=== PATIENT | female | born 1950 | race African-American/Black ===

== ENCOUNTER → 2021-05-02 12:40 | Outpatient (CLI) | payer MEDICARE, SELFPAY ==
--- NOTE | 2021-05-02 12:52 | US_ITS ---
STUDY: ULTRASOUND OF THE FEMALE PELVIS - COMPLETE REASON FOR EXAM: Female, 71 years old. Vaginal bleeding LMP: Patient is postmenopausal. TECHNIQUE: Transvaginal TECHNICAL QUALITY: Adequate. COMPARISON: None. FINDINGS: The patient is status post hysterectomy. The right ovary is non-visualized. The left ovary is non-visualized. There is no fluid in the cul-de-sac. US/Transvaginal Non- IMPRESSION: The ovaries were not visualized. Electronically Signed: Richard Barbosa MD at 15:48 EST , Service support ,
== END ==
LOC: OPUS 12:42 → US 12:48
PROVIDERS: PCP Internal Medicine; Visit Provider Urology
DX: N93.9 Abnormal uterine and vaginal bleeding, unspecified (principal)
CPT/HCPCS: 76830

== ENCOUNTER 2021-05-03 10:21 | Observation (INO) | payer MEDICARE, MEDICAID, SELFPAY ==
[2021-05-03] VITALS (9 sets, daily range): BP systolic 123–145; BP diastolic 75–90; PULSE 89–111; RESP 18–22; TEMP 36.7–37.2; O2SAT 93–94; BMI 33.8; BMI 32.0
--- NOTE | 2021-05-03 10:40 | EKG12_ITS ---
Test Reason : GEN ILLNESS Blood Pressure : / mmHG Vent. Rate : 107 BPM Atrial Rate : 107 BPM P-R Int : 134 ms QRS Dur : 076 ms QT Int : 338 ms P-R-T Axes : 029 -50 062 degrees QTc Int : 451 ms Sinus tachycardia Left axis deviation Low voltage QRS Inferior infarct , age undetermined Anterolateral infarct , age undetermined Abnormal ECG Confirmed by CHANDAN MCCORD, QUENTIN ([id number]), business editor NAVARRO PANIAGUA ([id number]) on 05/05/2021 11:39:23 AM Referred By: RICH Confirmed By:QUENTIN HAWLEY MD
--- NOTE | 2021-05-03 10:47 | EDS_ITS ---
HPI History of Present Illness Chief Complaint: General Illness Narrative Narrative: Patient presenting secondary to generalized illness. History was obtained via EMS as the patient has dementia, no family members are currently present. Patient apparently has not been acting well over the course of the last 3 days since she got her coronavirus booster. Patient has had fevers as high as 101. She has been having decreased p.o. intake and is generally weak. Patient has an old history of hypertension, CHF, heart disease, diabetes, hypothyroidism, and chronic kidney disease. Additional history was unable to be obtained from patient. [facility] Medical History (Updated 05/03/21 @ 11:[address] Saleem Gonzalez MD) Arthritis Atherosclerotic heart disease of [place] coronary artery without angina pectoris Back problem Bladder infection Cataracts, bilateral Cerebrovascular disease Chronic systolic (congestive) heart failure CKD (chronic kidney disease) stage 3, GFR 30-59 ml/min CVA (cerebral vascular accident) Dementia Depression Diabetes type 2, controlled Diabetic peripheral neuropathy Essential hypertension Gastroesophageal reflux disease GI problem Hearing problem History of gastrointestinal hemorrhage History of left heart catheterization (LHC) (~12/21/10) History of non-ST elevation myocardial infarction (NSTEMI) Hypothyroidism IBS (irritable bowel syndrome) Ischemic cardiomyopathy Mixed hyperlipidemia Old myocardial infarction Type 2 diabetes mellitus Home Medications aspirin 81 mg PO DAILY@0800 05/27/13 [History Last Taken Unknown] atorvastatin 40 mg PO QHS 05/27/13 [History Last Taken Unknown] clopidogrel 75 mg PO DAILY 05/27/13 [History Last Taken Unknown] docusate sodium 100 mg PO BID 05/27/13 [History Last Taken Unknown] levothyroxine 75 mcg PO DAILY 05/27/13 [History Last Taken Unknown] metoprolol tartrate 50 mg PO BID 05/27/13 [History Last Taken Unknown] pantoprazole 40 mg PO DAILY 05/27/13 [History Last Taken Unknown] spironolactone 25 mg PO BID 08/30/13 [History Last Taken Unknown] furosemide 40 mg tablet 40 mg PO BID tab 06/05/17 [History Last Taken Unknown] memantine 28 mg capsule sprinkle,extended release 24hr 28 mg PO Q24H 06/05/17 [History Last Taken Unknown] pen needle, diabetic 31 gauge x 5/16 #30 ea 06/05/17 [History Last Taken Unknown] calcium carb-vit D3-minerals 600 mg calcium-200 unit tablet 1 tab PO BID #60 ea 03/23/18 [Rx Last Taken Unknown] insulin lispro 100 unit/mL subcutaneous pen 20 unit SC QACLUNCH 03/19/19 [History Last Taken Unknown] insulin lispro 100 unit/mL subcutaneous pen 25 unit SC QACDINNER ml 03/19/19 [History Last Taken Unknown] insulin lispro 100 unit/mL subcutaneous pen 30 unit SC QACBREAK 03/19/19 [History Last Taken Unknown] potassium chloride 10 mEq tablet,extended release(part/cryst) 10 meq PO BID tab 03/19/19 [History Last Taken Unknown] insulin detemir U-100 100 unit/mL (3 mL) subcutaneous pen 31 unit SC BID ml 03/25/21 [History Last Taken Unknown] Allergy/AdvReac Type Severity Reaction Status Date / Time ibuprofen Allergy Other Verified 03/25/21 13:09 lisinopril Allergy Other Verified 05/03/21 10:23 Penicillins Allergy Itching Verified 03/25/21 13:09 tramadol HCl [From Ultram] Allergy Other Verified 03/25/21 13:09 Family History Mother Cancer Diabetes Father Cancer Surgical History frozen shoulder surgery H/O thyroidectomy Hx of cataract surgery Social History Smoking Status: Former smoker second hand exposure: No alcohol intake: never substance use type: does not use caffeine: Yes Type: carbonated beverages Number of servings: 1 ROS ROS ED Review of Systems ROS Unobtainable: due to mental status EXAM Physical Exam Const Vital Signs: 05/03/21 10:23 05/03/21 10:40 05/03/21 11:24 Temperature 98.1 F Temperature Source Oral Pulse Rate 111 H 103 H Respiratory Rate 20 H 18 Respiratory Effort Short of Breath Respiratory Pattern Normal Blood Pressure 145/80 H 132/88 H Blood Pressure Mean 101 102 Pulse Ox 93 93 Oxygen Delivery Method Room Air Room Air 05/03/21 11:38 05/03/21 11:40 Temperature 98.9 F Temperature Source Oral Pulse Rate 107 H Respiratory Rate 22 H Respiratory Effort Respiratory Pattern Blood Pressure 134/90 H Blood Pressure Mean 104 Pulse Ox 93 Oxygen Delivery Method Room Air Positive well nourished and well developed General Appearance ED: well developed and NAD HEENT Reports moist mucous membranes HEENT Narrative: Patient does potentially have some mild left-sided facial droop of unknown chronicity Eyes PERRL and EOMs intact bilaterally Neck supple Resp normal respiratory effort and clear to auscultation bilaterally Cardio Rate: other Other Details: 2+ radial pulses bilaterally symmetric, heart is tachycardic minimally and regular no murmurs. GI normal to inspection, nondistended, normoactive bowel sounds Extremity normal to inspection General Extremety ED: Negative for tenderness Neuro Neuro Narrative: Patient is awake and alert's, she will respond to commands and will answer yes/no questions but otherwise does not phonate. This is of unknown chronicity. She does not appear to have lateralizing motor or sensory deficits. Sensorium / Orientation: alert Skin no rashes or lesions noted MDM MDM MDM Narrative Medical decision making narrative: Patient presenting for evaluation secondary to generalized illness. Patient's did become available and was informed me that the patient has basically had decreased p.o. intake since Sunday, 6 days ago of last week. Patient did have her coronavirus booster towards the end of the week but has had continuously worsening function with decreased p.o. intake generalized fatigue and today she was actually unable to even get up. Patient's evaluation shows infiltrates on her chest x-ray, modest pulse ox at about 93% with dry mucous membranes. Patient CBC was grossly unremarkable, chemistry shows acute renal failure with BUN and creatinine at 41 and 3.6 significantly elevated from the patient's baseline. Patient also has a modestly elevated alkaline phosphatase at 120. Patient's coronavirus test was noted to be positive. Patient has multiple risk factors for worsening from her coronavirus and also has some evidence of endorgan damage with renal insufficiency. She was started on gentle hydration as she does have a history of heart disease with congestive heart failure. Patient was given a dose of Decadron. Patient be discussed with hospitalist. Lab Data Labs: Laboratory Results - last 24 hr 05/03/21 05/03/21 05/03/21 11:05 11:05 11:05 WBC 10.5 RBC 5.03 Hgb 14.0 Hct 43.1 MCV 85.7 MCH 27.8 MCHC 32.5 RDW Std Deviation 46.5 H RDW Coeff of Don 15.0 H Plt Count 203 MPV 11.9 Immature Gran % (Auto) 0.700 Neut % (Auto) 81.0 H Lymph % (Auto) 12.0 L [place] % (Auto) 6.2 Eos % (Auto) 0.0 Baso % (Auto) 0.1 Absolute Neuts (auto) 8.5 H Absolute Lymphs (auto) 1.25 Nucleated RBC % 0 PT 13.5 INR 1.1 APTT 26.3 Sodium 145 Potassium 4.2 Chloride 116 H Carbon Dioxide 19.0 L Anion Gap 10 BUN 41 H Creatinine 3.61 H Estim Creat Clear Calc 14.21 Est GFR (MDRD) Af Amer 16 L Est GFR (MDRD) Non-Af 13 L BUN/Creatinine Ratio 11.4 Glucose 216 H Lactic Acid Calcium 8.9 Total Bilirubin 0.50 AST 52 H ALT 36 Alkaline Phosphatase 120 H Total Protein 7.8 Albumin 2.3 L Globulin 5.5 H Albumin/Globulin Ratio 0.4 L 05/03/21 11:05 WBC RBC Hgb Hct MCV MCH MCHC RDW Std Deviation RDW Coeff of Don Plt Count MPV Immature Gran % (Auto) Neut % (Auto) Lymph % (Auto) [place] % (Auto) Eos % (Auto) Baso % (Auto) Absolute Neuts (auto) Absolute Lymphs (auto) Nucleated RBC % PT INR APTT Sodium Potassium Chloride Carbon Dioxide Anion Gap BUN Creatinine Estim Creat Clear Calc Est GFR (MDRD) Af Amer Est GFR (MDRD) Non-Af BUN/Creatinine Ratio Glucose Lactic Acid 2.0 Calcium Total Bilirubin AST ALT Alkaline Phosphatase Total Protein Albumin Globulin Albumin/Globulin Ratio Radiography Chest X-Ray - ED: 1 View, Read by ED Physician, Right Infiltrate and Left Infiltrate EKG Initial EKG: Attestation: I personally reviewed and interpreted this EKG as follows: (Sinus tachycardia with a rate of 107, inferolateral Q waves of unknown chronicity are noted, no evidence of pathologic ST segment deviation or T wave inversion normal intervals, no evidence of acute ischemia.) Discharge Plan Triage Chief Complaint: General Illness ED Provider: Saleem Gonzalez Dx/Rx/DC Orders Clinical Impression: COVID-19, Acute kidney injury Prescriptions: No Action furosemide 40 MG tablet 40 mg PO BID RF: 0 (DME) pen needle, diabetic [Comfort EZ Pen [place]] 31 gauge x 5/16 needle See Dose Instructions .ROUTE .MEDSUPPLY Qty: 30 RF: 0 memantine [Namenda XR] 28 mg cap,sprinkle,ER 24hr dose pack 28 mg PO Q24H RF: 0 insulin lispro [Humalog KwikPen Insulin] 100 unit/mL insulin pen 30 unit SC QACBREAK RF: 0 insulin lispro [Humalog KwikPen Insulin] 100 unit/mL insulin pen 20 unit SC QACLUNCH RF: 0 insulin lispro [Humalog KwikPen Insulin] 100 unit/mL insulin pen 25 unit SC QACDINNER RF: 0 potassium chloride 10 mEq tablet,ER particles/crystals 10 meq PO BID RF: 0 Levemir FlexTouch U-100 Insuln 100 unit/mL (3 mL) insulin pen 31 unit SC BID RF: 0 atorvastatin 40 MG tablet 40 mg PO QHS RF: 0 clopidogrel 75 MG tablet 75 mg PO DAILY RF: 0 aspirin 81 MG tablet 81 mg PO DAILY@0800 RF: 0 levothyroxine 75 MCG tablet 75 mcg PO DAILY RF: 0 pantoprazole 40 MG tablet 40 mg PO DAILY RF: 0 metoprolol tartrate 50 MG tablet 50 mg PO BID RF: 0 docusate sodium 100 MG capsule 100 mg PO BID RF: 0 spironolactone 25 MG tablet 25 mg PO BID RF: 0 calcium carb-vit D3-minerals 600 mg calcium-200 unit tablet 600 mg calcium- 200 unit tablet 1 tab PO BID Qty: 60 RF: 11 Primary Care Provider: Claude Lee Referrals: Claude Lee MD [Primary Care Provider] - Disposition Disposition: Acute Care Hospital [facility]
--- NOTE | 2021-05-03 11:25 | RAD_ITS ---
STUDY: X-RAY CHEST REASON FOR EXAM: Female, 71 years old. Cough TECHNIQUE: Single AP portable view of the chest. COMPARISON: Comparison is made with prior study dated 10/07/2011. FINDINGS: EKG electrodes are seen. Focal infiltrate in the left midlung and left lower lobe as well as at the right lung base. There is no demonstrated pleural abnormality. Normal size heart. Normal mediastinum and [place]. Normal visualized pulmonary arteries. There is atherosclerotic tortuosity of the aortic arch and descending thoracic aorta. There are diffuse degenerative changes of the visualized thoracic spine. Normal visualized ribs, clavicles, and shoulders. There is no demonstrated abnormality of the visualized soft tissue structures of the upper abdomen. RAD/Chest 1 View (Portable) IMPRESSION: Bilateral pulmonary infiltrates worse in the left hemithorax. Electronically Signed: Richard Barbosa MD at 11:56 EST , Service support ,
[2021-05-03 11:33] LABS: Absolute Lymphocyte Count 1.25 X10^3/uL (0.83-4.51); Absolute Neutrophil Count 8.5 X10^3/uL (2.0-7.7); Basophil# 0.01 X10^3/uL; Basophil% 0.1 % (0-1); Hematocrit 43.1 % (37-47); Lymphocyte # 1.25 X10^3/ul (0.83-4.51); Mean Corp Hgb Conc 32.5 g/dL (32-36); Mean Corpuscular Hgb 27.8 pg (27.0-32.0); Mean Corpuscular Volume 85.7 fL (81-99); Mean Platelet Vol. 11.9 fl (6.2-12.0); Monocyte# 0.65 X10^3/uL; Monocyte% 6.2 % (0-10); NRBC Flagged by Analyzer 0 % (0-5); Neutrophil # 8.48 X10^3/uL (2.7-7.7); Platelet Count 203 K/mm3 (150-450); RBC Distribution Width SD 46.5 fl (35.1-43.9); Red Blood Count 5.03 M/mm3 (4.2-5.4); White Blood Count 10.5 K/mm3 (4.4-11.0)
[2021-05-03] MEDS: Acetaminophen 500 MG Tablet 1000 MG PO (11:38)
[2021-05-03 11:41] LABS: International Normalized Ratio 1.1; Prothrombin Time (Protime)PT. 13.5 SECONDS (11.7-14.9)
[2021-05-03 11:42] LABS: Partial Thromboplast Time 26.3 Seconds (24.1-36.2)
[2021-05-03 11:47] LABS: ALB/GLOB Ratio 0.4 RATIO (0.9-2.4); AST(SGOT) 52 U/L (15-37); Alanine Aminotransfer ALT/SGPT 36 U/L (13-56); Albumin, Serum 2.3 g/dL (3.2-5.0); Alkaline Phosphatase 120 U/L (45-117); Anion Gap 10 (5-15); BUN 41 mg/dL (7-18); BUN/Creat Ratio 11.4 RATIO (10-20); Calcium,Total 8.9 mg/dL (8.5-10.1); Chloride 116 mmol/L (98-107); Creatinine, Serum 3.61 mg/dL (0.55-1.02); EST Glomerular Filtration Rate 13 mL/min (>60); Est Glom Filt Rate - Afr Amer 16 mL/min (>60); Estimated Creatinine Clearance 14.21 ml/min; Globulin 5.5 g/dL (2.2-4.2); Glucose 216 mg/dL (74-106); Potassium 4.2 mmol/L (3.5-5.1); Protein, Total 7.8 g/dL (6.4-8.2); Sodium Level 145 mmol/L (136-145)
--- NOTE | 2021-05-03 12:01 | NURSING ---
DR JOCELYNE VILLANUEVA
--- NOTE | 2021-05-03 12:28 | HP.PCM.HOS_ITS ---
HPI - General General Date of Admission: 05/03/21 Date of Service: 05/03/21 Chief Complaint: debility HPI Narrative FATIMAH DUNCAN, is a 71 F who presents with weakness. She was ill w cough 2 weeks ago, never tested for COVID 19. [place] better, then started feeling ill over this weekend with decreased appetite and being more withdrawn. She has been vaccinated for COVID 19 and received a booster over this past weekend. She presented to ED where her creatinine was 3.6. Last Cr was 1.8 in 2013. She was not hypoxic in ED, but received dexamethasone and 1 liter of IVF. [facility] Medical History (Updated 05/03/21 @ 12:[address] Prem Hull, DO) Arthritis Atherosclerotic heart disease of [place] coronary artery without angina pectoris Back problem Bladder infection Cataracts, bilateral Cerebrovascular disease Chronic systolic (congestive) heart failure CKD (chronic kidney disease) stage 3, GFR 30-59 ml/min CVA (cerebral vascular accident) Dementia Depression Diabetes type 2, controlled Diabetic peripheral neuropathy Essential hypertension Gastroesophageal reflux disease GI problem Hearing problem History of gastrointestinal hemorrhage History of left heart catheterization (LHC) (~12/21/10) History of non-ST elevation myocardial infarction (NSTEMI) Hypothyroidism IBS (irritable bowel syndrome) Ischemic cardiomyopathy Mixed hyperlipidemia Old myocardial infarction Type 2 diabetes mellitus Home Medications aspirin 81 mg PO DAILY@0800 05/27/13 [History Last Taken Unknown] atorvastatin 40 mg PO QHS 05/27/13 [History Last Taken Unknown] clopidogrel 75 mg PO DAILY 05/27/13 [History Last Taken Unknown] docusate sodium 100 mg PO BID 05/27/13 [History Last Taken Unknown] levothyroxine 75 mcg PO DAILY 05/27/13 [History Last Taken Unknown] metoprolol tartrate 50 mg PO BID 05/27/13 [History Last Taken Unknown] pantoprazole 40 mg PO DAILY 05/27/13 [History Last Taken Unknown] spironolactone 25 mg PO BID 08/30/13 [History Last Taken Unknown] furosemide 40 mg tablet 40 mg PO BID tab 06/05/17 [History Last Taken Unknown] memantine 28 mg capsule sprinkle,extended release 24hr 28 mg PO Q24H 06/05/17 [History Last Taken Unknown] pen needle, diabetic 31 gauge x 5/16 #30 ea 06/05/17 [History Last Taken Unknown] calcium carb-vit D3-minerals 600 mg calcium-200 unit tablet 1 tab PO BID #60 ea 03/23/18 [Rx Last Taken Unknown] insulin lispro 100 unit/mL subcutaneous pen 20 unit SC QACLUNCH 03/19/19 [History Last Taken Unknown] insulin lispro 100 unit/mL subcutaneous pen 25 unit SC QACDINNER ml 03/19/19 [History Last Taken Unknown] insulin lispro 100 unit/mL subcutaneous pen 30 unit SC QACBREAK 03/19/19 [History Last Taken Unknown] potassium chloride 10 mEq tablet,extended release(part/cryst) 10 meq PO BID tab 03/19/19 [History Last Taken Unknown] insulin detemir U-100 100 unit/mL (3 mL) subcutaneous pen 31 unit SC BID ml 03/25/21 [History Last Taken Unknown] Allergy/AdvReac Type Severity Reaction Status Date / Time ibuprofen Allergy Other Verified 03/25/21 13:09 lisinopril Allergy Other Verified 05/03/21 10:23 Penicillins Allergy Itching Verified 03/25/21 13:09 tramadol HCl [From Ultram] Allergy Other Verified 03/25/21 13:09 Family History Mother Cancer Diabetes Father Cancer Surgical History frozen shoulder surgery H/O thyroidectomy Hx of cataract surgery Social History Smoking Status: Former smoker second hand exposure: No alcohol intake: never substance use type: does not use caffeine: Yes Type: carbonated beverages Number of servings: 1 ROS Review of Systems ROS Unobtainable: due to encephalopathy Vital Signs Vital Signs Vital Signs: 05/03/21 10:23 05/03/21 10:40 05/03/21 11:24 Temperature 36.7 C Temperature Source Oral Pulse Rate 111 H 103 H Respiratory Rate 20 H 18 Respiratory Effort Short of Breath Respiratory Pattern Normal Blood Pressure 145/80 H 132/88 H Blood Pressure Mean 101 102 Pulse Ox 93 93 Oxygen Delivery Method Room Air Room Air 05/03/21 11:38 05/03/21 11:40 Temperature 37.2 C Temperature Source Oral Pulse Rate 107 H Respiratory Rate 22 H Respiratory Effort Respiratory Pattern Blood Pressure 134/90 H Blood Pressure Mean 104 Pulse Ox 93 Oxygen Delivery Method Room Air Weight Weight: 101 kg Body Mass Index (BMI) 33.8 Physical Exam Const Constitutional Narrative: listless. afebrile. HEENT normocephalic, head/scalp atraumatic, hearing grossly normal bilaterally and moist oral mucous membranes Eyes PERRL Resp normal respiratory effort, no retractions, no use of accessory muscles and clear to auscultation bilaterally Cardio regular rate, regular rhythm, S1 normal heart sound and S2 normal heart sound GI normal to inspection, nondistended, normoactive bowel sounds, soft to palpation, non-tender, non-distended and hepatosplenomegaly Extremity normal to inspection Skin no rashes or lesions noted and no wounds Neuro no focal motor deficits Neuro Narrative: no clonus. Results Lab / Micro Data Attestation: I reviewed the patient's lab results. Result Diagrams: 05/03/21 11:05 05/03/21 11:05 Labs: Laboratory Results - last 24 hr 05/03/21 11:05: WBC 10.5, RBC 5.03, Hgb 14.0, Hct 43.1, MCV 85.7, MCH 27.8, MCHC 32.5, RDW Std Deviation 46.5 H, RDW Coeff of Don 15.0 H, Plt Count 203, MPV 11.9, Immature Gran % (Auto) 0.700, Neut % (Auto) 81.0 H, Lymph % (Auto) 12.0 L, [place] % (Auto) 6.2, Eos % (Auto) 0.0, Baso % (Auto) 0.1, Absolute Neuts (auto) 8.5 H, Absolute Lymphs (auto) 1.25, Nucleated RBC % 0 05/03/21 11:05: PT 13.5, INR 1.1, APTT 26.3 05/03/21 11:05: Sodium 145, Potassium 4.2, Chloride 116 H, Carbon Dioxide 19.0 L , Anion Gap 10, BUN 41 H, Creatinine 3.61 H, Estim Creat Clear Calc 14.21, Est GFR (MDRD) Af Amer 16 L, Est GFR (MDRD) Non-Af 13 L, BUN/Creatinine Ratio 11.4, Glucose 216 H, Calcium 8.9, Total Bilirubin 0.50, AST 52 H, ALT 36, Alkaline Phosphatase 120 H, Total Protein 7.8, Albumin 2.3 L, Globulin 5.5 H, Albumin/Globulin Ratio 0.4 L 05/03/21 11:05: Lactic Acid 2.0 Micro: Microbiology 05/03/21 10:55 Mucosa - Nose Influenza Types A,B Direct FA (TOVA) - Final 05/03/21 10:55 Nasal Secretion SARS-CoV-2 Antigen (Rapid) - Final SARS-CoV-2 (COVID 19) Radiology Impression Chest X-Ray 05/03/21 11:25 IMPRESSION: Bilateral pulmonary infiltrates worse in the left hemithorax. Electronically Signed: Richard Barbosa MD at 11:56 EST , Service support , Assessment & Plan Assessment/Plan (1) COVID-19: (2) Debility: (3) Metabolic encephalopathy: PLAN: 1. COVID 19 vaccinated and boosted onset unclear, may have been 2 weeks ago, or this past weekend not hypoxic no treatment indicated at this time she received dexamethasone in ED, this will not be continued does not need remdesivir given lack of hypoxia 2. Debility poor baseline performance status may be due to COVID PT OT 3. Metabolic encephalopathy monitor avoid potentiating medications multifactorial: dementia, COVID, HELENA, etc. 4. Elevated creatinine cannot determine if HELENA since no recent Cr readily available receiving IVF in ED monitor 5. VTE prophylaxis: not indicated given observation status. DW with pt's significant other/direct care counselor. Charges/Coding Visit Charges OBSV E&M: 21335 Initial observation care L3
[2021-05-03] MEDS: 0.9% Normal Saline 1,000 ML 150 ML IV (12:57)
[2021-05-03] MEDS: dexAMETHasone 4 MG/ML Vial 6 MG IV (12:57)
--- NOTE | 2021-05-03 13:04 | NURSING ---
318 JOCELYNE VÁSQUEZ, HELENA, DECLINING FUNCTIONAL STATUS
--- NOTE | 2021-05-03 15:07 | PCS.PANDOC ---
PANDEMIC DOCUMENTATION INITIATED: Date: 05/03/2021 Time [id number]
[2021-05-03 15:25] LABS: Reflex Lactate? Y
[2021-05-03 17:01] LABS: Lactic Acid 2.6 mmol/L (0.4-1.9)
[2021-05-03] MEDS: Insulin Lispro 100 UNIT/ML INSULN.PEN 25 UNIT SC (17:34)
[2021-05-03] MEDS: Calcium Carb/Vitamin D 1 TABLET Tablet PO (17:35)
[2021-05-03 21:00] LABS: Bedside Glucose 226 mg/dL (70-110)
[2021-05-03] MEDS: Docusate Sodium 100 MG Capsule PO (21:42)
[2021-05-03] MEDS: Atorvastatin Calcium 40 MG Tablet PO (21:43)
[2021-05-03] MEDS: Metoprolol Tartrate 50 MG Tablet PO (21:43)
[2021-05-03] MEDS: Memantine Hydrochloride 10 MG Tablet PO (21:43)
[2021-05-03 21:55] LABS: Bedside Glucose 187 mg/dL (70-110)
[2021-05-04] VITALS (18 sets, daily range): BP systolic 121–143; BP diastolic 49–104; PULSE 64–73; RESP 16–20; TEMP 36.4–36.9; O2SAT 2–96
[2021-05-04 07:12] LABS: Anion Gap 10 (5-15); BUN 48 mg/dL (7-18); BUN/Creat Ratio 16.1 RATIO (10-20); Calcium,Total 8.4 mg/dL (8.5-10.1); Chloride 111 mmol/L (98-107); Creatinine, Serum 2.99 mg/dL (0.55-1.02); EST Glomerular Filtration Rate 16 mL/min (>60); Est Glom Filt Rate - Afr Amer 20 mL/min (>60); Estimated Creatinine Clearance 17.77 ml/min; Glucose 161 mg/dL (74-106); Potassium 4.7 mmol/L (3.5-5.1); Sodium Level 141 mmol/L (136-145)
[2021-05-04] MEDS: Calcium Carb/Vitamin D 1 TABLET Tablet PO (09:49)
[2021-05-04] MEDS: Clopidogrel Bisulfate 75 MG Tablet PO (09:49)
[2021-05-04] MEDS: Aspirin E.C. 81 MG Tablet PO (09:49)
[2021-05-04] MEDS: Memantine Hydrochloride 10 MG Tablet PO ×2 (09:49→21:38)
[2021-05-04] MEDS: Levothyroxine 75 MCG Tablet PO (09:50)
[2021-05-04] MEDS: Pantoprazole Sodium 40 MG Tablet PO (09:50)
[2021-05-04] MEDS: Docusate Sodium 100 MG Capsule PO (09:50)
[2021-05-04] MEDS: Metoprolol Tartrate 50 MG Tablet PO ×2 (09:50→21:38)
--- NOTE | 2021-05-04 10:30 | CASEMGMT ---
Addendum entered by Leila Jose 05/04/21 16:10: Jeff states he is looking for the DPOA papers and he will bring in as soon as he finds them. Spoke to Chante Murphy TRACK REPAIR WORKER regarding pt. Addendum entered by Leila Jose 05/04/21 15:52: Raquel Bill, son [phone]. Addendum entered by Leila Jose 05/04/21 15:50: Spoke with hospitalist, pt needs 2 assist and will need SNF. TC to pt sig other. He states pt son Raquel Bill is DPOA. He lives out of state and is a preacher at a radio station so will need to leave message. TC to him for MEEHAN form and regarding SNF. Left message and made aware that CM will follow up tomorrow. No DPOA papers on file at [facility]. Addendum entered by Leila Jose 05/04/21 11:11: TC back from Jeff, he states pt is active with [facility] and her name is Valerie. Notified Juventino Vázquez MSW. Original Note: CARLOS EDUARDO RITTER Assessment: Face to Face with pt for initial transition planning/care coordination assessment. CARLOS EDUARDO RITTER introduced self and role at [facility], pt voices understanding and consents to assessment. Pt is A/O x2. Pt oriented to place and self only. Pt agreeable to this CARLOS EDUARDO RITTER calling her earrings fabricator, sig other Jeff for assessment questions. Pt states she does not know all of the answers. Pt did state she wanted to return home. TC to Jeff for initial transition planning/care coordination assessment. CARLOS EDUARDO RITTER introduced self and role at [facility], pt voices understanding and consents to assessment. Care providers, pharmacy, and demographics verified/updated. Admitting Dx: COVID, HELENA, declining functional status PCP:Jesus Specialists:Claire, cardio; Testrake, pod Preferred Pharmacy: [facility] Prescription Benefit: yes LW/HPOA: Jeff denies pt having a LW/DPOA and denies need for info regarding AD. LNOK: Jeff Oswald, care transitions nurse, sig other; Sheri Jaymie, sister Living Arrangements: Pt lives with Jeff at [facility] in the independent living. Pt uses elevator to get to her apt. Jeff states he assists pt in all ADL/IADL's. Transportation: Jeff provides transportation to patient. DME/HHC/SNF: Pt has a straight cane, quad cane, rollator, FWW, shower chair and grab bars in the tub. He states there is a lady that comes and asks questions, she does not provide any care. He is uncertain where she comes from but once he is home, he will call this RN CM back. He states pt has had HHC in the past but is unsure of the name of the agency. Call back info given. He denies pt having a hx of SNF. Pt was first tested for COVID at [facility]. Jeff is going to go get tested but denies having symptoms. He states they are able to quarantine from each other by being in different rooms. He states he can wear masks when he needs to care for her. He is able to provide groceries and supplies. Discussed if pt needs home O2, local in network DME companies, he chooses [employer]. Jeff states no concerns with going home at time of dc. He would like pt to come home and not go to a SNF. Pt has not yet worked with therapy. CM to follow. Advised pt to ask CM if any further question/concerns/needs arise, voices understanding. Pt Goal: Home, pending therapy eval Plan: Home, pending therapy eval
[2021-05-04] MEDS: dexAMETHasone 4 MG Tablet 6 MG PO (10:43)
[2021-05-04 11:41] LABS: Bedside Glucose 155 mg/dL (70-110)
--- NOTE | 2021-05-04 11:45 | CASEMGMT ---
Social Work Note ADAM updated that pt has CM through [facility] named Valerie. ADAM placed a call to [facility] and was transferred to [place]. ADAM updated Valerie on pt's admission to [facility] and discharge plan of home at this time. Valerie states understanding. Kyra Vázquez STERILIZATION TECH, OUTBOUND TELEMARKETING REPRESENTATIVE
--- NOTE | 2021-05-04 13:16 | PCM.PN.HOSP ---
Subjective Subjective Noted when she goes to sleep, her oxygen drops. When wakes up, oxygen improved. Placed on oxygen. Overall, feeling better. Objective Data Objective Data Vital Signs: Vital Signs Temp Pulse Resp BP Pulse Ox 36.6 C 64 18 121/49 H 94 05/04/21 12:22 05/04/21 12:22 05/04/21 12:22 05/04/21 12:22 05/04/21 12:22 Oxygen Flow Rate (L/min) 2 Oxygen Delivery Method Nasal Cannula Weight: 98.3 kg Body Mass Index (BMI) 32.0 Intake & Output: Intake and Output for Last 24 Hours 05/02/21 05/03/21 05/04/21 23:59 23:59 23:59 Intake Total 1900 / 1900 100 / 100 Output Total 100 / 100 900 / 900 Balance 1800 / 1800 -800 / -800 Lab / Micro Data Result Diagrams: 05/03/21 11:05 05/04/21 06:15 Labs: Laboratory Results - last 24 hr 05/03/21 16:11: Lactic Acid 2.6 H* 05/03/21 17:32: POC Glucose 226 H 05/03/21 21:36: POC Glucose 187 H 05/04/21 06:15: Sodium 141, Potassium 4.7, Chloride 111 H, Carbon Dioxide 20.0 L, Anion Gap 10, BUN 48 H, Creatinine 2.99 H, Estim Creat Clear Calc 17.77, Est GFR (MDRD) Af Amer 20 L, Est GFR (MDRD) Non-Af 16 L, BUN/Creatinine Ratio 16.1, Glucose 161 H, Calcium 8.4 L 05/04/21 11:33: POC Glucose 155 H Micro: Microbiology 05/03/21 23:25 Urine Catheter - Catheter Urine Culture - Preliminary GNR lactose electrical tech 05/03/21 10:55 Mucosa - Nose Influenza Types A,B Direct FA (TOVA) - Final 05/03/21 10:55 Nasal Secretion SARS-CoV-2 Antigen (Rapid) - Final SARS-CoV-2 (COVID 19) Physical Exam Const alert Resp normal respiratory effort, no retractions, no use of accessory muscles and clear to auscultation bilaterally Cardio regular rate, regular rhythm, S1 normal heart sound and S2 normal heart sound Assessment & Plan Assessment/Plan (1) COVID-19: (2) Debility: (3) Metabolic encephalopathy: PLAN: 1. COVID 19 vaccinated and boosted onset unclear, may have been 2 weeks ago, or this past weekend hypoxic, but may be due to VIANCA resume dexamethasone does not need remdesivir given lack of hypoxia 2. Debility poor baseline performance status may be due to COVID PT OT 3. Metabolic encephalopathy monitor avoid potentiating medications multifactorial: dementia, COVID, HELENA, etc. 4. Elevated creatinine cannot determine if HELENA since no recent Cr readily available receiving IVF in ED monitor 5. VTE prophylaxis: not indicated given observation status. Charges/Coding Visit Charges Inpatient E&M: 86250 Subs Hosp L2
--- NOTE | 2021-05-04 13:19 | US_ITS ---
STUDY: RENAL ULTRASOUND - COMPLETE REASON FOR EXAM: Female, 71 years old. HELENA TECHNIQUE: Ultrasound evaluation of the kidneys was performed with real-time and static vu-scale imaging. COMPARISON: None. FINDINGS: RIGHT KIDNEY: Normal location of the right kidney, which is normal in size. The right kidney measures 13.6 x 5.6 x 6.5 cm. There is a normal cortex of the right kidney. The renal cortex measures 1.3 cm. There are multiple cysts the largest measuring 4.6 x 4.1 x 4.4 cm. There are no right renal calculi. There is no right hydronephrosis. DISTAL RIGHT URETER: There is non-visualization of the distal right ureter. There is no demonstrated right ureterovesical junction calculus. There is a visualized right ureteral jet. LEFT KIDNEY: Normal location of the left kidney, which is normal in size. The left kidney measures 12.3 x 6.2 x 6.2 cm. There is a normal cortex of the left kidney. The renal cortex measures 1.1 cm. There are multiple cysts the largest measuring 2.6 x 2.7 x 2.5 cm. There are no left renal calculi. There is no left hydronephrosis. DISTAL LEFT URETER: There is non-visualization of the distal left ureter. There is no demonstrated left ureterovesical junction calculus. There is a visualized left ureteral jet. Diffusely increased cortical echoes within the kidneys which may be consistent with nonspecific renal parenchymal disease BLADDER: Bladder not visualized due to indwelling THOMPSON catheter. 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 . No evidence for renal obstruction Multiple bilateral cysts Electronically Signed: Akil Narayanan MD at 17:15 EST , Service support ,
[2021-05-04] MEDS: Insulin Lispro 100 UNIT/ML INSULN.PEN 25 UNIT SC (16:16)
--- NOTE | 2021-05-04 16:30 | NURSING ---
kidney ultrasound completed in room
[2021-05-04 17:20] LABS: Bedside Glucose 268 mg/dL (70-110)
[2021-05-04] MEDS: Atorvastatin Calcium 40 MG Tablet PO (21:38)
[2021-05-04 22:05] LABS: Bedside Glucose 263 mg/dL (70-110)
[2021-05-05] VITALS (9 sets, daily range): BP systolic 135–142; BP diastolic 57–78; PULSE 63–72; RESP 18–20; TEMP 36.5–36.6; O2SAT 91–95
[2021-05-05 08:11] LABS: ALB/GLOB Ratio 0.3 RATIO (0.9-2.4); AST(SGOT) 36 U/L (15-37); Alanine Aminotransfer ALT/SGPT 39 U/L (13-56); Albumin, Serum 1.8 g/dL (3.2-5.0); Alkaline Phosphatase 97 U/L (45-117); Anion Gap 9 (5-15); BUN 57 mg/dL (7-18); BUN/Creat Ratio 21.2 RATIO (10-20); Calcium,Total 8.1 mg/dL (8.5-10.1); Chloride 108 mmol/L (98-107); Creatinine, Serum 2.69 mg/dL (0.55-1.02); EST Glomerular Filtration Rate 19 mL/min (>60); Est Glom Filt Rate - Afr Amer 22 mL/min (>60); Estimated Creatinine Clearance 19.76 ml/min; Globulin 5.2 g/dL (2.2-4.2); Glucose 248 mg/dL (74-106); Potassium 4.5 mmol/L (3.5-5.1); Sodium Level 137 mmol/L (136-145)
[2021-05-05] MEDS: Clopidogrel Bisulfate 75 MG Tablet PO (09:13)
[2021-05-05] MEDS: dexAMETHasone 4 MG Tablet 6 MG PO (09:13)
[2021-05-05] MEDS: Metoprolol Tartrate 50 MG Tablet PO (09:13)
[2021-05-05] MEDS: Memantine Hydrochloride 10 MG Tablet PO (09:13)
[2021-05-05] MEDS: Pantoprazole Sodium 40 MG Tablet PO (09:13)
[2021-05-05] MEDS: Calcium Carb/Vitamin D 1 TABLET Tablet PO (09:13)
[2021-05-05] MEDS: Levothyroxine 75 MCG Tablet PO (09:13)
[2021-05-05] MEDS: Aspirin E.C. 81 MG Tablet PO (09:13)
--- NOTE | 2021-05-05 11:27 | CASEMGMT ---
CARLOS EDUARDO RITTER NOTE: Intro role of CM to pt's son, Rowena García form explained re: Observation status for treatment of COVID, acute kidney injury, declining functional status . Explained hospitalization will be paid per her insurance policy for Outpatient billing and condition will continue to be evaluated for Inpt necessity. Also let pt know that [facility] sends paper in the billing packet with their phone number if questions arise. Son verbalizes understanding and does not have any questions. Form signed via telephone signature by this CARLOS EDUARDO RITTER and CARLOS EDUARDO Mora, copy made and placed in chart, and original placed in pt's room w/her belongings. Bennett GERONIMON CARLOS EDUARDO RITTER
[2021-05-05] MEDS: Insulin Lispro 100 UNIT/ML INSULN.PEN 20 UNIT SC (11:54)
--- NOTE | 2021-05-05 12:33 | CASEMGMT ---
Social Work Note ADAM updated that recommendation is now SNF as pt was assist of two for PT/OT. SW in to speak with pt. ADAM introduced self and role at [facility]. Pt is alert and orientated x2. Pt knew person and place, but not time. SW spoke with pt about recommendation. Patient was provided a list of SNF providers including quality and resource use data and consistent with the patient?s preferred geographic region, medical needs, and insurance network. SW informed pt that the only SNF in [facility] that is accepting COVID+ pt's is [facility]. SW asked pt if she was agreeable to referral being sent to [facility] and pt states yes. SW informed pt that this worker will also call her son Raquel, who is HCPOA, to update. Pt states understanding. ADAM placed a call to Marivel at [facility] regarding referral. SW faxed referral to [facility]. SW receive email from Marivel at [facility] stating they can accept pt today, prefers transportation to be arranged before 3:00pm. ADAM placed a call to pt's son Raquel Bill. (HCPOA is on file at [facility]). ADAM introduced self and role at [facility]. ADAM informed Raquel that recommendation is SNF at discharge as pt was assist of two and [facility] cannot provide two person assist. Raquel states he spoke with [facility] who wanted pt to return home until after the holidays and then pt can go to rehab. ADAM spoke with Raquel about how the recommendation is SNF and pt still has 15 days before the Holiday so pt could be back at home before then. Raquel states he wants whatever is best for pt. ADAM explained Medicare Coverage at SNF to Raquel. ADAM informed Raquel that the only SNF in [facility] accepting COVID+ pt is [facility]. Raquel agreeable to [facility]. ADAM informed Raquel that [facility] has accepted pt and pt will be discharged there today. Raquel asked that this worker also call [facility] to speak to him about SNF. ADAM updated physician. ADAM placed a call to pt's significant other Jeff. ADAM introduced self and role at [facility]. ADAM spoke with Jeff about recommendation of SNF. Jeff states he wants pt home for the Holidays. ADAM informed Jeff that pt has 15 days before the Holidays, pt could go to SNF for 15 days and then be back home for the Holidays. Jeff states he plans on taking pt home on May 13. ADAM informed Jeff that it just depends on how pt does with PT/OT when she is at SNF to when pt can safely leave the SNF. ADAM informed Jeff that the only SNF in [facility] that accepts COVID+ pt is [facility]. Jeff states he is familiar with [facility] and knows where it is located at. ADAM informed Jeff that [facility] has accepted pt and pt will be discharged there today. ADAM asked Jeff about any Mental Health Treatment for pt and Jeff states pt has had no Mental Health Treatment. ADAM completed PAS/RR. Plan: [facility] skilled under PAS/RR stay Kyra Vázquez PEDIATRIC CLINICAL NURSE SPECIALIST, TNT LINE SUPERVISOR
[2021-05-05 12:45] LABS: Bedside Glucose 288 mg/dL (70-110)
--- NOTE | 2021-05-05 13:53 | PCM.TXEXTCAR ---
Diet 05/03/21 13:46 Diet: Consistent Carb - Calorie Controlled Food consistency:: Easy to Chew Liquid Consistency:: Regular/Thin Dietary Modifications:: No Added Salt Type of Dietary Supplement:: Glucerna Shake Is pt able to select menu?: No Diet Comments: Pt has no teeth-soft foods please; 120ml glucerna shake TID w/ meals How many daily calories?: 2000 calorie Routine Orders/Code Status Routine Lab Work: CBC and BMP Code Status: Full Code Therapies Weight Bearing: Full weight bearing Extremity Affected:: Bilateral Lower Physical Therapy: Eval and Treat Occupational Therapy: Eval and Treat Problem/Diagnosis (1) COVID-19: Status: Acute (2) Debility: Status: Acute (3) Metabolic encephalopathy: Status: Acute Allergies/Procedures Done in Hospital Allergies ibuprofen Allergy (Verified 05/03/21 14:11) Itching lisinopril Allergy (Verified 05/03/21 10:23) Other Penicillins Allergy (Verified 03/25/21 13:09) Itching tramadol HCl [From Ultram] Allergy (Verified 03/25/21 13:09) Other Procedures: None Type of Care/Length of Stay Estimated LOS: Convalescent Care Less Than 30 days Type of Care Needed: Skilled Rehab Potential: Fair Prognosis: Good Additional Orders/Day of Discharge Day of Discharge: 05/05/21 Dietary and Speech Recommendations Dietitian Recommendations/Changes: Will adjust diet to 2000 calorie; carbohydrate-controlled/no added salt.; soft foods due to no teeth. Will add 120ml glucerna shake TID w/ meals. Liberalize diet and adjust ONS as needed once intake established with meals. Discharge Plan Admission Admit Date/Time: 05/03/21 12:24 Primary Reason for Your Visit: COVID 19 Attending Provider: Prem Hull Primary Care Provider: Claude Lee Discharge Orders/Prescriptions Prescriptions: New dexamethasone 4 mg Tablet 6 mg PO DAILY Qty: 0 RF: 0 Continued (DME) pen needle, diabetic [Comfort EZ Pen [place]] 31 gauge x 5/16 needle See Dose Instructions .ROUTE .MEDSUPPLY Qty: 30 RF: 0 memantine [Namenda XR] 28 mg cap,sprinkle,ER 24hr dose pack 28 mg PO Q24H RF: 0 insulin lispro [Humalog KwikPen Insulin] 100 unit/mL insulin pen 30 unit SC QACBREAK RF: 0 insulin lispro [Humalog KwikPen Insulin] 100 unit/mL insulin pen 20 unit SC QACLUNCH RF: 0 insulin lispro [Humalog KwikPen Insulin] 100 unit/mL insulin pen 25 unit SC QACDINNER RF: 0 atorvastatin 40 MG tablet 40 mg PO QHS RF: 0 clopidogrel 75 MG tablet 75 mg PO DAILY RF: 0 aspirin 81 MG tablet 81 mg PO DAILY@0800 RF: 0 levothyroxine 75 MCG tablet 75 mcg PO DAILY RF: 0 pantoprazole 40 MG tablet 40 mg PO DAILY RF: 0 metoprolol tartrate 50 MG tablet 50 mg PO BID RF: 0 docusate sodium 100 MG capsule 100 mg PO BID RF: 0 calcium carb-vit D3-minerals 600 mg calcium-200 unit tablet 600 mg calcium- 200 unit tablet 1 tab PO BID Qty: 60 RF: 11 Changed Levemir FlexTouch U-100 Insuln 100 unit/mL (3 mL) insulin pen 40 unit SC BID Qty: 0 RF: 0 Discontinued furosemide 40 MG tablet 40 mg PO DAILY RF: 0 potassium chloride 10 mEq tablet,ER particles/crystals 10 meq PO BID RF: 0 spironolactone 25 MG tablet 25 mg PO BID RF: 0 Januvia 25 mg Tablet 25 mg PO DAILY RF: 0 Jardiance 10 mg Tablet 10 mg PO DAILY RF: 0 nitrofurantoin 100 mg Capsule 100 mg PO BID RF: 0 Referrals / Follow Up: Claude Lee MD [Primary Care Provider] - Within 2 Weeks Disposition Disposition (needs filled in before D/C Order can be placed): Shelter Facility
--- NOTE | 2021-05-05 14:00 | DS.PCM_ITS ---
Providers Date of Admission: 05/03/21 Primary Care Physician: Dr. Claude Lee MD Reason For Visit: COVID, HELENA, DECLINING FUNCTIONAL STATUS Diagnosis Discharge Diagnosis (1) COVID-19: Status: Acute Code(s): U07.1 - COVID-19 (2) Debility: Status: Acute Code(s): R53.81 - Other malaise (3) Metabolic encephalopathy: Status: Acute Code(s): G93.41 - Metabolic encephalopathy (4) HELENA (acute kidney injury): Status: Acute Code(s): N17.9 - Acute kidney failure, unspecified Medications at Discharge Home Medications aspirin 81 mg PO DAILY@0800 05/27/13 atorvastatin 40 mg PO QHS 05/27/13 clopidogrel 75 mg PO DAILY 05/27/13 docusate sodium 100 mg PO BID 05/27/13 levothyroxine 75 mcg PO DAILY 05/27/13 metoprolol tartrate 50 mg PO BID 05/27/13 pantoprazole 40 mg PO DAILY 05/27/13 memantine 28 mg capsule sprinkle,extended release 24hr 28 mg PO Q24H 06/05/17 pen needle, diabetic 31 gauge x 5/16 #30 ea 06/05/17 calcium carb-vit D3-minerals 600 mg calcium-200 unit tablet 1 tab PO BID #60 ea 03/23/18 insulin lispro 100 unit/mL subcutaneous pen 20 unit SC QACLUNCH 03/19/19 insulin lispro 100 unit/mL subcutaneous pen 25 unit SC QACDINNER ml 03/19/19 insulin lispro 100 unit/mL subcutaneous pen 30 unit SC QACBREAK 03/19/19 Levemir FlexTouch U-100 Insuln 40 unit SC BID #0 ml 05/05/21 dexamethasone 6 mg PO DAILY #0 tab 05/05/21 Hospital Course Operations None Procedures None Summary of Care Provided Minutes Spent on Discharge: 32 Hospital Course: 71-year-old female presents with weakness and confusion. 1. COVID 19 vaccinated and boosted onset unclear, may have been 2 weeks ago, or this past weekend hypoxic, but may be due to VIANCA resume dexamethasone does not need remdesivir given lack of hypoxia 2. Debility poor baseline performance status may be due to COVID PT OT [facility] upon discharge 3. Metabolic encephalopathy monitor avoid potentiating medications multifactorial: dementia, COVID, HELENA, etc. 4. HELENA follow up nephrology as outpt. improving continue to hold diuretics. Physical Exam Const Constitutional Narrative: up in chair. afebrile. Resp normal respiratory effort, no retractions, no use of accessory muscles and clear to auscultation bilaterally Cardio regular rate, regular rhythm, S1 normal heart sound and S2 normal heart sound GI normal to inspection, nondistended, normoactive bowel sounds and soft to palpation Weight / BMI Weight Weight: 98.3 kg Body Mass Index (BMI) 32.0 ABG / Lab / Microbiology Data Result Diagrams: 05/03/21 11:05 05/05/21 07:24 Laboratory: Laboratory Results - last 24 hr 05/04/21 16:14: POC Glucose 268 H 05/04/21 21:36: POC Glucose 263 H 05/05/21 07:24: Sodium 137, Potassium 4.5, Chloride 108 H, Carbon Dioxide 20.0 L , Anion Gap 9, BUN 57 H, Creatinine 2.69 H, Estim Creat Clear Calc 19.76, Est GFR (MDRD) Af Amer 22 L, Est GFR (MDRD) Non-Af 19 L, BUN/Creatinine Ratio 21.2 H , Glucose 248 H, Calcium 8.1 L, Total Bilirubin 0.50, AST 36, ALT 39, Alkaline Phosphatase 97, Total Protein 7.0, Albumin 1.8 L, Globulin 5.2 H, Albumin/Globulin Ratio 0.3 L 05/05/21 11:53: POC Glucose 288 H Microbiology: Microbiology 05/03/21 11:50 Blood Culture (Wb) - Anticubital Left Blood Culture - Preliminary No growth in 48 hours. 05/03/21 11:05 Blood Culture (Wb) - Right Forearm Blood Culture - Preliminary No growth in 48 hours. 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 . No evidence for renal obstruction Multiple bilateral cysts Electronically Signed: Akil Narayanan MD at 17:15 EST , Service support , Meaningful Use Info Meaningful Use Diagnoses (Choose all that apply): None applicable Discharge Plan Admission Admit Date/Time: 05/03/21 12:24 Primary Reason for Your Visit: COVID 19 Attending Provider: Prem Hull Primary Care Provider: Claude Lee Discharge Orders/Prescriptions Prescriptions: New dexamethasone 4 mg Tablet 6 mg PO DAILY Qty: 0 RF: 0 Continued (DME) pen needle, diabetic [Comfort EZ Pen [place]] 31 gauge x 5/16 needle See Dose Instructions .ROUTE .MEDSUPPLY Qty: 30 RF: 0 memantine [Namenda XR] 28 mg cap,sprinkle,ER 24hr dose pack 28 mg PO Q24H RF: 0 insulin lispro [Humalog KwikPen Insulin] 100 unit/mL insulin pen 30 unit SC QACBREAK RF: 0 insulin lispro [Humalog KwikPen Insulin] 100 unit/mL insulin pen 20 unit SC QACLUNCH RF: 0 insulin lispro [Humalog KwikPen Insulin] 100 unit/mL insulin pen 25 unit SC QACDINNER RF: 0 atorvastatin 40 MG tablet 40 mg PO QHS RF: 0 clopidogrel 75 MG tablet 75 mg PO DAILY RF: 0 aspirin 81 MG tablet 81 mg PO DAILY@0800 RF: 0 levothyroxine 75 MCG tablet 75 mcg PO DAILY RF: 0 pantoprazole 40 MG tablet 40 mg PO DAILY RF: 0 metoprolol tartrate 50 MG tablet 50 mg PO BID RF: 0 docusate sodium 100 MG capsule 100 mg PO BID RF: 0 calcium carb-vit D3-minerals 600 mg calcium-200 unit tablet 600 mg calcium- 200 unit tablet 1 tab PO BID Qty: 60 RF: 11 Changed Levemir FlexTouch U-100 Insuln 100 unit/mL (3 mL) insulin pen 40 unit SC BID Qty: 0 RF: 0 Discontinued furosemide 40 MG tablet 40 mg PO DAILY RF: 0 potassium chloride 10 mEq tablet,ER particles/crystals 10 meq PO BID RF: 0 spironolactone 25 MG tablet 25 mg PO BID RF: 0 Januvia 25 mg Tablet 25 mg PO DAILY RF: 0 Jardiance 10 mg Tablet 10 mg PO DAILY RF: 0 nitrofurantoin 100 mg Capsule 100 mg PO BID RF: 0 Referrals / Follow Up: Claude Lee MD [Primary Care Provider] - Within 2 Weeks Disposition Disposition (needs filled in before D/C Order can be placed): Group Home Facility Charges/Coding Visit Charges OBSV E&M: 78686 Observation care discharge
--- NOTE | 2021-05-05 14:02 | CHAPLAIN ---
Type of Pastoral Visit ___ Initial Visit ___ Follow-up Visit ___ On-call Visit ___ General Patient Visit ___ Spiritual Assessment ___ Family Conference ___ Bereavement ___ Rapid Response ___ Code Blue _x__ Other (describe below) Pastoral Care Referral From ___ Patient ___ Family ___ Nurse ___ Physician ___ Valet Attendant ___ Freight Booker _x__ Other (describe below) Sacrament/Intervention ___ Active listening ___ Anointing ___ Adventist ___ Bereavement ___ Communion ___ Graciela exploration ___ ___ Life review ___ Prayer ___ Reconciliation ___ Sacrament of Sick ___ Supportive presence ___ Wedding _x__ Other (describe below) Pastoral Comments phone call made into this isolation room was not answered or the phone was disconnected
--- NOTE | 2021-05-05 14:21 | CASEMGMT ---
Social Work Note ADAM faxed completed discharge paperwork to [facility] including transfer to extended care facility, signed medication list, any scripts, COVID test/tool, PAS/RR. Original in SNF folder and copy on pt's chart. ADAM completed PAS/RR in HENS. Original in SNF folder and copy on pt's chart. ADAM spoke with RN, pt to transport via cot. SW accessed trip assist and transportation arranged for 2:45pm via cot. SW completed transportation form and placed on SNF folder and copy on pt's chart. ADAM updated RN on transportation time. ADAM placed a call and emailed Marivel in admissions at [facility] and left message updating her on transportation time. ADAM placed a call to both pt's significant other Jeff and pt's son Raquel and updated them both on discharge and transportation time. Both state understanding. Plan: [facility] skilled under PAS/RR stay with Physician's transporting pt via cot at 2:45pm Kyra Vázquez MSW, BOILER TENDERS SUPERVISOR
--- NOTE | 2021-05-05 15:47 | CASEMGMT ---
Social Work Note SW placed a call to [facility] and spoke with covering CM Jacinda. SW updated Jacinda that pt was discharged to [facility] SNF today. Jacinda states understanding, states will let pt's CM know. Kyra Vázquez WORKERS COMPENSATION CLAIMS ANALYST, BOILERS INSPECTOR
[2021-05-05 16:30] LABS: Bedside Glucose 340 mg/dL (70-110)
== END 2021-05-05 15:25 | disposition skilled nursing facility (03) ==
LOC: ED 11:59 → MS3 12:28
PROVIDERS: Emergency Provider Emergency Medicine; PCP Internal Medicine
DX: U07.1 COVID-19 (principal); G93.41 Metabolic encephalopathy; F03.90 Unspecified dementia, unspecified severity, without behavioral disturbance, psychotic disturbance, mood disturbance, and anxiety; E11.22 Type 2 diabetes mellitus with diabetic chronic kidney disease; I13.0 Hypertensive heart and chronic kidney disease with heart failure and stage 1 through stage 4 chronic kidney disease, or unspecified chronic kidney disease; E03.9 Hypothyroidism, unspecified; M19.90 Unspecified osteoarthritis, unspecified site; I25.10 Atherosclerotic heart disease of native coronary artery without angina pectoris; I50.22 Chronic systolic (congestive) heart failure; E11.42 Type 2 diabetes mellitus with diabetic polyneuropathy; K21.9 Gastro-esophageal reflux disease without esophagitis; I25.2 Old myocardial infarction; N18.4 Chronic kidney disease, stage 4 (severe); E78.2 Mixed hyperlipidemia; R79.89 Other specified abnormal findings of blood chemistry; I25.5 Ischemic cardiomyopathy; K58.9 Irritable bowel syndrome, unspecified; R29.810 Facial weakness; Z79.899 Other long term (current) drug therapy; Z79.02 Long term (current) use of antithrombotics/antiplatelets; Z79.82 Long term (current) use of aspirin; Z79.4 Long term (current) use of insulin; Z87.891 Personal history of nicotine dependence
CPT/HCPCS: 36415; 71045; 76770; 80048; 80053; 82962; 83605; 85025; 85610; 85730; 87040; 87077; 87086; 87088; 87186; 87426; 87804; 93005; 96361; 96374; 97163; 97166; 97530; 97535; 97802; 99218; 99285; J7030; J7040; A4216; G0378

== ENCOUNTER 2023-10-07 12:26 | Emergency (ER) | payer MEDICARE, MEDICAID, SELFPAY ==
[2023-10-07 12:27] VITALS: BMI 24.8
[2023-10-07 12:32] VITALS: BP 128/72; PULSE 105; RESP 18; TEMP 36.6; O2SAT 98
--- NOTE | 2023-10-07 12:59 | EDS_ITS ---
HPI History of Present Illness Chief Complaint: General Illness [facility] Medical History Arthritis Atherosclerotic heart disease of [place] coronary artery without angina pectoris Back problem Bladder infection Cataracts, bilateral Cerebrovascular disease Chronic systolic (congestive) heart failure CKD (chronic kidney disease) stage 3, GFR 30-59 ml/min CVA (cerebral vascular accident) Dementia Diabetes type 2, controlled Diabetic peripheral neuropathy Essential hypertension Gastroesophageal reflux disease GI problem Hearing problem History of gastrointestinal hemorrhage History of left heart catheterization (LHC) (~12/21/10) History of non-ST elevation myocardial infarction (NSTEMI) Hypothyroidism IBS (irritable bowel syndrome) Ischemic cardiomyopathy Mixed hyperlipidemia Old myocardial infarction Type 2 diabetes mellitus Home Medications aspirin 81 mg tablet,delayed release 81 mg PO DAILY@0800 heart health 05/27/13 [History Last Taken 05/02/21] atorvastatin 40 mg tablet 40 mg PO QHS cholesterol 05/27/13 [History Last Taken 05/01/21] clopidogrel 75 mg tablet 75 mg PO DAILY blood clotting 05/27/13 [History Last Taken 05/02/21] docusate sodium 100 mg capsule 100 mg PO BID stool 05/27/13 [History Last Taken 05/02/21] levothyroxine 75 mcg tablet 75 mcg PO DAILY thyroid 05/27/13 [History Last Taken 05/03/21] metoprolol tartrate 50 mg tablet 50 mg PO BID heart 05/27/13 [History Last Taken 05/02/21] pantoprazole 40 mg tablet,delayed release 40 mg PO DAILY stomach 05/27/13 [History Last Taken 05/02/21] memantine 28 mg capsule sprinkle,extended release 24hr (Namenda XR) 28 mg PO Q24H 06/05/17 [History Last Taken 05/02/21 22:00] pen needle, diabetic 31 gauge x 5/16 (Comfort EZ Pen [place]) #30 ea 06/05/17 [History Last Taken Unknown] calcium carb-vit D3-minerals 600 mg calcium-200 unit tablet 1 tab PO BID #60 ea 03/23/18 [Rx Last Taken 05/02/21] insulin lispro 100 unit/mL subcutaneous pen (Humalog KwikPen (U-100) Insulin) 20 unit subcut QACLUNCH diabetes 03/19/19 [History Last Taken 05/02/21] insulin lispro 100 unit/mL subcutaneous pen (Humalog KwikPen (U-100) Insulin) 25 unit subcut QACDINNER diabetes 03/19/19 [History Last Taken 05/02/21] insulin lispro 100 unit/mL subcutaneous pen (Humalog KwikPen (U-100) Insulin) 30 unit subcut QACBREAK diabetes 03/19/19 [History Last Taken 05/02/21] empagliflozin 25 mg tablet (Jardiance) 25 mg PO DAILY 03/29/22 [History Last Taken Unknown] furosemide 40 mg tablet (Lasix) 40 mg PO DAILY 06/06/23 [History Last Taken Unknown] insulin detemir U-100 100 unit/mL (3 mL) subcutaneous pen (Levemir FlexTouch U-1 00 Insulin) 31 unit subcut BID diabetes 06/06/23 [History Last Taken Unknown] sitagliptin phosphate 25 mg tablet (Januvia) 25 mg PO DAILY 06/06/23 [History Last Taken Unknown] spironolactone 25 mg tablet 25 mg PO DAILY 06/06/23 [History Last Taken Unknown] Allergy/AdvReac Type Severity Reaction Status Date / Time ibuprofen Allergy Itching Verified 06/06/23 14:23 lisinopril Allergy Other Verified 06/06/23 14:23 Penicillins Allergy Itching Verified 06/06/23 14:23 tramadol HCl [From Ultram] Allergy Other Verified 06/06/23 14:23 Family History Mother Cancer Diabetes Father Cancer Surgical History frozen shoulder surgery H/O thyroidectomy Hx of cataract surgery Social History Smoking Status: Former smoker second hand exposure: No alcohol intake: never substance use type: does not use caffeine: Yes Type: carbonated beverages Number of servings: 1 EXAM Physical Exam Const Vital Signs: 10/07/23 12:32 Temperature 98 F Temperature Source Oral Pulse Rate 105 H Respiratory Rate 18 Blood Pressure 128/72 H Blood Pressure Mean 90 Pulse Ox 98 Oxygen Delivery Method Room Air Discharge Plan Triage Chief Complaint: General Illness Other Complaint: Wound ED Midlevel Provider: Julia Quintero ED Provider: Sony Lou Dx/Rx/DC Orders Prescriptions: No Action (DME) pen needle, diabetic [Comfort EZ Pen [place]] 31 gauge x 5/16 needle See Dose Instructions .ROUTE .MEDSUPPLY Qty: 30 Rx Instructions: As directed memantine [Namenda XR] 28 mg cap,sprinkle,ER 24hr dose pack 28 mg PO Q24H insulin lispro [Humalog KwikPen Insulin] 100 unit/mL insulin pen 30 unit SC QACBREAK insulin lispro [Humalog KwikPen Insulin] 100 unit/mL insulin pen 20 unit SC QACLUNCH insulin lispro [Humalog KwikPen Insulin] 100 unit/mL insulin pen 25 unit SC QACDINNER Jardiance 25 mg tablet 25 mg PO DAILY furosemide [Lasix] 40 mg tablet 40 mg PO DAILY spironolactone 25 mg tablet 25 mg PO DAILY Januvia 25 mg tablet 25 mg PO DAILY Levemir FlexTouch U100 Insulin 100 unit/mL (3 mL) insulin pen 31 unit SC BID Rx Instructions: while on dexamethasone, when dexamethasone completed, lower to 31 units. atorvastatin 40 MG tablet 40 mg PO QHS Patient Comments: cholesterol clopidogrel 75 MG tablet 75 mg PO DAILY Patient Comments: blood thinner aspirin 81 MG tablet 81 mg PO DAILY@0800 Patient Comments: heart health levothyroxine 75 MCG tablet 75 mcg PO DAILY Patient Comments: thyroid pantoprazole 40 MG tablet 40 mg PO DAILY Patient Comments: acid reflux metoprolol tartrate 50 MG tablet 50 mg PO BID Patient Comments: blood pressure/heart docusate sodium 100 MG capsule 100 mg PO BID Patient Comments: constipation calcium carb-vit D3-minerals 600 mg calcium-200 unit tablet 600 mg calcium- 200 unit tablet 1 tab PO BID Qty: 60 11RF Primary Care Provider: Claude Lee Referrals: Claude Lee MD [Primary Care Provider] -
[2023-10-07] MEDS: HYDROcodone Bitartrate/Apap 5/325 Tablet PO (14:16)
[2023-10-07 14:27] VITALS: BP 131/98; PULSE 99; RESP 18; O2SAT 98
[2023-10-07] MEDS: Doxycycline 100 MG CAPSULE PO (15:57)
[2023-10-07] MEDS: Ondansetron 4 MG/2 ML Vial IV (15:58)
[2023-10-07] MEDS: Morphine 4 MG/ML Syringe IV (15:58)
[2023-10-07 16:00] VITALS: BP 161/81; PULSE 92; PULSE 95; RESP 18; TEMP 36.6; O2SAT 96; O2SAT 99
--- NOTE | 2023-10-07 21:36 | EX.ED.DYSGE1 ---
HPI <MANISH Herr - Last Filed: 10/07/23 21:43> History of Present Illness Chief Complaint: General Illness Narrative Narrative: Patient presenting today with her fianc? due to concerns for an abscess to her right buttocks that was first noticed today. Patient's fianc? provides most of the history, he reports that patient does have a history of dementia and previous strokes. He helps take care of her, he was helping her get into the shower today and noticed that she was walking bent over and was not sitting on her shower chair fully. When he asked what was wrong she pointed to her right buttocks and he noticed what looked like an abscess. Reports that otherwise she has been feeling fine and has been at her baseline. No recent fevers, chills, nausea, or vomiting. [facility] <MANISH Herr - Last Filed: 10/07/23 21:43> [facility] Medical History Arthritis Atherosclerotic heart disease of [place] coronary artery without angina pectoris Back problem Bladder infection Cataracts, bilateral Cerebrovascular disease Chronic systolic (congestive) heart failure CKD (chronic kidney disease) stage 3, GFR 30-59 ml/min CVA (cerebral vascular accident) Dementia Diabetes type 2, controlled Diabetic peripheral neuropathy Essential hypertension Gastroesophageal reflux disease GI problem Hearing problem History of gastrointestinal hemorrhage History of left heart catheterization (LHC) (~12/21/10) History of non-ST elevation myocardial infarction (NSTEMI) Hypothyroidism IBS (irritable bowel syndrome) Ischemic cardiomyopathy Mixed hyperlipidemia Old myocardial infarction Type 2 diabetes mellitus Home Medications aspirin 81 mg tablet,delayed release 81 mg PO DAILY@0800 heart health 05/27/13 [History Last Taken 05/02/21] atorvastatin 40 mg tablet 40 mg PO QHS cholesterol 05/27/13 [History Last Taken 05/01/21] clopidogrel 75 mg tablet 75 mg PO DAILY blood clotting 05/27/13 [History Last Taken 05/02/21] docusate sodium 100 mg capsule 100 mg PO BID stool 05/27/13 [History Last Taken 05/02/21] levothyroxine 75 mcg tablet 75 mcg PO DAILY thyroid 05/27/13 [History Last Taken 05/03/21] metoprolol tartrate 50 mg tablet 50 mg PO BID heart 05/27/13 [History Last Taken 05/02/21] pantoprazole 40 mg tablet,delayed release 40 mg PO DAILY stomach 05/27/13 [History Last Taken 05/02/21] memantine 28 mg capsule sprinkle,extended release 24hr (Namenda XR) 28 mg PO Q24H 06/05/17 [History Last Taken 05/02/21 22:00] pen needle, diabetic 31 gauge x 5/16 (Comfort EZ Pen [place]) #30 ea 06/05/17 [History Last Taken Unknown] calcium carb-vit D3-minerals 600 mg calcium-200 unit tablet 1 tab PO BID #60 ea 03/23/18 [Rx Last Taken 05/02/21] insulin lispro 100 unit/mL subcutaneous pen (Humalog KwikPen (U-100) Insulin) 20 unit subcut QACLUNCH diabetes 03/19/19 [History Last Taken 05/02/21] insulin lispro 100 unit/mL subcutaneous pen (Humalog KwikPen (U-100) Insulin) 25 unit subcut QACDINNER diabetes 03/19/19 [History Last Taken 05/02/21] insulin lispro 100 unit/mL subcutaneous pen (Humalog KwikPen (U-100) Insulin) 30 unit subcut QACBREAK diabetes 03/19/19 [History Last Taken 05/02/21] empagliflozin 25 mg tablet (Jardiance) 25 mg PO DAILY 03/29/22 [History Last Taken Unknown] furosemide 40 mg tablet (Lasix) 40 mg PO DAILY 06/06/23 [History Last Taken Unknown] insulin detemir U-100 100 unit/mL (3 mL) subcutaneous pen (Levemir FlexTouch U-100 Insulin) 31 unit subcut BID diabetes 06/06/23 [History Last Taken Unknown] sitagliptin phosphate 25 mg tablet (Januvia) 25 mg PO DAILY 06/06/23 [History Last Taken Unknown] spironolactone 25 mg tablet 25 mg PO DAILY 06/06/23 [History Last Taken Unknown] doxycycline hyclate 100 mg capsule 100 mg PO BID 7 days #13 caps 10/07/23 [Rx Last Taken Unknown] hydrocodone-acetaminophen 5-325mg 5mg-325mg 1 tab PO Q4H PRN PRN Pain 2 days #7 TABLETS 10/07/23 [Rx Last Taken Unknown] Allergy/AdvReac Type Severity Reaction Status Date / Time ibuprofen Allergy Itching Verified 10/07/23 13:37 lisinopril Allergy Other Verified 10/07/23 13:37 Penicillins Allergy Itching Verified 10/07/23 13:37 tramadol HCl [From Ultram] Allergy Other Verified 10/07/23 13:37 Family History Mother Cancer Diabetes Father Cancer Surgical History frozen shoulder surgery H/O thyroidectomy Hx of cataract surgery Social History Smoking Status: Former smoker second hand exposure: No alcohol intake: never substance use type: does not use caffeine: Yes Type: carbonated beverages Number of servings: 1 ROS <MANISH Herr - Last Filed: 10/07/23 21:43> ROS ED Constitutional Constitutional ED: Denies chills or fever(s) Cardiovascular Cardiovascular: Denies chest pain Respiratory/Chest Respiratory/Chest: Denies dyspnea Gastrointestinal Gastrointestinal: Denies abdominal pain, nausea or vomiting Musculoskeletal Musculoskeletal: Denies arthralgias or myalgias Integumentary Reports abscess Neurologic Neurologic: Denies weakness EXAM <MANISH Herr - Last Filed: 10/07/23 21:43> Physical Exam Const Vital Signs: 10/07/23 12:32 10/07/23 14:27 10/07/23 16:00 Temperature 98 F Temperature Source Oral Pulse Rate 105 H 99 95 Respiratory Rate 18 18 18 Blood Pressure 128/72 H 131/98 H 161/81 H Blood Pressure Mean 90 109 107 Pulse Ox 98 98 96 Oxygen Delivery Method Room Air Room Air Room Air 10/07/23 16:00 Temperature 98 F Temperature Source Pulse Rate 92 Respiratory Rate 18 Blood Pressure 161/81 H Blood Pressure Mean 107 Pulse Ox 99 Oxygen Delivery Method Positive well nourished, well developed and no apparent distress General Appearance ED: well developed HEENT Reports normocephalic and head/scalp atraumatic Mouth ED: Yes moist mucous membranes normal Eyes PERRL and EOMs intact bilaterally Neck full ROM and supple Chest Wall inspection of chest normal Resp normal respiratory effort and clear to auscultation bilaterally Cardio regular rate and regular rhythm GI soft to palpation, non-tender, non-distended and no masses Back/Spine normal ROM and normal to inspection Extremity normal to inspection and full ROM Neuro oriented x3, CN's II-XII intact bilaterally, moves all extremities, no focal motor deficits and no sensory deficits noted Sensorium / Orientation: awake and alert Psych mental status grossly normal and thought process normal Skin no rashes or lesions noted and no wounds Skin Narrative: Firm area of swelling and fluctuance to the right buttocks. <Dr. Sony Lou DO - Last Filed: 10/07/23 22:17> Physical Exam Const Vital Signs: 10/07/23 12:32 10/07/23 14:27 10/07/23 16:00 Temperature 98 F Temperature Source Oral Pulse Rate 105 H 99 95 Respiratory Rate 18 18 18 Blood Pressure 128/72 H 131/98 H 161/81 H Blood Pressure Mean 90 109 107 Pulse Ox 98 98 96 Oxygen Delivery Method Room Air Room Air Room Air 10/07/23 16:00 Temperature 98 F Temperature Source Pulse Rate 92 Respiratory Rate 18 Blood Pressure 161/81 H Blood Pressure Mean 107 Pulse Ox 99 Oxygen Delivery Method MDM <MANISH Herr - Last Filed: 10/07/23 21:43> [facility] Narrative Medical decision making narrative: Patient presenting today due to concerns for abscess to her right buttocks. She is well-appearing and in no acute distress. She has no acute complaints aside from the abscess. She is at her baseline according to fianc?. There is an area of induration, this appears to be consistent with an abscess. Patient was given [place] for pain. The area was cleaned with ChloraPrep, it was anesthetized with 1% lidocaine, a small incision was made with a #11 blade, blood was expelled but no purulent discharge. I then got the ultrasound probe and evaluated the area, no abscess seen, the attending physician then came in and evaluated with the ultrasound probe, he also agrees that no abscess is identified. I then placed 3 5-0 Vicryl absorbable sutures to the incision to prevent it from bleeding. She will be placed on doxycycline and will be given a short course of [place] to help with pain. Prior to discharge she did ask if she could have additional pain medication, she was given a dose of morphine and Zofran. Patient discharged home in stable condition. <Dr. Sony Lou DO - Last Filed: 10/07/23 22:17> [facility] MDM Narrative Medical decision making narrative: Patient presenting today due to concerns for abscess to her right buttocks. She is well-appearing and in no acute distress. She has no acute complaints aside from the abscess. She is at her baseline according to fianc?. There is an area of induration, this appears to be consistent with an abscess. Patient was given [place] for pain. The area was cleaned with ChloraPrep, it was anesthetized with 1% lidocaine, a small incision was made with a #11 blade, blood was expelled but no purulent discharge. I then got the ultrasound probe and evaluated the area, no abscess seen, the attending physician then came in and evaluated with the ultrasound probe, he also agrees that no abscess is identified. I then placed 3 5-0 Vicryl absorbable sutures to the incision to prevent it from bleeding. She will be placed on doxycycline and will be given a short course of [place] to help with pain. Prior to discharge she did ask if she could have additional pain medication, she was given a dose of morphine and Zofran. Patient discharged home in stable condition. ED attending note: I evaluated the patient in conjunction with the VICTOR MANUEL. I agree with his/her statements and above findings. I have personally performed a face to face assessment of the patient and have reviewed the [facility]UEL Note. I performed a substantive portion of the visit including all aspects of the following. I personally saw the patient performed chart review, physical exam, reviewed labs, imaging (if obtained), and formulated a treatment and management plan. This note was generated with [employer] natural dictation software. It may contain incorrect words, spelling, and punctuation that were not noted in review of the chart prior to signing. Discharge Plan Triage Chief Complaint: General Illness Other Complaint: Wound ED Midlevel Provider: Julia Quintero ED Provider: Sony Lou Dx/Rx/DC Orders Clinical Impression: Cellulitis Instructions: ED Cellulitis Prescriptions: New doxycycline hyclate 100 mg capsule 100 mg PO BID 7 Days Qty: 13 0RF hydrocodone-acetaminophen 5-325 mg tablet 1 tab PO Q4H PRN PRN (Reason: Pain) 2 Days Qty: 7 0RF No Action (DME) pen needle, diabetic [Comfort EZ Pen [place]] 31 gauge x 5/16 needle See Dose Instructions .ROUTE .MEDSUPPLY Qty: 30 Rx Instructions: As directed memantine [Namenda XR] 28 mg cap,sprinkle,ER 24hr dose pack 28 mg PO Q24H insulin lispro [Humalog KwikPen Insulin] 100 unit/mL insulin pen 30 unit SC QACBREAK insulin lispro [Humalog KwikPen Insulin] 100 unit/mL insulin pen 20 unit SC QACLUNCH insulin lispro [Humalog KwikPen Insulin] 100 unit/mL insulin pen 25 unit SC QACDINNER Jardiance 25 mg tablet 25 mg PO DAILY furosemide [Lasix] 40 mg tablet 40 mg PO DAILY spironolactone 25 mg tablet 25 mg PO DAILY Januvia 25 mg tablet 25 mg PO DAILY Levemir FlexTouch U100 Insulin 100 unit/mL (3 mL) insulin pen 31 unit SC BID Rx Instructions: while on dexamethasone, when dexamethasone completed, lower to 31 units. atorvastatin 40 MG tablet 40 mg PO QHS Patient Comments: cholesterol clopidogrel 75 MG tablet 75 mg PO DAILY Patient Comments: blood thinner aspirin 81 MG tablet 81 mg PO DAILY@0800 Patient Comments: heart health levothyroxine 75 MCG tablet 75 mcg PO DAILY Patient Comments: thyroid pantoprazole 40 MG tablet 40 mg PO DAILY Patient Comments: acid reflux metoprolol tartrate 50 MG tablet 50 mg PO BID Patient Comments: blood pressure/heart docusate sodium 100 MG capsule 100 mg PO BID Patient Comments: constipation calcium carb-vit D3-minerals 600 mg calcium-200 unit tablet 600 mg calcium- 200 unit tablet 1 tab PO BID Qty: 60 11RF Primary Care Provider: Claude Lee Referrals: Claude Lee MD [Primary Care Provider] - 3-5 Days if not improving Activity Restrictions/Additional Instructions: Follow-up with your PCP and return for any worsening of your symptoms. Disposition Disposition: Home, Self Care Discharge Date/Time: 10/07/23 16:44
== END 2023-10-07 16:44 | disposition home or self-care (01) ==
PROVIDERS: Emergency Provider Emergency Medicine; PCP Internal Medicine; Visit Provider Emergency Medicine
DX: L03.317 Cellulitis of buttock (principal); I13.0 Hypertensive heart and chronic kidney disease with heart failure and stage 1 through stage 4 chronic kidney disease, or unspecified chronic kidney disease; I50.22 Chronic systolic (congestive) heart failure; F03.90 Unspecified dementia, unspecified severity, without behavioral disturbance, psychotic disturbance, mood disturbance, and anxiety; E11.40 Type 2 diabetes mellitus with diabetic neuropathy, unspecified; E11.22 Type 2 diabetes mellitus with diabetic chronic kidney disease; N18.30 Chronic kidney disease, stage 3 unspecified; Z87.891 Personal history of nicotine dependence; Z86.73 Personal history of transient ischemic attack (TIA), and cerebral infarction without residual deficits; I25.10 Atherosclerotic heart disease of native coronary artery without angina pectoris; E78.2 Mixed hyperlipidemia
CPT/HCPCS: 10060; 99284; A4216; J2405

== ENCOUNTER 2023-10-08 10:03 | Inpatient (IN) | payer MEDICARE, MEDICAID, SELFPAY ==
[2023-10-08] VITALS (11 sets, daily range): BP systolic 92–161; BP diastolic 63–92; PULSE 80–109; RESP 11–18; TEMP 35.9–36.7; O2SAT 98–100; BMI 32.1
--- NOTE | 2023-10-08 10:22 | EDS_ITS ---
HPI History of Present Illness Chief Complaint: Weakness Detail of Chief Complaint: Generalized weakness. Informant: patient Onset/Context/Timing Onset: Days Context: Gradual Onset Timing: Continuous Current Severity: Moderate Maximum Severity: Moderate Narrative Narrative: 73-year-old female reportedly history of prior stroke with right-sided weakness, diabetes, CAD, chronic kidney disease and cardiomyopathy. Patient is a very limited informant may have underlying dementia. Reported lives at home with her boyfriend. She was brought in by the squad. They are currently have already left and there is no family presently available for further history. Prior similar symptoms: Yes Recent Illness/Hospitalization: No [facility] Medical History Arthritis Atherosclerotic heart disease of [place] coronary artery without angina pectoris Back problem Bladder infection Cataracts, bilateral Cerebrovascular disease Chronic systolic (congestive) heart failure CKD (chronic kidney disease) stage 3, GFR 30-59 ml/min CVA (cerebral vascular accident) Dementia Diabetes type 2, controlled Diabetic peripheral neuropathy Essential hypertension Gastroesophageal reflux disease GI problem Hearing problem History of gastrointestinal hemorrhage History of left heart catheterization (LHC) (~12/21/10) History of non-ST elevation myocardial infarction (NSTEMI) Hypothyroidism IBS (irritable bowel syndrome) Ischemic cardiomyopathy Mixed hyperlipidemia Old myocardial infarction Type 2 diabetes mellitus Home Medications aspirin 81 mg tablet,delayed release 81 mg PO DAILY@0800 heart health 05/27/13 [History Last Taken 05/02/21] atorvastatin 40 mg tablet 40 mg PO QHS cholesterol 05/27/13 [History Last Taken 05/01/21] clopidogrel 75 mg tablet 75 mg PO DAILY blood clotting 05/27/13 [History Last Taken 05/02/21] docusate sodium 100 mg capsule 100 mg PO BID stool 05/27/13 [History Last Taken 05/02/21] levothyroxine 75 mcg tablet 75 mcg PO DAILY thyroid 05/27/13 [History Last Taken 05/03/21] metoprolol tartrate 50 mg tablet 50 mg PO BID heart 05/27/13 [History Last Taken 05/02/21] pantoprazole 40 mg tablet,delayed release 40 mg PO DAILY stomach 05/27/13 [History Last Taken 05/02/21] pen needle, diabetic 31 gauge x /16 (Comfort EZ Pen [place]) #30 ea 06/05/17 [History Last Taken Unknown] empagliflozin 25 mg tablet (Jardiance) 25 mg PO DAILY 03/29/22 [History Last Taken Unknown] furosemide 40 mg tablet (Lasix) 40 mg PO DAILY 06/06/23 [History Last Taken Unknown] sitagliptin phosphate 25 mg tablet (Januvia) 25 mg PO DAILY 06/06/23 [History Last Taken Unknown] spironolactone 25 mg tablet 25 mg PO DAILY 06/06/23 [History Last Taken Unknown] doxycycline hyclate 100 mg capsule 100 mg PO BID 7 days #13 caps 10/07/23 [Rx Last Taken Unknown] hydrocodone-acetaminophen 5-325mg 5mg-325mg 1 tab PO Q4H PRN PRN Pain 2 days #7 TABLETS 10/07/23 [Rx Last Taken Unknown] calcium carbonate 600 mg-vitamin D3 5 mcg (200 unit) capsule (Calcium 600 + D(3)) 1 cap PO DAILY 10/08/23 [History Last Taken Unknown] insulin aspart (niacinamide)(U-100) 100 unit/mL(3 mL) subcutaneous pen (Fiasp FlexTouch U-100 Insulin) 1 sliding scale dose subcut TID 10/08/23 [History Last Taken Unknown] insulin glargine 100 unit/mL (3 mL) subcutaneous pen (Basaglar KwikPen U-100 Insulin) 40 unit subcut BID 10/08/23 [History Last Taken Unknown] memantine 10 mg tablet 10 mg PO DAILY 10/08/23 [History Last Taken Unknown] polyethylene glycol 3350 17 gram/dose oral powder (ClearLax) 17 g PO DAILY PRN constipation 10/08/23 [History Last Taken Unknown] Allergy/AdvReac Type Severity Reaction Status Date / Time ibuprofen Allergy Itching Verified 10/08/23 10:05 lisinopril Allergy Other Verified 10/08/23 10:05 Penicillins Allergy Itching Verified 10/08/23 10:05 tramadol HCl [From Ultram] Allergy Other Verified 10/08/23 10:05 Family History Mother Cancer Diabetes Father Cancer Surgical History frozen shoulder surgery H/O thyroidectomy Hx of cataract surgery Social History Smoking Status: Former smoker second hand exposure: No alcohol intake: never substance use type: does not use caffeine: Yes Type: carbonated beverages Number of servings: 1 ROS ROS ED ROS Narrative Patient very limited informant. Difficult to obtain much history from her. Review of Systems ROS Unobtainable: due to mental condition EXAM Physical Exam Narrative Exam Narrative: 74-year-old female vital signs stable other than her blood pressure is 92/74 heart rate 109. Pulse ox 90% on room air. She is afebrile. She is sitting upright in bed. No other family is present in room. H EENT exam pupils round reactive light. Dry mucous membranes. No facial trauma or droop. Scalp nontender. Neck nontender. No lymphadenopathy. Lungs clear to auscultation bilaterally. Heart tachycardic rate of 105 no murmur. Chest wall and ribs nontender. Abdomen soft nontender. No peritoneal signs. She weakly moves her extremities. 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 Limited dorsi and plantarflexion. No deformity or bruising to the extremities. No cellulitis. Back nontender. Neurologically her eyes are open. She tries answer questions. The accuracy of her answers is limited. She follows limited commands. Const Vital Signs: 10/08/23 10:05 10/08/23 10:08 10/08/23 12:43 Temperature 96.6 F L Temperature Source Temporal Pulse Rate 109 H 89 Respiratory Rate 17 15 Respiratory Effort Normal Respiratory Pattern Normal Blood Pressure 92/74 141/80 H Blood Pressure Mean 80 100 Pulse Ox 98 100 Oxygen Delivery Method Room Air Room Air 10/08/23 13:00 Temperature Temperature Source Pulse Rate 87 Respiratory Rate 11 L Respiratory Effort Respiratory Pattern Blood Pressure 155/87 H Blood Pressure Mean 109 Pulse Ox 100 Oxygen Delivery Method Room Air Positive well nourished and well developed; Negative for cachectic, contractures or unkempt General Appearance ED: well developed; Negative for unkempt, cachectic, contractures, cyanotic, diaphoretic, NAD or pallor Nutritional Appearance: Negative for cachectic HEENT Reports dry mucous membranes; Denies moist mucous membranes Negative for trauma or tenderness Mouth ED: Yes dry mucous membranes Mouth: dry mucous membranes Eyes PERRL and EOMs intact bilaterally General Eye ED: Negative for pale conjunctiva or scleral icterus Neck no lymphadenopathy, supple and no JVD Chest Wall inspection of chest normal and palpation of chest normal Chest: Negative for other Resp normal respiratory effort and clear to auscultation bilaterally Effort and Inspection: Negative for retractions Auscultation: Negative for rales, rhonchi, wheezes or diminished lung sounds Cardio regular rhythm, S1 normal heart sound, S2 normal heart sound and no murmurs; Negative for regular rate Rate: tachycardic GI normal to inspection, nondistended, normoactive bowel sounds, non-tender, non- distended and no masses Inspection: Negative for abdominal distention Auscultation: normoactive bowel sounds Palpation: soft; Negative for tender, guarding or rebound tenderness present Back/Spine no CVA tenderness General Back: Negative for CVA tenderness Cervical Spine: Negative for cervical spine tenderness Thoracic Spine / Upper Back: Negative for thoracic spinal tenderness or paraspinal muscle tenderness Lumbar Spine / Lower Back: Negative for lumbar spinal tenderness Extremity normal to inspection Extremity Narrative: Generalized weakness. General Extremety ED: Negative for edema or tenderness General Extremity: Negative for edema Neuro No oriented x3 Neuro Narrative: Patient is awake. Her eyes are open. She did say she was in the hospital. She answers limited questions and follows limited commands. She is generally weak. Sensorium / Orientation: alert, orientation impaired and lethargic Motor Exam: general weakness Psych mental status grossly normal Appearance: Negative for unkempt Attitude: No agitated Mood & Affect: Negative for depressed or anxious Skin no rashes or lesions noted and no wounds General Skin Exam: Negative for jaundice or pallor Lesions: No lesion noted Rashes: No rashes noted MDM MDM MDM Narrative Medical decision making narrative: 73-year-old female presents by squad for reported generalized weakness. She is hypotensive. She will be given IV fluids. Infectious workup will be performed. Most likely will need to be admitted. Repeat exam at 12:55 PM unchanged. Her animal control supervisor did come in I was speaking with him. He understands she will be admitted. She will be started on IV Rocephin for UTI. I have the hospitalist on page. Exam currently is unchanged. She is stable. History & Record Review Discussion w/independent historian: Patient Additional record(s) reviewed:: Prior inpatient record, Prior outpatient record, Prior ED visit and Prior labs Lab Data Attestation: I reviewed the patient's lab results. Lab results narrative: CBC shows an elevated white count of 17.2. H&H of 15 and 46. Platelets 250. PT INR of 15 and 1. Lactic acid is elevated 2.5. Electrolytes show an anion gap of 16. BUN and creatinine of 50 and 3.47. Liver enzymes are unremarkable. Urinalysis shows 10-25 white cells. 2+ bacteria. No red cells. No nitrites. Urine culture be sent. She will be started on IV Rocephin for suspected UTI. Labs: Laboratory Results - last 24 hr 10/08/23 10/08/23 10/08/23 10:05 10:30 11:08 WBC 17.2 H RBC 5.51 H Hgb 15.1 H Hct 46.8 MCV 84.9 MCH 27.4 MCHC 32.3 RDW Std Deviation 44.6 H RDW Coeff of Don 14.5 Plt Count 250 MPV 12.9 H Immature Gran % (Auto) 1.000 H Neut % (Auto) 79.3 H Lymph % (Auto) 11.6 L [place] % (Auto) 7.7 Eos % (Auto) 0.1 Baso % (Auto) 0.3 Absolute Neuts (auto) 13.7 H Absolute Lymphs (auto) 2.00 Nucleated RBC % 0 PT 15.2 H INR 1.2 Sodium Cancelled Cancelled Potassium Cancelled Cancelled Chloride Cancelled Cancelled Carbon Dioxide Cancelled Cancelled Anion Gap Cancelled Cancelled BUN Cancelled Cancelled Creatinine Cancelled Cancelled Estim Creat Clear Calc Cancelled Cancelled Est GFR (MDRD) Af Amer Cancelled Cancelled Est GFR (MDRD) Non-Af Cancelled Cancelled BUN/Creatinine Ratio Cancelled Cancelled Glucose Cancelled Cancelled Lactic Acid 2.5 H* Calcium Cancelled Cancelled Total Bilirubin Cancelled Cancelled AST Cancelled Cancelled ALT Cancelled Cancelled Alkaline Phosphatase Cancelled Cancelled Troponin I High Sens Cancelled Cancelled Total Protein Cancelled Cancelled Albumin Cancelled Cancelled Globulin Cancelled Cancelled Albumin/Globulin Ratio Cancelled Cancelled Urine Color Urine Clarity Urine pH Ur Specific [place] Urine Protein Urine Glucose (UA) Urine Ketones Urine Occult Blood Urine Nitrite Urine Bilirubin Urine Urobilinogen Ur Leukocyte Esterase Urine RBC Urine WBC Ur Squamous Epith Cells Urine Bacteria Urine Mucus 10/08/23 10/08/23 11:26 11:40 WBC RBC Hgb Hct MCV MCH MCHC RDW Std Deviation RDW Coeff of Don Plt Count MPV Immature Gran % (Auto) Neut % (Auto) Lymph % (Auto) [place] % (Auto) Eos % (Auto) Baso % (Auto) Absolute Neuts (auto) Absolute Lymphs (auto) Nucleated RBC % PT INR Sodium 137 Potassium 4.3 Chloride 103 Carbon Dioxide 18.0 L Anion Gap 16 H BUN 50 H Creatinine 3.47 H Estim Creat Clear Calc Est GFR (MDRD) Af Amer 17 L Est GFR (MDRD) Non-Af 14 L BUN/Creatinine Ratio 14.4 Glucose 425 H Lactic Acid Calcium 10.2 H Total Bilirubin 0.90 AST 18 ALT 26 Alkaline Phosphatase 144 H Troponin I High Sens 108 H Total Protein 8.2 Albumin 2.5 L Globulin 5.7 H Albumin/Globulin Ratio 0.4 L Urine Color Yellow Urine Clarity Sl. Cloudy Urine pH 5.0 Ur Specific [place] 1.015 Urine Protein 100 H Urine Glucose (UA) 1000 H Urine Ketones 50 H Urine Occult Blood 50 H Urine Nitrite Negative Urine Bilirubin Negative Urine Urobilinogen Normal Ur Leukocyte Esterase 25 H Urine RBC 0 SEEN Urine WBC 10-25 SEEN Ur Squamous Epith Cells 0 SEEN Urine Bacteria 2+ Urine Mucus 0 SEEN Radiography Chest X-Ray - ED: 1 View and Read by ED Physician Diagnostic Testing: Clinical Impression(s) from Imaging Studies Chest X-Ray 10/08/23 10:44 IMPRESSION: Cardiomegaly. Electronically Signed: Usha Welch MD at 11:22 EDT Reading Location ID and State: [facility] / [place] Tel , Service support , Rhythm Strip Rhythm Strip: Sinus Tach Rate: 106 Ectopy: None EKG Initial EKG: Attestation: I personally reviewed and interpreted this EKG as follows: Interpretation: No Acute Injury Pattern and Sinus Tachycardia Comments: Sinus tachycardia rate of 106 no acute signs of [place] or ischemia. Old inferior [place]. Old anterior [place]. Critical Care Time Critical Care Time: Yes Critical care time (excluding procedures): 30-74 minutes, Including time spent:, Discussing w/Patient &/or Family/Office Support Assistant, Discussing w/Consultants, Arranging Admission or Transfer, Performing Direct Patient Care at Bedside and - (35 min) Discharge Plan Dx/Rx/DC Orders Clinical Impression: Transient hypotension, History of borderline diabetes mellitus, Generalized weakness, Leukocytosis, Chronic kidney disease, Acute UTI Disposition Disposition: Acute Care Hospital [facility]
[2023-10-08 10:35] LABS: Absolute Neutrophil Count 13.7 X10^3/uL (2.0-7.7); Basophil# 0.05 X10^3/uL; Basophil% 0.3 % (0-1); Eosinophil# 0.02 X10^3/uL; Eosinophils% 0.1 % (0-5); Hematocrit 46.8 % (37-47); Hemoglobin 15.1 g/dL (12.0-15.0); Lymphocyte % 11.6 % (19-41); Mean Corp Hgb Conc 32.3 g/dL (32-36); Mean Corpuscular Hgb 27.4 pg (27.0-32.0); Mean Corpuscular Volume 84.9 fL (81-99); Mean Platelet Vol. 12.9 fl (6.2-12.0); Monocyte# 1.33 X10^3/uL; Monocyte% 7.7 % (0-10); NRBC Flagged by Analyzer 0 % (0-5); Neutrophil # 13.65 X10^3/uL (2.7-7.7); Neutrophil % 79.3 % (47-70); Platelet Count 250 K/mm3 (150-450); RBC Distribution Width CV 14.5 % (11.6-14.6); RBC Distribution Width SD 44.6 fl (35.1-43.9); Red Blood Count 5.51 M/mm3 (4.2-5.4); White Blood Count 17.2 K/mm3 (4.4-11.0)
--- NOTE | 2023-10-08 10:44 | RAD_ITS ---
INDICATION: weakness EXAMINATION/TECHNIQUE: X-RAY - XR Chest 1 View COMPARISON: Number seventh 2020 FINDINGS: LINES/DEVICES: None. LUNGS: No new consolidation, edema or effusion. No pneumothorax. MEDIASTINUM AND CARDIOVASCULAR STRUCTURES: There is cardiomegaly. Central airways and mediastinal contour are unremarkable. BONES AND SOFT TISSUES: Unremarkable. RAD/Chest 1 View (Portable) IMPRESSION: Cardiomegaly. Electronically Signed: Usha Welch MD at 11:22 EDT ,
[2023-10-08 10:53] LABS: International Normalized Ratio 1.2; Prothrombin Time (Protime)PT. 15.2 SECONDS (11.7-14.9)
[2023-10-08 11:07] LABS: Lactic Acid 2.5 mmol/L (0.4-1.9)
[2023-10-08 11:46] LABS: Mucous, Urine 0 SEEN /hpf (<or=2+); Red Blood Cells-Urine 0 SEEN /hpf (0-5); Squamous Epithelial Cells - UA 0 SEEN /hpf (5-10)
[2023-10-08 11:47] LABS: Color, Urine Yellow (Yellow); Glucose, Dipstick 1000 mg/dl (Normal); Ketone-Dipstick 50 mg/dl (Negative); Leukocyte Esterase-Dipstick 25 /ul (Negative); Nitrite-Dipstick Negative (Negative); Occult Blood-Urine 50 /ul (Negative); Protein-Dipstick 100 mg/dl (Negative); Specific Gravity, Urine 1.015 (1.002-1.030); Urine Bilirubin Dipstick Negative (Negative); Urine Clarity Sl. Cloudy (Clear); Urine Urobilinogen Normal (Normal)
[2023-10-08 12:00] LABS: Bacteria 2+ /hpf (None Seen); White Blood Cells 10-25 SEEN /hpf (0-5)
[2023-10-08 12:02] LABS: ALB/GLOB Ratio 0.4 RATIO (0.9-2.4); AST(SGOT) 18 U/L (15-37); Alanine Aminotransfer ALT/SGPT 26 U/L (13-56); Albumin, Serum 2.5 g/dL (3.2-5.0); Alkaline Phosphatase 144 U/L (45-117); Anion Gap 16 (5-15); BUN 50 mg/dL (7-18); BUN/Creat Ratio 14.4 RATIO (10-20); Calcium,Total 10.2 mg/dL (8.5-10.1); Chloride 103 mmol/L (98-107); Creatinine, Serum 3.47 mg/dL (0.55-1.02); EST Glomerular Filtration Rate 14 mL/min (>60); Est Glom Filt Rate - Afr Amer 17 mL/min (>60); Globulin 5.7 g/dL (2.2-4.2); Glucose 425 mg/dL (74-106); Potassium 4.3 mmol/L (3.5-5.1); Protein, Total 8.2 g/dL (6.4-8.2); Sodium Level 137 mmol/L (136-145); Troponin-I HS 108 pg/mL (3.0-54.0)
[2023-10-08] MEDS: Ceftriaxone 1 GM/50 ML BAG IV (13:07)
[2023-10-08] MEDS: 0.9% Normal Saline (1000mL) 1,000 ML 1000 ML IV (13:08)
--- NOTE | 2023-10-08 13:09 | PCM.HP.STD ---
HPI - General General Date of Admission: 10/08/23 Date of Service: 10/08/23 Chief Complaint: Generalized weakness, could not take care herself. HPI Narrative FATIMAH DUNCAN, is a 73 F who was seen in ED for right buttock abscess yesterday that was noticed 2 days before yesterday on 10/05. The patient's boyfriend provided most of the history as patient has dementia and previous stroke affecting the right side of the body. Today patient was brought because he was feeling too weak. On further history, patient has pain over right buttock area and could not lay on it. Her boyfriend was helping to greater shower and noticed that she was not able to sit on the shower chair was walking with bent over. No recent fever chills nausea or vomiting. Today patient was brought by EMS as she was not able to stand up, was found sitting on the couch. Patient awake but lethargic. Blood sugar was found hide 369. As per EMS her blood pressure was 150/90 respiratory rate 18, tachycardic 116/min. In ED [place] blood pressure was low at 92/74 heart rate 190 but improved to 141/51 and heart rate 80 1:09 liter of bolus. Yesterday patient was seen by Dr. Lou and he put the stitch after opening the abscess. CT pelvis without contrast is obtained. Patient has abnormal labs and lactic acidosis discussed in the assessment and plan. [facility] Medical History Arthritis Atherosclerotic heart disease of [place] coronary artery without angina pectoris Back problem Bladder infection Cataracts, bilateral Cerebrovascular disease Chronic systolic (congestive) heart failure CKD (chronic kidney disease) stage 3, GFR 30-59 ml/min CVA (cerebral vascular accident) Dementia Diabetes type 2, controlled Diabetic peripheral neuropathy Essential hypertension Gastroesophageal reflux disease GI problem Hearing problem History of gastrointestinal hemorrhage History of left heart catheterization (LHC) (~12/21/10) History of non-ST elevation myocardial infarction (NSTEMI) Hypothyroidism IBS (irritable bowel syndrome) Ischemic cardiomyopathy Mixed hyperlipidemia Old myocardial infarction Type 2 diabetes mellitus Home Medications aspirin 81 mg tablet,delayed release 81 mg PO DAILY@0800 [facility] 05/27/13 [History Last Taken 05/02/21] atorvastatin 40 mg tablet 40 mg PO QHS cholesterol 05/27/13 [History Last Taken 05/01/21] clopidogrel 75 mg tablet 75 mg PO DAILY blood clotting 05/27/13 [History Last Taken 05/02/21] docusate sodium 100 mg capsule 100 mg PO BID stool 05/27/13 [History Last Taken 05/02/21] levothyroxine 75 mcg tablet 75 mcg PO DAILY thyroid 05/27/13 [History Last Taken 05/03/21] metoprolol tartrate 50 mg tablet 50 mg PO BID heart 05/27/13 [History Last Taken 05/02/21] pantoprazole 40 mg tablet,delayed release 40 mg PO DAILY stomach 05/27/13 [History Last Taken 05/02/21] pen needle, diabetic 31 gauge x 5/16 (Comfort EZ Pen [place]) #30 ea 06/05/17 [History Last Taken Unknown] empagliflozin 25 mg tablet (Jardiance) 25 mg PO DAILY 03/29/22 [History Last Taken Unknown] furosemide 40 mg tablet (Lasix) 40 mg PO DAILY 06/06/23 [History Last Taken Unknown] sitagliptin phosphate 25 mg tablet (Januvia) 25 mg PO DAILY 06/06/23 [History Last Taken Unknown] spironolactone 25 mg tablet 25 mg PO DAILY 06/06/23 [History Last Taken Unknown] doxycycline hyclate 100 mg capsule 100 mg PO BID 7 days #13 caps 10/07/23 [Rx Last Taken Unknown] hydrocodone-acetaminophen 5-325mg 5mg-325mg 1 tab PO Q4H PRN PRN Pain 2 days #7 TABLETS 10/07/23 [Rx Last Taken Unknown] calcium carbonate 600 mg-vitamin D3 5 mcg (200 unit) capsule (Calcium 600 + D(3)) 1 cap PO DAILY 10/08/23 [History Last Taken Unknown] insulin aspart (niacinamide)(U-100) 100 unit/mL(3 mL) subcutaneous pen (Fiasp FlexTouch U-100 Insulin) 1 sliding scale dose subcut TID 10/08/23 [History Last Taken Unknown] insulin glargine 100 unit/mL (3 mL) subcutaneous pen (Basaglar KwikPen U-100 Insulin) 40 unit subcut BID 10/08/23 [History Last Taken Unknown] memantine 10 mg tablet 10 mg PO DAILY 10/08/23 [History Last Taken Unknown] polyethylene glycol 3350 17 gram/dose oral powder (ClearLax) 17 g PO DAILY PRN constipation 10/08/23 [History Last Taken Unknown] Allergy/AdvReac Type Severity Reaction Status Date / Time ibuprofen Allergy Itching Verified 10/08/23 10:05 lisinopril Allergy Other Verified 10/08/23 10:05 Penicillins Allergy Itching Verified 10/08/23 10:05 tramadol HCl [From Ultram] Allergy Other Verified 10/08/23 10:05 Family History Mother Cancer Diabetes Father Cancer Surgical History frozen shoulder surgery H/O thyroidectomy Hx of cataract surgery Social History Smoking Status: Former smoker second hand exposure: No alcohol intake: never substance use type: does not use caffeine: Yes Type: carbonated beverages Number of servings: 1 ROS ROS Narrative 14 system also notable patient has dementia. She also had previous stroke with right-sided weakness. At most patient has pain over the right buttock area. Patient denies any burning micturition but again her understanding is limited. Review of Systems ROS Unobtainable: due to mental condition Vital Signs Vital Signs Vital Signs: 10/08/23 10:05 10/08/23 10:08 10/08/23 12:43 Temperature 96.6 F L Temperature Source Temporal Pulse Rate 109 H 89 Respiratory Rate 17 15 Respiratory Effort Normal Respiratory Pattern Normal Blood Pressure 92/74 141/80 H Blood Pressure Mean 80 100 Pulse Ox 98 100 Oxygen Delivery Method Room Air Room Air Physical Exam Narrative General: Awake, cooperative. Orientation cannot be ascertained. Cooperative HEENT: Atraumatic, PERRLA, EOMI, Normocephalic Oral: Oral mucosa dry. No Gingival or Mucosal Lesions/ Ulcerations Neck: Supple, No JVD, Negative Carotid Bruits Chest wall/Lungs: Air entry diminished in bilateral lung bases. No crepitation/rhonchi Cardiovascular: Sinus tachycardia, Normal S1, Normal S2, No M/G/R Abdomen: Bowel Sounds Present, Soft, Non Tender, Non-Distended : About 5 to 6 cm oval shaped red induration over right buttock, perirectal region palpated with tenderness and erythema. Small stitched wound. Stitches were open. No renal angle tenderness. No suprapubic tenderness. Extremities: No edema, Capillary Refill Less than 3 Seconds Skin: No rashes, No breakdown Musculoskeletal: Weakness on the right lower extremity, power 4/5. No Tenderness to Palpation of Joints or Extremities Neurological: Cranial nerves II-XII grossly intact, DTR 2+/4. No acute focal neurological deficit. Psych/Mental Status: flat affect dementia. Results Lab / Micro Data 10/08/23 10:05 10/08/23 11:26 Labs: Laboratory Results - last 24 hr 10/08/23 10:05: WBC 17.2 H, RBC 5.51 H, Hgb 15.1 H, Hct 46.8, MCV 84.9, MCH 27.4, MCHC 32.3, RDW Std Deviation 44.6 H, RDW Coeff of Don 14.5, Plt Count 250, MPV 12.9 H, Immature Gran % (Auto) 1.000 H, Neut % (Auto) 79.3 H, Lymph % (Auto) 11.6 L, Sunflower % (Auto) 7.7, Eos % (Auto) 0.1, Baso % (Auto) 0.3, Absolute Neuts (auto) 13.7 H, Absolute Lymphs (auto) 2.00, Nucleated RBC % 0, Sodium Cancelled, Potassium Cancelled, Chloride Cancelled, Carbon Dioxide Cancelled, Anion Gap Cancelled, BUN Cancelled, Creatinine Cancelled, Estim Creat Clear Calc Cancelled, Est GFR (MDRD) Af Amer Cancelled, Est GFR (MDRD) Non-Af Cancelled, BUN/Creatinine Ratio Cancelled, Glucose Cancelled, Calcium Cancelled, Total Bilirubin Cancelled, AST Cancelled, ALT Cancelled, Alkaline Phosphatase Cancelled, Troponin I High Sens Cancelled, Total Protein Cancelled, Albumin Cancelled, Globulin Cancelled, Albumin/Globulin Ratio Cancelled 10/08/23 10:30: PT 15.2 H, INR 1.2, Lactic Acid 2.5 H* 10/08/23 11:08: Sodium Cancelled, Potassium Cancelled, Chloride Cancelled, Carbon Dioxide Cancelled, Anion Gap Cancelled, BUN Cancelled, Creatinine Cancelled, Estim Creat Clear Calc Cancelled, Est GFR (MDRD) Af Amer Cancelled, Est GFR (MDRD) Non-Af Cancelled, BUN/Creatinine Ratio Cancelled, Glucose Cancelled, Calcium Cancelled, Total Bilirubin Cancelled, AST Cancelled, ALT Cancelled, Alkaline Phosphatase Cancelled, Troponin I High Sens Cancelled, Total Protein Cancelled, Albumin Cancelled, Globulin Cancelled, Albumin/Globulin Ratio Cancelled 10/08/23 11:26: Sodium 137, Potassium 4.3, Chloride 103, Carbon Dioxide 18.0 L, Anion Gap 16 H, BUN 50 H, Creatinine 3.47 H, Est GFR (MDRD) Af Amer 17 L, Est GFR (MDRD) Non-Af 14 L, BUN/Creatinine Ratio 14.4, Glucose 425 H, Calcium 10.2 H, Total Bilirubin 0.90, AST 18, ALT 26, Alkaline Phosphatase 144 H, Troponin I High Sens 108 H, Total Protein 8.2, Albumin 2.5 L, Globulin 5.7 H, Albumin/Globulin Ratio 0.4 L 10/08/23 11:40: Urine Color Yellow, Urine Clarity Sl. Cloudy, Urine pH 5.0, Ur Specific [place] 1.015, Urine Protein 100 H, Urine Glucose (UA) 1000 H, Urine Ketones 50 H, Urine Occult Blood 50 H, Urine Nitrite Negative, Urine Bilirubin Negative, Urine Urobilinogen Normal, Ur Leukocyte Esterase 25 H, Urine RBC 0 SEEN, Urine WBC 10-25 SEEN, Ur Squamous Epith Cells 0 SEEN, Urine Bacteria 2+, Urine Mucus 0 SEEN Micro: Microbiology 10/08/23 10:40 Mucosa - Nose SARS-CoV-2, Influenza & RSV (PCR) - Final Rhythm Strip Rhythm Strip: Sinus Tach Rate: 106 Ectopy: None Imaging Radiology Impression Chest X-Ray 10/08/23 10:44 IMPRESSION: Cardiomegaly. Electronically Signed: Usha Welch MD at 11:22 EDT , Assessment & Plan Assessment/Plan (1) Generalized weakness: (2) Perineal abscess: PLAN: Plan This is 73-year-old female brought to ED for generalized weakness, unable to walk a straight, sit on the right buttock because of pain and swelling, most likely abscess 1. SIRS with possible sepsis due to right-sided buttock abscess: Patient is being admitted to PCU. She has tachycardia, leukocytosis and lactic acidosis meeting criteria of SIRS, with focus of infection. She also had transient low blood pressure 92/49 does not meet criteria for hypotension. The patient presented with sepsis with clinical indicators of due to leukocytosis, tachycardia with acute sepsis-related organ dysfunction as evidenced by lactic acidosis, HELENA on CKD and low BP improved with IV fluid bolus. CT pelvis ordered as there is no imaging done in ED. Patient is started on IV ceftriaxone, Flagyl and Doxy for helio coverage including MRSA. 2. Acute debility with generalized weakness, failure to thrive, unable to ambulate or sit up: PT and OT ordered. 3. Previous history affecting the right side of the body and dementia: 4. Chronic systolic heart failure, atherosclerotic heart disease: Patient currently does not have chest pain or features of acute heart failure. Continue home medication. Patient used to follow Dr. Rangel last seen in March 2022. Last echo in December 2017 moderately to severe LV systolic dysfunction with normal LV size.EF 30%. It was suboptimal technically difficult study. 5. HELENA on CKD stage IV: Previous creatinine 2.69 in April 2021. Creatinine high 3.47 BUN 50, BUNs/creatinine ratio 14. Anion gap 16, bicarb 18 suggestive of increased anion gap metabolic acidosis although ABG not done and I think is not needed. Continue IV fluid normal saline. Monitor kidney function. 6. Diabetes mellitus type 2 uncontrolled: As per patient's boyfriend her blood sugar is in 300s to 350s and is not controlled. In BMP glucose is 425. Accu-Chek before meals and at bedtime with Humalog sliding scale coverage. scheduled Lantus insulin ordered. DVT prophylaxis: Heparin 5000 units subcutaneous twice daily. Adjusted to creatinine clearance Living will/advanced directive/end of life care: Patient does not have living will or advanced directive. Her boyfriend is a caregiver but he cannot make decision on the CODE STATUS and he states her sons will make decision. Boyfriend is not to the patient. Patient cannot medicine herself given dementia. After discussion of benefits/risks procedures involved with full code, DNR CC arrest and DNR CC, will keep full code unverified until further decision made. Total time spent in [id number] encounter in discussion of advanced directive 17 minutes. Microbiology Past 72 Hours 10/08/23 10:40 Mucosa - Nose SARS-CoV-2, Influenza & RSV (PCR) - Final Laboratory Results 10/08/23 10:05: WBC 17.2 H, RBC 5.51 H, Hgb 15.1 H, Hct 46.8, MCV 84.9, MCH 27.4, MCHC 32.3, RDW Std Deviation 44.6 H, RDW Coeff of Don 14.5, Plt Count 250, MPV 12.9 H, Immature Gran % (Auto) 1.000 H, Neut % (Auto) 79.3 H, Lymph % (Auto) 11.6 L, Sunflower % (Auto) 7.7, Eos % (Auto) 0.1, Baso % (Auto) 0.3, Absolute Neuts (auto) 13.7 H, Absolute Lymphs (auto) 2.00, Nucleated RBC % 0 10/08/23 10:30: PT 15.2 H, INR 1.2, Lactic Acid 2.5 H* 10/08/23 11:26: Sodium 137, Potassium 4.3, Chloride 103, Carbon Dioxide 18.0 L, Anion Gap 16 H, BUN 50 H, Creatinine 3.47 H, Est GFR (MDRD) Af Amer 17 L, Est GFR (MDRD) Non-Af 14 L, BUN/Creatinine Ratio 14.4, Glucose 425 H, Calcium 10.2 H, Total Bilirubin 0.90, AST 18, ALT 26, Alkaline Phosphatase 144 H, Troponin I High Sens 108 H, Total Protein 8.2, Albumin 2.5 L, Globulin 5.7 H, Albumin/Globulin Ratio 0.4 L 10/08/23 11:40: Urine Color Yellow, Urine Clarity Sl. Cloudy, Urine pH 5.0, Ur Specific [place] 1.015, Urine Protein 100 H, Urine Glucose (UA) 1000 H, Urine Ketones 50 H, Urine Occult Blood 50 H, Urine Nitrite Negative, Urine Bilirubin Negative, Urine Urobilinogen Normal, Ur Leukocyte Esterase 25 H, Urine RBC 0 SEEN, Urine WBC 10-25 SEEN, Ur Squamous Epith Cells 0 SEEN, Urine Bacteria 2+, Urine Mucus 0 SEEN Charges/Coding Visit Charges Inpatient E&M: 62711 Init Hosp L3 Procedures Hospitalists Procedures: 42879 Advncd Care Plan 30 Min
--- NOTE | 2023-10-08 13:36 | CT_ITS ---
INDICATION: RIGHT Buttock perirectal swelling/abscess EXAMINATION: CT PELVIS BONE - CT Pelvis W/O Contrast Injection TECHNIQUE: Routine noncontrast bone CT protocol was performed of the pelvis. 2-D reformats were performed by the technologist. A radiation dose optimization technique was used for this scan. IV Contrast dosage and agent: None. RADIATION DOSAGE (If Supplied By Facility): CTDIvol = ( 21.66 ) mGy, DLP = ( 915.81 ) mGycm COMPARISON: No relevant prior comparison study available FINDINGS: The lack of intravenous contrast limits evaluation of solid visceral organs. SOFT TISSUES: There is a 3.0 x 6.7 x 3.3 cm subcutaneous right perianal fluid collection that extends into the medial right buttock with an appearance suggestive of an abscess. There is an umbilical hernia containing segments of bowel with no associated obstruction. There are vascular calcifications. BONES/JOINTS: No acute fracture or subluxation. There are degenerative changes of the visualized lumbar spine. No sclerotic or destructive changes. CT/Pelvis without IV Contrast IMPRESSION: 3.0 x 6.7 x 3.3 cm right perianal abscess. Atherosclerosis. Degenerative changes of the visualized lumbar spine. Electronically Signed: Usha Welch MD at 14:29 EDT ,
[2023-10-08 14:34] LABS: Magnesium 2.8 mg/dL (1.6-2.6)
[2023-10-08 14:35] LABS: Reflex Lactate? Y
--- NOTE | 2023-10-08 16:40 | SEPSISATNOTE ---
Sepsis Attestation Sepsis Alert: Yes Sepsis Attestation: Agree w/Sepsis Possible Source of Sepsis: Skin/soft tissue Sepsis Organ Dysfunction Criteria Present: SBP decrease of more than 40 mmHg, Creatinine > 2.0 mg/dL and Lactic Acid > 2 mmol/L Fluid Resuscitation Fluid resuscitation indicated?: Yes Fluid Resuscitation ordered: Lesser volume fluid bolus ordered Amount of fluid ordered: 1,000 Reason for lesser fluid bolus:: BP Responded to a lesser volume Sepsis Note Date exam was performed: 10/08/23 Time exam was performed: 16:43 Sepsis Attestation: Sepsis re-evaluation was performed Response to fluids: Fluid responsive hypotension
[2023-10-08 16:49] LABS: Bedside Glucose 346 mg/dL (74-106)
--- NOTE | 2023-10-08 17:06 | NURSING ---
home med list reviewed w/ linwood iniguez over phone-he says she has a living will made and he will try and find it and bring it
[2023-10-08 17:37] LABS: Lactic Acid 2.7 mmol/L (0.4-1.9)
[2023-10-08] MEDS: 0.9% Normal Saline (1000mL) 1,000 ML 150 ML IV (18:34)
[2023-10-08] MEDS: metroNIDAZOLE 500 MG/100 ML BAG 100 MG IV (18:35)
[2023-10-08] MEDS: Insulin Lispro 100 UNIT/ML INSULN.PEN SC (18:40)
[2023-10-08] MEDS: Insulin Lispro 100 UNIT/ML INSULN.PEN 10 UNIT SC (18:41)
--- NOTE | 2023-10-08 20:13 | EX.PCM.CON.S ---
Assessment & Plan Assessment/Plan (1) Perineal abscess: PLAN: The patient had a large abscess on the right buttock. I obtained consent from the patient's sister due to her dementia for incision and drainage. She was agreeable. Buttock abscess was drained successfully and the patient should continue antibiotics and have twice daily packing changes. Indio De Los Santos MD Pager: [facility] [address] [place] [address], [address] [place] [address] Office: HPI Consult Data Date of Consult: 10/08/23 HPI Narrative HPI Narrative: FATIMAH DUNCAN, is a 73 F who presents with UTI and perirectal abscess. She was in the emergency room yesterday had a perianal abscess drained. She was then admitted the next day and found to have UTI and started to get treated for this. They ordered a CT scan which showed a 3 x 6 cm abscess in the right perianal area. [facility] Medical History Arthritis Atherosclerotic heart disease of [place] coronary artery without angina pectoris Back problem Bladder infection Cataracts, bilateral Cerebrovascular disease Chronic systolic (congestive) heart failure CKD (chronic kidney disease) stage 3, GFR 30-59 ml/min CVA (cerebral vascular accident) Dementia Diabetes type 2, controlled Diabetic peripheral neuropathy Essential hypertension Gastroesophageal reflux disease GI problem Hearing problem History of gastrointestinal hemorrhage History of left heart catheterization (LHC) (~12/21/10) History of non-ST elevation myocardial infarction (NSTEMI) Hypothyroidism IBS (irritable bowel syndrome) Ischemic cardiomyopathy Mixed hyperlipidemia Old myocardial infarction Type 2 diabetes mellitus Home Medications aspirin 81 mg tablet,delayed release 81 mg PO DAILY@0800 [facility] 05/27/13 [History Last Taken 10/08/23] atorvastatin 40 mg tablet 40 mg PO QHS cholesterol 05/27/13 [History Last Taken 10/07/23] clopidogrel 75 mg tablet 75 mg PO DAILY blood clotting 05/27/13 [History Last Taken 10/08/23] docusate sodium 100 mg capsule 100 mg PO BID stool 05/27/13 [History Last Taken 05/02/21] levothyroxine 75 mcg tablet 75 mcg PO DAILY thyroid 05/27/13 [History Last Taken 10/08/23] metoprolol tartrate 50 mg tablet 50 mg PO BID heart 05/27/13 [History Last Taken 10/08/23] pantoprazole 40 mg tablet,delayed release 40 mg PO DAILY stomach 05/27/13 [History Last Taken 10/08/23] pen needle, diabetic 31 gauge x 5/16 (Comfort EZ Pen [place]) #30 ea 06/05/17 [History Last Taken Unknown] empagliflozin 25 mg tablet (Jardiance) 25 mg PO DAILY dmII 03/29/22 [History Last Taken 10/08/23] furosemide 40 mg tablet (Lasix) 40 mg PO DAILY diuretic 06/06/23 [History Last Taken 10/08/23] sitagliptin phosphate 25 mg tablet (Januvia) 25 mg PO DAILY DMII 06/06/23 [History Last Taken 10/08/23] spironolactone 25 mg tablet 25 mg PO DAILY waterpill 06/06/23 [History Last Taken 10/08/23] doxycycline hyclate 100 mg capsule 100 mg PO BID unsure 7 days #13 caps 10/07/23 [Rx Last Taken Unknown] hydrocodone-acetaminophen 5-325mg 5mg-325mg 1 tab PO Q4H PRN PRN Pain 2 days #7 TABLETS 10/07/23 [Rx Last Taken Unknown] calcium carbonate 600 mg-vitamin D3 5 mcg (200 unit) capsule (Calcium 600 + D(3)) 1 cap PO DAILY calcium 10/08/23 [History Last Taken 10/08/23] insulin aspart (niacinamide)(U-100) 100 unit/mL(3 mL) subcutaneous pen (Fiasp FlexTouch U-100 Insulin) 1 sliding scale dose subcut TID dmII 10/08/23 [History Last Taken Unknown] insulin glargine 100 unit/mL (3 mL) subcutaneous pen (Basaglar KwikPen U-100 Insulin) 40 unit subcut BID dmII 10/08/23 [History Last Taken 10/07/23] memantine 10 mg tablet 10 mg PO DAILY dementia 10/08/23 [History Last Taken 10/07/23] polyethylene glycol 3350 17 gram/dose oral powder (ClearLax) 17 g PO DAILY PRN constipation 10/08/23 [History Last Taken Unknown] Allergy/AdvReac Type Severity Reaction Status Date / Time ibuprofen Allergy Itching Verified 10/08/23 10:05 lisinopril Allergy Other Verified 10/08/23 10:05 Penicillins Allergy Itching Verified 10/08/23 10:05 tramadol HCl [From Ultram] Allergy Other Verified 10/08/23 10:05 Family History Mother Cancer Diabetes Father Cancer Surgical History frozen shoulder surgery H/O thyroidectomy Hx of cataract surgery Social History Smoking Status: Former smoker second hand exposure: No alcohol intake: never substance use type: does not use caffeine: Yes Type: carbonated beverages Number of servings: 1 ROS Review of Systems ROS Unobtainable: due to mental status Physical Exam Const no apparent distress and healthy appearing General Appearance: cooperative HEENT normocephalic Eyes PERRL Resp normal respiratory effort Cardio Rate: regular rate Rhythm: regular rhythm GI soft to palpation and non-tender GI Narrative: Perianal area with large abscess on the right buttock Lab / Micro Data 10/08/23 10:05 10/08/23 11:26 Labs: Laboratory Results - last 24 hr 10/08/23 10:05: WBC 17.2 H, RBC 5.51 H, Hgb 15.1 H, Hct 46.8, MCV 84.9, MCH 27.4, MCHC 32.3, RDW Std Deviation 44.6 H, RDW Coeff of Don 14.5, Plt Count 250, MPV 12.9 H, Immature Gran % (Auto) 1.000 H, Neut % (Auto) 79.3 H, Lymph % (Auto) 11.6 L, [place] % (Auto) 7.7, Eos % (Auto) 0.1, Baso % (Auto) 0.3, Absolute Neuts (auto) 13.7 H, Absolute Lymphs (auto) 2.00, Nucleated RBC % 0, Sodium Cancelled, Potassium Cancelled, Chloride Cancelled, Carbon Dioxide Cancelled, Anion Gap Cancelled, BUN Cancelled, Creatinine Cancelled, Estim Creat Clear Calc Cancelled, Est GFR (MDRD) Af Amer Cancelled, Est GFR (MDRD) Non-Af Cancelled, BUN/Creatinine Ratio Cancelled, Glucose Cancelled, Calcium Cancelled, Total Bilirubin Cancelled, AST Cancelled, ALT Cancelled, Alkaline Phosphatase Cancelled, Troponin I High Sens Cancelled, Total Protein Cancelled, Albumin Cancelled, Globulin Cancelled, Albumin/Globulin Ratio Cancelled 10/08/23 10:30: PT 15.2 H, INR 1.2, Lactic Acid 2.5 H* 10/08/23 11:08: Sodium Cancelled, Potassium Cancelled, Chloride Cancelled, Carbon Dioxide Cancelled, Anion Gap Cancelled, BUN Cancelled, Creatinine Cancelled, Estim Creat Clear Calc Cancelled, Est GFR (MDRD) Af Amer Cancelled, Est GFR (MDRD) Non-Af Cancelled, BUN/Creatinine Ratio Cancelled, Glucose Cancelled, Calcium Cancelled, Total Bilirubin Cancelled, AST Cancelled, ALT Cancelled, Alkaline Phosphatase Cancelled, Troponin I High Sens Cancelled, Total Protein Cancelled, Albumin Cancelled, Globulin Cancelled, Albumin/Globulin Ratio Cancelled 10/08/23 11:26: Sodium 137, Potassium 4.3, Chloride 103, Carbon Dioxide 18.0 L, Anion Gap 16 H, BUN 50 H, Creatinine 3.47 H, Est GFR (MDRD) Af Amer 17 L, Est GFR (MDRD) Non-Af 14 L, BUN/Creatinine Ratio 14.4, Glucose 425 H, Calcium 10.2 H, Magnesium 2.8 H, Total Bilirubin 0.90, AST 18, ALT 26, Alkaline Phosphatase 144 H, Troponin I High Sens 108 H, Total Protein 8.2, Albumin 2.5 L, Globulin 5.7 H, Albumin/Globulin Ratio 0.4 L 10/08/23 11:40: Urine Color Yellow, Urine Clarity Sl. Cloudy, Urine pH 5.0, Ur Specific [place] 1.015, Urine Protein 100 H, Urine Glucose (UA) 1000 H, Urine Ketones 50 H, Urine Occult Blood 50 H, Urine Nitrite Negative, Urine Bilirubin Negative, Urine Urobilinogen Normal, Ur Leukocyte Esterase 25 H, Urine RBC 0 SEEN, Urine WBC 10-25 SEEN, Ur Squamous Epith Cells 0 SEEN, Urine Bacteria 2+, Urine Mucus 0 SEEN 10/08/23 14:47: Lactic Acid Cancelled 10/08/23 16:29: POC Glucose 346 H 10/08/23 16:42: Lactic Acid 2.7 H* Micro: Microbiology 10/08/23 10:40 Mucosa - Nose SARS-CoV-2, Influenza & RSV (PCR) - Final Rhythm Strip Rhythm Strip: Sinus Tach Rate: 106 Ectopy: None Imaging Radiology Impression Chest X-Ray 10/08/23 10:44 IMPRESSION: Cardiomegaly. Electronically Signed: Usha Welch MD at 11:22 EDT , Pelvis CT 10/08/23 13:36 IMPRESSION: 3.0 x 6.7 x 3.3 cm right perianal abscess. Atherosclerosis. Degenerative changes of the visualized lumbar spine. Electronically Signed: Usha Welch MD at 14:29 EDT ,
--- NOTE | 2023-10-08 20:16 | PCM.OPRPT ---
Report of Operation Date of Procedure: 10/08/23 Pre-Operative Diagnosis: Right buttock perineal abscess Post-Operative Diagnosis: Same Surgery/Procedure Performed:: Incision and drainage of perineal abscess with packing Type of Anesthesia: Local Specimen's removed: Culture FLUID Estimated Blood Loss (mL): 5 Description of Procedure: After obtaining informed consent from the patient's sister to her dementia the patient was rolled onto her right lateral decubitus side. After spreading the buttocks and area of the right buttock near the anus was prepped and draped and then injected with local anesthetic. A small incision was made with a scalpel and deepened to the abscess cavity. Purulent material was expressed immediately and cultured. The cavity was irrigated and then dried and then packed with quarter inch gauze. Dressing was applied. Patient tolerated the procedure well.
[2023-10-09] VITALS (7 sets, daily range): BP systolic 131–142; BP diastolic 66–79; PULSE 70–86; RESP 14–18; TEMP 36.1–36.7; O2SAT 95–100; BMI 32.2; BMI 31.7
[2023-10-09] MEDS: Insulin Glargine-YFGN 100 UNIT/ML Pen 15 UNIT SC ×3 (00:04→23:20)
[2023-10-09] MEDS: Heparin Injection (Vial) 5,000 UNIT/ML VIAL 5000 UNIT SC ×3 (00:04→20:40)
[2023-10-09] MEDS: Metoprolol Tartrate 50 MG Tablet PO ×3 (00:04→20:41)
[2023-10-09] MEDS: Senna/Docusate Sodium 1 Tablet 2 TABLET PO ×2 (00:04→09:28)
[2023-10-09] MEDS: Atorvastatin Calcium 40 MG Tablet PO ×2 (00:04→20:41)
[2023-10-09] MEDS: Insulin Lispro 100 UNIT/ML INSULN.PEN SC ×3 (00:05→23:20)
[2023-10-09] MEDS: metroNIDAZOLE 500 MG/100 ML BAG 100 MG IV ×4 (00:19→20:43)
[2023-10-09 00:42] LABS: Bedside Glucose 257 mg/dL (74-106)
[2023-10-09] MEDS: 0.9% Normal Saline (1000mL) 1,000 ML 150 ML IV (05:59)
[2023-10-09] MEDS: Levothyroxine 75 MCG Tablet PO (06:03)
--- NOTE | 2023-10-09 07:05 | PCM.PN.SRG ---
Subjective Subjective Patient seems comfortable this morning Objective Data Objective Data Vital Signs: Vital Signs Temp Pulse Resp BP Pulse Ox O2 Del Method 97.1 F L 72 16 135/73 H 99 Room Air 10/09/23 04:11 10/09/23 04:11 10/09/23 04:11 10/09/23 04:11 10/09/23 04:11 10/09/23 04:11 Oxygen Delivery Method Room Air Weight: 204 lb 12.951 oz Body Mass Index (BMI) 32.1 Intake & Output: Intake and Output for Last 24 Hours 10/07/23 10/08/23 10/09/23 23:59 23:59 23:59 Intake Total 1949 1115 / 1115 Balance 1949 1115 / 1115 Lab / Micro Data 10/08/23 10:05 10/08/23 11:26 Labs: Laboratory Results - last 24 hr 10/08/23 10:05: WBC 17.2 H, RBC 5.51 H, Hgb 15.1 H, Hct 46.8, MCV 84.9, MCH 27.4, MCHC 32.3, RDW Std Deviation 44.6 H, RDW Coeff of Don 14.5, Plt Count 250, MPV 12.9 H, Immature Gran % (Auto) 1.000 H, Neut % (Auto) 79.3 H, Lymph % (Auto) 11.6 L, [place] % (Auto) 7.7, Eos % (Auto) 0.1, Baso % (Auto) 0.3, Absolute Neuts (auto) 13.7 H, Absolute Lymphs (auto) 2.00, Nucleated RBC % 0, Sodium Cancelled, Potassium Cancelled, Chloride Cancelled, Carbon Dioxide Cancelled, Anion Gap Cancelled, BUN Cancelled, Creatinine Cancelled, Estim Creat Clear Calc Cancelled, Est GFR (MDRD) Af Amer Cancelled, Est GFR (MDRD) Non-Af Cancelled, BUN/Creatinine Ratio Cancelled, Glucose Cancelled, Calcium Cancelled, Total Bilirubin Cancelled, AST Cancelled, ALT Cancelled, Alkaline Phosphatase Cancelled, Troponin I High Sens Cancelled, Total Protein Cancelled, Albumin Cancelled, Globulin Cancelled, Albumin/Globulin Ratio Cancelled 10/08/23 10:30: PT 15.2 H, INR 1.2, Lactic Acid 2.5 H* 10/08/23 11:08: Sodium Cancelled, Potassium Cancelled, Chloride Cancelled, Carbon Dioxide Cancelled, Anion Gap Cancelled, BUN Cancelled, Creatinine Cancelled, Estim Creat Clear Calc Cancelled, Est GFR (MDRD) Af Amer Cancelled, Est GFR (MDRD) Non-Af Cancelled, BUN/Creatinine Ratio Cancelled, Glucose Cancelled, Calcium Cancelled, Total Bilirubin Cancelled, AST Cancelled, ALT Cancelled, Alkaline Phosphatase Cancelled, Troponin I High Sens Cancelled, Total Protein Cancelled, Albumin Cancelled, Globulin Cancelled, Albumin/Globulin Ratio Cancelled 10/08/23 11:26: Sodium 137, Potassium 4.3, Chloride 103, Carbon Dioxide 18.0 L, Anion Gap 16 H, BUN 50 H, Creatinine 3.47 H, Est GFR (MDRD) Af Amer 17 L, Est GFR (MDRD) Non-Af 14 L, BUN/Creatinine Ratio 14.4, Glucose 425 H, Calcium 10.2 H, Magnesium 2.8 H, Total Bilirubin 0.90, AST 18, ALT 26, Alkaline Phosphatase 144 H, Troponin I High Sens 108 H, Total Protein 8.2, Albumin 2.5 L, Globulin 5.7 H, Albumin/Globulin Ratio 0.4 L 10/08/23 11:40: Urine Color Yellow, Urine Clarity Sl. Cloudy, Urine pH 5.0, Ur Specific [place] 1.015, Urine Protein 100 H, Urine Glucose (UA) 1000 H, Urine Ketones 50 H, Urine Occult Blood 50 H, Urine Nitrite Negative, Urine Bilirubin Negative, Urine Urobilinogen Normal, Ur Leukocyte Esterase 25 H, Urine RBC 0 SEEN, Urine WBC 10-25 SEEN, Ur Squamous Epith Cells 0 SEEN, Urine Bacteria 2+, Urine Mucus 0 SEEN 10/08/23 14:47: Lactic Acid Cancelled 10/08/23 16:29: POC Glucose 346 H 10/08/23 16:42: Lactic Acid 2.7 H* 10/08/23 23:59: POC Glucose 257 H Micro: Microbiology 10/08/23 10:40 Mucosa - Nose SARS-CoV-2, Influenza & RSV (PCR) - Final Radiography Diagnostic Testing: Radiology Impression Chest X-Ray 10/08/23 10:44 IMPRESSION: Cardiomegaly. Electronically Signed: Usha Welch MD at 11:22 EDT , Pelvis CT 10/08/23 13:36 IMPRESSION: 3.0 x 6.7 x 3.3 cm right perianal abscess. Atherosclerosis. Degenerative changes of the visualized lumbar spine. Electronically Signed: Usha Welch MD at 14:29 EDT , Rhythm Strip Rhythm Strip: Sinus Tach Rate: 106 Ectopy: None Physical Exam Const no apparent distress Resp clear to auscultation bilaterally GI soft to palpation and non-tender Assessment & Plan Assessment/Plan (1) Perineal abscess: PLAN: I performed an incision and drainage of the patient's perianal abscess yesterday on the floor. Patient tolerated procedure well and the area was packed. Change packing twice daily and continue antibiotics. Indio De Los Santos MD Pager: [facility] [address] [place] [address], [address] [place] [address] Office:
[2023-10-09 08:25] LABS: Absolute Neutrophil Count 11.9 X10^3/uL (2.0-7.7); Basophil# 0.03 X10^3/uL; Basophil% 0.2 % (0-1); Eosinophil# 0.21 X10^3/uL; Eosinophils% 1.4 % (0-5); Hematocrit 40.7 % (37-47); Hemoglobin 13.3 g/dL (12.0-15.0); Lymphocyte % 11.2 % (19-41); Mean Corp Hgb Conc 32.7 g/dL (32-36); Mean Corpuscular Hgb 27.9 pg (27.0-32.0); Mean Corpuscular Volume 85.5 fL (81-99); Mean Platelet Vol. 12.7 fl (6.2-12.0); Monocyte# 1.24 X10^3/uL; Monocyte% 8.2 % (0-10); NRBC Flagged by Analyzer 0 % (0-5); Neutrophil # 11.87 X10^3/uL (2.7-7.7); Neutrophil % 78.1 % (47-70); Platelet Count 244 K/mm3 (150-450); RBC Distribution Width CV 14.4 % (11.6-14.6); RBC Distribution Width SD 45.1 fl (35.1-43.9); Red Blood Count 4.76 M/mm3 (4.2-5.4); White Blood Count 15.2 K/mm3 (4.4-11.0)
[2023-10-09 08:27] LABS: Bedside Glucose 138 mg/dL (74-106)
[2023-10-09 09:10] LABS: Anion Gap 9 (5-15); BUN 45 mg/dL (7-18); BUN/Creat Ratio 17.9 RATIO (10-20); Chloride 107 mmol/L (98-107); Creatinine, Serum 2.51 mg/dL (0.55-1.02); EST Glomerular Filtration Rate 20 mL/min (>60); Est Glom Filt Rate - Afr Amer 24 mL/min (>60); Estimated Creatinine Clearance 22.44 ml/min; Glucose 158 mg/dL (74-106); Potassium 3.3 mmol/L (3.5-5.1); Sodium Level 137 mmol/L (136-145); Thyroid Stim Hormone (TSH) 0.58 uIU/mL (0.358-3.74)
[2023-10-09] MEDS: Aspirin E.C. 81 MG Tablet PO (09:28)
[2023-10-09] MEDS: Polyethylene Glycol 3350 17 GM PACKET PO (09:28)
[2023-10-09] MEDS: Insulin Lispro 100 UNIT/ML INSULN.PEN 10 UNIT SC ×2 (09:28→17:49)
[2023-10-09] MEDS: Memantine Hydrochloride 10 MG Tablet PO (09:28)
[2023-10-09] MEDS: Clopidogrel Bisulfate 75 MG Tablet PO (09:28)
[2023-10-09] MEDS: Doxycycline 100 MG CAPSULE PO ×2 (09:28→20:41)
[2023-10-09] MEDS: Ceftriaxone 1 GM/50 ML BAG IV (09:55)
--- NOTE | 2023-10-09 10:00 | CASEMGMT ---
RN CM Face to Face with patient for initial transition planning/care coordination assessment. RN CM introduced self and role at [facility]. Patient lying in bed, alert and confused, significant other/ocular care technician at bedside. Caregiver willing to participate in assessment and is able to answer all questions appropriately. Care providers, pharmacy, and demographics verified. PCP: Jesus Specialists: Santa, cell technician; Zane, risk specialist Preferred Pharmacy: [facility] Benefit: yes Living Will/HPOA: yes, son Raquel Bill LNOK: son, katarzynaugther, significant other Living Arrangements: Patient lives with significant other in a apartment on 6th floor with elevator. Patient is lives in independent living at [facility]. Per significant other, patient is able to amubulate and he helps with ADLs Transportation: Significant other DME/HHC: Patient has shower chair, raised toilet, cane, walker, grab bars, medical alert, and glucometer at home. Patient has been to [facility] previously. Patient had CM through [facility]. Caregiver wishes for patient to discharge home, will monitor for therapy and needs at discharge. Signficant other states he has no further needs or concerns at this time. CM to follow for discharge planning needs that may arise. Disposition Plan: TBD, anticipate HHC vs SNF pending progress with therapy. Kyra VILLAVICENCIO, RN, CM
--- NOTE | 2023-10-09 10:53 | WOUNDNOTE ---
wound photo: right inner buttock
[2023-10-09 12:48] LABS: Bedside Glucose 130 mg/dL (74-106)
[2023-10-09 13:08] LABS: Hemoglobin A1c 11.4 % (3.8-5.6)
--- NOTE | 2023-10-09 15:40 | PCM.PN.HOSP ---
Reason for Visit Reason for Visit: Diagnoses Cutaneous abscess of perineum (10/08/23) Weakness (10/08/23) Objective Data Objective Data Vital Signs: Vital Signs Temp Pulse Resp BP Pulse Ox O2 Del Method 97 F L 72 18 142/79 H 100 Room Air 10/09/23 09:25 10/09/23 09:28 10/09/23 09:25 10/09/23 09:25 10/09/23 09:25 10/09/23 09:25 Oxygen Delivery Method Room Air Weight: 202 lb 6.15 oz Body Mass Index (BMI) 31.7 Intake & Output: Intake and Output for Last 24 Hours 10/07/23 10/08/23 10/09/23 23:59 23:59 23:59 Intake Total 1949 2590 / 2590 Output Total 650 / 650 Balance 1949 1940 / 1940 Lab / Micro Data 10/09/23 07:00 10/09/23 07:00 Labs: Laboratory Results - last 24 hr 10/08/23 16:29: POC Glucose 346 H 10/08/23 16:42: Lactic Acid 2.7 H* 10/08/23 23:59: POC Glucose 257 H 10/09/23 07:00: WBC 15.2 H, RBC 4.76, Hgb 13.3, Hct 40.7, MCV 85.5, MCH 27.9, MCHC 32.7, RDW Std Deviation 45.1 H, RDW Coeff of Don 14.4, Plt Count 244, MPV 12.7 H, Immature Gran % (Auto) 0.900, Neut % (Auto) 78.1 H, Lymph % (Auto) 11.2 L, [place] % (Auto) 8.2, Eos % (Auto) 1.4, Baso % (Auto) 0.2, Absolute Neuts (auto) 11.9 H, Absolute Lymphs (auto) 1.70, Nucleated RBC % 0, Sodium 137, Potassium 3.3 L, Chloride 107, Carbon Dioxide 21.0, Anion Gap 9, BUN 45 H, Creatinine 2.51 H, Estim Creat Clear Calc 22.44, Est GFR (MDRD) Af Amer 24 L, Est GFR (MDRD) Non-Af 20 L, BUN/Creatinine Ratio 17.9, Glucose 158 H, Hemoglobin A1c 11.4 H, Calcium 9.0, TSH 0.58 10/09/23 08:04: POC Glucose 138 H 10/09/23 12:25: POC Glucose 130 H Micro: Microbiology 10/08/23 20:40 Wound Abcess - Buttock Gram Stain - Final 10/08/23 11:40 Urine Catheter - Catheter Urine Culture - Preliminary Presumptive E. coli 10/08/23 10:40 Mucosa - Nose SARS-CoV-2, Influenza & RSV (PCR) - Final Rhythm Strip Rhythm Strip: Sinus Tach Rate: 106 Ectopy: None Physical Exam Narrative No fever. Had I&D. Seen and examined General: Awake, cooperative. Dementia, orientation cannot be ascertained. Cooperative HEENT: Atraumatic, PERRLA, EOMI, Normocephalic Oral: Oral mucosa dry. No Gingival or Mucosal Lesions/ Ulcerations Neck: Supple, No JVD, Negative Carotid Bruits Chest wall/Lungs: Air entry diminished in bilateral lung bases. No crepitation/rhonchi Cardiovascular: Sinus tachycardia, Normal S1, Normal S2, No M/G/R Abdomen: Bowel Sounds Present, Soft, Non Tender, Non-Distended : Abscess 5 to 6 cm oval shaped red induration over right buttock, perineal region palpated with tenderness and erythema. Incision and drainage was done. Packing was done. Dressing changed.No renal angle tenderness. No suprapubic tenderness. Extremities: No edema, Capillary Refill Less than 3 Seconds Skin: No rashes, No breakdown Musculoskeletal: Weakness on the right lower extremity, power 4/5. No Tenderness to Palpation of Joints or Extremities Neurological: Cranial nerves II-XII grossly intact, DTR 2+/4. No acute focal neurological deficit. Psych/Mental Status: flat affect dementia. Assessment & Plan Assessment/Plan (1) Generalized weakness: (2) Perineal abscess: PLAN: Plan This is 73-year-old female brought to ED for generalized weakness, unable to walk a straight, sit on the right buttock because of pain and swelling, most likely abscess 1. SIRS with sepsis due to right-sided buttock abscess: Patient is being admitted to PCU. She has tachycardia, leukocytosis and lactic acidosis meeting criteria of SIRS, with focus of infection. She also had transient low blood pressure 92/49 does not meet criteria for hypotension. The patient presented with sepsis with clinical indicators of due to leukocytosis, tachycardia with acute sepsis-related organ dysfunction as evidenced by lactic acidosis, HELENA on CKD and low BP improved with IV fluid bolus. CT pelvis ordered as there is no imaging done in ED. Patient is started on IV ceftriaxone, Flagyl and Doxy for helio coverage including MRSA. 10/08: Patient had incision and drainage of perineal abscess with packing right side perineal/buttock area. 2. Acute debility with generalized weakness, failure to thrive, unable to ambulate or sit up: PT and OT ordered. 3. Previous history affecting the right side of the body and dementia: 4. Chronic systolic heart failure, atherosclerotic heart disease: Patient currently does not have chest pain or features of acute heart failure. Continue home medication. Patient used to follow Dr. Rangel last seen in March 2022. Last echo in December 2017 moderately to severe LV systolic dysfunction with normal LV size.EF 30%. It was suboptimal technically difficult study. 5. HELENA on CKD stage IV: Previous creatinine 2.69 in April 2021. Creatinine high 3.47 BUN 50, BUNs/creatinine ratio 14. Anion gap 16, bicarb 18 suggestive of increased anion gap metabolic acidosis although ABG not done and I think is not needed. Continue IV fluid normal saline. Monitor kidney function. 10/08: BUNs/creatinine 45/2.51. HELENA improving. 6. Diabetes mellitus type 2 uncontrolled: As per patient's boyfriend her blood sugar is in 300s to 350s and is not controlled. In BMP glucose is 425. Accu-Chek before meals and at bedtime with Humalog sliding scale coverage. scheduled Lantus insulin ordered. DVT prophylaxis: Heparin 5000 units subcutaneous twice daily. Adjusted to creatinine clearance Living will/advanced directive/end of life care: Patient does not have living will or advanced directive. Her boyfriend is a caregiver but he cannot make decision on the CODE STATUS and he states her sons will make decision. Boyfriend is not to the patient. Patient cannot medicine herself given dementia. After discussion of benefits/risks procedures involved with full code, DNR CC arrest and DNR CC, will keep full code unverified until further decision made. Microbiology Past 72 Hours 10/08/23 20:40 Wound Abcess - Buttock Gram Stain - Final 10/08/23 11:40 Urine Catheter - Catheter Urine Culture - Preliminary Presumptive E. coli 10/08/23 10:40 Mucosa - Nose SARS-CoV-2, Influenza & RSV (PCR) - Final Laboratory Results 10/08/23 16:29: POC Glucose 346 H 10/08/23 16:42: Lactic Acid 2.7 H* 10/08/23 23:59: POC Glucose 257 H 10/09/23 07:00: WBC 15.2 H, RBC 4.76, Hgb 13.3, Hct 40.7, MCV 85.5, MCH 27.9, MCHC 32.7, RDW Std Deviation 45.1 H, RDW Coeff of Don 14.4, Plt Count 244, MPV 12.7 H, Immature Gran % (Auto) 0.900, Neut % (Auto) 78.1 H, Lymph % (Auto) 11.2 L, [place] % (Auto) 8.2, Eos % (Auto) 1.4, Baso % (Auto) 0.2, Absolute Neuts (auto) 11.9 H, Absolute Lymphs (auto) 1.70, Nucleated RBC % 0, Sodium 137, Potassium 3.3 L, Chloride 107, Carbon Dioxide 21.0, Anion Gap 9, BUN 45 H, Creatinine 2.51 H, Estim Creat Clear Calc 22.44, Est GFR (MDRD) Af Amer 24 L, Est GFR (MDRD) Non-Af 20 L, BUN/Creatinine Ratio 17.9, Glucose 158 H, Hemoglobin A1c 11.4 H, Calcium 9.0, TSH 0.58 10/09/23 08:04: POC Glucose 138 H 10/09/23 12:25: POC Glucose 130 H Charges/Coding Visit Charges Inpatient E&M: 77020 Subs Hosp L2
[2023-10-09 18:21] LABS: Bedside Glucose 281 mg/dL (74-106)
[2023-10-09 22:49] LABS: Bedside Glucose 182 mg/dL (74-106)
[2023-10-10 02:24] VITALS: BP 147/70; PULSE 65; RESP 16; TEMP 36.7; O2SAT 98
[2023-10-10] MEDS: Levothyroxine 75 MCG Tablet PO (05:09)
[2023-10-10] MEDS: metroNIDAZOLE 500 MG/100 ML BAG 100 MG IV ×3 (05:12→21:13)
[2023-10-10 06:00] VITALS: BMI 33.7
[2023-10-10 06:48] LABS: Absolute Lymphocyte Count 1.87 X10^3/uL (0.83-4.51); Absolute Neutrophil Count 8.2 X10^3/uL (2.0-7.7); Basophil# 0.06 X10^3/uL; Basophil% 0.5 % (0-1); Eosinophil# 0.31 X10^3/uL; Eosinophils% 2.7 % (0-5); Hematocrit 38.9 % (37-47); Hemoglobin 12.7 g/dL (12.0-15.0); Lymphocyte # 1.87 X10^3/ul (0.83-4.51); Lymphocyte % 16.2 % (19-41); Mean Corp Hgb Conc 32.6 g/dL (32-36); Mean Corpuscular Hgb 27.7 pg (27.0-32.0); Mean Corpuscular Volume 84.7 fL (81-99); Mean Platelet Vol. 12.4 fl (6.2-12.0); Monocyte# 0.95 X10^3/uL; Monocyte% 8.2 % (0-10); NRBC Flagged by Analyzer 0 % (0-5); Neutrophil # 8.21 X10^3/uL (2.7-7.7); Neutrophil % 71.4 % (47-70); Platelet Count 254 K/mm3 (150-450); RBC Distribution Width CV 14.4 % (11.6-14.6); Red Blood Count 4.59 M/mm3 (4.2-5.4); White Blood Count 11.5 K/mm3 (4.4-11.0)
[2023-10-10 08:00] LABS: Anion Gap 7 (5-15); BUN 43 mg/dL (7-18); BUN/Creat Ratio 20.4 RATIO (10-20); Chloride 106 mmol/L (98-107); Creatinine, Serum 2.11 mg/dL (0.55-1.02); EST Glomerular Filtration Rate 24 mL/min (>60); Est Glom Filt Rate - Afr Amer 29 mL/min (>60); Estimated Creatinine Clearance 27.53 ml/min; Glucose 192 mg/dL (74-106); Potassium 3.1 mmol/L (3.5-5.1); Sodium Level 133 mmol/L (136-145)
[2023-10-10] MEDS: Insulin Lispro 100 UNIT/ML INSULN.PEN SC ×4 (08:06→21:13)
[2023-10-10] MEDS: Aspirin E.C. 81 MG Tablet PO (08:06)
[2023-10-10] MEDS: Insulin Lispro 100 UNIT/ML INSULN.PEN 10 UNIT SC ×3 (08:07→17:12)
[2023-10-10 08:25] VITALS: BP 142/77; PULSE 84; RESP 18; TEMP 36.6; O2SAT 99
[2023-10-10 08:27] LABS: Bedside Glucose 173 mg/dL (74-106)
[2023-10-10] MEDS: Clopidogrel Bisulfate 75 MG Tablet PO (09:54)
[2023-10-10] MEDS: Senna/Docusate Sodium 1 Tablet 2 TABLET PO ×2 (09:54→21:12)
[2023-10-10] MEDS: Heparin Injection (Vial) 5,000 UNIT/ML VIAL 5000 UNIT SC ×2 (09:54→21:12)
[2023-10-10] MEDS: Doxycycline 100 MG CAPSULE PO ×2 (09:54→21:12)
[2023-10-10 09:55] VITALS: BP 145/79; PULSE 87
[2023-10-10] MEDS: Polyethylene Glycol 3350 17 GM PACKET PO (09:55)
[2023-10-10] MEDS: Metoprolol Tartrate 50 MG Tablet PO ×2 (09:55→21:12)
[2023-10-10] MEDS: Memantine Hydrochloride 10 MG Tablet PO (09:55)
[2023-10-10] MEDS: 0.9% Saline Lock 10 ML Syringe IV (09:56)
[2023-10-10] MEDS: Ceftriaxone 1 GM/50 ML BAG IV (10:03)
[2023-10-10] MEDS: Insulin Glargine-YFGN 100 UNIT/ML Pen 15 UNIT SC ×2 (10:10→21:14)
[2023-10-10 11:04] LABS: Bedside Glucose 194 mg/dL (74-106)
[2023-10-10 12:06] LABS: M R Staph aureus DNA By PCR Negative (Negative); Probe Check PASS; Specimen Processing Control PASS; Staph aureus DNA By PCR NEGATIVE (Negative)
[2023-10-10 14:25] VITALS: BP 135/72; PULSE 78; RESP 16; TEMP 36.4; O2SAT 98
--- NOTE | 2023-10-10 15:05 | CON.PCM.ID_ITS ---
Assessment & Plan Assessment/Plan (1) Perineal abscess: PLAN: s/p I&D. Wound cx pending. Bcx ngtd. Ucx with ecoli. Cont doxy/ceftriaxone/flagyl, plan on short course po abx at discharge. Has PCN allergy. Will follow, thank you (2) Acute UTI: (3) Chronic kidney disease: HPI Consult Data Date of Consult: 10/10/23 HPI Narrative Reason for Consultation: abscess HPI Narrative: FATIMAH DUNCAN, is a 73 F with dementia, presented with several days buttock abscess. Noted to have pain, swelling, redness. Taken to ED, admitted, I&D done. On vanc/ceftriaxone/flagyl. Pt unable to provide history or ROS due to mental status. Denies fever. Some pain. [facility] Medical History CKD (chronic kidney disease) stage 3, GFR 30-59 ml/min History of left heart catheterization (LHC) (~12/21/10) CVA (cerebral vascular accident) Ischemic cardiomyopathy Old myocardial infarction History of non-ST elevation myocardial infarction (NSTEMI) Atherosclerotic heart disease of [place] coronary artery without angina pectoris Mixed hyperlipidemia Essential hypertension Chronic systolic (congestive) heart failure Hearing problem IBS (irritable bowel syndrome) GI problem Diabetes type 2, controlled Cataracts, bilateral Bladder infection Back problem Arthritis Dementia History of gastrointestinal hemorrhage Diabetic peripheral neuropathy Hypothyroidism Gastroesophageal reflux disease Type 2 diabetes mellitus Cerebrovascular disease Home Medications ?Medication ?Instructions ?Recorded ?Last Taken ?Type aspirin 81 mg tablet,delayed 81 mg PO DAILY@0800 heart health 05/27/13 10/08/23 History release atorvastatin 40 mg tablet 40 mg PO QHS cholesterol 05/27/13 10/07/23 History clopidogrel 75 mg tablet 75 mg PO DAILY blood clotting 05/27/13 10/08/23 History docusate sodium 100 mg capsule 100 mg PO BID stool 05/27/13 05/02/21 History levothyroxine 75 mcg tablet 75 mcg PO DAILY thyroid 05/27/13 10/08/23 History metoprolol tartrate 50 mg tablet 50 mg PO BID heart 05/27/13 10/08/23 History pantoprazole 40 mg tablet,delayed 40 mg PO DAILY stomach 05/27/13 10/08/23 History release pen needle, diabetic 31 gauge x #30 ea 06/05/17 Unknown History 10/10 (Comfort EZ Pen [place]) empagliflozin 25 mg tablet 25 mg PO DAILY dmII 03/29/22 10/08/23 History (Jardiance) furosemide 40 mg tablet (Lasix) 40 mg PO DAILY diuretic 06/06/23 10/08/23 History sitagliptin phosphate 25 mg tablet 25 mg PO DAILY DMII 06/06/23 10/08/23 History (Januvia) spironolactone 25 mg tablet 25 mg PO DAILY waterpill 06/06/23 10/08/23 History doxycycline hyclate 100 mg capsule 100 mg PO BID unsure 7 days #13 10/07/23 Unknown Rx caps hydrocodone-acetaminophen 5-325mg 1 tab PO Q4H PRN PRN Pain 2 days 10/07/23 Unknown Rx 5mg-325mg #7 TABLETS calcium carbonate 600 mg-vitamin 1 cap PO DAILY calcium 10/08/23 10/08/23 History D3 5 mcg (200 unit) capsule (Calcium 600 + D(3)) insulin aspart 1 sliding scale dose subcut TID 10/08/23 Unknown History (niacinamide)(U-100) 100 unit/mL(3 dmII mL) subcutaneous pen (Fiasp FlexTouch U-100 Insulin) insulin glargine 100 unit/mL (3 40 unit subcut BID dmII 10/08/23 10/07/23 History mL) subcutaneous pen (Basaglar KwikPen U-100 Insulin) memantine 10 mg tablet 10 mg PO DAILY dementia 10/08/23 10/07/23 History polyethylene glycol 3350 17 17 g PO DAILY PRN constipation 10/08/23 Unknown History gram/dose oral powder (ClearLax) Allergy/AdvReac Type Severity Reaction Status Date / Time ibuprofen Allergy Itching Verified 10/08/23 10:05 lisinopril Allergy Other Verified 10/08/23 10:05 Penicillins Allergy Itching Verified 10/08/23 10:05 tramadol HCl (From Ultram) Allergy Other Verified 10/08/23 10:05 Family History Mother Cancer Diabetes Father Cancer Surgical History frozen shoulder surgery H/O thyroidectomy Hx of cataract surgery Social History Smoking Status: Former smoker second hand exposure: No alcohol intake: never substance use type: does not use caffeine: Yes Type: carbonated beverages Number of servings: 1 Physical Exam Const no apparent distress General Appearance: cooperative and lethargic HEENT normocephalic and head/scalp atraumatic Eyes PERRL and EOMs intact bilaterally Neck supple and No nodes Resp normal air movement and clear to auscultation bilaterally Cardio regular rate and regular rhythm GI soft to palpation, non-tender and non-distended Extremity General Extremity: Negative for edema Skin Skin Narrative: reviewed wound photo Neuro CN's II-XII intact bilaterally Lab / Micro Data Attestation: I reviewed the patient's lab results. 10/10/23 06:10 10/10/23 06:10 Labs: Laboratory Results - last 24 hr 10/09/23 17:47: POC Glucose 281 H 10/09/23 22:30: POC Glucose 182 H 10/10/23 06:10: WBC 11.5 H, RBC 4.59, Hgb 12.7, Hct 38.9, MCV 84.7, MCH 27.7, MCHC 32.6, RDW Std Deviation 44.0 H, RDW Coeff of Don 14.4, Plt Count 254, MPV 12.4 H, Immature Gran % (Auto) 1.000 H, Neut % (Auto) 71.4 H, Lymph % (Auto) 16.2 L, [place] % (Auto) 8.2, Eos % (Auto) 2.7, Baso % (Auto) 0.5, Absolute Neuts (auto) 8.2 H, Absolute Lymphs (auto) 1.87, Nucleated RBC % 0, Sodium 133 L, P otassium 3.1 L, Chloride 106, Carbon Dioxide 20.0 L, Anion Gap 7, BUN 43 H, C reatinine 2.11 H, Estim Creat Clear Calc 27.53, Est GFR (MDRD) Af Amer 29 L, Est GFR (MDRD) Non-Af 24 L, BUN/Creatinine Ratio 20.4 H, Glucose 192 H, Calcium 9.0 10/10/23 08:04: POC Glucose 173 H 10/10/23 10:09: POC Glucose 194 H 10/10/23 10:45: S.aureus Protein A PCR NEGATIVE, MRSA (PCR) Negative Micro: Microbiology 10/08/23 14:47 Blood Culture (Wb) - Arm Right Blood Culture - Preliminary No growth in 48 hours. 10/08/23 14:00 Blood Culture (Wb) - Arm Right Blood Culture - Preliminary No growth in 48 hours. 10/08/23 11:40 Urine Catheter - Catheter Urine Culture - Final Presumptive E. coli Rhythm Strip Rhythm Strip: Sinus Tach Rate: 106 Ectopy: None
--- NOTE | 2023-10-10 15:35 | PN.HOSP_ITS ---
Reason for Visit Reason for Visit: Diagnoses Cutaneous abscess of perineum (10/08/23) Chronic kidney disease, unspecified (10/08/23) Urinary tract infection, site not specified (10/08/23) Weakness (10/08/23) Objective Data Objective Data Vital Signs: Vital Signs Temp Pulse Resp BP Pulse Ox O2 Del Method 97.8 F 87 18 145/79 H 99 Room Air 10/10/23 08:25 10/10/23 09:55 10/10/23 08:25 10/10/23 09:55 10/10/23 08:25 10/10/23 08:25 Oxygen Delivery Method Room Air Weight: 214 lb 11.684 oz Body Mass Index (BMI) 33.7 Intake & Output: Intake and Output for Last 24 Hours 10/08/23 10/09/23 10/10/23 23:59 23:59 23:59 Intake Total 1949 2850 / 2850 150 / 150 Output Total 950 / 950 200 / 200 Balance 1949 1900 / 1900 -50 / -50 Lab / Micro Data 10/10/23 06:10 10/10/23 06:10 Labs: Laboratory Results - last 24 hr 10/09/23 17:47: POC Glucose 281 H 10/09/23 22:30: POC Glucose 182 H 10/10/23 06:10: WBC 11.5 H, RBC 4.59, Hgb 12.7, Hct 38.9, MCV 84.7, MCH 27.7, MCHC 32.6, RDW Std Deviation 44.0 H, RDW Coeff of Don 14.4, Plt Count 254, MPV 12.4 H, Immature Gran % (Auto) 1.000 H, Neut % (Auto) 71.4 H, Lymph % (Auto) 16.2 L, [place] % (Auto) 8.2, Eos % (Auto) 2.7, Baso % (Auto) 0.5, Absolute Neuts (auto) 8.2 H, Absolute Lymphs (auto) 1.87, Nucleated RBC % 0, Sodium 133 L, P otassium 3.1 L, Chloride 106, Carbon Dioxide 20.0 L, Anion Gap 7, BUN 43 H, C reatinine 2.11 H, Estim Creat Clear Calc 27.53, Est GFR (MDRD) Af Amer 29 L, Est GFR (MDRD) Non-Af 24 L, BUN/Creatinine Ratio 20.4 H, Glucose 192 H, Calcium 9.0 10/10/23 08:04: POC Glucose 173 H 10/10/23 10:09: POC Glucose 194 H 10/10/23 10:45: S.aureus Protein A PCR NEGATIVE, MRSA (PCR) Negative Micro: Microbiology 10/08/23 14:47 Blood Culture (Wb) - Arm Right Blood Culture - Preliminary No growth in 48 hours. 10/08/23 14:00 Blood Culture (Wb) - Arm Right Blood Culture - Preliminary No growth in 48 hours. 10/08/23 11:40 Urine Catheter - Catheter Urine Culture - Final Presumptive E. coli 10/08/23 20:40 Wound Abcess - Buttock Gram Stain - Final 10/08/23 10:40 Mucosa - Nose SARS-CoV-2, Influenza & RSV (PCR) - Final Rhythm Strip Rhythm Strip: Sinus Tach Rate: 106 Ectopy: None Physical Exam Narrative No fever. Had I&D. Patient abscess region was painful while dressing was changed. Talked with the patient and significant other Bedside Seen and examined General: Awake, cooperative. Dementia, orientation cannot be ascertained. Cooperative HEENT: Atraumatic, PERRLA, EOMI, Normocephalic Oral: Oral mucosa dry. No Gingival or Mucosal Lesions/ Ulcerations Neck: Supple, No JVD, Negative Carotid Bruits Chest wall/Lungs: Air entry diminished in bilateral lung bases. No crepitation/rhonchi Cardiovascular: Sinus tachycardia, Normal S1, Normal S2, No M/G/R Abdomen: Bowel Sounds Present, Soft, Non Tender, Non-Distended : Abscess 5 to 6 cm oval shaped red induration over right buttock, perineal region status post I&D. Induration improving. Dressing changed.No renal angle tenderness. No suprapubic tenderness. Extremities: No edema, Capillary Refill Less than 3 Seconds Skin: No rashes, No breakdown Musculoskeletal: Weakness on the right lower extremity, power 4/5. No Tenderness to Palpation of Joints or Extremities Neurological: Cranial nerves II-XII grossly intact, DTR 2+/4. No acute focal neurological deficit. Psych/Mental Status: flat affect dementia. Assessment & Plan Assessment/Plan (1) Generalized weakness: (2) Perineal abscess: PLAN: Plan This is 73-year-old female brought to ED for generalized weakness, unable to walk a straight, sit on the right buttock because of pain and swelling, most likely abscess 1. SIRS with sepsis due to right-sided buttock abscess: Patient is being admitted to PCU. She has tachycardia, leukocytosis and lactic acidosis meeting criteria of SIRS, with focus of infection. She also had transient low blood pressure 92/49 does not meet criteria for hypotension. The patient presented with sepsis with clinical indicators of due to leukocytosis, tachycardia with acute sepsis-related organ dysfunction as evidenced by lactic acidosis, HELENA on CKD and low BP improved with IV fluid bolus. CT pelvis ordered as there is no imaging done in ED. Patient is started on IV ceftriaxone, Flagyl and Doxy for helio coverage including MRSA. 10/08: Patient had incision and drainage of perineal abscess with packing right side perineal/buttock area. 10/09: Patient was evaluated by ID. Continue same antibiotics ceftriaxone, doxycycline and Flagyl. Discussed with the patient's significant other and wound RN Genet. 2. Acute debility with generalized weakness, failure to thrive, unable to ambulate or sit up: PT and OT ordered. 3. Previous history affecting the right side of the body and dementia: 4. Chronic systolic heart failure, atherosclerotic heart disease: Patient currently does not have chest pain or features of acute heart failure. Continue home medication. Patient used to follow Dr. Rangel last seen in March 2022. Last echo in December 2017 moderately to severe LV systolic dysfunction with normal LV size.EF 30%. It was suboptimal technically difficult study. 5. HELENA on CKD stage IV: Previous creatinine 2.69 in April 2021. Creatinine high 3.47 BUN 50, BUNs/creatinine ratio 14. Anion gap 16, bicarb 18 suggestive of increased anion gap metabolic acidosis although ABG not done and I think is not needed. Continue IV fluid normal saline. Monitor kidney function. 10/08: BUNs/creatinine 45/2.51. HELENA improving. 6. Diabetes mellitus type 2 uncontrolled: As per patient's boyfriend her blood sugar is in 300s to 350s and is not controlled. In BMP glucose is 425. Accu- Chek before meals and at bedtime with Humalog sliding scale coverage. scheduled Lantus insulin ordered. DVT prophylaxis: Heparin 5000 units subcutaneous twice daily. Adjusted to creatinine clearance Living will/advanced directive/end of life care: Patient does not have living will or advanced directive. Her boyfriend is a caregiver but he cannot make decision on the CODE STATUS and he states her sons will make decision. Boyfriend is not to the patient. Patient cannot medicine herself given dementia. After discussion of benefits/risks procedures involved with full code, DNR CC arrest and DNR CC, will keep full code unverified until further decision made. Microbiology Past 72 Hours 10/08/23 14:47 Blood Culture (Wb) - Arm Right Blood Culture - Preliminary No growth in 48 hours. 10/08/23 14:00 Blood Culture (Wb) - Arm Right Blood Culture - Preliminary No growth in 48 hours. 10/08/23 11:40 Urine Catheter - Catheter Urine Culture - Final Presumptive E. coli 10/08/23 20:40 Wound Abcess - Buttock Gram Stain - Final 10/08/23 10:40 Mucosa - Nose SARS-CoV-2, Influenza & RSV (PCR) - Final Laboratory Results 10/09/23 17:47: POC Glucose 281 H 10/09/23 22:30: POC Glucose 182 H 10/10/23 06:10: WBC 11.5 H, RBC 4.59, Hgb 12.7, Hct 38.9, MCV 84.7, MCH 27.7, MCHC 32.6, RDW Std Deviation 44.0 H, RDW Coeff of Don 14.4, Plt Count 254, MPV 12.4 H, Immature Gran % (Auto) 1.000 H, Neut % (Auto) 71.4 H, Lymph % (Auto) 16.2 L, [place] % (Auto) 8.2, Eos % (Auto) 2.7, Baso % (Auto) 0.5, Absolute Neuts (auto) 8.2 H, Absolute Lymphs (auto) 1.87, Nucleated RBC % 0, Sodium 133 L, P otassium 3.1 L, Chloride 106, Carbon Dioxide 20.0 L, Anion Gap 7, BUN 43 H, C reatinine 2.11 H, Estim Creat Clear Calc 27.53, Est GFR (MDRD) Af Amer 29 L, Est GFR (MDRD) Non-Af 24 L, BUN/Creatinine Ratio 20.4 H, Glucose 192 H, Calcium 9.0 10/10/23 08:04: POC Glucose 173 H 10/10/23 10:09: POC Glucose 194 H 10/10/23 10:45: S.aureus Protein A PCR NEGATIVE, MRSA (PCR) Negative Charges/Coding Visit Charges Inpatient E&M: 95094 Subs Hosp L2
--- NOTE | 2023-10-10 16:03 | CHAPLAIN ---
Type of Pastoral Visit _x__ Initial Visit ___ Follow-up Visit ___ On-call Visit ___ General Patient Visit ___ Spiritual Assessment ___ Family Conference ___ Bereavement ___ Rapid Response ___ Code Blue ___ Other (describe below) Pastoral Care Referral From _x__ Patient ___ Family ___ Nurse ___ Physician ___ Ferryboat Operator Helper ___ Blower Insulator ___ Other (describe below) Sacrament/Intervention _x__ Active listening ___ Anointing ___ Episcopalian ___ Bereavement ___ Communion ___ Graciela exploration ___ ___ Life review _x__ Prayer ___ Reconciliation ___ Sacrament of Sick _x__ Supportive presence ___ Wedding ___ Other (describe below) Pastoral Comments patient and her SO is in the room; pt is limited in communication but does nod head and answer in one word answers when addressed; pt is slow to respond; SO says that he has been caring for pt for many years; SO is very talkative about them and their life review of family and buddhism; both welcome presence and prayer
[2023-10-10 17:33] LABS: Bedside Glucose 215 mg/dL (74-106)
[2023-10-10 20:28] VITALS: BP 138/73; PULSE 78; RESP 16; TEMP 36.3; O2SAT 97
[2023-10-10 21:12] VITALS: BP 138/73; PULSE 78
[2023-10-10] MEDS: Atorvastatin Calcium 40 MG Tablet PO (21:12)
[2023-10-10 22:35] LABS: Bedside Glucose 310 mg/dL (74-106)
[2023-10-11 02:34] VITALS: BP 140/78; PULSE 69; RESP 12; TEMP 36.4; O2SAT 100
[2023-10-11] MEDS: metroNIDAZOLE 500 MG/100 ML BAG 100 MG IV ×3 (05:16→21:59)
[2023-10-11 05:17] VITALS: BMI 33.2
[2023-10-11] MEDS: Levothyroxine 75 MCG Tablet PO (05:18)
[2023-10-11 08:04] VITALS: BP 174/92; PULSE 82; RESP 18; TEMP 36.5; O2SAT 98
[2023-10-11 08:27] VITALS: PULSE 82
[2023-10-11] MEDS: Memantine Hydrochloride 10 MG Tablet PO (08:27)
[2023-10-11] MEDS: Aspirin E.C. 81 MG Tablet PO (08:27)
[2023-10-11] MEDS: Doxycycline 100 MG CAPSULE PO ×2 (08:27→21:59)
[2023-10-11] MEDS: Clopidogrel Bisulfate 75 MG Tablet PO (08:27)
[2023-10-11] MEDS: Metoprolol Tartrate 50 MG Tablet PO ×2 (08:27→21:59)
[2023-10-11 08:52] LABS: Bedside Glucose 237 mg/dL (74-106)
[2023-10-11] MEDS: Ceftriaxone 1 GM/50 ML BAG IV (09:17)
[2023-10-11] MEDS: Insulin Glargine-YFGN 100 UNIT/ML Pen 15 UNIT SC (09:19)
[2023-10-11] MEDS: Insulin Lispro 100 UNIT/ML INSULN.PEN 10 UNIT SC ×2 (09:20→11:57)
[2023-10-11] MEDS: Insulin Lispro 100 UNIT/ML INSULN.PEN SC ×4 (09:20→22:00)
[2023-10-11] MEDS: Heparin Injection (Vial) 5,000 UNIT/ML VIAL 5000 UNIT SC ×2 (09:23→21:59)
--- NOTE | 2023-10-11 10:16 | PCM.PN.ID ---
Physical Exam Narrative Feeling better, pain improved, no fever Const alert and no apparent distress General Appearance: cooperative Resp normal air movement and clear to auscultation bilaterally Cardio regular rate and regular rhythm GI soft to palpation, non-tender and non-distended Skin Skin Narrative: no new rash ID ID: Route of nutrition/ use of supplements: [] Nutritional Intake: [] IV Site: [] Wayne Catheter: [] Assessment & Plan Assessment/Plan (1) Perineal abscess: PLAN: s/p I&D. Wound cx ngtd. Bcx ngtd. Ucx with ecoli. On doxy/ceftriaxone/flagyl, plan on discharge on 7 days po doxy 100mg bid, cefdinir 300mg bid, and flagyl 500mg bid. Has PCN allergy. Will follow as needed (2) Acute UTI: (3) Chronic kidney disease:
--- NOTE | 2023-10-11 10:57 | CASEMGMT ---
CARLOS EDUARDO RITTER called son Raquel to discuss needs at discharge. RN RIYA reviewed progress with therapy with recommendations of SNF at discharge. Son, Raquel PALACIO, would like patient to go to SNF and states he prefers [facility] as patient has sister currently at facility. CARLOS EDUARDO RITTER informed Rauqel that referral will be made and will be updated regarding acceptance. Raquel provided email [email or web address] if more preference need to be obtained. Son states that he was asked by hospitalist regarding code status and son informed this RN CM that they would like patient to be full code until him and his sister could arrive from out of state. CARLOS EDUARDO RITTER updated hospitalist. Son had no further questions or concerns. CARLOS EDUARDO RITTER updated SW and discharge retail planning manager with preferences.
--- NOTE | 2023-10-11 12:05 | CASEMGMT ---
Addendum entered by Isaura Beckford 10/11/23 12:59: Patient has been accepted by [facility]. SW updated. Isaura Beckford DC Planning Asst. Original Note: Discharge Planning Referral sent to [facility] at [facility] via [facility]. Isaura Beckford DC Planning Asst.
--- NOTE | 2023-10-11 12:06 | WOUNDNOTE ---
Pest Control Service Technician/boyfriend observed dressing change and packing again today. states he thinks he will be able to pack the area at home with the assistance of another pigment weigher. states plan is for discharge home possibly tomorrow.
[2023-10-11 12:20] LABS: Bedside Glucose 325 mg/dL (74-106)
--- NOTE | 2023-10-11 13:05 | PN.HOSP_ITS ---
Reason for Visit Reason for Visit: Diagnoses Cutaneous abscess of perineum (10/08/23) Chronic kidney disease, unspecified (10/08/23) Urinary tract infection, site not specified (10/08/23) Weakness (10/08/23) Objective Data Objective Data Vital Signs: Vital Signs Temp Pulse Resp BP Pulse Ox O2 Del Method 97.7 F L 82 18 174/92 H 98 Room Air 10/11/23 08:04 10/11/23 08:27 10/11/23 08:04 10/11/23 08:04 10/11/23 08:04 10/11/23 08:04 Oxygen Delivery Method Room Air Weight: 211 lb 10.3 oz Body Mass Index (BMI) 33.2 Intake & Output: Intake and Output for Last 24 Hours 10/09/23 10/10/23 10/11/23 23:59 23:59 23:59 Intake Total 2850 / 2850 2090 / 2090 350 / 350 Output Total 950 / 950 1300 / 1300 600 / 600 Balance 1900 / 1900 790 / 790 -250 / -250 Lab / Micro Data 10/10/23 06:10 10/10/23 06:10 Labs: Laboratory Results - last 24 hr 10/10/23 17:10: POC Glucose 215 H 10/10/23 21:10: POC Glucose 310 H 10/11/23 08:19: POC Glucose 237 H 10/11/23 11:48: POC Glucose 325 H Micro: Microbiology 10/08/23 20:40 Wound Abcess - Buttock Gram Stain - Final 10/08/23 20:40 Wound Abcess - Buttock Wound Culture - Preliminary Alpha Hemolytic Streptococcus Presumptive C albicans 10/08/23 14:47 Blood Culture (Wb) - Arm Right Blood Culture - Preliminary No growth in 48 hours. 10/08/23 14:00 Blood Culture (Wb) - Arm Right Blood Culture - Preliminary No growth in 48 hours. 10/08/23 11:40 Urine Catheter - Catheter Urine Culture - Final Presumptive E. coli 10/08/23 10:40 Mucosa - Nose SARS-CoV-2, Influenza & RSV (PCR) - Final Rhythm Strip Rhythm Strip: Sinus Tach Rate: 106 Ectopy: None Physical Exam Narrative No fever. Had I&D. Patient abscess region was painful Bortz overall changing position. Talked with the patient and significant other Bedside. Seen and examined General: Awake, cooperative. Dementia, orientation cannot be ascertained. Cooperative HEENT: Atraumatic, PERRLA, EOMI, Normocephalic Oral: Oral mucosa dry. No Gingival or Mucosal Lesions/ Ulcerations Neck: Supple, No JVD, Negative Carotid Bruits Chest wall/Lungs: Air entry diminished in bilateral lung bases. No crepitation/rhonchi Cardiovascular: Sinus tachycardia, Normal S1, Normal S2, No M/G/R Abdomen: Bowel Sounds Present, Soft, Non Tender, Non-Distended : Abscess 5 to 6 cm oval shaped red induration over right buttock, perineal region status post I&D. Induration improving. Dressing changed.No renal angle tenderness. No suprapubic tenderness. Extremities: No edema, Capillary Refill Less than 3 Seconds Skin: No rashes, No breakdown Musculoskeletal: Weakness on the right lower extremity, power 4/5. No Tenderness to Palpation of Joints or Extremities Neurological: Cranial nerves II-XII grossly intact, DTR 2+/4. No acute focal neurological deficit. Psych/Mental Status: flat affect dementia. Assessment & Plan Assessment/Plan (1) Generalized weakness: (2) Perineal abscess: PLAN: Plan This is 73-year-old female brought to ED for generalized weakness, unable to walk a straight, sit on the right buttock because of pain and swelling, most likely abscess 1. SIRS with sepsis due to right-sided buttock abscess: Patient is being admitted to PCU. She has tachycardia, leukocytosis and lactic acidosis meeting criteria of SIRS, with focus of infection. She also had transient low blood pressure 92/49 does not meet criteria for hypotension. The patient presented with sepsis with clinical indicators of due to leukocytosis, tachycardia with acute sepsis-related organ dysfunction as evidenced by lactic acidosis, HELENA on CKD and low BP improved with IV fluid bolus. CT pelvis ordered as there is no imaging done in ED. Patient is started on IV ceftriaxone, Flagyl and Doxy for helio coverage including MRSA. 10/08: Patient had incision and drainage of perineal abscess with packing right side perineal/buttock area. 10/09: Patient was evaluated by ID. Continue same antibiotics ceftriaxone, doxycycline and Flagyl. Discussed with the patient's significant other and wound RN Genet. 10/10 patient was evaluated by ID. Continue dressing change. Patient significant other wants to take her home tomorrow after running dressing change. Wound culture final Gram stain shows fibrotic Streptococcus, preempting Asha albicans. Urine culture presumptive E. coli more than 100,000 colonies. Blood culture negative for 48 hours plan for discharge on 7 days of Doxy 100 mg twice daily, cefdinir 300 mg twice daily and Flagyl 500 mg twice daily. 2. Acute debility with generalized weakness, failure to thrive, unable to ambulate or sit up: PT and OT ordered. 3. Previous history affecting the right side of the body and dementia: 4. Chronic systolic heart failure, atherosclerotic heart disease: Patient currently does not have chest pain or features of acute heart failure. Continue home medication. Patient used to follow Dr. Rangel last seen in March 2022. Last echo in December 2017 moderately to severe LV systolic dysfunction with normal LV size.EF 30%. It was suboptimal technically difficult study. 5. HELENA on CKD stage IV: Previous creatinine 2.69 in April 2021. Creatinine high 3.47 BUN 50, BUNs/creatinine ratio 14. Anion gap 16, bicarb 18 suggestive of increased anion gap metabolic acidosis although ABG not done and I think is not needed. Continue IV fluid normal saline. Monitor kidney function. 10/08: BUNs/creatinine 45/2.51. HELENA improving. 6. Diabetes mellitus type 2 uncontrolled: As per patient's boyfriend her blood sugar is in 300s to 350s and is not controlled. In BMP glucose is 425. Accu- Chek before meals and at bedtime with Humalog sliding scale coverage. scheduled Lantus insulin ordered. 10/10 glucose elevated 237-325. Insulin dose increased DVT prophylaxis: Heparin 5000 units subcutaneous twice daily. Adjusted to creatinine clearance Living will/advanced directive/end of life care: Patient does not have living will or advanced directive. Her boyfriend is a caregiver but he cannot make decision on the CODE STATUS and he states her sons will make decision. Boyfriend is not to the patient. Patient cannot medicine herself given dementia. After discussion of benefits/risks procedures involved with full code, DNR CC arrest and DNR CC, will keep full code unverified until further decision made. Charges/Coding Visit Charges Inpatient E&M: 70532 Subs Hosp L2
[2023-10-11 14:40] VITALS: BP 132/79; PULSE 78; RESP 16; TEMP 36.4; O2SAT 99
[2023-10-11 16:48] LABS: Bedside Glucose 202 mg/dL (74-106)
[2023-10-11] MEDS: Insulin Lispro 100 UNIT/ML INSULN.PEN 15 UNIT SC (18:09)
[2023-10-11 20:36] LABS: Bedside Glucose 186 mg/dL (74-106)
[2023-10-11 20:40] VITALS: BP 142/78; PULSE 78; RESP 16; TEMP 36.6; O2SAT 98
[2023-10-11 21:59] VITALS: BP 136/72; PULSE 74
[2023-10-11] MEDS: Atorvastatin Calcium 40 MG Tablet PO (21:59)
[2023-10-11] MEDS: Insulin Glargine-YFGN 100 UNIT/ML Pen 20 UNIT SC (22:00)
[2023-10-12 00:16] LABS: Bedside Glucose 184 mg/dL (74-106)
[2023-10-12 02:51] VITALS: BP 147/69; PULSE 64; RESP 16; TEMP 36.8; O2SAT 97
[2023-10-12 02:54] VITALS: BMI 33.3
[2023-10-12] MEDS: metroNIDAZOLE 500 MG/100 ML BAG 100 MG IV (05:59)
[2023-10-12] MEDS: Levothyroxine 75 MCG Tablet PO (05:59)
[2023-10-12 06:57] LABS: Absolute Lymphocyte Count 2.83 X10^3/uL (0.83-4.51); Absolute Neutrophil Count 5.9 X10^3/uL (2.0-7.7); Basophil# 0.09 X10^3/uL; Basophil% 0.8 % (0-1); Eosinophil# 0.36 X10^3/uL; Eosinophils% 3.4 % (0-5); Hematocrit 39.5 % (37-47); Hemoglobin 12.8 g/dL (12.0-15.0); Lymphocyte # 2.83 X10^3/ul (0.83-4.51); Lymphocyte % 26.6 % (19-41); Mean Corp Hgb Conc 32.4 g/dL (32-36); Mean Corpuscular Hgb 27.8 pg (27.0-32.0); Mean Corpuscular Volume 85.7 fL (81-99); Monocyte# 1.03 X10^3/uL; Monocyte% 9.7 % (0-10); NRBC Flagged by Analyzer 0.2 % (0-5); Neutrophil # 5.89 X10^3/uL (2.7-7.7); Neutrophil % 55.3 % (47-70); Platelet Count 283 K/mm3 (150-450); RBC Distribution Width CV 14.8 % (11.6-14.6); Red Blood Count 4.61 M/mm3 (4.2-5.4); White Blood Count 10.7 K/mm3 (4.4-11.0)
[2023-10-12] MEDS: Insulin Lispro 100 UNIT/ML INSULN.PEN SC (08:13)
[2023-10-12] MEDS: Insulin Lispro 100 UNIT/ML INSULN.PEN 15 UNIT SC (08:14)
[2023-10-12 08:15] VITALS: BP 132/59; PULSE 68
[2023-10-12] MEDS: Metoprolol Tartrate 50 MG Tablet PO (08:15)
[2023-10-12] MEDS: Doxycycline 100 MG CAPSULE PO (08:15)
[2023-10-12] MEDS: Aspirin E.C. 81 MG Tablet PO (08:15)
[2023-10-12 08:16] LABS: Anion Gap 6 (5-15); BUN 34 mg/dL (7-18); BUN/Creat Ratio 18.1 RATIO (10-20); Calcium,Total 8.4 mg/dL (8.5-10.1); Chloride 110 mmol/L (98-107); Creatinine, Serum 1.88 mg/dL (0.55-1.02); EST Glomerular Filtration Rate 28 mL/min (>60); Est Glom Filt Rate - Afr Amer 34 mL/min (>60); Estimated Creatinine Clearance 30.69 ml/min; Glucose 195 mg/dL (74-106); Potassium 3.1 mmol/L (3.5-5.1); Sodium Level 137 mmol/L (136-145)
[2023-10-12] MEDS: Clopidogrel Bisulfate 75 MG Tablet PO (08:16)
[2023-10-12] MEDS: Memantine Hydrochloride 10 MG Tablet PO (08:16)
[2023-10-12] MEDS: Heparin Injection (Vial) 5,000 UNIT/ML VIAL 5000 UNIT SC (08:18)
[2023-10-12] MEDS: Insulin Glargine-YFGN 100 UNIT/ML Pen 20 UNIT SC (08:19)
[2023-10-12 08:39] LABS: Bedside Glucose 183 mg/dL (74-106)
[2023-10-12 08:45] VITALS: BP 132/59; PULSE 68; RESP 18; TEMP 36.7; O2SAT 100
--- NOTE | 2023-10-12 09:22 | PCM.TXEXTCAR ---
Diet Diet Order/Speech Therapy: 10/08/23 17:14 Diet: Regular - General Food consistency:: Regular Liquid Consistency:: Regular/Thin Routine Orders/Code Status Suppository Type: Dulcolax 10mg Suppository Frequency: Daily PRN Wound(s) right buttocks/perianal abcess: Wound Type: 2 small puncture sites from I&D Dressing Change: Packed with NuGauze Therapies Weight Bearing: Weight bearing as tolerated Extremity Affected:: Right Lower Physical Therapy: Eval and Treat Occupational Therapy: Eval and Treat Speech Therapy: Eval and Treat Problem/Diagnosis (1) Generalized weakness: Status: Acute Code(s): R53.1 - Weakness (2) Perineal abscess: Status: Acute Code(s): L02.215 - Cutaneous abscess of perineum Plan This is 73-year-old female brought to ED for generalized weakness, unable to walk a straight, sit on the right buttock because of pain and swelling, most likely abscess 1. SIRS with sepsis due to right-sided buttock abscess: Patient is being admitted to PCU. She has tachycardia, leukocytosis and lactic acidosis meeting criteria of SIRS, with focus of infection. She also had transient low blood pressure 92/49 does not meet criteria for hypotension. The patient presented with sepsis with clinical indicators of due to leukocytosis, tachycardia with acute sepsis-related organ dysfunction as evidenced by lactic acidosis, HELENA on CKD and low BP improved with IV fluid bolus. CT pelvis ordered as there is no imaging done in ED. Patient is started on IV ceftriaxone, Flagyl and Doxy for helio coverage including MRSA. 10/08: Patient had incision and drainage of perineal abscess with packing right side perineal/buttock area. 10/09: Patient was evaluated by ID. Continue same antibiotics ceftriaxone, doxycycline and Flagyl. Discussed with the patient's significant other and wound RN Genet. 10/10 patient was evaluated by ID. Continue dressing change. Patient significant other wants to take her home tomorrow after running dressing change. Wound culture final Gram stain shows fibrotic Streptococcus, preempting Asha albicans. Urine culture presumptive E. coli more than 100,000 colonies. Blood culture negative for 48 hours plan for discharge on 7 days of Doxy 100 mg twice daily, cefdinir 300 mg twice daily and Flagyl 500 mg twice daily. 2. Acute debility with generalized weakness, failure to thrive, unable to ambulate or sit up: PT and OT ordered. 3. Previous history affecting the right side of the body and dementia: 4. Chronic systolic heart failure, atherosclerotic heart disease: Patient currently does not have chest pain or features of acute heart failure. Continue home medication. Patient used to follow Dr. Rangel last seen in March 2022. Last echo in December 2017 moderately to severe LV systolic dysfunction with normal LV size.EF 30%. It was suboptimal technically difficult study. 5. HELENA on CKD stage IV: Previous creatinine 2.69 in April 2021. Creatinine high 3.47 BUN 50, BUNs/creatinine ratio 14. Anion gap 16, bicarb 18 suggestive of increased anion gap metabolic acidosis although ABG not done and I think is not needed. Continue IV fluid normal saline. Monitor kidney function. 10/08: BUNs/creatinine 45/2.51. HELENA improving. 6. Diabetes mellitus type 2 uncontrolled: As per patient's boyfriend her blood sugar is in 300s to 350s and is not controlled. In BMP glucose is 425. Accu-Chek before meals and at bedtime with Humalog sliding scale coverage. scheduled Lantus insulin ordered. 10/10 glucose elevated 237-325. Insulin dose increased DVT prophylaxis: Heparin 5000 units subcutaneous twice daily. Adjusted to creatinine clearance Living will/advanced directive/end of life care: Patient does not have living will or advanced directive. Her boyfriend is a caregiver but he cannot make decision on the CODE STATUS and he states her sons will make decision. Boyfriend is not to the patient. Patient cannot medicine herself given dementia. After discussion of benefits/risks procedures involved with full code, DNR CC arrest and DNR CC, will keep full code unverified until further decision made. Allergies/Procedures Done in Hospital Allergies ibuprofen Allergy (Verified 10/08/23 10:05) Itching lisinopril Allergy (Verified 10/08/23 10:05) Other Penicillins Allergy (Verified 10/08/23 10:05) Itching tramadol HCl (From Ultram) Allergy (Verified 10/08/23 10:05) Other Type of Care/Length of Stay Estimated LOS: Convalescent Care Less Than 30 days Type of Care Needed: Skilled Rehab Potential: Good Prognosis: Good Additional Orders/Day of Discharge Day of Discharge: 10/12/23 Discharge Plan Admission Admit Date/Time: 10/08/23 13:08 Primary Reason for Your Visit: Right buttock/perineal abscess Attending Provider: Sha Wells Primary Care Provider: Claude Lee Consulting Providers: Indio De Los Santos; Byron Fowler Instructions Additional Instructions / Restrictions: Twice daily dressing change of right buttock abscess status post drainage for the next 3 days Discharge Orders/Prescriptions Prescriptions: New doxycycline hyclate 100 mg capsule 100 mg PO BID Qty: 14 0RF cefdinir 300 mg capsule 300 mg PO BID Qty: 14 0RF metronidazole 500 mg tablet 500 mg PO Q8H 7 Days Qty: 21 0RF acetaminophen 325 mg Tablet 650 mg PO Q6H PRN PRN (Reason: Pain 1-10 Or Fever >100.7) Qty: 0 0RF insulin lispro [Humalog KwikPen Insulin] 100 unit/mL Insulin Pen See Protocol subcut ACHS Qty: 0 0RF Protocol: 4. Sliding Scale Insulin High-Med Dosing Condition: 150-199 mg/dl = 2 units Condition: 200-259 mg/dl = 4 units Condition: 260-324 mg/dl = 6 units Condition: 325-374 mg/dl = 8 units Condition: 375-409 mg/dl = 10 units Condition: 410-449 mg/dl = 11 units Condition: Greater than 449 call physician Protocol Text: - Use for Total Daily Dose of Insulin 56-80 units - Patient who are insulin resistant or septic HIGH MEDIUM DOSING ALGORITHM insulin lispro [Humalog KwikPen Insulin] 100 unit/mL Insulin Pen 15 unit subcut TIDAC Qty: 0 0RF Continued (DME) pen needle, diabetic [Comfort EZ Pen [place]] 31 gauge x 5/16 needle See Rx Instructions .ROUTE .MEDSUPPLY Qty: 30 Rx Instructions: test blood sugar six times daily Jardiance 25 mg tablet 25 mg PO DAILY spironolactone 25 mg tablet 25 mg PO DAILY Januvia 25 mg tablet 25 mg PO DAILY atorvastatin 40 MG tablet 40 mg PO QHS clopidogrel 75 MG tablet 75 mg PO DAILY aspirin 81 MG tablet 81 mg PO DAILY@0800 levothyroxine 75 MCG tablet 75 mcg PO DAILY pantoprazole 40 MG tablet 40 mg PO DAILY metoprolol tartrate 50 MG tablet 50 mg PO BID docusate sodium 100 MG capsule 100 mg PO BID Patient Comments: constipation Fiasp FlexTouch U-100 Insulin 100 unit/mL (3 mL) insulin pen 1 sliding scale dose subcut TID Protocol: 6. Sliding Scale Insulin Custom Condition: mg/dl range Dose/Route: Number of Units Condition: 150-200 Dose/Route: 2 Condition: 201-250 Dose/Route: 3 Condition: 251-300 Dose/Route: 4 Condition: 301-350 Dose/Route: 5 Condition: 351-400 Dose/Route: 6 Condition: 400+ Dose/Route: call md Protocol Text: Custom Sliding Scale 30 units ay breakfast, 20 units at lunch 25 units with dinner. memantine 10 mg tablet 10 mg PO DAILY Patient Comments: at bedtime polyethylene glycol 3350 [ClearLax] 17 gram/dose powder 17 g PO DAILY PRN (Reason: constipation) Calcium 600 + D(3) 600 mg-5 mcg (200 unit) capsule 1 cap PO DAILY hydrocodone-acetaminophen 5-325 mg tablet 1 tab PO Q4H PRN PRN (Reason: Pain) 2 Days Qty: 7 0RF Changed furosemide [Lasix] 40 mg tablet 40 mg PO DAILY PRN (Reason: leg swelling) 30 Days Qty: 0 0RF insulin glargine [Basaglar KwikPen U-100 Insulin] 100 unit/mL (3 mL) insulin pen 22 unit subcut BID 30 Days Qty: 0 0RF Discontinued doxycycline hyclate 100 mg capsule 100 mg PO BID 7 Days Qty: 13 0RF Referrals / Follow Up: Indio De Los Santos MD [Med Staff - Active Staff] - Within 2 Weeks ( Right buttock/perineal abscess status postdrainage) Byron Fowler MD [Med Staff - Active Staff] - Within 1 Month (as needed) Claude Lee MD [Primary Care Provider] - Disposition Disposition (needs filled in before D/C Order can be placed): [facility]
[2023-10-12] MEDS: Ceftriaxone 1 GM/50 ML BAG IV (09:26)
[2023-10-12 09:30] VITALS: BP 132/59; PULSE 68; RESP 18; TEMP 36.7; O2SAT 100
--- NOTE | 2023-10-12 09:32 | PCM.DC.SUM ---
Providers Date of Admission: 10/08/23 Date of Discharge: 10/12/23 Primary Care Physician: Dr. 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 Routine Comment: Reason for Consult:: perianal abcess 10/10/23 09:52 Consult: Infectious Disease Routine Consulting Provider: Byron Fowler Reason for Consult: sepsis from right buttock/perineal abscess EMERGENT Consult: No Notified: Yes Date Notified: 10/10/23 Time Notified: 09:54 Method of Notification: Text Reason For Visit: GEN WEAKNESS, UTI Diagnosis Discharge Diagnosis (1) Generalized weakness: Status: Acute Code(s): R53.1 - Weakness (2) Perineal abscess: Status: Acute Code(s): L02.215 - Cutaneous abscess of perineum Plan This is 73-year-old female brought to ED for generalized weakness, unable to walk a straight, sit on the right buttock because of pain and swelling, most likely abscess 1. SIRS with sepsis due to right-sided buttock abscess: Patient is being admitted to PCU. She has tachycardia, leukocytosis and lactic acidosis meeting criteria of SIRS, with focus of infection. She also had transient low blood pressure 92/49 does not meet criteria for hypotension. The patient presented with sepsis with clinical indicators of due to leukocytosis, tachycardia with acute sepsis-related organ dysfunction as evidenced by lactic acidosis, HELENA on CKD and low BP improved with IV fluid bolus. CT pelvis ordered as there is no imaging done in ED. Patient is started on IV ceftriaxone, Flagyl and Doxy for helio coverage including MRSA. 10/08: Patient had incision and drainage of perineal abscess with packing right side perineal/buttock area. 10/09: Patient was evaluated by ID. Continue same antibiotics ceftriaxone, doxycycline and Flagyl. Discussed with the patient's significant other and wound RN Genet. 10/10 patient was evaluated by ID. Continue dressing change. Patient significant other wants to take her home tomorrow after running dressing change. Wound culture final Gram stain shows fibrotic Streptococcus, preempting Asha albicans. Urine culture presumptive E. coli more than 100,000 colonies. Blood culture negative for 48 hours plan for discharge on 7 days of Doxy 100 mg twice daily, cefdinir 300 mg twice daily and Flagyl 500 mg twice daily. 10/11: Patient discharged on above antibiotics, prescription given by ID configuration management consultant. Advised to continue dressing twice daily for next 3 days. 2. Acute debility with generalized weakness, failure to thrive, unable to ambulate or sit up: PT and OT ordered. 3. Previous history affecting the right side of the body and dementia: 4. Chronic systolic heart failure, atherosclerotic heart disease: Patient currently does not have chest pain or features of acute heart failure. Continue home medication. Patient used to follow Dr. Rangel last seen in March 2022. Last echo in December 2017 moderately to severe LV systolic dysfunction with normal LV size.EF 30%. It was suboptimal technically difficult study. 5. HELENA on CKD stage IV: Previous creatinine 2.69 in April 2021. Creatinine high 3.47 BUN 50, BUNs/creatinine ratio 14. Anion gap 16, bicarb 18 suggestive of increased anion gap metabolic acidosis although ABG not done and I think is not needed. Continue IV fluid normal saline. Monitor kidney function. 10/08: BUNs/creatinine 45/2.51. HELENA improving. 10/11: Creatinine is improving. BUN 34. Potassium 3.1. Hold Lasix but continue spironolactone. Follow-up BMP in 3 days 6. Diabetes mellitus type 2 uncontrolled: As per patient's boyfriend her blood sugar is in 300s to 350s and is not controlled. In [facility] glucose is 425. Accu-Chek before meals and at bedtime with Humalog sliding scale coverage. scheduled Lantus insulin ordered. 10/10 glucose elevated 237-325. Insulin dose increased 10/11: Patient discharged on optimal dose of Lantus insulin and Humalog insulin. DVT prophylaxis: Heparin 5000 units subcutaneous twice daily. Adjusted to creatinine clearance Discharged to SNF Living will/advanced directive/end of life care: Patient does not have living will or advanced directive. Her boyfriend is a caregiver but he cannot make decision on the CODE STATUS and he states her sons will make decision. Boyfriend is not to the patient. Patient cannot medicine herself given dementia. After discussion of benefits/risks procedures involved with full code, DNR CC arrest and DNR CC, will keep full code unverified until further decision made. Medications at Discharge Home Medications aspirin 81 mg tablet,delayed release 81 mg PO DAILY@0800 heart health 05/27/13 atorvastatin 40 mg tablet 40 mg PO QHS cholesterol 05/27/13 clopidogrel 75 mg tablet 75 mg PO DAILY blood clotting 05/27/13 docusate sodium 100 mg capsule 100 mg PO BID stool 05/27/13 levothyroxine 75 mcg tablet 75 mcg PO DAILY thyroid 05/27/13 metoprolol tartrate 50 mg tablet 50 mg PO BID heart 05/27/13 pantoprazole 40 mg tablet,delayed release 40 mg PO DAILY stomach 05/27/13 pen needle, diabetic 31 gauge x 16 (Comfort EZ Pen Bondurant) #30 ea 06/05/17 empagliflozin 25 mg tablet (Jardiance) 25 mg PO DAILY dmII 03/29/22 sitagliptin phosphate 25 mg tablet (Januvia) 25 mg PO DAILY DMII 06/06/23 spironolactone 25 mg tablet 25 mg PO DAILY waterpill 06/06/23 calcium carbonate 600 mg-vitamin D3 5 mcg (200 unit) capsule (Calcium 600 + D(3)) 1 cap PO DAILY calcium 10/08/23 insulin aspart (niacinamide)(U-100) 100 unit/mL(3 mL) subcutaneous pen (Fiasp FlexTouch U-100 Insulin) 1 sliding scale dose subcut TID dmII 10/08/23 memantine 10 mg tablet 10 mg PO DAILY dementia 10/08/23 polyethylene glycol 3350 17 gram/dose oral powder (ClearLax) 17 g PO DAILY PRN constipation 10/08/23 cefdinir 300 mg capsule 300 mg PO BID #14 caps 10/11/23 doxycycline hyclate 100 mg capsule 100 mg PO BID #14 caps 10/11/23 metronidazole 500 mg tablet 500 mg PO Q8H 7 days #21 tabs 10/11/23 acetaminophen 325 mg tablet 650 mg (2 x 325 mg) PO Q6H PRN PRN Pain 1-10 Or Fever >100.7 #0 tabs 10/12/23 furosemide 40 mg tablet (Lasix) 40 mg PO DAILY PRN leg swelling 1 month #0 tabs 10/12/23 hydrocodone-acetaminophen 5-325mg 5mg-325mg 1 tab PO Q4H PRN PRN Pain 2 days #7 TABLETS 10/12/23 insulin glargine 100 unit/mL (3 mL) subcutaneous pen (Basaglar KwikPen U-100 Insulin) 22 unit (0.22 mL) subcut BID dmII 30 days #0 mL 10/12/23 insulin lispro 100 unit/mL subcutaneous pen (Humalog KwikPen (U-100) Insulin) 15 unit (0.15 mL) subcut TIDAC #0 mL 10/12/23 insulin lispro 100 unit/mL subcutaneous pen (Humalog KwikPen (U-100) Insulin) See Protocol subcut ACHS #0 mL 10/12/23 Physical Exam Narrative No fever. Had I&D. Pain on the right side of buttock/perineal region is better. Talked with the patient and significant other Bedside. the patient's healthcare power of erisa attorney, her son wants her to go to snf. Seen and examined General: Awake, cooperative. Dementia, orientation cannot be ascertained. Cooperative HEENT: Atraumatic, PERRLA, EOMI, Normocephalic Oral: Oral mucosa dry. No Gingival or Mucosal Lesions/ Ulcerations Neck: Supple, No JVD, Negative Carotid Bruits Chest wall/Lungs: Air entry diminished in bilateral lung bases. No crepitation/rhonchi Cardiovascular: Sinus tachycardia, Normal S1, Normal S2, No M/G/R Abdomen: Bowel Sounds Present, Soft, Non Tender, Non-Distended : Abscess was 5 to 6 cm oval shaped red induration over right buttock, perineal region status post I&D. Redness, induration and redness improved. Extremities: No edema, Capillary Refill Less than 3 Seconds Skin: No rashes, No breakdown Musculoskeletal: Weakness on the right lower extremity, power 4/5. No Tenderness to Palpation of Joints or Extremities Neurological: Cranial nerves II-XII grossly intact, DTR 2+/4. No acute focal neurological deficit. Psych/Mental Status: flat affect dementia. Weight / BMI Weight Weight: 212 lb 1.355 oz Body Mass Index (BMI) 33.3 ABG / Lab / Microbiology Data 10/12/23 06:20 10/12/23 06:20 Laboratory: Laboratory Results - last 24 hr 10/11/23 11:48: POC Glucose 325 H 10/11/23 16:31: POC Glucose 202 H 10/11/23 18:12: POC Glucose 186 H 10/11/23 21:55: POC Glucose 184 H 10/12/23 06:20: WBC 10.7, RBC 4.61, Hgb 12.8, Hct 39.5, MCV 85.7, MCH 27.8, MCHC 32.4, RDW Std Deviation 46.0 H, RDW Coeff of Don 14.8 H, Plt Count 283, MPV 12.0, Immature Gran % (Auto) 4.200 H, Neut % (Auto) 55.3, Lymph % (Auto) 26.6, [place] % (Auto) 9.7, Eos % (Auto) 3.4, Baso % (Auto) 0.8, Absolute Neuts (auto) 5.9, Absolute Lymphs (auto) 2.83, Nucleated RBC % 0.2, Sodium 137, Potassium 3.1 L, Chloride 110 H, Carbon Dioxide 21.0, Anion Gap 6, BUN 34 H, Creatinine 1.88 H, Estim Creat Clear Calc 30.69, Est GFR (MDRD) Af Amer 34 L, Est GFR (MDRD) Non-Af 28 L, BUN/Creatinine Ratio 18.1, Glucose 195 H, Calcium 8.4 L 10/12/23 08:11: POC Glucose 183 H Microbiology: Microbiology 10/08/23 20:40 Wound Abcess - Buttock Gram Stain - Final 10/08/23 20:40 Wound Abcess - Buttock Wound Culture - Final Pediococcus pentosaceus Presumptive C albicans 10/08/23 14:47 Blood Culture (Wb) - Arm Right Blood Culture - Preliminary No growth in 48 hours. 10/08/23 14:00 Blood Culture (Wb) - Arm Right Blood Culture - Preliminary No growth in 48 hours. 10/08/23 11:40 Urine Catheter - Catheter Urine Culture - Final Presumptive E. coli 10/08/23 10:40 Mucosa - Nose SARS-CoV-2, Influenza & RSV (PCR) - Final Meaningful Use Info Meaningful Use Meaningful Use Diagnoses (Choose all that apply): None applicable Ischemic Stroke Statin Dosing Therapy Reference: STATIN DOSE THERAPY REFERENCE: * Patients > 75 years receive moderate or high dose statin therapy. * Patients 75 years or YOUNGER should receive HIGH intensity statin dose unless contraindicated. You will be required to document reason for non-treatment if statin daily dose does not meet guidelines. HIGH DOSE STATIN THERAPY DAILY Atorvastatin > than or = to 40 mg Rosuvastatin > than or = to 20 mg Amlodipine + Atorvastatin > than or = to 2.5/40 mg Ezetimibe + Simvastatin 10/80 mg Simvastatin 80mg Discharge Plan Admission Admit Date/Time: 10/08/23 13:08 Primary Reason for Your Visit: Right buttock/perineal abscess Attending Provider: Sha Wells Primary Care Provider: Claude Lee Consulting Providers: Indio De Los Santos; Byron Fowler Instructions Additional Instructions / Restrictions: Twice daily dressing change of right buttock abscess status post drainage for the next 3 days Discharge Orders/Prescriptions Prescriptions: New doxycycline hyclate 100 mg capsule 100 mg PO BID Qty: 14 0RF cefdinir 300 mg capsule 300 mg PO BID Qty: 14 0RF metronidazole 500 mg tablet 500 mg PO Q8H 7 Days Qty: 21 0RF acetaminophen 325 mg Tablet 650 mg PO Q6H PRN PRN (Reason: Pain 1-10 Or Fever >100.7) Qty: 0 0RF insulin lispro [Humalog KwikPen Insulin] 100 unit/mL Insulin Pen See Protocol subcut ACHS Qty: 0 0RF Protocol: 4. Sliding Scale Insulin High-Med Dosing Condition: 150-199 mg/dl = 2 units Condition: 200-259 mg/dl = 4 units Condition: 260-324 mg/dl = 6 units Condition: 325-374 mg/dl = 8 units Condition: 375-409 mg/dl = 10 units Condition: 410-449 mg/dl = 11 units Condition: Greater than 449 call physician Protocol Text: - Use for Total Daily Dose of Insulin 56-80 units - Patient who are insulin resistant or septic HIGH MEDIUM DOSING ALGORITHM insulin lispro [Humalog KwikPen Insulin] 100 unit/mL Insulin Pen 15 unit subcut TIDAC Qty: 0 0RF Continued (DME) pen needle, diabetic [Comfort EZ Pen Bondurant] 31 gauge x 5/16 needle See Rx Instructions .ROUTE .MEDSUPPLY Qty: 30 Rx Instructions: test blood sugar six times daily Jardiance 25 mg tablet 25 mg PO DAILY spironolactone 25 mg tablet 25 mg PO DAILY Januvia 25 mg tablet 25 mg PO DAILY atorvastatin 40 MG tablet 40 mg PO QHS clopidogrel 75 MG tablet 75 mg PO DAILY aspirin 81 MG tablet 81 mg PO DAILY@0800 levothyroxine 75 MCG tablet 75 mcg PO DAILY pantoprazole 40 MG tablet 40 mg PO DAILY metoprolol tartrate 50 MG tablet 50 mg PO BID docusate sodium 100 MG capsule 100 mg PO BID Patient Comments: constipation Fiasp FlexTouch U-100 Insulin 100 unit/mL (3 mL) insulin pen 1 sliding scale dose subcut TID Protocol: 6. Sliding Scale Insulin Custom Condition: mg/dl range Dose/Route: Number of Units Condition: 150-200 Dose/Route: 2 Condition: 201-250 Dose/Route: 3 Condition: 251-300 Dose/Route: 4 Condition: 301-350 Dose/Route: 5 Condition: 351-400 Dose/Route: 6 Condition: 400+ Dose/Route: call md Protocol Text: Custom Sliding Scale 30 units ay breakfast, 20 units at lunch 25 units with dinner. memantine 10 mg tablet 10 mg PO DAILY Patient Comments: at bedtime polyethylene glycol 3350 [ClearLax] 17 gram/dose powder 17 g PO DAILY PRN (Reason: constipation) Calcium 600 + D(3) 600 mg-5 mcg (200 unit) capsule 1 cap PO DAILY hydrocodone-acetaminophen 5-325 mg tablet 1 tab PO Q4H PRN PRN (Reason: Pain) 2 Days Qty: 7 0RF Changed furosemide [Lasix] 40 mg tablet 40 mg PO DAILY PRN (Reason: leg swelling) 30 Days Qty: 0 0RF insulin glargine [Basaglar KwikPen U-100 Insulin] 100 unit/mL (3 mL) insulin pen 22 unit subcut BID 30 Days Qty: 0 0RF Discontinued doxycycline hyclate 100 mg capsule 100 mg PO BID 7 Days Qty: 13 0RF Referrals / Follow Up: Indio De Los Santos MD [Med Staff - Active Staff] - Within 2 Weeks ( Right buttock/perineal abscess status postdrainage) Byron Fowler MD [Med Staff - Active Staff] - Within 1 Month (as needed) Claude Lee MD [Primary Care Provider] - Disposition Disposition (needs filled in before D/C Order can be placed[facility] Charges/Coding Visit Charges Inpatient E&M: 37830 Disch Hosp >30min
--- NOTE | 2023-10-12 09:49 | CASEMGMT ---
Patient is ready for discharge to [facility]. SW completed a 7000 in HENS system. Physicians will transport patient. Plan: d/c to [facility] at [place] under skilled level of care on a convalescent stay. Physicians will transport patient via cot. Zoya DOUGHERTY
--- NOTE | 2023-10-12 09:49 | CASEMGMT ---
Discharge Planning Discharge orders, signed med list, and transport time sent to [facility] [place] via [facility]. Physicians will transport patient by cot at 11a. Nursing, SW, and patient updated. left for patients son. Isaura Beckford DC Planning Asst.
--- NOTE | 2023-10-12 10:21 | WOUNDNOTE ---
Pt being discharged to the long term so will leave packing in place since nursing will need to assess on arrival to the [place]. Pt being picked up at 11am.
--- NOTE | 2023-10-12 10:25 | NURSING ---
[facility] @ 1100, caregiver @ bedside ,daughter informed of discharge
--- NOTE | 2023-10-12 11:25 | NURSING ---
to [facility], caregiver present
== END 2023-10-12 11:16 | disposition skilled nursing facility (03) | DRG 854 ==
LOC: ED 13:32 → PCU 15:21
PROVIDERS: Admitting Provider Internal Medicine; Emergency Provider Emergency Medicine; PCP Internal Medicine; Visit Provider Internal Medicine
DX: A41.89 Other specified sepsis (principal); N17.9 Acute kidney failure, unspecified; I69.351 Hemiplegia and hemiparesis following cerebral infarction affecting right dominant side; I13.0 Hypertensive heart and chronic kidney disease with heart failure and stage 1 through stage 4 chronic kidney disease, or unspecified chronic kidney disease; I50.22 Chronic systolic (congestive) heart failure; N18.4 Chronic kidney disease, stage 4 (severe); K61.0 Anal abscess; L02.215 Cutaneous abscess of perineum; N25.89 Other disorders resulting from impaired renal tubular function; B37.9 Candidiasis, unspecified; E11.22 Type 2 diabetes mellitus with diabetic chronic kidney disease; E11.42 Type 2 diabetes mellitus with diabetic polyneuropathy; F03.90 Unspecified dementia, unspecified severity, without behavioral disturbance, psychotic disturbance, mood disturbance, and anxiety; Z79.4 Long term (current) use of insulin; I25.10 Atherosclerotic heart disease of native coronary artery without angina pectoris; K58.9 Irritable bowel syndrome, unspecified; E78.2 Mixed hyperlipidemia; I25.5 Ischemic cardiomyopathy; B96.20 Unspecified Escherichia coli [E. coli] as the cause of diseases classified elsewhere; B95.62 Methicillin resistant Staphylococcus aureus infection as the cause of diseases classified elsewhere; Z66 Do not resuscitate; R53.1 Weakness; Z51.5 Encounter for palliative care; Z79.82 Long term (current) use of aspirin; R03.1 Nonspecific low blood-pressure reading; Z87.891 Personal history of nicotine dependence; Z79.02 Long term (current) use of antithrombotics/antiplatelets; Z86.16 Personal history of COVID-19
CPT/HCPCS: 36415; 71045; 72192; 80048; 80053; 81001; 82962; 83036; 83605; 83735; 84443; 84484; 85025; 85610; 87040; 87070; 87077; 87086; 87088; 87186; 87205; 87631; 87640; 92610; 93005; 94668; 96374; 96375; 97162; 97166; 97530; 97535; 99284; 99285; J7030; A4216; J2405

== ENCOUNTER 2023-11-18 12:18 | Inpatient (IN) | payer MEDICARE, MEDICAID, SELFPAY ==
[2023-11-18] VITALS (29 sets, daily range): BP systolic 88–168; BP diastolic 57–92; PULSE 79–104; RESP 14–98; TEMP 36.1–37.2; O2SAT 89–100; BMI 35.8; BMI 33.9
[2023-11-18] MEDS: Etomidate 20 MG/10 ML Vial 30 MG IV (12:24)
[2023-11-18] MEDS: Rocuronium Bromide 50 MG/5 ML Vial 100 MG IV (12:25)
--- NOTE | 2023-11-18 12:30 | EKG12_ITS ---
Test Reason : Blood Pressure : / mmHG Vent. Rate : 097 BPM Atrial Rate : 097 BPM P-R Int : 154 ms QRS Dur : 082 ms QT Int : 408 ms P-R-T Axes : 068 -33 103 degrees QTc Int : 518 ms Sinus rhythm with frequent Premature ventricular complexes Possible Left atrial enlargement Left axis deviation Low voltage QRS Inferior infarct (cited on or before 21-JUN-2011) Possible Anterolateral infarct (cited on or before 21-JUN-2011) Prolonged QT Abnormal ECG Confirmed by Saleem Hernandez ([id number]), sound editor JAQUELIN JO ([id number]) on 11/20/2023 7:56:49 AM Referred By: PABLO Confirmed By:Saleem Hernandez
[2023-11-18 12:40] LABS: Absolute Lymphocyte Count 4.42 X10^3/uL (0.83-4.51); Absolute Neutrophil Count 8.2 X10^3/uL (2.0-7.7); Basophil# 0.08 X10^3/uL; Basophil% 0.6 % (0-1); Eosinophils% 0.7 % (0-5); Hematocrit 42.8 % (37-47); Lymphocyte # 4.42 X10^3/ul (0.83-4.51); Lymphocyte % 32.3 % (19-41); Mean Corp Hgb Conc 30.4 g/dL (32-36); Mean Corpuscular Hgb 27.7 pg (27.0-32.0); Mean Corpuscular Volume 91.3 fL (81-99); Mean Platelet Vol. 11.5 fl (6.2-12.0); Monocyte# 0.81 X10^3/uL; Monocyte% 5.9 % (0-10); NRBC Flagged by Analyzer 0 % (0-5); Neutrophil # 8.22 X10^3/uL (2.7-7.7); Platelet Count 343 K/mm3 (150-450); RBC Distribution Width CV 16.6 % (11.6-14.6); RBC Distribution Width SD 54.5 fl (35.1-43.9); Red Blood Count 4.69 M/mm3 (4.2-5.4); White Blood Count 13.7 K/mm3 (4.4-11.0)
[2023-11-18] MEDS: Propofol 10MG/Ml 1,000 MG/100 ML Bottle 6 MG CONT INF (12:52)
--- NOTE | 2023-11-18 12:55 | RAD_ITS ---
INDICATION: respiratory distress, CHF EXAMINATION/TECHNIQUE: X-RAY - XR Chest 1 View COMPARISON: Prior study dated: 10/25/2023 FINDINGS: LINES/DEVICES: Endotracheal tube with its tip approximately 7 cm proximal to the james. Nasogastric tube extends below the level of the diaphragm. LUNGS: Bilateral infiltrates/edema markedly worse on the right side. Possible trace of right pleural effusion. MEDIASTINUM AND CARDIOVASCULAR STRUCTURES: Cardiac silhouette not enlarged. Central airways and mediastinal contour are unremarkable. BONES AND SOFT TISSUES: Unremarkable. RAD/Chest 1 View (Portable) IMPRESSION: Status post intubation and nasogastric tube placement. Bilateral infiltrates/edema markedly worse on the right side. Electronically Signed: Dayton Ward MD at 13:19 EDT ,
[2023-11-18 13:02] LABS: Prothrombin Time (Protime)PT. 13.4 SECONDS (11.7-14.9)
[2023-11-18 13:03] LABS: Mucous, Urine 0 SEEN /hpf (<or=2+)
[2023-11-18 13:03] LABS: Partial Thromboplast Time 22.4 Seconds (24.1-36.2)
[2023-11-18 13:04] LABS: Anion Gap 5 (5-15); BUN 21 mg/dL (7-18); BUN/Creat Ratio 9.8 RATIO (10-20); Calcium,Total 9.1 mg/dL (8.5-10.1); Chloride 115 mmol/L (98-107); Creatinine, Serum 2.14 mg/dL (0.55-1.02); EST Glomerular Filtration Rate 24 mL/min (>60); Est Glom Filt Rate - Afr Amer 29 mL/min (>60); Estimated Creatinine Clearance 27.62 ml/min; Glucose 237 mg/dL (74-106); Sodium Level 141 mmol/L (136-145); Troponin-I HS 287 pg/mL (3.0-54.0)
--- NOTE | 2023-11-18 13:05 | ED.RN ---
Call from lab, Troponin 287, Dr. Heaton made aware.
--- NOTE | 2023-11-18 13:15 | ED.RN ---
Patient arrived vis EMS at 1222. Patient unresponsive, 87% on BIPAP, BP 167/92, Heart rate 112. Patient unable to protect airway, MD Landon, SNUFF MAKER and charge nurse at bedside. 30 mg of Etomidate given at 1224. 100 mg of Rocuronium given at 1225. A 7.5 cm endotracheal tube was placed by MD Landon at 1226 measuring 25 cm at the lip. A 16 [place] anand was placed at 1232. A 16 [place] OG was placed at 1231. A right hand 20 malcolm and left AC 22 malcolm IVs were initiated and labs sent down. Ventilator being maintained by SNUFF MAKER. Propofol and restraints initiated at 1256. Pt vitals currently stable. Family member updated and at bedside.
[2023-11-18 13:16] LABS: Color, Urine Yellow (Yellow); Glucose, Dipstick 1000 mg/dl (Normal); Ketone-Dipstick Negative (Negative); Leukocyte Esterase-Dipstick 500 /ul (Negative); Nitrite-Dipstick Positive (Negative); Occult Blood-Urine 250 /ul (Negative); Protein-Dipstick 500 mg/dl (Negative); Urine Bilirubin Dipstick Negative (Negative); Urine Clarity Cloudy (Clear); Urine Urobilinogen Normal (Normal)
[2023-11-18 13:22] LABS: Lactic Acid 2.8 mmol/L (0.4-1.9)
[2023-11-18 13:25] LABS: Allen Test Positive; Base Excess -7 mmol/L (-2 to +2); Bicarbonate 20.6 mmol/L (22-26); Blood Gas Specimen Type ART; Mode AC; O2 Delivery Device Adult Vent; PEEP 5; PO2 74 mmHG (75-100); RR 14; SITE R Radial; SO2 91 % (95-99); Total Carbon Dioxide 22 mmol/L; pCO2 50.8 mmHg (35-45); pH 7.22 (7.35-7.45)
[2023-11-18 13:28] LABS: Bacteria 4+ /hpf (None Seen); Red Blood Cells-Urine 10-25 SEEN /hpf (0-5); Squamous Epithelial Cells - UA 10-25 SEEN /hpf (5-10); White Blood Cells >100 SEEN /hpf (0-5)
[2023-11-18] MEDS: Furosemide 100 MG/10 ML Vial 80 MG IV (13:28)
[2023-11-18] MEDS: Ceftriaxone 1 GM/50 ML BAG IV (13:56)
--- NOTE | 2023-11-18 14:13 | NURSING ---
ICU BETTS ACUTE HYPOXIC RESP FAILURE, SEPSIS, UTI, CHF
--- NOTE | 2023-11-18 14:20 | EKG12_ITS ---
Test Reason : REPEAT Blood Pressure : / mmHG Vent. Rate : 091 BPM Atrial Rate : 091 BPM P-R Int : 164 ms QRS Dur : 086 ms QT Int : 386 ms P-R-T Axes : 065 -03 077 degrees QTc Int : 474 ms Sinus rhythm with occasional Premature ventricular complexes Possible Left atrial enlargement Low voltage QRS Possible Inferior infarct , age undetermined Possible Anterolateral infarct , age undetermined Abnormal ECG Confirmed by Saleem Hernandez ([id number]), editor & co founder JAQUELIN JO ([id number]) on 11/20/2023 7:57:09 AM Referred By: Confirmed By:Saleem Hernandez
--- NOTE | 2023-11-18 14:31 | PCM.HP.STD ---
HPI - General General Date of Admission: 11/18/23 Date of Service: 11/18/23 Chief Complaint: SOB HPI Narrative DELMER DUNCAN, is a 73 F with history of CKD, chronic heart failure with reduced ejection fraction, [place] in 2011, buttock wound status post I&D in September 2023, hypothyroidism, diabetes, GERD who presented to [facility] ED 11/18/2023 in respiratory distress and was intubated. In ED patient had white blood cell count of 13.7, creatinine of 2.14 up from 1.88 on 10/11, lactic acid of 2.8, troponin 287 with a BNP of 886, UA suggestive of UTI and chest x-ray with bilateral infiltrates. Given patient's altered mental status and respiratory distress on arrival she was intubated, she was given a dose of Lasix for concern for acute exacerbation of CHF and also antibiotics for concern for UTI. Hospitalist contacted for admission to ICU. Patient seen with caregiver at bedside, patient unable to answer questions but per caregiver she was doing very well and in her usual health up until recently. Over the past couple days she has had somewhat of a cough and had been doing well this morning but became short of breath later in the morning [facility] for rehab after most recent hospital stay and given her lack of improvement she was brought to the ED. There were no other complaints reported patient otherwise had been in good health per report COUNT INCLUDES [facility] Medical History CKD (chronic kidney disease) stage 3, GFR 30-59 ml/min History of left heart catheterization (LHC) (~12/21/10) CVA (cerebral vascular accident) Ischemic cardiomyopathy Old myocardial infarction History of non-ST elevation myocardial infarction (NSTEMI) Atherosclerotic heart disease of [place] coronary artery without angina pectoris Mixed hyperlipidemia Essential hypertension Chronic systolic (congestive) heart failure Hearing problem IBS (irritable bowel syndrome) GI problem Diabetes type 2, controlled Cataracts, bilateral Bladder infection Back problem Arthritis Dementia History of gastrointestinal hemorrhage Diabetic peripheral neuropathy Hypothyroidism Gastroesophageal reflux disease Type 2 diabetes mellitus Cerebrovascular disease Home Medications ?Medication ?Instructions ?Recorded ?Last Taken ?Type aspirin 81 mg tablet,delayed 81 mg PO DAILY@0800 heart health 05/27/13 10/08/23 History release atorvastatin 40 mg tablet 40 mg PO QHS cholesterol 05/27/13 10/07/23 History clopidogrel 75 mg tablet 75 mg PO DAILY blood clotting 05/27/13 10/08/23 History docusate sodium 100 mg capsule 100 mg PO BID stool 05/27/13 05/02/21 History levothyroxine 75 mcg tablet 75 mcg PO DAILY thyroid 05/27/13 10/08/23 History metoprolol tartrate 50 mg tablet 50 mg PO BID heart 05/27/13 10/08/23 History pantoprazole 40 mg tablet,delayed 40 mg PO DAILY stomach 05/27/13 10/08/23 History release pen needle, diabetic 31 gauge x #30 ea 06/05/17 Unknown History 10/10 (Comfort EZ Pen [place]) empagliflozin 25 mg tablet 25 mg PO DAILY dmII 03/29/22 10/08/23 History (Jardiance) sitagliptin phosphate 25 mg tablet 25 mg PO DAILY DMII 06/06/23 10/08/23 History (Januvia) spironolactone 25 mg tablet 25 mg PO DAILY waterpill 06/06/23 10/08/23 History calcium carbonate 600 mg-vitamin 1 cap PO DAILY calcium 10/08/23 10/08/23 History D3 5 mcg (200 unit) capsule (Calcium 600 + D(3)) insulin aspart 1 sliding scale dose subcut TID 10/08/23 Unknown History (niacinamide)(U-100) 100 unit/mL(3 dmII mL) subcutaneous pen (Fiasp FlexTouch U-100 Insulin) memantine 10 mg tablet 10 mg PO DAILY dementia 10/08/23 10/07/23 History polyethylene glycol 3350 17 17 g PO DAILY PRN constipation 10/08/23 Unknown History gram/dose oral powder (ClearLax) acetaminophen 325 mg tablet 650 mg (2 x 325 mg) PO Q6H PRN PRN 10/12/23 Unknown Rx Pain 1-10 Or Fever >100.7 #0 tabs furosemide 40 mg tablet (Lasix) 40 mg PO DAILY PRN leg swelling 1 10/12/23 10/08/23 Rx month #0 tabs hydrocodone-acetaminophen 5-325mg 1 tab PO Q4H PRN PRN Pain 2 days 10/12/23 Unknown Rx 5mg-325mg #7 TABLETS insulin glargine 100 unit/mL (3 22 unit (0.22 mL) subcut BID dmII 10/12/23 10/07/23 Rx mL) subcutaneous pen (Basaglar 30 days #0 mL KwikPen U-100 Insulin) insulin lispro 100 unit/mL 15 unit (0.15 mL) subcut TIDAC #0 10/12/23 Unknown Rx subcutaneous pen (Humalog KwikPen mL (U-100) Insulin) insulin lispro 100 unit/mL See Protocol subcut ACHS #0 mL 10/12/23 Unknown Rx subcutaneous pen (Humalog KwikPen (U-100) Insulin) bisacodyl 10 mg rectal suppository 10 mg [place] DAILY PRN no BM after MOM 11/18/23 Unknown History magnesium hydroxide 400 mg/5 mL 400 mg PO DAILY PRN constipation 11/18/23 Unknown History oral suspension (Milk of Magnesia) Allergy/AdvReac Type Severity Reaction Status Date / Time ibuprofen Allergy Itching Verified 10/08/23 10:05 lisinopril Allergy Other Verified 10/08/23 10:05 Penicillins Allergy Itching Verified 10/08/23 10:05 tramadol HCl (From [email or web address]) Allergy Other Verified 10/08/23 10:05 Family History Mother Cancer Diabetes Father Cancer Surgical History frozen shoulder surgery H/O thyroidectomy Hx of cataract surgery Social History Smoking Status: Former smoker second hand exposure: No alcohol intake: never substance use type: does not use caffeine: Yes Type: carbonated beverages Number of servings: 1 ROS ROS Narrative Unable to obtain ROS secondary to intubated and sedated Vital Signs Vital Signs Vital Signs: 11/18/23 12:18 11/18/23 12:20 11/18/23 12:22 Temperature 97 F L Temperature Source Temporal Pulse Rate Respiratory Rate 98 H Respiratory Effort Respiratory Pattern Blood Pressure Blood Pressure Mean Pulse Ox 100 Oxygen Delivery Method Bi-pap Fraction of Inspired Oxygen (FIO2) 100 11/18/23 12:24 11/18/23 12:26 11/18/23 12:26 Temperature Temperature Source Pulse Rate 100 Respiratory Rate 14 Respiratory Effort Respiratory Pattern Normal Blood Pressure 167/92 H Blood Pressure Mean 117 Pulse Ox 98 99 Oxygen Delivery Method Mechanical Ventilator Fraction of Inspired Oxygen (FIO2) 45 11/18/23 12:38 11/18/23 12:51 11/18/23 13:04 Temperature Temperature Source Pulse Rate 104 H 103 H Respiratory Rate 16 14 Respiratory Effort Mechanically Ventilated Respiratory Pattern Blood Pressure 158/79 H 168/91 H Blood Pressure Mean 105 116 Pulse Ox 95 95 Oxygen Delivery Method Mechanical Ventilator Mechanical Ventilator Mechanical Ventilator Fraction of Inspired Oxygen (FIO2) 11/18/23 13:25 11/18/23 13:30 11/18/23 13:45 Temperature Temperature Source Pulse Rate 96 97 97 Respiratory Rate 14 16 17 Respiratory Effort Respiratory Pattern Blood Pressure 155/85 H 125/76 H Blood Pressure Mean 104 91 Pulse Ox 93 94 95 Oxygen Delivery Method Mechanical Ventilator Mechanical Ventilator Fraction of Inspired Oxygen (FIO2) 11/18/23 13:51 Temperature 98 F Temperature Source Pulse Rate 94 Respiratory Rate 16 Respiratory Effort Respiratory Pattern Blood Pressure 125/76 H Blood Pressure Mean 92 Pulse Ox 95 Oxygen Delivery Method Fraction of Inspired Oxygen (FIO2) Weight Weight: 100.7 kg Body Mass Index (BMI) 35.8 Physical Exam Narrative General: Intubated and sedated HEENT: Atraumatic, normocephalic Eyes: Eyes closed, no spontaneous opening Neck: Supple Respiratory: Mechanically ventilated, coarse diffusely Cardiovascular: Regular rate and rhythm GI: Soft, nontender, nondistended Extremities: Trace edema in ankles Musculoskeletal: Presently sedated and not moving extremities spontaneously Neuro: Unable to participate in neuro exam secondary to intubated and sedated Skin: No rashes appreciated Psych: Unable to cooperate secondary to intubated and sedated Results Lab / Micro Data 11/18/23 12:30 11/18/23 12:30 Labs: Laboratory Results - last 24 hr 11/18/23 12:30: WBC 13.7 H, RBC 4.69, Hgb 13.0, Hct 42.8, MCV 91.3, MCH 27.7, MCHC 30.4 L, RDW Std Deviation 54.5 H, RDW Coeff of Don 16.6 H, Plt Count 343, MPV 11.5, Immature Gran % (Auto) 0.500, Neut % (Auto) 60.0, Lymph % (Auto) 32.3, Sampson % (Auto) 5.9, Eos % (Auto) 0.7, Baso % (Auto) 0.6, Absolute Neuts (auto) 8.2 H, Absolute Lymphs (auto) 4.42, Nucleated RBC % 0, PT 13.4, INR 1.0, APTT 22.4 L, Sodium 141, Potassium 4.0, Chloride 115 H, Carbon Dioxide 21.0, Anion Gap 5, BUN 21 H, Creatinine 2.14 H, Estim Creat Clear Calc 27.62, Est GFR (MDRD) Af Amer 29 L, Est GFR (MDRD) Non-Af 24 L, BUN/Creatinine Ratio 9.8 L, Glucose 237 H, Calcium 9.1, Troponin I High Sens 287 H*, B-Natriuretic Peptide 886.0 H 11/18/23 12:40: Lactic Acid 2.8 H* 11/18/23 13:00: Urine Color Yellow, Urine Clarity Cloudy, Urine pH 6.0, Ur Specific [place] 1.020, Urine Protein 500 H, Urine Glucose (UA) 1000 H, Urine Ketones Negative, Urine Occult Blood 250 H, Urine Nitrite Positive H, Urine Bilirubin Negative, Urine Urobilinogen Normal, Ur Leukocyte Esterase 500 H, Urine RBC 10-25 SEEN, Urine WBC >100 SEEN, Ur Squamous Epith Cells 10-25 SEEN, Urine Bacteria 4+, Urine Mucus 0 SEEN Micro: Microbiology 11/18/23 12:39 Mucosa - Nasopharyngeal SARS-CoV-2, Influenza & RSV (PCR) - Final ABG Data ABG results: ABG 11/18/23 13:20 Specimen Type ART Sample Site R Radial pH 7.22 L Bicarbonate Actual 20.6 L Total CO2 22 Base Excess -7 L O2 Saturation 91 L O2 % 40.0 ABG pCO2 50.8 H ABG pO2 74 L Neri Test Positive Respiration Rate 14 O2 Delivery Device Adult Vent Vent Mode AC Tidal Volume 450.0 POC PEEP 5 Imaging Radiology Impression Chest X-Ray 11/18/23 12:55 IMPRESSION: Status post intubation and nasogastric tube placement. Bilateral infiltrates/edema markedly worse on the right side. Electronically Signed: Dayton Ward MD at 13:19 EDT , Assessment & Plan Assessment/Plan (1) Acute decompensated heart failure: (2) Acute respiratory distress: (3) Gastroesophageal reflux disease: (4) Hypothyroidism: QUALIFIERS: Hypothyroidism type: acquired Qualified Code(s): E03.9 - Hypothyroidism, unspecified (5) Type 2 diabetes mellitus: QUALIFIERS: Diabetes mellitus complication status: with unspecified complications Diabetes mellitus snf insulin use: with terminal operator use Qualified Code(s): E11.8 - Type 2 diabetes mellitus with unspecified complications (6) CKD (chronic kidney disease) stage 3, GFR 30-59 ml/min: (7) Chronic systolic (congestive) heart failure: (8) Elevated troponin: (9) Elevated lactic acid level: (10) UTI (urinary tract infection): PLAN: Plan # Acute respiratory failure likely secondary to acute exacerbation of chronic systolic heart failure and altered mental status -BNP 886 -CXR concerning for bilateral infiltrates -Continue IV lasix -echo ordered -Daily weights, I's and O's -lipid panel in AM -Intubated and sedated in the ED -Sputum culture -Will obtain respiratory panel as well given some recent cough and respiratory decline #Elevated Troponin -Reportedly patient having no complaints other than cough and then shortness of breath shortly before arrival, no chest pain had been reported but patient unable to answer ROS -Will obtain echo -Suspect this is demand due to heart failure exacerbation and infection -Trend -Will continue atorvastatin, clopidogrel, aspirin, continuing beta-luanne #Concern for UTI/infectious component -White blood cell count slightly elevated -UA suggestive of UTI, unclear if patient has been having any symptoms as patient unable to answer given intubated and sedated -Obtain urine culture, blood cultures -Blood pressure maintaining, suspect respiratory failure is from fluid overload and not infection, elevated lactic acid suspected to be due to poor perfusion in setting of exacerbation of heart failure with respiratory failure -Do not think patient is septic at this time or needs sepsis fluids but will maintain broad-spectrum antibiotics, given penicillin allergy but recent hospitalization and unclear if there is a pulmonary/pneumonia component given cough for coming in will treat with cefepime and bank and de-escalate pending cultures in progress # Elevated lactic acid -Blood pressure maintaining, suspect respiratory failure is from fluid overload and not infection, elevated lactic acid suspected to be due to poor perfusion in setting of exacerbation of heart failure with respiratory failure -Do not think patient is septic at this time or needs sepsis fluids but will maintain broad-spectrum antibiotics -Will trend # History of [place] in 2012 -Patient had not reported any chest pain and only shortness of breath before arrival with cough over the past 1 to 2 days -Troponin mildly elevated, suspect this is secondary nature to demand -Will check echo, if any wall motion abnormalities will likely need heparin and cardiology consult # HELENA versus CKD -Creatinine 2.14 in a month ago was 1.88 however has had elevated creatinines like this in the past, secondary to infection versus critical illness and heart failure exacerbation -Daily BMPs -Avoid nephrotoxic agents #Type 2 diabetes mellitus -Glucose checks every 4 and sliding scale insulin -Continue home long-acting but at lower dose given n.p.o. and escalate pending glucose -Hemoglobin A1c 11.4 on 10/09/2023 #Hypothyroidism -Continue Synthroid -TSH 0.58 on 10/09/2023 #GERD -Continue PPI #DVT ppx: Heparin subcu Faviola Mcguire MD Time spent in the patient's overall evaluation,decision-making process, review of diagnostic data, adjustment of management, discussion with other providers, nursing nursing and ancillary staff involved in patient's care documentation, 78 minutes Charges/Coding Visit Charges Inpatient E&M: 52838 Init Hosp L3
--- NOTE | 2023-11-18 14:32 | ED.RN ---
Report given to retrimmer
[2023-11-18] MEDS: Vancomycin HCl 2,000 MG in 0.9% Normal Saline (500mL Bag) 500 ML 250 MG IV (14:40)
--- NOTE | 2023-11-18 15:10 | ECHOCS_ITS ---
Reason For Study: SOB Procedure This was a 2D Doppler, Color Flow transthoracic echocardiogram. The study was technically difficult. Exam performed portable in ICU/CCU. Left Ventricle Mildly dilated left ventricle. LV anterior and apical akinesis with thinning. Estimated LV EF 20 to 25%. Stage 1 diastolic dysfunction. Right Ventricle Normal right ventricle. Atria The left and right atria are normal. Bubble contrast study is negative for PFO/ASD. Mitral Valve Mild (1+) posteriorly directed mitral valve insufficiency. Tricuspid Valve Mild eccentric tricuspid valve insufficiency. Right ventricular systolic pressure estimated to be 37 mmHg. Aortic Valve Trisinus/trileaflet aortic valve. Pulmonic Valve The pulmonic valve is not well visualized. Great Vessels Normal sized aortic root. Pericardium/Pleural No pericardial effusion. Medication Diluted definity 3ml given slow IV push to enhance endocardial definition. Performed a rapid injection of agitated mix of 9 cc saline and 1cc air to assess for atrial septal defect. MMode/2D Measurements & Calculations LVIDd: 5.0 cm IVSd: 0.96 cm Ao root diam: 3.3 cm LVIDs: 3.0 cm LVPWd: 1.1 cm RVDd: 3.7 cm FS: 39.7 % LAV(MOD-bp): 48.1 ml LVAd ap4: 41.4 cm2 LVAd ap2: 45.9 cm2 LAV(MOD-bp) Indexed: 23.0 ml/m2 LVLd ap4: 8.9 cm LVLd ap2: 10.1 cm LAV(MOD-sp2): 73.6 ml EDV(MOD-sp4): 166.7 ml EDV(MOD-sp2): 177.1 ml LAV(MOD-sp4): 30.4 ml EDV(sp4-el): 163.9 ml EDV(sp2-el): 177.0 ml LVAs ap4: 37.2 cm2 LVAs ap2: 37.1 cm2 LVLs ap4: 9.0 cm LVLs ap2: 9.5 cm ESV(MOD-sp4): 126.8 ml ESV(MOD-sp2): 122.0 ml ESV(sp4-el): 131.1 ml ESV(sp2-el): 123.8 ml EF(MOD-sp4): 24.0 % EF(MOD-sp2): 31.1 % EF(sp4-el): 20.0 % SV(MOD-sp4): 40.0 ml SV(MOD-sp2): 55.1 ml SV(sp4-el): 32.8 ml LA A4 area: 14.1 cm2 LA dimension(2D): 3.3 cm RA A4 area: 16.1 cm2 TAPSE: 1.5 cm Time Measurements MV dec time: 0.18 sec Doppler Measurements & Calculations MV E max vargas: 74.2 cm/sec Lat Peak E' Vargas: 6.5 cm/sec Med Peak E' Vargas: 5.0 cm/sec MV A max vargas: 116.8 cm/sec E/E' lat: 11.3 E/E' med: 14.8 MV E/A: 0.64 Ao V2 max: 95.1 cm/sec LV V1 max: 82.5 cm/sec MV dec slope: 413.6 cm/sec2 Ao max P.6 mmHg LV V1 max P.7 mmHg Ao V2 mean: 66.6 cm/sec LV V1 mean P.4 mmHg Ao mean P.0 mmHg LV V1 mean: 55.0 cm/sec Ao V2 VTI: 19.8 cm LV V1 VTI: 14.7 cm AV (velocity ratio): 0.74 PA V2 max: 74.6 cm/sec TR max vargas: 238.7 cm/sec TR max P.8 mmHg ECHO/Echo Complete W/ Contrast Interpretation Summary Mildly dilated left ventricle. LV anterior and apical akinesis with thinning. E stimated LV EF 20 to 25%. Stage 1 diastolic dysfunction. Bubble contrast study is negative for PFO/ASD. Mild (1+) posteriorly directed mitral valve insufficiency. Mild eccentric tricuspid valve insufficiency. Right ventricular systolic pressure estimated to be 37 mmHg. Ordering Physician: Faviola Mcguire Referring Physician: Claude Lee M.D. Performed By: Dana Ashford RDCS
--- NOTE | 2023-11-18 15:43 | PCM.RX.CS ---
Consult Antibiotic Management Pharmacy has been consulted to manage selected antibiotic: Vancomycin Type of Intervention Type of Consult: New start Suspected Infection Suspected Infection: Other Labs Labs: Sodium 141 mmol/L (136-145) 11/18/23 12:30 Potassium 4.0 mmol/L (3.5-5.1) 11/18/23 12:30 Chloride 115 mmol/L (98-107) H 11/18/23 12:30 Carbon Dioxide 21.0 mmol/L (21.0-32.0) 11/18/23 12:30 Anion Gap 5 (5-15) 11/18/23 12:30 BUN 21 mg/dL (7-18) H 11/18/23 12:30 Creatinine 2.14 mg/dL (0.55-1.02) H 11/18/23 12:30 Est GFR (MDRD) Af Amer 29 mL/min (>60) L 11/18/23 12:30 Est GFR (MDRD) Non-Af 24 mL/min (>60) L 11/18/23 12:30 BUN/Creatinine Ratio 9.8 RATIO (10-20) L 11/18/23 12:30 Glucose 237 mg/dL (74-106) H 11/18/23 12:30 Microbiology Microbiology: Microbiology 11/18/23 12:39 Mucosa - Nasopharyngeal SARS-CoV-2, Influenza & RSV (PCR) - Final Pharmacy Plan for Drug Dosing Pharmacy Plan for Drug Dosing: NEW START IV VANCOMYCIN Consulting Physician: Dr. Mcguire Indication: UTI/ infectious process rule out Goal Trough: 15-20 SrCr: 2.14 CrCl:27 mL/min Comments: patient had initial dose of 2000mg IV x1 in ED 11/18/23 @1440 Vancomycin Dose: 1000mg IV Q24hr to start 11/19/23 @1500 Pending Level: 11/20/23 @1430, prior to 3rd total dose per protocol Pharmacy Service will continue to monitor and adjust dosing as required.
--- NOTE | 2023-11-18 15:49 | PCMCONS.TICU ---
HPI Consult Data Date of Consult: 11/18/23 HPI Narrative Reason for Consultation: Ventilator management HPI Narrative: DELMER DUNCAN, is a 73 F who presents with sudden shortness of breath and chest congestion which her significant other/ coding spec says has been a problem for quite some time. It is unclear from his history whether an acute illness preceded this event. She was treated with NIV but ultimately required intubation in the ED and I am asked to assist with her management. [facility] Medical History CKD (chronic kidney disease) stage 3, GFR 30-59 ml/min History of left heart catheterization (LHC) (~12/21/10) CVA (cerebral vascular accident) Ischemic cardiomyopathy Old myocardial infarction History of non-ST elevation myocardial infarction (NSTEMI) Atherosclerotic heart disease of [place] coronary artery without angina pectoris Mixed hyperlipidemia Essential hypertension Chronic systolic (congestive) heart failure Hearing problem IBS (irritable bowel syndrome) GI problem Diabetes type 2, controlled Cataracts, bilateral Bladder infection Back problem Arthritis Dementia History of gastrointestinal hemorrhage Diabetic peripheral neuropathy Hypothyroidism Gastroesophageal reflux disease Type 2 diabetes mellitus Cerebrovascular disease Home Medications ?Medication ?Instructions ?Recorded ?Last Taken ?Type aspirin 81 mg tablet,delayed 81 mg PO DAILY@0800 heart health 05/27/13 10/08/23 History release atorvastatin 40 mg tablet 40 mg PO QHS cholesterol 05/27/13 10/07/23 History clopidogrel 75 mg tablet 75 mg PO DAILY blood clotting 05/27/13 10/08/23 History docusate sodium 100 mg capsule 100 mg PO BID stool 05/27/13 05/02/21 History levothyroxine 75 mcg tablet 75 mcg PO DAILY thyroid 05/27/13 10/08/23 History metoprolol tartrate 50 mg tablet 50 mg PO BID heart 05/27/13 10/08/23 History pantoprazole 40 mg tablet,delayed 40 mg PO DAILY stomach 05/27/13 10/08/23 History release pen needle, diabetic 31 gauge x #30 ea 06/05/17 Unknown History 10/10 (Comfort EZ Pen [place]) empagliflozin 25 mg tablet 25 mg PO DAILY dmII 03/29/22 10/08/23 History (Jardiance) sitagliptin phosphate 25 mg tablet 25 mg PO DAILY DMII 06/06/23 10/08/23 History (Januvia) spironolactone 25 mg tablet 25 mg PO DAILY waterpill 06/06/23 10/08/23 History calcium carbonate 600 mg-vitamin 1 cap PO DAILY calcium 10/08/23 10/08/23 History D3 5 mcg (200 unit) capsule (Calcium 600 + D(3)) insulin aspart 1 sliding scale dose subcut TID 10/08/23 Unknown History (niacinamide)(U-100) 100 unit/mL(3 dmII mL) subcutaneous pen (Fiasp FlexTouch U-100 Insulin) memantine 10 mg tablet 10 mg PO DAILY dementia 10/08/23 10/07/23 History polyethylene glycol 3350 17 17 g PO DAILY PRN constipation 10/08/23 Unknown History gram/dose oral powder (ClearLax) acetaminophen 325 mg tablet 650 mg (2 x 325 mg) PO Q6H PRN PRN 10/12/23 Unknown Rx Pain 1-10 Or Fever >100.7 #0 tabs furosemide 40 mg tablet (Lasix) 40 mg PO DAILY PRN leg swelling 1 10/12/23 10/08/23 Rx month #0 tabs hydrocodone-acetaminophen 5-325mg 1 tab PO Q4H PRN PRN Pain 2 days 10/12/23 Unknown Rx 5mg-325mg #7 TABLETS insulin glargine 100 unit/mL (3 22 unit (0.22 mL) subcut BID dmII 10/12/23 10/07/23 Rx mL) subcutaneous pen (Basaglar 30 days #0 mL KwikPen U-100 Insulin) insulin lispro 100 unit/mL 15 unit (0.15 mL) subcut TIDAC #0 10/12/23 Unknown Rx subcutaneous pen (Humalog KwikPen mL (U-100) Insulin) insulin lispro 100 unit/mL See Protocol subcut ACHS #0 mL 10/12/23 Unknown Rx subcutaneous pen (Humalog KwikPen (U-100) Insulin) bisacodyl 10 mg rectal suppository 10 mg [place] DAILY PRN no BM after MOM 11/18/23 Unknown History magnesium hydroxide 400 mg/5 mL 400 mg PO DAILY PRN constipation 11/18/23 Unknown History oral suspension (Milk of Magnesia) Allergy/AdvReac Type Severity Reaction Status Date / Time ibuprofen Allergy Itching Verified 10/08/23 10:05 lisinopril Allergy Other Verified 10/08/23 10:05 Penicillins Allergy Itching Verified 10/08/23 10:05 tramadol HCl (From Ultra) Allergy Other Verified 10/08/23 10:05 Family History Mother Cancer Diabetes Father Cancer Surgical History frozen shoulder surgery H/O thyroidectomy Hx of cataract surgery Social History Smoking Status: Former smoker second hand exposure: No alcohol intake: never substance use type: does not use caffeine: Yes Type: carbonated beverages Number of servings: 1 ROS Review of Systems ROS Unobtainable: due to encephalopathy and due to endotracheal tube Objective Data Objective Data Vital Signs: Vital Signs Last response Temperature 36.6 C 11/18/23 13:51 Temperature Source Temporal 11/18/23 12:20 Pulse Rate 92 11/18/23 14:59 Respiratory Rate 16 11/18/23 14:59 Respiratory Effort Mechanically Ventilated 11/18/23 12:38 Respiratory Pattern Normal 11/18/23 14:59 Blood Pressure 125/76 H 11/18/23 13:51 Blood Pressure Mean 92 11/18/23 13:51 Pulse Ox 93 11/18/23 14:59 Oxygen Delivery Method Mechanical Ventilator 11/18/23 13:45 Fraction of Inspired Oxygen (FIO2) 40 11/18/23 14:59 I&O: I&O Last 24 Hours 11/17/23 11/18/23 11/18/23 23:59 11:59 23:59 Intake Total 50 / 50 Balance 50 / 50 I&O: Total Stay 11/18/23 12:18 thru 11/18/23 15:23 Intake Total 50 Balance 50 Current Meds Ordered / Administered: Current meds ordered / Administered Generic Name Dose Route Start Last Admin Trade Name Freq PRN Reason Stop Dose Admin Acetaminophen 650 mg 11/18/23 15:10 Acetaminophen 325 Mg Tablet PO Q6H PRN PRN Pain 1-10 Or Fever >100.7 Albuterol Sulfate 2.5 mg 11/18/23 15:10 Albuterol 2.5 Mg/3 Ml Vial.Neb. INHALATION Q2H PRN PRN SOB &/OR WHEEZING Aspirin 81 mg 11/19/23 08:00 Aspirin E.C. 81 Mg Tablet PO DAILY@0800 [facility] Atorvastatin Calcium 40 mg 11/18/23 22:00 Atorvastatin Calcium 40 Mg Tablet PO QHS [facility] Chlorhexidine Gluconate 15 ml 11/18/23 22:00 Chlorhexidine 15 Ml PO BID [facility] Clopidogrel Bisulfate 75 mg 11/19/23 10:00 Clopidogrel Bisulfate 75 Mg Tablet PO DAILY [facility] Furosemide 40 mg 11/18/23 18:00 Furosemide 40 Mg/4 Ml Vial IV BID@1000,1800 [facility] Glucagon 1 mg 11/18/23 15:10 Glucagon 1 Mg/Ml Syringe IM X1 PRN HYPOGLYCEMIA Protocol Heparin Sodium (Porcine) 5,000 unit 11/18/23 22:00 Heparin Injection (Vial) 5,000 Unit/Ml Vial SC Q12 [facility] Propofol 1,000 mg in 100 mls @ 6.042 mls/hr 11/18/23 12:35 11/18/23 12:52 Diprivan CONT INF 10 mcg/kg/min .Q12H LESA 6 mls/hr Administration Protocol 10 MCG/KG/MIN Vancomycin HCl 2,000 mg/ 540 mls @ 250 mls/hr 11/18/23 13:39 11/18/23 14:40 Sodium Chloride IV 11/18/23 15:50 250 mls/hr X1 ONE Administration Dextrose 250 mls @ 999 mls/hr 11/18/23 15:10 Dextrose 10%-Water IV .Q16M PRN HYPOGLYCEMIA Protocol Pantoprazole Sodium 40 mg/ 110 mls @ 330 mls/hr 11/19/23 10:00 Sodium Chloride IV Q24 [facility] Vancomycin IV-PHARMACY TO DOSE 500 mls @ 250 mls/hr 11/18/23 15:10 1 each/ Sodium Chloride IV PRN PRN Rx to Dose Protocol Cefepime HCl 2 gm/ Sodium 100 mls @ 200 mls/hr 11/18/23 16:00 Chloride IV DAILY [facility] Sodium Chloride 250 mls @ 15 mls/hr 11/18/23 15:30 IV .[id number] PRN Additional IVPB Infusion Sodium Chloride 250 mls @ 15 mls/hr 11/18/23 15:30 IV .[id number] PRN Saline Flush Vancomycin HCl 1,000 mg in 200 mls @ 200 mls/hr 11/19/23 15:00 Vancomycin IV Q24H [facility] Insulin Glargine 10 unit 11/18/23 22:00 Insulin Glargine-Yfgn 100 Unit/Ml Pen SC BID [facility] Insulin Human Lispro 0 unit 11/18/23 18:00 Insulin Lispro 100 Unit/Ml Insuln.Pen SC Q4 [facility] Protocol Levothyroxine Sodium 75 mcg 11/19/23 06:00 Levothyroxine 75 Mcg Tablet PO 0600 [facility] Melatonin 3 mg 11/18/23 15:10 Melatonin 3 Mg Tablet PO QHS PRN PRN INSOMNIA Metoprolol Tartrate 25 mg 11/18/23 22:00 Metoprolol Tartrate 25 Mg Tablet PO BID [facility] Protocol Ondansetron HCl 4 mg 11/18/23 15:10 Ondansetron 4 Mg/2 Ml Vial IV Q8H PRN PRN NAUSEA/VOMITING Sodium Chloride 10 - 40 ml 11/18/23 15:30 0.9% Saline Lock 10 Ml Syringe IV UD PRN SALINE FLUSH Vancomycin Protocol 1 lab 11/20/23 12:30 Vancomycin Trough/Random Due 11/20/23 16:30 DAILY [facility] Physical Exam Const average body habitus General Appearance: patient mechanically ventilated HEENT normocephalic and external nose normal Head and Scalp: normocephalic and atraumatic Eyes PERRL and EOMs intact bilaterally Neck full ROM Chest inspection of chest normal Resp normal respiratory effort and no retractions Cardio regular rate and regular rhythm GI normal to inspection, nondistended, normoactive bowel sounds Extremity normal to inspection Lab / Micro Data Attestation: I reviewed the patient's lab results. 11/18/23 12:30 11/18/23 12:30 Labs: Laboratory Results - last 24 hr 11/18/23 12:30: WBC 13.7 H, RBC 4.69, Hgb 13.0, Hct 42.8, MCV 91.3, MCH 27.7, MCHC 30.4 L, RDW Std Deviation 54.5 H, RDW Coeff of Don 16.6 H, Plt Count 343, MPV 11.5, Immature Gran % (Auto) 0.500, Neut % (Auto) 60.0, Lymph % (Auto) 32.3, [place] % (Auto) 5.9, Eos % (Auto) 0.7, Baso % (Auto) 0.6, Absolute Neuts (auto) 8.2 H, Absolute Lymphs (auto) 4.42, Nucleated RBC % 0, PT 13.4, INR 1.0, APTT 22.4 L, Sodium 141, Potassium 4.0, Chloride 115 H, Carbon Dioxide 21.0, Anion Gap 5, BUN 21 H, Creatinine 2.14 H, Estim Creat Clear Calc 27.62, Est GFR (MDRD) Af Amer 29 L, Est GFR (MDRD) Non-Af 24 L, BUN/Creatinine Ratio 9.8 L, Glucose 237 H, Calcium 9.1, Troponin I High Sens 287 H*, B-Natriuretic Peptide 886.0 H 11/18/23 12:40: Lactic Acid 2.8 H* 11/18/23 13:00: Urine Color Yellow, Urine Clarity Cloudy, Urine pH 6.0, Ur Specific [place] 1.020, Urine Protein 500 H, Urine Glucose (UA) 1000 H, Urine Ketones Negative, Urine Occult Blood 250 H, Urine Nitrite Positive H, Urine Bilirubin Negative, Urine Urobilinogen Normal, Ur Leukocyte Esterase 500 H, Urine RBC 10-25 SEEN, Urine WBC >100 SEEN, Ur Squamous Epith Cells 10-25 SEEN, Urine Bacteria 4+, Urine Mucus 0 SEEN Micro: Microbiology 11/18/23 12:39 Mucosa - Nasopharyngeal SARS-CoV-2, Influenza & RSV (PCR) - Final ABG Data ABG results: ABG 11/18/23 13:20 Specimen Type ART Sample Site R Radial pH 7.22 L Bicarbonate Actual 20.6 L Total CO2 22 Base Excess -7 L O2 Saturation 91 L O2 % 40.0 ABG pCO2 50.8 H ABG pO2 74 L Neri Test Positive Respiration Rate 14 O2 Delivery Device Adult Vent Vent Mode AC Tidal Volume 450.0 POC PEEP 5 Imaging Radiology Impression Chest X-Ray 11/18/23 12:55 IMPRESSION: Status post intubation and nasogastric tube placement. Bilateral infiltrates/edema markedly worse on the right side. Electronically Signed: Dayton Ward MD at 13:19 EDT , Assessment and Plan . Assessment and plan: #acute respiratory failure, hypercapneic - in the setting of bilateral R>L infiltrates - blood gases pre-intubation 7.ish -DDx includes primarily heart failure and pneumonia, the history of congested cough and sputum suggests the latter and BNP only modestly elevated at 888 #history of Ischemic Heart Disease - PCI 2011 - current LVEF unknown Recommendations: 1. blood gases reviewed- will increase PEEP to 10 cm H20 2. check echo 3. empiric diuresis is reasonable 4. follow up sputum studies 5. standard ICU px Care discussed with RN and SO at bedside Critical Care Time: 60 minutes The entirety of this encounter was done via Telemedicine
[2023-11-18 16:48] LABS: Troponin-I HS 284 pg/mL (3.0-54.0)
[2023-11-18 16:49] LABS: Reflex Lactate? Y
[2023-11-18] MEDS: fentaNYL drip 100 ML 2.5 MCG CONT INF (16:52)
[2023-11-18 17:35] LABS: Probe Check PASS
[2023-11-18 17:36] LABS: M R Staph aureus DNA By PCR POSITIVE (Negative)
[2023-11-18] MEDS: Cefepime HCl 2 GM in 0.9% Normal Saline (100mL MB+) 100 ML IV (17:46)
[2023-11-18] MEDS: Furosemide 40 MG/4 ML Vial IV (18:09)
[2023-11-18 18:52] LABS: Lactic Acid 1.9 mmol/L (0.4-1.9)
--- NOTE | 2023-11-18 19:32 | EX.ED.DYSGE1 ---
HPI History of Present Illness Chief Complaint: Shortness of Breath Narrative Narrative: This is a 73-year-old female with a history of acute decompensated heart failure, hypertension, NSTEMI, mixed hyperlipidemia, type 2 diabetes, and ischemic cardiomyopathy who presents to the emergency department in acute respiratory distress. Caregiver states he went to check on the patient at her facility today and she has had a cough for the past couple days that they have been treating with Renetta. Today she had worsening shortness of breath and difficulty breathing. EMS was called out to the facility and the patient was satting 40% on room air. They placed the patient on a BiPAP and she came up to 80 to 90%. Patient with limited responsiveness and route to the hospital and unable to provide additional information. Per EMS, patient has been tachycardic and hypotensive prior to arrival. [facility] Medical History CKD (chronic kidney disease) stage 3, GFR 30-59 ml/min History of left heart catheterization (LHC) (~12/21/10) CVA (cerebral vascular accident) Ischemic cardiomyopathy Old myocardial infarction History of non-ST elevation myocardial infarction (NSTEMI) Atherosclerotic heart disease of [place] coronary artery without angina pectoris Mixed hyperlipidemia Essential hypertension Chronic systolic (congestive) heart failure Hearing problem IBS (irritable bowel syndrome) GI problem Diabetes type 2, controlled Cataracts, bilateral Bladder infection Back problem Arthritis Dementia History of gastrointestinal hemorrhage Diabetic peripheral neuropathy Hypothyroidism Gastroesophageal reflux disease Type 2 diabetes mellitus Cerebrovascular disease Home Medications ?Medication ?Instructions ?Recorded ?Last Taken ?Type aspirin 81 mg tablet,delayed 81 mg PO DAILY@0800 heart health 05/27/13 10/08/23 History release atorvastatin 40 mg tablet 40 mg PO QHS cholesterol 05/27/13 10/07/23 History clopidogrel 75 mg tablet 75 mg PO DAILY blood clotting 05/27/13 10/08/23 History docusate sodium 100 mg capsule 100 mg PO BID stool 05/27/13 05/02/21 History levothyroxine 75 mcg tablet 75 mcg PO DAILY thyroid 05/27/13 10/08/23 History metoprolol tartrate 50 mg tablet 50 mg PO BID heart 05/27/13 10/08/23 History pantoprazole 40 mg tablet,delayed 40 mg PO DAILY stomach 05/27/13 10/08/23 History release pen needle, diabetic 31 gauge x #30 ea 06/05/17 Unknown History 10/10 (Comfort EZ Pen [place]) empagliflozin 25 mg tablet 25 mg PO DAILY dmII 03/29/22 10/08/23 History (Jardiance) sitagliptin phosphate 25 mg tablet 25 mg PO DAILY DMII 06/06/23 10/08/23 History (Januvia) spironolactone 25 mg tablet 25 mg PO DAILY waterpill 06/06/23 10/08/23 History calcium carbonate 600 mg-vitamin 1 cap PO DAILY calcium 10/08/23 10/08/23 History D3 5 mcg (200 unit) capsule (Calcium 600 + D(3)) insulin aspart 1 sliding scale dose subcut TID 10/08/23 Unknown History (niacinamide)(U-100) 100 unit/mL(3 dmII mL) subcutaneous pen (Fiasp FlexTouch U-100 Insulin) memantine 10 mg tablet 10 mg PO DAILY dementia 10/08/23 10/07/23 History polyethylene glycol 3350 17 17 g PO DAILY PRN constipation 10/08/23 Unknown History gram/dose oral powder (ClearLax) acetaminophen 325 mg tablet 650 mg (2 x 325 mg) PO Q6H PRN PRN 10/12/23 Unknown Rx Pain 1-10 Or Fever >100.7 #0 tabs furosemide 40 mg tablet (Lasix) 40 mg PO DAILY PRN leg swelling 1 10/12/23 10/08/23 Rx month #0 tabs hydrocodone-acetaminophen 5-325mg 1 tab PO Q4H PRN PRN Pain 2 days 10/12/23 Unknown Rx 5mg-325mg #7 TABLETS insulin glargine 100 unit/mL (3 22 unit (0.22 mL) subcut BID dmII 10/12/23 10/07/23 Rx mL) subcutaneous pen (Basaglar 30 days #0 mL KwikPen U-100 Insulin) insulin lispro 100 unit/mL 15 unit (0.15 mL) subcut TIDAC #0 10/12/23 Unknown Rx subcutaneous pen (Humalog KwikPen mL (U-100) Insulin) insulin lispro 100 unit/mL See Protocol subcut ACHS #0 mL 10/12/23 Unknown Rx subcutaneous pen (Humalog KwikPen (U-100) Insulin) bisacodyl 10 mg rectal suppository 10 mg [place] DAILY PRN no BM after MOM 11/18/23 Unknown History magnesium hydroxide 400 mg/5 mL 400 mg PO DAILY PRN constipation 11/18/23 Unknown History oral suspension (Milk of Magnesia) Allergy/AdvReac Type Severity Reaction Status Date / Time ibuprofen Allergy Itching Verified 10/08/23 10:05 lisinopril Allergy Other Verified 10/08/23 10:05 Penicillins Allergy Itching Verified 10/08/23 10:05 tramadol HCl (From Ultra) Allergy Other Verified 10/08/23 10:05 Family History Mother Cancer Diabetes Father Cancer Surgical History frozen shoulder surgery H/O thyroidectomy Hx of cataract surgery Social History Smoking Status: Former smoker second hand exposure: No alcohol intake: never substance use type: does not use caffeine: Yes Type: carbonated beverages Number of servings: 1 ROS ROS ED Review of Systems ROS Unobtainable: due to mental status EXAM Physical Exam Const Vital Signs: 11/18/23 12:18 11/18/23 12:20 11/18/23 12:22 Temperature 97 F L Temperature Source Temporal Pulse Rate Respiratory Rate 98 H Respiratory Effort Respiratory Pattern Blood Pressure Blood Pressure Mean Pulse Ox 100 Oxygen Delivery Method Bi-pap Fraction of Inspired Oxygen (FIO2) 100 11/18/23 12:24 11/18/23 12:26 11/18/23 12:26 Temperature Temperature Source Pulse Rate 100 Respiratory Rate 14 Respiratory Effort Respiratory Pattern Normal Blood Pressure 167/92 H Blood Pressure Mean 117 Pulse Ox 98 99 Oxygen Delivery Method Mechanical Ventilator Fraction of Inspired Oxygen (FIO2) 45 11/18/23 12:38 11/18/23 12:51 11/18/23 13:04 Temperature Temperature Source Pulse Rate 104 H 103 H Respiratory Rate 16 14 Respiratory Effort Mechanically Ventilated Respiratory Pattern Blood Pressure 158/79 H 168/91 H Blood Pressure Mean 105 116 Pulse Ox 95 95 Oxygen Delivery Method Mechanical Ventilator Mechanical Ventilator Mechanical Ventilator Fraction of Inspired Oxygen (FIO2) 11/18/23 13:25 11/18/23 13:30 11/18/23 13:45 Temperature Temperature Source Pulse Rate 96 97 97 Respiratory Rate 14 16 17 Respiratory Effort Respiratory Pattern Blood Pressure 155/85 H 125/76 H Blood Pressure Mean 104 91 Pulse Ox 93 94 95 Oxygen Delivery Method Mechanical Ventilator Mechanical Ventilator Fraction of Inspired Oxygen (FIO2) 11/18/23 13:51 Temperature 98 F Temperature Source Pulse Rate 94 Respiratory Rate 16 Respiratory Effort Respiratory Pattern Blood Pressure 125/76 H Blood Pressure Mean 92 Pulse Ox 95 Oxygen Delivery Method Fraction of Inspired Oxygen (FIO2) Positive well nourished, well developed and obese Constitutional Narrative: Patient is very somnolent. She is not responding verbally and not following commands. Appears to be in acute respiratory distress General Appearance ED: well developed Nutritional Appearance: obese HEENT Reports moist mucous membranes HEENT Narrative: [place] frothy sputum in the mouth Eyes PERRL Neck supple Chest Wall inspection of chest normal Resp Resp Narrative: Tachypnea with shallow breaths. Diffuse crackles bilaterally. Cardio regular rhythm Rate: tachycardic GI non-distended Extremity General Extremety ED: Yes edema General Extremity: edema Neuro Neuro Narrative: Not alert or oriented Sensorium / Orientation: lethargic Skin no rashes or lesions noted MDM MDM MDM Narrative Medical decision making narrative: Patient presents to the emergency department with respiratory distress. Upon arrival to the emergency department the patient was extremely somnolent and not following any commands. She was not appropriate for BiPAP given her mental status. We confirmed patient was full code and decision was made to intubate for acute hypoxic respiratory failure. Patient was intubated on first attempt using glide scope without any complication. Patient no sleep desaturation during the procedure. Patient was placed on a ventilator and an OG and [place] catheter replaced. Patient placed on propofol for sedation. Differential diagnosis includes, but is not limited to CHF exacerbation/flash pulmonary edema, pneumonia, ARDS, pneumothorax. EKG does not show any evidence of any acute infarct or ischemia. Initially, plan was to place the patient on Lasix and nitroglycerin drip but given my concern for flash pulmonary edema and congestive heart failure. However, the patient's blood pressure normalized after intubation and on sedation, so I do not feel this is appropriate as it would likely make her hypotensive. Patient given a one-time 80 mg push of IV Lasix through her IV. Chest x-ray was reviewed and shows bilateral infiltrates and edema markedly worse on the right side. Again, I suspect this is more pulmonary edema she had pink frothy sputum on physical exam and in her ETT. Nonetheless, she will also be treated for possible superimposed bacterial pneumonia or infection given that she does have a white count of 13.7 here. In addition to the urinary tract infection seen on urinalysis, I will treat her with Rocephin and vancomycin to cover both for respiratory and urinary sources of infection as she does have an allergy to penicillins. The rest of her lab work reviewed and the patient has chronic kidney disease, hyperglycemia in the setting of known diabetes and an elevated lactate of 2.8. I will hold off on any judicious fluid resuscitation at this time given my concern for heart failure. Of note, the patient does have a proBNP elevated 886 consistent with CHF. Troponin is elevated to 87 but I suspect this is more demand ischemia likely secondary to her respiratory failure and hypoxia. On ABG the patient did have some respiratory acidosis and ventilator settings, specifically respiratory rate increased to accommodate for this. Patient will be admitted to the ICU for ongoing management and treatment. I spoke with Dr. Mcguire for admission. Family/caregiver at bedside and updated. Lab Data Attestation: I reviewed the patient's lab results. Labs: Laboratory Results - last 24 hr 11/18/23 11/18/23 11/18/23 12:30 12:40 13:00 WBC 13.7 H RBC 4.69 Hgb 13.0 Hct 42.8 MCV 91.3 MCH 27.7 MCHC 30.4 L RDW Std Deviation 54.5 H RDW Coeff of Don 16.6 H Plt Count 343 MPV 11.5 Immature Gran % (Auto) 0.500 Neut % (Auto) 60.0 Lymph % (Auto) 32.3 [place] % (Auto) 5.9 Eos % (Auto) 0.7 Baso % (Auto) 0.6 Absolute Neuts (auto) 8.2 H Absolute Lymphs (auto) 4.42 Nucleated RBC % 0 PT 13.4 INR 1.0 APTT 22.4 L Sodium 141 Potassium 4.0 Chloride 115 H Carbon Dioxide 21.0 Anion Gap 5 BUN 21 H Creatinine 2.14 H Estim Creat Clear Calc 27.62 Est GFR (MDRD) Af Amer 29 L Est GFR (MDRD) Non-Af 24 L BUN/Creatinine Ratio 9.8 L Glucose 237 H Lactic Acid 2.8 H* Calcium 9.1 Troponin I High Sens 287 H* B-Natriuretic Peptide 886.0 H Urine Color Yellow Urine Clarity Cloudy Urine pH 6.0 Ur Specific [place] 1.020 Urine Protein 500 H Urine Glucose (UA) 1000 H Urine Ketones Negative Urine Occult Blood 250 H Urine Nitrite Positive H Urine Bilirubin Negative Urine Urobilinogen Normal Ur Leukocyte Esterase 500 H Urine RBC 10-25 SEEN Urine WBC >100 SEEN Ur Squamous Epith Cells 10-25 SEEN Urine Bacteria 4+ Urine Mucus 0 SEEN ABG Data ABG results: ABG 11/18/23 13:20 Specimen Type ART Sample Site R Radial pH 7.22 L Bicarbonate Actual 20.6 L Total CO2 22 Base Excess -7 L O2 Saturation 91 L O2 % 40.0 ABG pCO2 50.8 H ABG pO2 74 L Neri Test Positive Respiration Rate 14 O2 Delivery Device Adult Vent Vent Mode AC Tidal Volume 450.0 POC PEEP 5 Radiography Chest X-Ray - ED: Read by Radiologist Diagnostic Testing: Clinical Impression(s) from Imaging Studies Chest X-Ray 11/18/23 12:55 IMPRESSION: Status post intubation and nasogastric tube placement. Bilateral infiltrates/edema markedly worse on the right side. Electronically Signed: Dayton Ward MD at 13:19 EDT , Management Discussion w/another healthcare provider: Hospitalist Procedures Intubations Intubation Method: orotracheal Intubation Verification: Bilateral breath sounds confirmed Intubation Complications: no complications (Patient intubated after administration of 30 mg of etomidate and 100 mg of rocuronium. [place] scope was used. 7.5 ETT visualized passing through vocal cords. Patient with equal breath sounds bilaterally.. ETT positioned at 25 cm at the lips. ) Critical Care Time Critical Care Time: Yes Critical care time (excluding procedures): 30-74 minutes, Discussing w/Patient &/or Family/Early Childhood Worker, Discussing w/Consultants and Performing Direct Patient Care at Bedside Discharge Plan Triage Chief Complaint: Shortness of Breath ED Provider: Valerie Heaton Dx/Rx/DC Orders Clinical Impression: Acute decompensated heart failure, Elevated troponin, Urinary tract infection, Acute hypoxic respiratory failure, CKD (chronic kidney disease), Hyperglycemia due to type 2 diabetes mellitus, Leukocytosis Primary Care Provider: Claude Lee Disposition Disposition: Acute Care Hospital [facility]
[2023-11-18] MEDS: Propofol 10MG/Ml 1,000 MG/100 ML Bottle 12.1 MG CONT INF (20:30)
[2023-11-18] MEDS: Metoprolol Tartrate 25 MG Tablet 12.5 MG PO (22:50)
[2023-11-18] MEDS: Heparin Injection (Vial) 5,000 UNIT/ML VIAL 5000 UNIT SC (22:51)
[2023-11-18] MEDS: Atorvastatin Calcium 40 MG Tablet PO (22:51)
[2023-11-18] MEDS: Chlorhexidine 15 ML PO (22:52)
[2023-11-18 23:06] LABS: Bedside Glucose 103 mg/dL (74-106)
[2023-11-18] MEDS: Dextrose 5%/0.9% NaCl 1,000 ML 70 ML IV (23:06)
[2023-11-18 23:09] LABS: Bedside Glucose 65 mg/dL (74-106)
--- NOTE | 2023-11-18 23:20 | NURSING ---
Reviewed hypoglycemia protocol, pt given 4oz OJ via OGT.
--- NOTE | 2023-11-18 23:44 | NURSING ---
BGT recheck after OJ given per protocol and D5NS started, 71.
[2023-11-19] VITALS (35 sets, daily range): BP systolic 80–138; BP diastolic 50–83; PULSE 74–103; RESP 14–19; TEMP 36.2–36.6; O2SAT 96–100; BMI 33.9
[2023-11-19 00:01] LABS: Bedside Glucose 72 mg/dL (74-106)
[2023-11-19 03:19] LABS: Bedside Glucose 112 mg/dL (74-106)
[2023-11-19] MEDS: Propofol 10MG/Ml 1,000 MG/100 ML Bottle 6 MG CONT INF (04:39)
[2023-11-19] MEDS: 0.9% Saline Lock 10 ML Syringe IV ×2 (04:40→09:51)
[2023-11-19] MEDS: Levothyroxine 75 MCG Tablet PO (04:40)
[2023-11-19 04:43] LABS: Absolute Lymphocyte Count 2.56 X10^3/uL (0.83-4.51); Absolute Neutrophil Count 10.8 X10^3/uL (2.0-7.7); Basophil# 0.06 X10^3/uL; Basophil% 0.4 % (0-1); Eosinophil# 0.24 X10^3/uL; Eosinophils% 1.6 % (0-5); Hematocrit 32.2 % (37-47); Hemoglobin 10.4 g/dL (12.0-15.0); Lymphocyte # 2.56 X10^3/ul (0.83-4.51); Lymphocyte % 17.2 % (19-41); Mean Corp Hgb Conc 32.3 g/dL (32-36); Mean Corpuscular Hgb 28.9 pg (27.0-32.0); Mean Corpuscular Volume 89.4 fL (81-99); Mean Platelet Vol. 11.2 fl (6.2-12.0); Monocyte# 1.14 X10^3/uL; Monocyte% 7.7 % (0-10); NRBC Flagged by Analyzer 0 % (0-5); Neutrophil # 10.84 X10^3/uL (2.7-7.7); Neutrophil % 72.8 % (47-70); Platelet Count 210 K/mm3 (150-450); RBC Distribution Width CV 16.5 % (11.6-14.6); RBC Distribution Width SD 54.2 fl (35.1-43.9); White Blood Count 14.9 K/mm3 (4.4-11.0)
[2023-11-19 05:36] LABS: ALB/GLOB Ratio 0.4 RATIO (0.9-2.4); AST(SGOT) 28 U/L (15-37); Alanine Aminotransfer ALT/SGPT 23 U/L (13-56); Albumin, Serum 1.7 g/dL (3.2-5.0); Alkaline Phosphatase 122 U/L (45-117); Anion Gap 8 (5-15); BUN 23 mg/dL (7-18); BUN/Creat Ratio 11.2 RATIO (10-20); Calcium,Total 8.3 mg/dL (8.5-10.1); Chloride 119 mmol/L (98-107); Cholesterol 125 mg/dL (200); Creatinine, Serum 2.06 mg/dL (0.55-1.02); EST Glomerular Filtration Rate 25 mL/min (>60); Est Glom Filt Rate - Afr Amer 30 mL/min (>60); Estimated Creatinine Clearance 29.86 ml/min; Globulin 4.2 g/dL (2.2-4.2); Glucose 161 mg/dL (74-106); High Density Lipoprotein 44 mg/dL; Magnesium 1.8 mg/dL (1.6-2.6); Phosphorus 3.2 mg/dL (2.5-4.9); Potassium 4.1 mmol/L (3.5-5.1); Protein, Total 5.9 g/dL (6.4-8.2); Sodium Level 145 mmol/L (136-145); Triglycerides 151 mg/dL; Very Low Density Lipoprotein 30 mg/dL (5-40)
[2023-11-19] MEDS: CHLORHEXIDINE GLUC 2% CLOTH 1 EACH TOWELETTE TOPICAL (06:14)
[2023-11-19] MEDS: Insulin Lispro 100 UNIT/ML INSULN.PEN SC ×5 (06:14→21:16)
[2023-11-19 06:28] LABS: Bedside Glucose 156 mg/dL (74-106)
--- NOTE | 2023-11-19 06:55 | PN.HOSP_ITS ---
Reason for Visit Reason for Visit: Diagnoses Hypothyroidism, unspecified (11/18/23) Type 2 diabetes mellitus with unspecified complications (11/18/23) Chronic systolic (congestive) heart failure (11/18/23) Heart failure, unspecified (11/18/23) Gastro-esophageal reflux disease without esophagitis (11/18/23) Chronic kidney disease, stage 3 (moderate) (11/18/23) Urinary tract infection, site not specified (11/18/23) Acute respiratory distress (11/18/23) Other specified abnormal findings of blood chemistry (11/18/23) Subjective Subjective Patient remains intubated, has been following commands, does cough when she is waking up and moving around Objective Data Objective Data Vital Signs: Vital Signs Temp Pulse Resp BP Pulse Ox O2 Del Method FiO2 98 F 93 16 102/59 L 99 Mechanical Ventilator 40 11/19/23 04:00 11/19/23 06:34 11/19/23 06:34 11/19/23 06:00 11/19/23 06:34 11/19/23 06:00 11/19/23 06:34 Oxygen Delivery Method Mechanical Ventilator Weight: 101.5 kg Body Mass Index (BMI) 33.9 Intake & Output: Intake and Output for Last 24 Hours 11/17/23 11/18/23 11/19/23 23:59 23:59 23:59 Intake Total 821.01 / 838.11 222.18 / 222.18 Output Total 200 / 950 1150 / 1150 Balance 621.01 / -111.89 -927.82 / -927.82 Lab / Micro Data 11/19/23 04:35 11/19/23 04:35 Labs: Laboratory Results - last 24 hr 11/18/23 12:30: WBC 13.7 H, RBC 4.69, Hgb 13.0, Hct 42.8, MCV 91.3, MCH 27.7, M CHC 30.4 L, RDW Std Deviation 54.5 H, RDW Coeff of Don 16.6 H, Plt Count 343, MPV 11.5, Immature Gran % (Auto) 0.500, Neut % (Auto) 60.0, Lymph % (Auto) 32.3, [place] % (Auto) 5.9, Eos % (Auto) 0.7, Baso % (Auto) 0.6, Absolute Neuts (auto) 8.2 H, Absolute Lymphs (auto) 4.42, Nucleated RBC % 0, PT 13.4, INR 1.0, APTT 22.4 L, Sodium 141, Potassium 4.0, Chloride 115 H, Carbon Dioxide 21.0, Anion Gap 5, BUN 21 H, Creatinine 2.14 H, Estim Creat Clear Calc 27.62, Est GFR (MDRD) Af Amer 29 L, Est GFR (MDRD) Non-Af 24 L, BUN/Creatinine Ratio 9.8 L, Glucose 237 H, Calcium 9.1, Troponin I High Sens 287 H*, B-Natriuretic Peptide 886.0 H 11/18/23 12:40: Lactic Acid 2.8 H* 11/18/23 13:00: Urine Color Yellow, Urine Clarity Cloudy, Urine pH 6.0, Ur Specific [place] 1.020, Urine Protein 500 H, Urine Glucose (UA) 1000 H, Urine Ketones Negative, Urine Occult Blood 250 H, Urine Nitrite Positive H, Urine Bilirubin Negative, Urine Urobilinogen Normal, Ur Leukocyte Esterase 500 H, Urine RBC 10-25 SEEN, Urine WBC >100 SEEN, Ur Squamous Epith Cells 10-25 SEEN, Urine Bacteria 4+, Urine Mucus 0 SEEN 11/18/23 16:00: Troponin I High Sens 284 H*, MRSA (PCR) POSITIVE H 11/18/23 18:00: Lactic Acid 1.9 11/18/23 18:07: POC Glucose 103 11/18/23 22:51: POC Glucose 65 L 11/18/23 23:43: POC Glucose 72 L 11/19/23 03:01: POC Glucose 112 H 11/19/23 03:35: WBC Cancelled, Corrected WBC Cancelled, RBC Cancelled, Hgb Cancelled, Hct Cancelled, MCV Cancelled, MCH Cancelled, MCHC Cancelled, RDW Std Deviation Cancelled, RDW Coeff of Don Cancelled, Plt Count Cancelled, MPV Cancelled, Immature Gran % (Auto) Cancelled, Neut % (Auto) Cancelled, Lymph % (Auto) Cancelled, [place] % (Auto) Cancelled, Eos % (Auto) Cancelled, Baso % (Auto) Cancelled, Absolute Neuts (auto) Cancelled, Absolute Lymphs (auto) Cancelled, Total Counted Cancelled, Neutrophils % (Manual) Cancelled, Band Neutrophils % Cancelled, Lymphocytes % (Manual) Cancelled, Monocytes % (Manual) Cancelled, Eosinophils % (Manual) Cancelled, Basophils % (Manual) Cancelled, Metamyelocytes % Cancelled, Myelocytes % Cancelled, Promyelocytes % Cancelled, Blast Cells % Cancelled, Plasma Cell % (Manual) Cancelled, Other Cells % Cancelled, Nucleated RBC % Cancelled, Nucleated RBCs/100 WBC Cancelled, Differential Comment Cancelled, Diff Path Review Cancelled, Hypersegmented Neuts Cancelled, Atypical Lymphocytes Cancelled, Reactive Lymphocytes Cancelled, Smudge Cells Cancelled, Toxic Granulation Cancelled, Toxic Vacuolation Cancelled, Dohle Bodies Cancelled, Moris Rods Cancelled, Platelet Estimate Cancelled, Plt Morphology Comment Cancelled, RBC Morphology Cancelled 11/19/23 03:35: RBC Morphology Cancelled, Polychromasia Cancelled, Hypochromasia Cancelled, Basophilic Stippling Cancelled, Anisocytosis Cancelled, Microcytosis Cancelled, Macrocytosis Cancelled, Spherocytes Cancelled, Sickle Cells Cancelled, Target Cells Cancelled, Tear Drop Cells Cancelled, Ovalocytes Cancelled, Stomatocytes Cancelled, Chan-Francis Bodies Cancelled, Doretha Cells Cancelled, Bite Cells Cancelled, Crenated Cell Cancelled, Acanthocytes (Spur) Cancelled, Rouleaux Cancelled, Schistocytes Cancelled, Sodium Cancelled, Potassium Cancelled, Chloride Cancelled, Carbon Dioxide Cancelled, Anion Gap Cancelled, BUN Cancelled, Creatinine Cancelled, Estim Creat Clear Calc Cancelled, Est GFR (MDRD) Af Amer Cancelled, Est GFR (MDRD) Non-Af Cancelled, BUN/Creatinine Ratio Cancelled, Glucose Cancelled, Calcium Cancelled, Phosphorus Cancelled, Magnesium Cancelled, Total Bilirubin Cancelled, AST Cancelled, ALT Cancelled, Alkaline Phosphatase Cancelled, Total Protein Cancelled, Albumin Cancelled, Globulin Cancelled, Albumin/Globulin Ratio Cancelled, Triglycerides Cancelled, Cholesterol Cancelled, LDL Cholesterol Cancelled, VLDL Cholesterol Cancelled, HDL Cholesterol Cancelled 11/19/23 04:35: WBC 14.9 H, RBC 3.60 L, Hgb 10.4 L, Hct 32.2 L, MCV 89.4, MCH 28.9, MCHC 32.3 D, RDW Std Deviation 54.2 H, RDW Coeff of Don 16.5 H, Plt Count 210, MPV 11.2, Immature Gran % (Auto) 0.300, Neut % (Auto) 72.8 H, Lymph % (Auto) 17.2 L, [place] % (Auto) 7.7, Eos % (Auto) 1.6, Baso % (Auto) 0.4, Absolute Neuts (auto) 10.8 H, Absolute Lymphs (auto) 2.56, Nucleated RBC % 0, Sodium 145, Potassium 4.1, Chloride 119 H, Carbon Dioxide 18.0 L, Anion Gap 8, BUN 23 H, C reatinine 2.06 H, Estim Creat Clear Calc 29.86, Est GFR (MDRD) Af Amer 30 L, Est GFR (MDRD) Non-Af 25 L, BUN/Creatinine Ratio 11.2, Glucose 161 H, Calcium 8.3 L, Phosphorus 3.2, Magnesium 1.8, Total Bilirubin 0.50, AST 28, ALT 23, Alkaline Phosphatase 122 H, Total Protein 5.9 L, Albumin 1.7 L, Globulin 4.2, A lbumin/Globulin Ratio 0.4 L, Triglycerides 151, Cholesterol 125, LDL Cholesterol 51, VLDL Cholesterol 30, HDL Cholesterol 44 11/19/23 06:10: POC Glucose 156 H Micro: Microbiology 11/18/23 15:24 Mucosa - Nose Respiratory Panel (PCR) - Final 11/18/23 15:24 Mucosa - Nose SARS-CoV-2, Influenza & RSV (PCR) - Final 11/18/23 13:00 Urine Catheter - Wayne Legionella Antigen - Final 11/18/23 13:00 Urine Catheter - Wayne Streptococcus pneumoniae Antigen (M - Final 11/18/23 12:39 Mucosa - Nasopharyngeal SARS-CoV-2, Influenza & RSV (PCR) - Final ABG Data ABG results: ABG 11/18/23 13:20 Specimen Type ART Sample Site R Radial pH 7.22 L Bicarbonate Actual 20.6 L Total CO2 22 Base Excess -7 L O2 Saturation 91 L O2 % 40.0 ABG pCO2 50.8 H ABG pO2 74 L Neri Test Positive Respiration Rate 14 O2 Delivery Device Adult Vent Vent Mode AC Tidal Volume 450.0 POC PEEP 5 Radiography Diagnostic Testing: Radiology Impression Chest X-Ray 11/18/23 12:55 IMPRESSION: Status post intubation and nasogastric tube placement. Bilateral infiltrates/edema markedly worse on the right side. Electronically Signed: Dayton Ward MD at 13:19 EDT , Physical Exam Narrative General: Intubated, resting comfortably HEENT: Atraumatic, normocephalic Eyes: Eyes closed, no spontaneous opening Neck: Supple Respiratory: Mechanically ventilated, coarse diffusely Cardiovascular: Regular rate and rhythm GI: Soft, nontender, nondistended Extremities: Trace edema in ankles improving Musculoskeletal: Resting in bed not moving extremities spontaneously but fill exams earlier Neuro: Resting comfortably Skin: No rashes appreciated Psych: Began following commands Assessment & Plan Assessment/Plan (1) Acute decompensated heart failure: (2) Acute respiratory distress: (3) Gastroesophageal reflux disease: (4) Hypothyroidism: QUALIFIERS: Hypothyroidism type: acquired Qualified Code(s): E 03.9 - Hypothyroidism, unspecified (5) Type 2 diabetes mellitus: QUALIFIERS: Diabetes mellitus complication status: with unspecified complications Diabetes mellitus intermediate designer insulin use: with intermediate designer use Qualified Code(s): E11.8 - Type 2 diabetes mellitus with unspecified complications (6) CKD (chronic kidney disease) stage 3, GFR 30-59 ml/min: (7) Chronic systolic (congestive) heart failure: (8) Elevated troponin: (9) Elevated lactic acid level: (10) UTI (urinary tract infection): PLAN: Plan # Acute respiratory failure likely secondary to acute exacerbation of chronic systolic heart failure and altered mental status -BNP 886 -CXR concerning for bilateral infiltrates -Continue IV lasix -echo ordered -Daily weights, I's and O's -lipid panel in AM -Intubated and sedated in the ED -Sputum culture -Will obtain respiratory panel as well given some recent cough and respiratory decline -11/18: Remains intubated in the ICU, remains on IV Lasix, echo pending, does have infectious workup pending as well #Concern for UTI/infectious component -White blood cell count slightly elevated -UA suggestive of UTI, unclear if patient has been having any symptoms as patient unable to answer given intubated and sedated -Obtain urine culture, blood cultures -Blood pressure maintaining, suspect respiratory failure is from fluid overload and not infection, elevated lactic acid suspected to be due to poor perfusion in setting of exacerbation of heart failure with respiratory failure -Do not think patient is septic at this time or needs sepsis fluids but will maintain broad-spectrum antibiotics, given penicillin allergy but recent hospitalization and unclear if there is a pulmonary/pneumonia component given cough for coming in will treat with cefepime and bank and de-escalate pending cultures in progress -11/18: White blood cell count increased today with left shift, sputum, blood, urine cultures pending, remains on broad-spectrum antibiotics at this time #Anemia -New on 11/18 -Was 13 on 11/17 and down trended to 10.4 -Will check FOBT, iron studies, b12, folate -On IV PPI -Repeat H&H in the afternoon # HELENA versus CKD -Creatinine 2.14 in a month ago was 1.88 however has had elevated creatinines like this in the past, secondary to infection versus critical illness and heart failure exacerbation -Daily BMPs -Avoid nephrotoxic agents -11/18: Very slightly improved today but still remains elevated, will check urine lytes #Type 2 diabetes mellitus -Glucose checks every 4 and sliding scale insulin -Continue home long-acting but at lower dose given n.p.o. and escalate pending glucose -Hemoglobin A1c 11.4 on 10/09/2023 -11/18: Had low glucose overnight, all long-acting insulin held # Elevated lactic acid-resolved -Blood pressure maintaining, suspect respiratory failure is from fluid overload and not infection, elevated lactic acid suspected to be due to poor perfusion in setting of exacerbation of heart failure with respiratory failure -Do not think patient is septic at this time or needs sepsis fluids but will maintain broad-spectrum antibiotics -Will trend -11/18: Resolved # History of [place] in 2011 -Patient had not reported any chest pain and only shortness of breath before arrival with cough over the past 1 to 2 days -Troponin mildly elevated, suspect this is secondary nature to demand -Will check echo, if any wall motion abnormalities will likely need heparin and cardiology consult -11/18: Echo pending however troponin was flat, lower suspicion for cardiac etiology #Elevated Troponin -Reportedly patient having no complaints other than cough and then shortness of breath shortly before arrival, no chest pain had been reported but patient unable to answer ROS -Will obtain echo -Suspect this is demand due to heart failure exacerbation and infection -Trend -Will continue atorvastatin, clopidogrel, aspirin, continuing beta-luanne -11/18: Repeat troponin flat, no further trended #Hypothyroidism -Continue Synthroid -TSH 0.58 on 10/09/2023 #GERD -Continue PPI #DVT ppx: Heparin subcu Faviola Mcguire MD Time spent in the patient's overall evaluation,decision-making process, review of diagnostic data, adjustment of management, discussion with other providers, nursing nursing and ancillary staff involved in patient's care documentation, 37 minutes Charges/Coding Visit Charges Inpatient E&M: 45364 Subs Hosp L2
--- NOTE | 2023-11-19 07:05 | PCM.PN.INT ---
Assessment & Plan Assessment/Plan (1) Acute respiratory failure with hypoxia and hypercapnia: PLAN: Plan RECOMMENDATIONS: 1. Continue assist-control mode mechanical ventilation. Wean FiO2 and PEEP to maintain saturations at or above 90%. 2. Stop dextrose containing IV fluids and initiate tube feeding. 3. Continue empiric antimicrobials, pending finalized culture results. 4. Ongoing diuresis as tolerated by hemodynamics and renal function. 5. Continue appropriate ICU prophylaxis. 6. Follow-up echocardiogram is pending. IMPRESSIONS: 1. Acute respiratory failure with hypoxemia and hypercapnia Clinical concern for multifactorial etiology, including pneumonia and decompensated heart failure. The patient remains on appropriate broad-spectrum antimicrobials. She will be continued on assist-control mode of mechanical ventilation, with a goal to wean FiO2 and PEEP to maintain saturations at or above 90%. Diuretics will be continued, as tolerated by hemodynamics and renal function. In addition, the patient likely has a component of urinary tract source of infection, which should be covered by the antibiotics currently being utilized. Will await finalized culture results. Appropriate ICU prophylaxis will be continued. Follow-up echocardiogram is pending. 2. Troponin elevation Likely secondary to demand ischemia in the setting of #1. Continue current supportive care, while awaiting echocardiogram. 3. History of coronary artery disease/chronic kidney disease/diabetes mellitus/hypothyroidism/GERD Complicates care, management, recovery and prognosis. Continue home medications as indicated. Recommend discontinuation of dextrose containing IV fluids, with plans to transition to tube feeding today. TIME: 34 minutes of critical care time, independent of procedures, was spent addressing the patient's acute respiratory failure with hypoxemia and hypercapnia, troponin elevation, review of all data and collaboration with the care team. Subjective Subjective The patient was seen and examined at the bedside this morning. Events from the last 24 hours have been reviewed. The patient is currently afebrile, hemodynamically stable and maintaining appropriate oxygen saturations on assist-control mode mechanical ventilation with an FiO2 requirement of 40% PEEP of 10. The patient is sedated on accommodation of propofol and fentanyl. She was started on D5 normal saline overnight due to persistent hypoglycemia. The patient remains on antimicrobials and scheduled IV Lasix. The patient was initially admitted on November 17 over concerns for underlying pneumonia and decompensated heart failure. White blood cell count remains elevated at 15,000. Chemistry profile this morning was notable for a bicarbonate of 18 and creatinine of 2.06. Objective Data Objective Data The patient's most recent lab work, culture data and imaging studies have all been personally reviewed. Respiratory viral panel and COVID PCR was negative. Strep and urine Legionella antigens were negative. Blood, urine and sputum cultures are pending. Vital Signs: Vital Signs Temp Pulse Resp BP Pulse Ox O2 Del Method FiO2 98 F 94 16 106/55 L 99 Mechanical Ventilator 40 11/19/23 04:00 11/19/23 07:00 11/19/23 07:00 11/19/23 07:00 11/19/23 07:00 11/19/23 07:00 11/19/23 07:00 Oxygen Delivery Method Mechanical Ventilator Weight: 223 lb 12.307 oz Body Mass Index (BMI) 33.9 Intake & Output: Intake and Output for Last 24 Hours 11/17/23 11/18/23 11/19/23 23:59 23:59 23:59 Intake Total 821.01 / 838.11 233.18 / 233.18 Output Total 200 / 950 1150 / 1150 Balance 621.01 / -111.89 -916.82 / -916.82 Lab / Micro Data Attestation: I reviewed the patient's lab results. 11/19/23 04:35 11/19/23 04:35 Labs: Laboratory Results - last 24 hr 11/18/23 12:30: WBC 13.7 H, RBC 4.69, Hgb 13.0, Hct 42.8, MCV 91.3, MCH 27.7, MCHC 30.4 L, RDW Std Deviation 54.5 H, RDW Coeff of Don 16.6 H, Plt Count 343, MPV 11.5, Immature Gran % (Auto) 0.500, Neut % (Auto) 60.0, Lymph % (Auto) 32.3, [place] % (Auto) 5.9, Eos % (Auto) 0.7, Baso % (Auto) 0.6, Absolute Neuts (auto) 8.2 H, Absolute Lymphs (auto) 4.42, Nucleated RBC % 0, PT 13.4, INR 1.0, APTT 22.4 L, Sodium 141, Potassium 4.0, Chloride 115 H, Carbon Dioxide 21.0, Anion Gap 5, BUN 21 H, Creatinine 2.14 H, Estim Creat Clear Calc 27.62, Est GFR (MDRD) Af Amer 29 L, Est GFR (MDRD) Non-Af 24 L, BUN/Creatinine Ratio 9.8 L, Glucose 237 H, Calcium 9.1, Troponin I High Sens 287 H*, B-Natriuretic Peptide 886.0 H 11/18/23 12:40: Lactic Acid 2.8 H* 11/18/23 13:00: Urine Color Yellow, Urine Clarity Cloudy, Urine pH 6.0, Ur Specific [place] 1.020, Urine Protein 500 H, Urine Glucose (UA) 1000 H, Urine Ketones Negative, Urine Occult Blood 250 H, Urine Nitrite Positive H, Urine Bilirubin Negative, Urine Urobilinogen Normal, Ur Leukocyte Esterase 500 H, Urine RBC 10-25 SEEN, Urine WBC >100 SEEN, Ur Squamous Epith Cells 10-25 SEEN, Urine Bacteria 4+, Urine Mucus 0 SEEN 11/18/23 16:00: Troponin I High Sens 284 H*, MRSA (PCR) POSITIVE H 11/18/23 18:00: Lactic Acid 1.9 11/18/23 18:07: POC Glucose 103 11/18/23 22:51: POC Glucose 65 L 11/18/23 23:43: POC Glucose 72 L 11/19/23 03:01: POC Glucose 112 H 11/19/23 03:35: WBC Cancelled, Corrected WBC Cancelled, RBC Cancelled, Hgb Cancelled, Hct Cancelled, MCV Cancelled, MCH Cancelled, MCHC Cancelled, RDW Std Deviation Cancelled, RDW Coeff of Don Cancelled, Plt Count Cancelled, MPV Cancelled, Immature Gran % (Auto) Cancelled, Neut % (Auto) Cancelled, Lymph % (Auto) Cancelled, [place] % (Auto) Cancelled, Eos % (Auto) Cancelled, Baso % (Auto) Cancelled, Absolute Neuts (auto) Cancelled, Absolute Lymphs (auto) Cancelled, Total Counted Cancelled, Neutrophils % (Manual) Cancelled, Band Neutrophils % Cancelled, Lymphocytes % (Manual) Cancelled, Monocytes % (Manual) Cancelled, Eosinophils % (Manual) Cancelled, Basophils % (Manual) Cancelled, Metamyelocytes % Cancelled, Myelocytes % Cancelled, Promyelocytes % Cancelled, Blast Cells % Cancelled, Plasma Cell % (Manual) Cancelled, Other Cells % Cancelled, Nucleated RBC % Cancelled, Nucleated RBCs/100 WBC Cancelled, Differential Comment Cancelled, Diff Path Review Cancelled, Hypersegmented Neuts Cancelled, Atypical Lymphocytes Cancelled, Reactive Lymphocytes Cancelled, Smudge Cells Cancelled, Toxic Granulation Cancelled, Toxic Vacuolation Cancelled, Dohle Bodies Cancelled, Moris Rods Cancelled, Platelet Estimate Cancelled, Plt Morphology Comment Cancelled, RBC Morphology Cancelled 11/19/23 03:35: RBC Morphology Cancelled, Polychromasia Cancelled, Hypochromasia Cancelled, Basophilic Stippling Cancelled, Anisocytosis Cancelled, Microcytosis Cancelled, Macrocytosis Cancelled, Spherocytes Cancelled, Sickle Cells Cancelled, Target Cells Cancelled, Tear Drop Cells Cancelled, Ovalocytes Cancelled, Stomatocytes Cancelled, Chan-Saxon Bodies Cancelled, Doretha Cells Cancelled, Bite Cells Cancelled, Crenated Cell Cancelled, Acanthocytes (Spur) Cancelled, Rouleaux Cancelled, Schistocytes Cancelled, Sodium Cancelled, Potassium Cancelled, Chloride Cancelled, Carbon Dioxide Cancelled, Anion Gap Cancelled, BUN Cancelled, Creatinine Cancelled, Estim Creat Clear Calc Cancelled, Est GFR (MDRD) Af Amer Cancelled, Est GFR (MDRD) Non-Af Cancelled, BUN/Creatinine Ratio Cancelled, Glucose Cancelled, Calcium Cancelled, Phosphorus Cancelled, Magnesium Cancelled, Total Bilirubin Cancelled, AST Cancelled, ALT Cancelled, Alkaline Phosphatase Cancelled, Total Protein Cancelled, Albumin Cancelled, Globulin Cancelled, Albumin/Globulin Ratio Cancelled, Triglycerides Cancelled, Cholesterol Cancelled, LDL Cholesterol Cancelled, VLDL Cholesterol Cancelled, HDL Cholesterol Cancelled 11/19/23 04:35: WBC 14.9 H, RBC 3.60 L, Hgb 10.4 L, Hct 32.2 L, MCV 89.4, MCH 28.9, MCHC 32.3 D, RDW Std Deviation 54.2 H, RDW Coeff of Don 16.5 H, Plt Count 210, MPV 11.2, Immature Gran % (Auto) 0.300, Neut % (Auto) 72.8 H, Lymph % (Auto) 17.2 L, [place] % (Auto) 7.7, Eos % (Auto) 1.6, Baso % (Auto) 0.4, Absolute Neuts (auto) 10.8 H, Absolute Lymphs (auto) 2.56, Nucleated RBC % 0, Sodium 145, Potassium 4.1, Chloride 119 H, Carbon Dioxide 18.0 L, Anion Gap 8, BUN 23 H, Creatinine 2.06 H, Estim Creat Clear Calc 29.86, Est GFR (MDRD) Af Amer 30 L, Est GFR (MDRD) Non-Af 25 L, BUN/Creatinine Ratio 11.2, Glucose 161 H, Calcium 8.3 L, Phosphorus 3.2, Magnesium 1.8, Total Bilirubin 0.50, AST 28, ALT 23, Alkaline Phosphatase 122 H, Total Protein 5.9 L, Albumin 1.7 L, Globulin 4.2, Albumin/Globulin Ratio 0.4 L, Triglycerides 151, Cholesterol 125, LDL Cholesterol 51, VLDL Cholesterol 30, HDL Cholesterol 44 11/19/23 06:10: POC Glucose 156 H Micro: Microbiology 11/18/23 15:24 Mucosa - Nose Respiratory Panel (PCR) - Final 11/18/23 15:24 Mucosa - Nose SARS-CoV-2, Influenza & RSV (PCR) - Final 11/18/23 13:00 Urine Catheter - Wayne Legionella Antigen - Final 11/18/23 13:00 Urine Catheter - Wayne Streptococcus pneumoniae Antigen (M - Final 11/18/23 12:39 Mucosa - Nasopharyngeal SARS-CoV-2, Influenza & RSV (PCR) - Final ABG Data ABG results: ABG 11/18/23 13:20 Specimen Type ART Sample Site R Radial pH 7.22 L Bicarbonate Actual 20.6 L Total CO2 22 Base Excess -7 L O2 Saturation 91 L O2 % 40.0 ABG pCO2 50.8 H ABG pO2 74 L Neri Test Positive Respiration Rate 14 O2 Delivery Device Adult Vent Vent Mode AC Tidal Volume 450.0 POC PEEP 5 Radiography Diagnostic Testing: Radiology Impression Chest X-Ray 11/18/23 12:55 IMPRESSION: Status post intubation and nasogastric tube placement. Bilateral infiltrates/edema markedly worse on the right side. Electronically Signed: Dayton Ward MD at 13:19 EDT , Physical Exam Const Constitutional Narrative: Intubated, sedated and mechanically ventilated. No ventilator dyssynchrony noted. HEENT normocephalic and head/scalp atraumatic Mouth: endotracheal tube in place and OG tube in place Eyes PERRL, EOMs intact bilaterally and conjunctivae normal Neck supple General: trachea midline Chest inspection of chest normal Resp normal respiratory effort Auscultation: diminished lung sounds Cardio regular rate and regular rhythm GI normal to inspection, nondistended, normoactive bowel sounds Extremity General Extremity: edema; Negative for clubbing Skin no rashes or lesions noted Neuro Sensorium / Orientation: sedated on vent Charges/Coding Procedures Hospitalists Procedures: 18088 Critical Care 1st Hr
[2023-11-19 08:29] LABS: Urea Nitrogen, Urine 300 mg/dL (NO RANGE EST.); Urine Chloride 87 mmol/L (Not Establ.); Urine Sodium 65 mmol/L (Not Establ.)
[2023-11-19] MEDS: Pantoprazole Sodium 40 MG in 0.9% Normal Saline (100mL MB+) 100 ML 330 MG IV (09:39)
[2023-11-19] MEDS: 0.9% Normal Saline (250mL Bag) 250 ML 15 ML IV (09:51)
[2023-11-19] MEDS: Propofol 10MG/Ml 1,000 MG/100 ML Bottle 9.1 MG CONT INF ×2 (09:52→18:20)
[2023-11-19] MEDS: fentaNYL drip 100 ML 7.5 MCG CONT INF ×2 (09:52→23:36)
[2023-11-19] MEDS: Chlorhexidine 15 ML PO ×2 (09:53→21:12)
[2023-11-19 09:56] LABS: Absolute Lymphocyte Count 2.18 X10^3/uL (0.83-4.51); Absolute Neutrophil Count 8.9 X10^3/uL (2.0-7.7); Basophil# 0.07 X10^3/uL; Basophil% 0.6 % (0-1); Eosinophil# 0.32 X10^3/uL; Eosinophils% 2.6 % (0-5); Hematocrit 33.1 % (37-47); Hemoglobin 10.1 g/dL (12.0-15.0); Lymphocyte # 2.18 X10^3/ul (0.83-4.51); Lymphocyte % 17.4 % (19-41); Mean Corp Hgb Conc 30.5 g/dL (32-36); Mean Corpuscular Hgb 27.2 pg (27.0-32.0); Mean Corpuscular Volume 89.2 fL (81-99); Mean Platelet Vol. 11.6 fl (6.2-12.0); Monocyte# 1.04 X10^3/uL; Monocyte% 8.3 % (0-10); NRBC Flagged by Analyzer 0 % (0-5); Neutrophil # 8.89 X10^3/uL (2.7-7.7); Neutrophil % 70.8 % (47-70); Platelet Count 211 K/mm3 (150-450); RBC Distribution Width CV 16.6 % (11.6-14.6); RBC Distribution Width SD 53.7 fl (35.1-43.9); Red Blood Count 3.71 M/mm3 (4.2-5.4); White Blood Count 12.5 K/mm3 (4.4-11.0)
[2023-11-19] MEDS: Heparin Injection (Vial) 5,000 UNIT/ML VIAL 5000 UNIT SC ×2 (10:01→21:11)
[2023-11-19] MEDS: Furosemide 40 MG/4 ML Vial IV ×2 (10:01→18:15)
[2023-11-19] MEDS: Cefepime HCl 2 GM in 0.9% Normal Saline (100mL MB+) 100 ML IV (10:02)
[2023-11-19] MEDS: Clopidogrel Bisulfate 75 MG Tablet GT (10:02)
[2023-11-19 10:06] LABS: Bedside Glucose 197 mg/dL (74-106)
--- NOTE | 2023-11-19 10:52 | CASEMGMT ---
Discharge Planning Updates sent to [place] via [facility]. Isaura Beckford DC Planning Asst.
[2023-11-19] MEDS: Metoprolol Tartrate 25 MG Tablet 12.5 MG GT ×2 (11:13→21:12)
[2023-11-19] MEDS: Vital AF 1.2 Cal Liquid 1,000 ML 15 ML GT (11:44)
[2023-11-19 14:26] LABS: Bedside Glucose 169 mg/dL (74-106)
[2023-11-19] MEDS: Vancomycin IV 1,000 MG/200 ML BAG 200 MG IV (14:45)
[2023-11-19 17:56] LABS: Bedside Glucose 166 mg/dL (74-106)
[2023-11-19] MEDS: Atorvastatin Calcium 40 MG Tablet PO (21:11)
[2023-11-20] VITALS (26 sets, daily range): BP systolic 98–146; BP diastolic 59–81; PULSE 87–115; RESP 15–21; TEMP 36.6–36.7; O2SAT 90–100
[2023-11-20] MEDS: Insulin Lispro 100 UNIT/ML INSULN.PEN SC ×5 (02:00→23:01)
[2023-11-20 07:08] LABS: Anion Gap 8 (5-15); BUN 26 mg/dL (7-18); BUN/Creat Ratio 10.9 RATIO (10-20); Calcium,Total 8.5 mg/dL (8.5-10.1); Chloride 115 mmol/L (98-107); Creatinine, Serum 2.39 mg/dL (0.55-1.02); EST Glomerular Filtration Rate 21 mL/min (>60); Est Glom Filt Rate - Afr Amer 25 mL/min (>60); Estimated Creatinine Clearance 25.74 ml/min; Ferritin 103 ng/mL (8-252); Glucose 207 mg/dL (74-106); Iron 18 ug/dL (50-170); Iron Binding Capacity,Total 147 ug/dL (250-450); PERCENT IRON SATURATION 12.2 % (15.0-55.0); Potassium 3.6 mmol/L (3.5-5.1); Sodium Level 145 mmol/L (136-145)
--- NOTE | 2023-11-20 07:09 | PCM.PN.INT ---
Assessment & Plan Assessment/Plan (1) Acute respiratory failure with hypoxia and hypercapnia: PLAN: Plan RECOMMENDATIONS: 1. Proceed with a trial of extubation this morning. 2. Once extubated, wean supplemental oxygen to maintain saturations at or above 90%. 3. Formal swallow evaluation with dietary advancement. 4. Continue antimicrobial therapy. 5. Ongoing diuresis as tolerated by hemodynamics and renal function. 6. Encourage incentive spirometer use and mobilize patient as tolerated. IMPRESSIONS: 1. Acute respiratory failure with hypoxemia and hypercapnia Clinical concern for multifactorial etiology, including pneumonia and decompensated heart failure. The patient remains on appropriate broad-spectrum antimicrobials. The patient passed her spontaneous breathing trial and will therefore be extubated. Once extubated, wean supplemental oxygen to maintain saturations at or above 90%. Recommend formal swallow evaluation prior to advancement of diet. Echocardiogram did confirm the presence of a depressed ejection fraction. Therefore, continue diuresis as tolerated by hemodynamics and renal function. Encourage incentive spirometer use and mobilize patient as tolerated. 2. Troponin elevation Likely secondary to demand ischemia in the setting of #1. Surface echocardiogram did confirm a depressed ejection fraction of 20 to 25%. 3. History of coronary artery disease/chronic kidney disease/diabetes mellitus/hypothyroidism/GERD Complicates care, management, recovery and prognosis. Continue home medications as indicated. PT/OT to work with the patient. TIME: 32 minutes of critical care time, independent of procedures, was spent addressing the patient's acute respiratory failure with hypoxemia and hypercapnia, troponin elevation, review of all data and collaboration with the care team. Subjective Subjective The patient was seen and examined at the bedside this morning. Events from the last 24 hours have been reviewed. The patient is currently afebrile, hemodynamically stable and maintaining appropriate oxygen saturations on spontaneous mode mechanical ventilation with an FiO2 requirement of 30%. The patient did well overnight. She passed her spontaneous breathing trial this morning. She remains on scheduled diuretics and antimicrobials. Objective Data Objective Data The patient's most recent lab work, culture data and imaging studies have all been personally reviewed. Surface echocardiogram demonstrated a mildly dilated LV with an ejection fraction of 20 to 25%. Respiratory viral panel and COVID PCR was negative. Strep and urine Legionella antigens were negative. Blood, urine and sputum cultures are pending. Vital Signs: Vital Signs Temp Pulse Resp BP Pulse Ox O2 Del Method FiO2 98.0 F 89 16 98/60 94 Mechanical Ventilator 30 11/20/23 00:00 11/20/23 00:00 11/20/23 00:00 11/20/23 00:00 11/20/23 00:00 11/20/23 00:00 11/20/23 00:00 Oxygen Delivery Method Mechanical Ventilator Weight: 223 lb 12.307 oz Body Mass Index (BMI) 33.9 Intake & Output: Intake and Output for Last 24 Hours 11/18/23 11/19/23 11/20/23 23:59 23:59 23:59 Intake Total 821.01 / 838.11 2278.02 / 2290.12 .. Output Total 200 / 950 4050 / 4050 Balance 621.01 / -111.89 -1771.98 / -1759.88 .. Lab / Micro Data Attestation: I reviewed the patient's lab results. 11/19/23 09:45 11/20/23 05:25 Labs: Laboratory Results - last 24 hr 11/19/23 07:55: Ur Random Sodium 65, Urine Creatinine 80.30, Urine Potassium 34.0, Urine Chloride 87, Urine Urea Nitrogen 300 11/19/23 09:43: POC Glucose 197 H 11/19/23 09:45: WBC 12.5 H, RBC 3.71 L, Hgb 10.1 L, Hct 33.1 L, MCV 89.2, MCH 27.2, MCHC 30.5 L D, RDW Std Deviation 53.7 H, RDW Coeff of Don 16.6 H, Plt Count 211, MPV 11.6, Immature Gran % (Auto) 0.300, Neut % (Auto) 70.8 H, Lymph % (Auto) 17.4 L, [place] % (Auto) 8.3, Eos % (Auto) 2.6, Baso % (Auto) 0.6, Absolute Neuts (auto) 8.9 H, Absolute Lymphs (auto) 2.18, Nucleated RBC % 0 11/19/23 14:04: POC Glucose 169 H 11/19/23 17:39: POC Glucose 166 H Micro: Microbiology 11/18/23 12:40 Blood Culture (Wb) - Anticubital Right Bacteria Detection (PCR) - Final Coag Negative Staph 11/18/23 12:40 Blood Culture (Wb) - Anticubital Right Blood Culture - Preliminary 11/18/23 13:50 Sputum, Induced/Lukens Gram Stain - Final 11/18/23 13:00 Urine Catheter - Wayne Urine Culture - Preliminary GNR lactose assistant librarian 11/18/23 15:24 Mucosa - Nose Respiratory Panel (PCR) - Final 11/18/23 15:24 Mucosa - Nose SARS-CoV-2, Influenza & RSV (PCR) - Final 11/18/23 13:00 Urine Catheter - Wayne Legionella Antigen - Final 11/18/23 13:00 Urine Catheter - Wayne Streptococcus pneumoniae Antigen (M - Final 11/18/23 12:39 Mucosa - Nasopharyngeal SARS-CoV-2, Influenza & RSV (PCR) - Final ABG Data ABG results: ABG 11/18/23 13:20 Specimen Type ART Sample Site R Radial pH 7.22 L Bicarbonate Actual 20.6 L Total CO2 22 Base Excess -7 L O2 Saturation 91 L O2 % 40.0 ABG pCO2 50.8 H ABG pO2 74 L Neri Test Positive Respiration Rate 14 O2 Delivery Device Adult Vent Vent Mode AC Tidal Volume 450.0 POC PEEP 5 Radiography Diagnostic Testing: Radiology Impression Echocardiogram 11/18/23 15:10 Interpretation Summary Mildly dilated left ventricle. LV anterior and apical akinesis with thinning. Estimated LV EF 20 to 25%. Stage 1 diastolic dysfunction. Bubble contrast study is negative for PFO/ASD. Mild (1+) posteriorly directed mitral valve insufficiency. Mild eccentric tricuspid valve insufficiency. Right ventricular systolic pressure estimated to be 37 mmHg. Ordering Physician: Faviola Mcguire Referring Physician: Claude Lee M.D. Performed By: Dana Ashford RDCS Physical Exam Const Constitutional Narrative: Intubated and mechanically ventilated. Currently tolerating spontaneous mode mechanical ventilation. HEENT normocephalic and head/scalp atraumatic Mouth: endotracheal tube in place and OG tube in place Eyes PERRL, EOMs intact bilaterally and conjunctivae normal Neck supple General: trachea midline Chest inspection of chest normal Resp normal respiratory effort Auscultation: diminished lung sounds Cardio regular rate and regular rhythm GI normal to inspection, nondistended, normoactive bowel sounds Extremity General Extremity: edema; Negative for clubbing Skin no rashes or lesions noted Neuro Neuro Narrative: Alert and able to follow simple commands. Charges/Coding Procedures Hospitalists Procedures: 15943 Critical Care 1st Hr
[2023-11-20 07:11] LABS: Bedside Glucose 153 mg/dL (74-106)
[2023-11-20 07:11] LABS: Bedside Glucose 168 mg/dL (74-106)
[2023-11-20 07:11] LABS: Bedside Glucose 181 mg/dL (74-106)
[2023-11-20] MEDS: Levothyroxine 75 MCG Tablet GT (07:33)
[2023-11-20] MEDS: 0.9% Saline Lock 10 ML Syringe IV ×2 (07:33→07:45)
[2023-11-20 07:36] LABS: Vitamin B12 450 pg/mL (211-911)
[2023-11-20] MEDS: CHLORHEXIDINE GLUC 2% CLOTH 1 EACH TOWELETTE TOPICAL (07:45)
--- NOTE | 2023-11-20 08:29 | PN.HOSP_ITS ---
Reason for Visit Reason for Visit: Diagnoses Hypothyroidism, unspecified (11/18/23) Type 2 diabetes mellitus with unspecified complications (11/18/23) Chronic systolic (congestive) heart failure (11/18/23) Heart failure, unspecified (11/18/23) Acute respiratory failure with hypoxia (11/18/23) Acute respiratory failure with hypercapnia (11/18/23) Gastro-esophageal reflux disease without esophagitis (11/18/23) Chronic kidney disease, stage 3 (moderate) (11/18/23) Urinary tract infection, site not specified (11/18/23) Acute respiratory distress (11/18/23) Other specified abnormal findings of blood chemistry (11/18/23) Subjective Subjective Patient recently extubated, awake but not really answering any questions, cannot obtain ROS Objective Data Objective Data Vital Signs: Vital Signs Temp Pulse Resp BP Pulse Ox O2 Del Method O2 Flow Rate 98.0 F 106 H 17 146/64 H 97 Nasal Cannula 4 11/20/23 00:00 11/20/23 08:00 11/20/23 08:00 11/20/23 08:00 11/20/23 08:00 11/20/23 08:00 11/20/23 08:00 FiO2 30 11/20/23 07:00 Oxygen Flow Rate (L/min) 4 Oxygen Delivery Method Nasal Cannula Weight: 101.5 kg Body Mass Index (BMI) 33.9 Intake & Output: Intake and Output for Last 24 Hours 11/18/23 11/19/23 11/20/23 23:59 23:59 23:59 Intake Total 821.01 / 838.11 2278.02 / 2290.12 552.5 / 552.5 Output Total 200 / 950 4050 / 4050 550 / 550 Balance 621.01 / -111.89 -1771.98 / -1759.88 2.5 / 2.5 Lab / Micro Data 11/19/23 09:45 11/20/23 05:25 Labs: Laboratory Results - last 24 hr 11/19/23 07:55: Ur Random Sodium 65, Urine Creatinine 80.30, Urine Potassium 34.0, Urine Chloride 87, Urine Urea Nitrogen 300 11/19/23 09:43: POC Glucose 197 H 11/19/23 09:45: WBC 12.5 H, RBC 3.71 L, Hgb 10.1 L, Hct 33.1 L, MCV 89.2, MCH 27.2, MCHC 30.5 L D, RDW Std Deviation 53.7 H, RDW Coeff of Don 16.6 H, Plt Count 211, MPV 11.6, Immature Gran % (Auto) 0.300, Neut % (Auto) 70.8 H, Lymph % (Auto) 17.4 L, [place] % (Auto) 8.3, Eos % (Auto) 2.6, Baso % (Auto) 0.6, Absolute Neuts (auto) 8.9 H, Absolute Lymphs (auto) 2.18, Nucleated RBC % 0 11/19/23 14:04: POC Glucose 169 H 11/19/23 17:39: POC Glucose 166 H 11/19/23 21:16: POC Glucose 168 H 11/20/23 02:05: POC Glucose 153 H 11/20/23 05:25: Sodium 145, Potassium 3.6, Chloride 115 H, Carbon Dioxide 22.0, Anion Gap 8, BUN 26 H, Creatinine 2.39 H, Estim Creat Clear Calc 25.74, Est GFR (MDRD) Af Amer 25 L, Est GFR (MDRD) Non-Af 21 L, BUN/Creatinine Ratio 10.9, G lucose 207 H, Calcium 8.5, Iron 18 L, TIBC 147 L, Iron Saturation 12.2 L, Ferritin 103, Vitamin B12 450, Folate 14.10 11/20/23 06:48: POC Glucose 181 H Micro: Microbiology 11/18/23 13:00 Urine Catheter - Wayne Urine Culture - Final Klebsiella pneumoniae sp pneum 11/18/23 12:40 Blood Culture (Wb) - Anticubital Right Bacteria Detection (PCR) - Final Coag Negative Staph 11/18/23 12:40 Blood Culture (Wb) - Anticubital Right Blood Culture - Preliminary 11/18/23 13:50 Sputum, Induced/Lukens Gram Stain - Final 11/18/23 15:24 Mucosa - Nose Respiratory Panel (PCR) - Final 11/18/23 15:24 Mucosa - Nose SARS-CoV-2, Influenza & RSV (PCR) - Final 11/18/23 13:00 Urine Catheter - Wayne Legionella Antigen - Final 11/18/23 13:00 Urine Catheter - Wayne Streptococcus pneumoniae Antigen (M - Final 11/18/23 12:39 Mucosa - Nasopharyngeal SARS-CoV-2, Influenza & RSV (PCR) - Final Radiography Diagnostic Testing: Radiology Impression Echocardiogram 11/18/23 15:10 Interpretation Summary Mildly dilated left ventricle. LV anterior and apical akinesis with thinning. Estimated LV EF 20 to 25%. Stage 1 diastolic dysfunction. Bubble contrast study is negative for PFO/ASD. Mild (1+) posteriorly directed mitral valve insufficiency. Mild eccentric tricuspid valve insufficiency. Right ventricular systolic pressure estimated to be 37 mmHg. Ordering Physician: Faviola Mcguire Referring Physician: Claude Lee M.D. Performed By: Dana Ashford RDCS Physical Exam Narrative General: Alert, answering questions appropriately however HEENT: Atraumatic, normocephalic Eyes: Anicteric, normal conjunctiva, extraocular movements grossly intact Neck: Supple Respiratory: Somewhat coarse, no significant increased work of breathing Cardiovascular: Regular rate and rhythm GI: Soft, nontender, nondistended Extremities: No edema Musculoskeletal: Moving all extremities Neuro: No overt focal neurological deficits however patient not cooperative with exam Skin: No rashes appreciated Psych: Patient awake but not answering questions Assessment & Plan Assessment/Plan (1) Acute decompensated heart failure: (2) Acute respiratory distress: (3) Gastroesophageal reflux disease: (4) Hypothyroidism: QUALIFIERS: Hypothyroidism type: acquired Qualified Code(s): E 03.9 - Hypothyroidism, unspecified (5) Type 2 diabetes mellitus: QUALIFIERS: Diabetes mellitus complication status: with unspecified complications Diabetes mellitus rat exterminator insulin use: with correction use Qualified Code(s): E11.8 - Type 2 diabetes mellitus with unspecified complications (6) CKD (chronic kidney disease) stage 3, GFR 30-59 ml/min: (7) Chronic systolic (congestive) heart failure: (8) Elevated troponin: (9) Elevated lactic acid level: (10) UTI (urinary tract infection): PLAN: Plan # Acute respiratory failure likely secondary to acute exacerbation of chronic systolic heart failure and altered mental status -BNP 886 -CXR concerning for bilateral infiltrates -Continue IV lasix -echo ordered -Daily weights, I's and O's -lipid panel in AM -Intubated and sedated in the ED -Sputum culture -Will obtain respiratory panel as well given some recent cough and respiratory decline -11/18: Remains intubated in the ICU, remains on IV Lasix, echo pending, does have infectious workup pending as well today -11/19: Patient extubated this morning, breathing well however not responding purposefully to questions at. Echo did show EF of 20 to 25% however 05/30/2017 from [facility] showed EF of 30% the patient has known reduced ejection fraction. Remains on IV diuretics, continue lisinopril daily weights #Concern for UTI/infectious component?UTI ruled out -White blood cell count slightly elevated -UA suggestive of UTI, unclear if patient has been having any symptoms as patient unable to answer given intubated and sedated -Obtain urine culture, blood cultures -Blood pressure maintaining, suspect respiratory failure is from fluid overload and not infection, elevated lactic acid suspected to be due to poor perfusion in setting of exacerbation of heart failure with respiratory failure -Do not think patient is septic at this time or needs sepsis fluids but will maintain broad-spectrum antibiotics, given penicillin allergy but recent hospitalization and unclear if there is a pulmonary/pneumonia component given cough for coming in will treat with cefepime and bank and de-escalate pending cultures in progress -11/18: White blood cell count increased today with left shift, sputum, blood, urine cultures pending, remains on broad-spectrum antibiotics at this time -11/19: Patient with less than 1000 colony count of Klebsiella, do not think urinary tract infection is a likely diagnosis, blood and sputum cultures however are still pending in the event there was another contributing event #Anemia -New on 11/18 -Was 13 on 11/17 and down trended to 10.4 -Will check FOBT, iron studies, b12, folate -On IV PPI -Repeat H&H in the afternoon -11/19: Repeat hemoglobin yesterday was stable despite initial drop # HELENA versus CKD -Creatinine 2.14 in a month ago was 1.88 however has had elevated creatinines like this in the past, secondary to infection versus critical illness and heart failure exacerbation -Daily BMPs -Avoid nephrotoxic agents -11/18: Very slightly improved today but still remains elevated, will check urine lytes -11/19: FEUrea from yesterday three 33.5 indicating prerenal but this may be due to low cardiac output decompensated heart failure, creatinine did worsen slightly today, may be able to decrease Lasix soon pending respiratory status patient is extubated #Type 2 diabetes mellitus -Glucose checks every 4 and sliding scale insulin -Continue home long-acting but at lower dose given n.p.o. and escalate pending glucose -Hemoglobin A1c 11.4 on 10/09/2023 -11/18: Had low glucose overnight, all long-acting insulin held -11/19: Patient will need swallow eval prior to resuming diet # Elevated lactic acid-resolved -Blood pressure maintaining, suspect respiratory failure is from fluid overload and not infection, elevated lactic acid suspected to be due to poor perfusion in setting of exacerbation of heart failure with respiratory failure -Do not think patient is septic at this time or needs sepsis fluids but will maintain broad-spectrum antibiotics -Will trend -11/18: Resolved # History of MN in 2011 -Patient had not reported any chest pain and only shortness of breath before arrival with cough over the past 1 to 2 days -Troponin mildly elevated, suspect this is secondary nature to demand -Will check echo, if any wall motion abnormalities will likely need heparin and cardiology consult -11/18: Echo pending however troponin was flat, lower suspicion for cardiac etiology -11/19: Echo with LV anterior and apical akinesis with thinning and EF of 2024% with stage I diastolic dysfunction of her last echo from 2017 from [facility] also showed EF of 30%, still suspect elevated troponin is due to to her a CHF #Elevated Troponin -Reportedly patient having no complaints other than cough and then shortness of breath shortly before arrival, no chest pain had been reported but patient unable to answer ROS -Will obtain echo -Suspect this is demand due to heart failure exacerbation and infection -Trend -Will continue atorvastatin, clopidogrel, aspirin, continuing beta-luanne -11/18: Repeat troponin flat, no further trended -11/19: Echo with LV anterior and apical akinesis with thinning and EF of 5% with stage I diastolic dysfunction of her last echo from 2017 from [facility] also showed EF of 30%, still suspect elevated troponin is due to to her a CHF #Hypothyroidism -Continue Synthroid -TSH 0.58 on 10/09/2023 #GERD -Continue PPI #DVT ppx: Heparin subcu Faviola Mcguire MD Time spent in the patient's overall evaluation,decision-making process, review of diagnostic data, adjustment of management, discussion with other providers, nursing nursing and ancillary staff involved in patient's care documentation, 38 minutes Charges/Coding Visit Charges Inpatient E&M: 88041 Subs Hosp L2
[2023-11-20] MEDS: Pantoprazole Sodium 40 MG in 0.9% Normal Saline (100mL MB+) 100 ML 330 MG IV (09:23)
[2023-11-20] MEDS: Metoprolol Tartrate 25 MG Tablet 12.5 MG PO (09:28)
[2023-11-20] MEDS: Heparin Injection (Vial) 5,000 UNIT/ML VIAL 5000 UNIT SC ×2 (09:29→20:51)
[2023-11-20] MEDS: Cefepime HCl 2 GM in 0.9% Normal Saline (100mL MB+) 100 ML IV (09:33)
[2023-11-20 10:13] LABS: Absolute Lymphocyte Count 2.92 X10^3/uL (0.83-4.51); Absolute Neutrophil Count 7.7 X10^3/uL (2.0-7.7); Basophil# 0.09 X10^3/uL; Basophil% 0.7 % (0-1); Eosinophil# 0.53 X10^3/uL; Eosinophils% 4.2 % (0-5); Hematocrit 33.5 % (37-47); Hemoglobin 10.5 g/dL (12.0-15.0); Lymphocyte # 2.92 X10^3/ul (0.83-4.51); Lymphocyte % 23.4 % (19-41); Mean Corp Hgb Conc 31.3 g/dL (32-36); Mean Corpuscular Hgb 28.5 pg (27.0-32.0); Mean Corpuscular Volume 90.8 fL (81-99); Mean Platelet Vol. 12.2 fl (6.2-12.0); Monocyte# 1.18 X10^3/uL; Monocyte% 9.4 % (0-10); NRBC Flagged by Analyzer 0 % (0-5); Neutrophil # 7.72 X10^3/uL (2.7-7.7); Neutrophil % 61.9 % (47-70); Platelet Count 210 K/mm3 (150-450); RBC Distribution Width CV 16.4 % (11.6-14.6); Red Blood Count 3.69 M/mm3 (4.2-5.4); White Blood Count 12.5 K/mm3 (4.4-11.0)
[2023-11-20 12:10] LABS: Bedside Glucose 187 mg/dL (74-106)
--- NOTE | 2023-11-20 12:37 | CASEMGMT ---
Social Work SW called son/POA Raquel Bill, confirmed discharge plan will be to return to [place] when medically ready. SNF list not needed at this time. Raquel is driving up from [place] and will be here tomorrow morning. SW let him know to ask for SW should he like to touch base. Son states understanding. Isaura d/c director strategic planning, sent updates yesterday, pt has bed hold and can return when ready. SW will continue to follow. MADHURI Neal
[2023-11-20 15:18] LABS: Vancomycin, Trough Level 21.6 ug/mL (5.0-15.0)
--- NOTE | 2023-11-20 16:29 | PHA.PHARE_ITS ---
Consult Antibiotic Management Pharmacy has been consulted to manage selected antibiotic: Vancomycin Type of Intervention Type of Consult: Follow-up Suspected Infection Suspected Infection: Pneumonia Labs Labs: Sodium 145 mmol/L (136-145) 11/20/23 05:25 Potassium 3.6 mmol/L (3.5-5.1) 11/20/23 05:25 Chloride 115 mmol/L (98-107) H 11/20/23 05:25 Carbon Dioxide 22.0 mmol/L (21.0-32.0) 11/20/23 05:25 Anion Gap 8 (5-15) 11/20/23 05:25 BUN 26 mg/dL (7-18) H 11/20/23 05:25 Creatinine 2.39 mg/dL (0.55-1.02) H 11/20/23 05:25 Est GFR (MDRD) Af Amer 25 mL/min (>60) L 11/20/23 05:25 Est GFR (MDRD) Non-Af 21 mL/min (>60) L 11/20/23 05:25 BUN/Creatinine Ratio 10.9 RATIO (10-20) 11/20/23 05:25 Glucose 207 mg/dL (74-106) H 11/20/23 05:25 Vancomycin Trough 21.6 ug/mL (5.0-15.0) H 11/20/23 14:45 Microbiology Microbiology: Microbiology 11/18/23 12:45 Blood Culture (Wb) - Anticubital Left Blood Culture - Preliminary No growth in 48 hours. 11/18/23 12:40 Blood Culture (Wb) - Anticubital Right Bacteria Detection (PCR) - Final Coag Negative Staph 11/18/23 12:40 Blood Culture (Wb) - Anticubital Right Blood Culture - Preliminary Coag Negative Staph 11/18/23 13:50 Sputum, Induced/Lukens Gram Stain - Final 11/18/23 13:50 Sputum, Induced/Lukens Respiratory Culture - Preliminary Staphylococcus aureus 11/18/23 13:00 Urine Catheter - Wayne Urine Culture - Final Klebsiella pneumoniae sp pneum 11/18/23 15:24 Mucosa - Nose Respiratory Panel (PCR) - Final 11/18/23 15:24 Mucosa - Nose SARS-CoV-2, Influenza & RSV (PCR) - Final 11/18/23 13:00 Urine Catheter - Wayne Legionella Antigen - Final 11/18/23 13:00 Urine Catheter - Wayne Streptococcus pneumoniae Antigen (M - Final 11/18/23 12:39 Mucosa - Nasopharyngeal SARS-CoV-2, Influenza & RSV (PCR) - Final Pharmacy Plan for Drug Dosing Pharmacy Plan for Drug Dosing: VANCOMYCIN LEVEL RECEIVED Current Vancomycin Dose: 1000MG Q24 Number of Doses Received: 2000MG X1, 1000MG X1 Vancomycin Level: 21.6 MG/DL Hours Since Last Dose: 24 Renal Function: SCR 2.39MG/DL, CrCl 25 mL/min Renal Function Trend: worsened Lab/Micro: staph in sputum cx Vancomycin Plan/Comments: 24 hour trough is slightly supratherapeutic (goal 15- 20mg/dL). Will hold dosing at this time and get a random level in 8 hours. Resume dosing when level is <20mg/dL. Pending Level: 11/20/23 @ 2300 - random Pharmacy Service will continue to monitor and adjust dosing as required.
[2023-11-20 17:31] LABS: Bedside Glucose 197 mg/dL (74-106)
[2023-11-20] MEDS: Vancomycin Trough/Random Due 1 LAB MC (23:01)
[2023-11-20 23:21] LABS: Bedside Glucose 171 mg/dL (74-106)
--- NOTE | 2023-11-20 23:37 | PHA.PHARE_ITS ---
Consult Antibiotic Management Pharmacy has been consulted to manage selected antibiotic: Vancomycin Type of Intervention Type of Consult: Follow-up Labs Labs: Sodium 145 mmol/L (136-145) 11/20/23 05:25 Potassium 3.6 mmol/L (3.5-5.1) 11/20/23 05:25 Chloride 115 mmol/L (98-107) H 11/20/23 05:25 Carbon Dioxide 22.0 mmol/L (21.0-32.0) 11/20/23 05:25 Anion Gap 8 (5-15) 11/20/23 05:25 BUN 26 mg/dL (7-18) H 11/20/23 05:25 Creatinine 2.39 mg/dL (0.55-1.02) H 11/20/23 05:25 Est GFR (MDRD) Af Amer 25 mL/min (>60) L 11/20/23 05:25 Est GFR (MDRD) Non-Af 21 mL/min (>60) L 11/20/23 05:25 BUN/Creatinine Ratio 10.9 RATIO (10-20) 11/20/23 05:25 Glucose 207 mg/dL (74-106) H 11/20/23 05:25 Vancomycin Trough 21.6 ug/mL (5.0-15.0) H 11/20/23 14:45 Random Vancomycin 20.0 ug/mL (0.0-15.0) H 11/20/23 23:00 Microbiology Microbiology: Microbiology 11/18/23 12:45 Blood Culture (Wb) - Anticubital Left Blood Culture - Preliminary No growth in 48 hours. 11/18/23 12:40 Blood Culture (Wb) - Anticubital Right Bacteria Detection (PCR) - Final Coag Negative Staph 11/18/23 12:40 Blood Culture (Wb) - Anticubital Right Blood Culture - Preliminary Coag Negative Staph 11/18/23 13:50 Sputum, Induced/Lukens Gram Stain - Final 11/18/23 13:50 Sputum, Induced/Lukens Respiratory Culture - Preliminary Staphylococcus aureus 11/18/23 13:00 Urine Catheter - Wayne Urine Culture - Final Klebsiella pneumoniae sp pneum 11/18/23 15:24 Mucosa - Nose Respiratory Panel (PCR) - Final 11/18/23 15:24 Mucosa - Nose SARS-CoV-2, Influenza & RSV (PCR) - Final 11/18/23 13:00 Urine Catheter - Wayne Legionella Antigen - Final 11/18/23 13:00 Urine Catheter - Wayne Streptococcus pneumoniae Antigen (M - Final 11/18/23 12:39 Mucosa - Nasopharyngeal SARS-CoV-2, Influenza & RSV (PCR) - Final Dosing Weight Weight used for dosin.5 kg Estimated Creatinine Clearance Estimated Creatinine Clearance: 25.7 Goal Trough Goal Trough: 15-20 mcg/mL Pharmacy Plan for Drug Dosing Pharmacy Plan for Drug Dosing: Random vancomycin level was 20.0. This was drawn 32.3hrs post-dose. Per dosing calculator, re-starting a new dose of 750mg q24h should give an estimated trough of 17.7. Since the current level @2300 was at the top of the target range of 15- 20, the initial dose of the new regimen will be delayed until 0800. A trough will be drawn prior to the third dose. Pharmacy Service will continue to monitor and adjust dosing as required. Follow-Up Labs Follow-Up Labs: Trough: Vancomycin Date/Time Labs Ordered Labs to be done on [date and time ordered]: 11/23/23 @0663
[2023-11-21] VITALS (21 sets, daily range): BP systolic 109–150; BP diastolic 49–93; PULSE 89–104; RESP 12–28; TEMP 36.4–37.2; O2SAT 91–99; BMI 33.0
[2023-11-21] MEDS: 0.9% Saline Lock 10 ML Syringe IV (05:07)
[2023-11-21] MEDS: Insulin Lispro 100 UNIT/ML INSULN.PEN SC ×4 (05:11→22:19)
[2023-11-21 05:22] LABS: Absolute Lymphocyte Count 1.88 X10^3/uL (0.83-4.51); Absolute Neutrophil Count 6.4 X10^3/uL (2.0-7.7); Basophil# 0.05 X10^3/uL; Basophil% 0.5 % (0-1); Eosinophil# 0.44 X10^3/uL; Eosinophils% 4.6 % (0-5); Hematocrit 31.3 % (37-47); Hemoglobin 9.7 g/dL (12.0-15.0); Lymphocyte # 1.88 X10^3/ul (0.83-4.51); Lymphocyte % 19.5 % (19-41); Mean Corpuscular Hgb 27.3 pg (27.0-32.0); Mean Corpuscular Volume 88.2 fL (81-99); Mean Platelet Vol. 11.2 fl (6.2-12.0); Monocyte# 0.79 X10^3/uL; Monocyte% 8.2 % (0-10); NRBC Flagged by Analyzer 0 % (0-5); Neutrophil # 6.43 X10^3/uL (2.7-7.7); Neutrophil % 66.7 % (47-70); Platelet Count 213 K/mm3 (150-450); RBC Distribution Width CV 16.1 % (11.6-14.6); RBC Distribution Width SD 51.7 fl (35.1-43.9); Red Blood Count 3.55 M/mm3 (4.2-5.4); White Blood Count 9.6 K/mm3 (4.4-11.0)
[2023-11-21 05:32] LABS: Bedside Glucose 159 mg/dL (74-106)
[2023-11-21 05:39] LABS: Anion Gap 8 (5-15); BUN 23 mg/dL (7-18); Calcium,Total 8.5 mg/dL (8.5-10.1); Chloride 118 mmol/L (98-107); Creatinine, Serum 1.91 mg/dL (0.55-1.02); EST Glomerular Filtration Rate 27 mL/min (>60); Est Glom Filt Rate - Afr Amer 33 mL/min (>60); Estimated Creatinine Clearance 31.78 ml/min; Glucose 186 mg/dL (74-106); Potassium 3.5 mmol/L (3.5-5.1); Sodium Level 148 mmol/L (136-145)
--- NOTE | 2023-11-21 07:37 | PN.CC_ITS ---
Assessment & Plan Assessment/Plan (1) Acute respiratory failure with hypoxia and hypercapnia: PLAN: Plan RECOMMENDATIONS: 1. Continue antimicrobials, pending finalized culture results. Plan to complete 7 days of therapy. 2. Dietary advancement per speech therapy. 3. Encourage incentive spirometer use and mobilize patient as tolerated. 4. The patient is medically stable for transfer out of the intensive care unit. Will sign off from a critical care perspective. IMPRESSIONS: 1. Acute respiratory failure with hypoxemia and hypercapnia Clinical concern for multifactorial etiology, including pneumonia and decompensated heart failure. The patient remains on appropriate broad-spectrum antimicrobials. The patient has done well from a respiratory perspective following extubation, and is maintaining appropriate oxygen saturations on room air. Recommend dietary advancement per speech therapy. Echocardiogram did confirm the presence of a depressed ejection fraction. Encourage incentive spirometer use and mobilize patient as tolerated. 2. Troponin elevation Likely secondary to demand ischemia in the setting of #1. Surface echocardiogram did confirm a depressed ejection fraction of 20 to 25%. 3. History of coronary artery disease/chronic kidney disease/diabetes mellitus/hypothyroidism/GERD Complicates care, management, recovery and prognosis. Continue home medications as indicated. PT/OT to work with the patient. This note was generated with [employer] dictation software. It may contain incorrect words, spelling, and punctuation that were not noted in checking the note before signing. Subjective Subjective The patient was seen and examined at the bedside this morning. Events from the last 24 hours have been reviewed. The patient is currently afebrile, hemodynamically stable and maintaining appropriate oxygen saturations on room air. The patient is doing well from a respiratory perspective following extubation yesterday. White count is normal this morning. Creatinine has improved to 1.9. The patient will nod her head to questioning this morning, but will not verbalize anything to me. Objective Data Objective Data The patient's most recent lab work, culture data and imaging studies have all been personally reviewed. Surface echocardiogram demonstrated a mildly dilated LV with an ejection fraction of 20 to 25%. Respiratory viral panel and COVID PCR was negative. Strep and urine Legionella antigens were negative. Blood, urine and sputum cultures are pending. Vital Signs: Vital Signs Temp Pulse Resp BP Pulse Ox O2 Del Method O2 Flow Rate 97.7 F L 92 17 116/60 98 Room Air 4 11/21/23 03:00 11/21/23 07:00 11/21/23 07:00 11/21/23 07:00 11/21/23 07:00 11/21/23 07:00 11/20/23 12:50 FiO2 30 11/20/23 07:00 Oxygen Flow Rate (L/min) 4 Oxygen Delivery Method Room Air Weight: 218 lb Body Mass Index (BMI) 33.0 Intake & Output: Intake and Output for Last 24 Hours 11/19/23 11/20/23 11/21/23 23:59 23:59 23:59 Intake Total 2278.02 / 2290.12 762.5 / 762.5 Output Total 4050 / 4050 1850 / 1850 350 / 350 Balance -1771.98 / -1759.88 -1087.5 / -1087.5 -350 / -350 Lab / Micro Data Attestation: I reviewed the patient's lab results. 11/21/23 05:10 11/21/23 05:10 Labs: Laboratory Results - last 24 hr 11/20/23 05:20: WBC 12.5 H, RBC 3.69 L, Hgb 10.5 L, Hct 33.5 L, MCV 90.8, MCH 28.5, MCHC 31.3 L, RDW Std Deviation 54.0 H, RDW Coeff of Don 16.4 H, Plt Count 210, MPV 12.2 H, Immature Gran % (Auto) 0.400, Neut % (Auto) 61.9, Lymph % (Auto) 23.4, Nance % (Auto) 9.4, Eos % (Auto) 4.2, Baso % (Auto) 0.7, Absolute Neuts (auto) 7.7, Absolute Lymphs (auto) 2.92, Nucleated RBC % 0 11/20/23 05:25: Sodium 145, Potassium 3.6, Chloride 115 H, Carbon Dioxide 22.0, Anion Gap 8, BUN 26 H, Creatinine 2.39 H, Estim Creat Clear Calc 25.74, Est GFR (MDRD) Af Amer 25 L, Est GFR (MDRD) Non-Af 21 L, BUN/Creatinine Ratio 10.9, G lucose 207 H, Calcium 8.5, Iron 18 L, TIBC 147 L, Iron Saturation 12.2 L, Ferritin 103, Folate 14.10 11/20/23 11:52: POC Glucose 187 H 11/20/23 14:45: Vancomycin Trough 21.6 H 11/20/23 17:13: POC Glucose 197 H 11/20/23 23:00: Random Vancomycin 20.0 H, POC Glucose 171 H 11/21/23 05:10: WBC 9.6, RBC 3.55 L, Hgb 9.7 L, Hct 31.3 L, MCV 88.2, MCH 27.3, MCHC 31.0 L, RDW Std Deviation 51.7 H, RDW Coeff of Don 16.1 H, Plt Count 213, MPV 11.2, Immature Gran % (Auto) 0.500, Neut % (Auto) 66.7, Lymph % (Auto) 19.5, Nance % (Auto) 8.2, Eos % (Auto) 4.6, Baso % (Auto) 0.5, Absolute Neuts (auto) 6.4, Absolute Lymphs (auto) 1.88, Nucleated RBC % 0, Sodium 148 H, Potassium 3.5, Chloride 118 H, Carbon Dioxide 22.0, Anion Gap 8, BUN 23 H, Creatinine 1.91 H, Estim Creat Clear Calc 31.78, Est GFR (MDRD) Af Amer 33 L, Est GFR (MDRD) Non-Af 27 L, BUN/Creatinine Ratio 12.0, Glucose 186 H, Calcium 8.5, POC Glucose 159 H Micro: Microbiology 11/18/23 12:45 Blood Culture (Wb) - Anticubital Left Blood Culture - Preliminary No growth in 48 hours. 11/18/23 12:40 Blood Culture (Wb) - Anticubital Right Bacteria Detection (PCR) - Final Coag Negative Staph 11/18/23 12:40 Blood Culture (Wb) - Anticubital Right Blood Culture - Preliminary Coag Negative Staph 11/18/23 13:50 Sputum, Induced/Lukens Gram Stain - Final 11/18/23 13:50 Sputum, Induced/Lukens Respiratory Culture - Preliminary Staphylococcus aureus 11/18/23 13:00 Urine Catheter - Wayne Urine Culture - Final Klebsiella pneumoniae sp pneum 11/18/23 15:24 Mucosa - Nose Respiratory Panel (PCR) - Final 11/18/23 15:24 Mucosa - Nose SARS-CoV-2, Influenza & RSV (PCR) - Final 11/18/23 13:00 Urine Catheter - Wayne Legionella Antigen - Final 11/18/23 13:00 Urine Catheter - Wayne Streptococcus pneumoniae Antigen (M - Final 11/18/23 12:39 Mucosa - Nasopharyngeal SARS-CoV-2, Influenza & RSV (PCR) - Final ABG Data ABG results: ABG 11/18/23 13:20 Specimen Type ART Sample Site R Radial pH 7.22 L Bicarbonate Actual 20.6 L Total CO2 22 Base Excess -7 L O2 Saturation 91 L O2 % 40.0 ABG pCO2 50.8 H ABG pO2 74 L Neri Test Positive Respiration Rate 14 O2 Delivery Device Adult Vent Vent Mode AC Tidal Volume 450.0 POC PEEP 5 Radiography Diagnostic Testing: Radiology Impression Echocardiogram 11/18/23 15:10 Interpretation Summary Mildly dilated left ventricle. LV anterior and apical akinesis with thinning. Estimated LV EF 20 to 25%. Stage 1 diastolic dysfunction. Bubble contrast study is negative for PFO/ASD. Mild (1+) posteriorly directed mitral valve insufficiency. Mild eccentric tricuspid valve insufficiency. Right ventricular systolic pressure estimated to be 37 mmHg. Ordering Physician: Faviola Mcguire Referring Physician: Claude Lee M.D. Performed By: Dana Ashford RDCS Physical Exam Const alert and no apparent distress Constitutional Narrative: The patient makes eye contact and nods her head yes/no, but will not verbalize anything when questioned. General Appearance: cooperative HEENT normocephalic and head/scalp atraumatic Eyes PERRL, EOMs intact bilaterally and conjunctivae normal Neck supple General: trachea midline Chest inspection of chest normal Resp normal respiratory effort Auscultation: diminished lung sounds Cardio regular rate and regular rhythm GI normal to inspection, nondistended, normoactive bowel sounds Extremity General Extremity: edema; Negative for clubbing Skin no rashes or lesions noted Neuro CN's II-XII intact bilaterally and no focal motor deficits Psych Mood & Affect: flat affect Charges/Coding Visit Charges Inpatient E&M: 31473 Subs Hosp L3
[2023-11-21] MEDS: Vancomycin HCl 750 MG in 0.9% Normal Saline (250mL Bag) 250 ML 250 MG IV (08:45)
[2023-11-21] MEDS: Heparin Injection (Vial) 5,000 UNIT/ML VIAL 5000 UNIT SC ×2 (08:45→22:19)
[2023-11-21] MEDS: Metoprolol Tartrate 25 MG Tablet 12.5 MG PO ×2 (08:46→22:08)
[2023-11-21] MEDS: Clopidogrel Bisulfate 75 MG Tablet PO (08:46)
[2023-11-21] MEDS: Aspirin E.C. 81 MG Tablet PO (08:46)
--- NOTE | 2023-11-21 09:18 | CASEMGMT ---
Discharge Planning Updates sent to [place] via [facility]. Isaura Beckford DC Planning Asst.
[2023-11-21] MEDS: Cefepime HCl 2 GM in 0.9% Normal Saline (100mL MB+) 100 ML IV (10:04)
--- NOTE | 2023-11-21 11:04 | PN.HOSP_ITS ---
Reason for Visit Reason for Visit: Diagnoses Hypothyroidism, unspecified (11/18/23) Type 2 diabetes mellitus with unspecified complications (11/18/23) Chronic systolic (congestive) heart failure (11/18/23) Heart failure, unspecified (11/18/23) Acute respiratory failure with hypoxia (11/18/23) Acute respiratory failure with hypercapnia (11/18/23) Gastro-esophageal reflux disease without esophagitis (11/18/23) Chronic kidney disease, stage 3 (moderate) (11/18/23) Urinary tract infection, site not specified (11/18/23) Acute respiratory distress (11/18/23) Other specified abnormal findings of blood chemistry (11/18/23) Subjective Subjective Patient sitting up in bed, not acutely distressed, answers some questions appropriately but unable to answer orientation questions, did not voice any acute complaints Objective Data Objective Data Vital Signs: Vital Signs Temp Pulse Resp BP Pulse Ox O2 Del Method O2 Flow Rate 97.6 F L 89 14 125/49 H 95 Room Air 4 11/21/23 10:00 11/21/23 11:00 11/21/23 11:00 11/21/23 11:00 11/21/23 11:00 11/21/23 11:00 11/20/23 12:50 FiO2 30 11/20/23 07:00 Oxygen Flow Rate (L/min) 4 Oxygen Delivery Method Room Air Weight: 98.883 kg Body Mass Index (BMI) 33.0 Intake & Output: Intake and Output for Last 24 Hours 11/19/23 11/20/23 11/21/23 23:59 23:59 23:59 Intake Total 2278.02 / 2290.12 762.5 / 762.5 515 / 515 Output Total 4050 / 4050 1850 / 1850 750 / 750 Balance -1771.98 / -1759.88 -1087.5 / -1087.5 -235 / -235 Lab / Micro Data 11/21/23 05:10 11/21/23 05:10 Labs: Laboratory Results - last 24 hr 11/20/23 11:52: POC Glucose 187 H 11/20/23 14:45: Vancomycin Trough 21.6 H 11/20/23 17:13: POC Glucose 197 H 11/20/23 23:00: Random Vancomycin 20.0 H, POC Glucose 171 H 11/21/23 05:10: WBC 9.6, RBC 3.55 L, Hgb 9.7 L, Hct 31.3 L, MCV 88.2, MCH 27.3, MCHC 31.0 L, RDW Std Deviation 51.7 H, RDW Coeff of Don 16.1 H, Plt Count 213, MPV 11.2, Immature Gran % (Auto) 0.500, Neut % (Auto) 66.7, Lymph % (Auto) 19.5, [place] % (Auto) 8.2, Eos % (Auto) 4.6, Baso % (Auto) 0.5, Absolute Neuts (auto) 6.4, Absolute Lymphs (auto) 1.88, Nucleated RBC % 0, Sodium 148 H, Potassium 3.5, Chloride 118 H, Carbon Dioxide 22.0, Anion Gap 8, BUN 23 H, Creatinine 1.91 H, Estim Creat Clear Calc 31.78, Est GFR (MDRD) Af Amer 33 L, Est GFR (MDRD) Non-Af 27 L, BUN/Creatinine Ratio 12.0, Glucose 186 H, Calcium 8.5, POC Glucose 159 H Micro: Microbiology 11/18/23 13:50 Sputum, Induced/Lukens Gram Stain - Final 11/18/23 13:50 Sputum, Induced/Lukens Respiratory Culture - Final Meth. resistant Staph. aureus 11/18/23 12:45 Blood Culture (Wb) - Anticubital Left Blood Culture - Preliminary No growth in 48 hours. 11/18/23 12:40 Blood Culture (Wb) - Anticubital Right Bacteria Detection (PCR) - Final Coag Negative Staph 11/18/23 12:40 Blood Culture (Wb) - Anticubital Right Blood Culture - Preliminary Coag Negative Staph 11/18/23 13:00 Urine Catheter - Wayne Urine Culture - Final Klebsiella pneumoniae sp pneum 11/18/23 15:24 Mucosa - Nose Respiratory Panel (PCR) - Final 11/18/23 15:24 Mucosa - Nose SARS-CoV-2, Influenza & RSV (PCR) - Final 11/18/23 13:00 Urine Catheter - Wayne Legionella Antigen - Final 11/18/23 13:00 Urine Catheter - Wayne Streptococcus pneumoniae Antigen (M - Final 11/18/23 12:39 Mucosa - Nasopharyngeal SARS-CoV-2, Influenza & RSV (PCR) - Final Physical Exam Narrative General: Alert, difficulty answering orientation questions HEENT: Atraumatic, normocephalic Eyes: Anicteric, normal conjunctiva, extraocular movements grossly intact Neck: Supple Respiratory: Somewhat diminished bilaterally, no increased work of breathing Cardiovascular: Regular rate and rhythm GI: Soft, nontender, nondistended Extremities: Trace lower extremity edema Musculoskeletal: Moving all extremities Neuro: No overt focal neurological deficits Skin: No rashes appreciated Psych: Patient answers some questions and others has more difficulty Assessment & Plan Assessment/Plan (1) Acute decompensated heart failure: (2) Acute respiratory distress: (3) Gastroesophageal reflux disease: (4) Hypothyroidism: QUALIFIERS: Hypothyroidism type: acquired Qualified Code(s): E 03.9 - Hypothyroidism, unspecified (5) Type 2 diabetes mellitus: QUALIFIERS: Diabetes mellitus complication status: with unspecified complications Diabetes mellitus intermediate accountant insulin use: with skilled nursing use Qualified Code(s): E11.8 - Type 2 diabetes mellitus with unspecified complications (6) CKD (chronic kidney disease) stage 3, GFR 30-59 ml/min: (7) Chronic systolic (congestive) heart failure: (8) Elevated troponin: (9) Elevated lactic acid level: (10) UTI (urinary tract infection): PLAN: Plan #Acute respiratory failure likely secondary to possible MRSA pneumonia and acute exacerbation of chronic systolic heart failure -BNP 886 -CXR concerning for bilateral infiltrates -Continue IV lasix -echo ordered -Daily weights, I's and O's -lipid panel in AM -Intubated and sedated in the ED -Sputum culture -Will obtain respiratory panel as well given some recent cough and respiratory decline -11/18: Remains intubated in the ICU, remains on IV Lasix, echo pending, does have infectious workup pending as well today -11/19: Patient extubated this morning, breathing well however not responding purposefully to questions at. Echo did show EF of 20 to 25% however 05/30/2017 from [place] showed EF of 30% the patient has known reduced ejection fraction. Remains on IV diuretics, continue lisinopril daily weights -11/20: Patient's optometric technician had reported she had been having significant cough for over a day prior to coming in, patient still unable to really give any history but sputum growing MRSA. Suspect this may be multifactorial, given MRSA in sputum and overall picture we will consult ID for recommendations on appropriate duration, patient also responded well to diuresis and improved respiratory status, this was DC'd yesterday in the ICU, will switch to oral and monitor renal function #Concern for UTI/infectious component?UTI ruled out -White blood cell count slightly elevated -UA suggestive of UTI, unclear if patient has been having any symptoms as patient unable to answer given intubated and sedated -Obtain urine culture, blood cultures -Blood pressure maintaining, suspect respiratory failure is from fluid overload and not infection, elevated lactic acid suspected to be due to poor perfusion in setting of exacerbation of heart failure with respiratory failure -Do not think patient is septic at this time or needs sepsis fluids but will maintain broad-spectrum antibiotics, given penicillin allergy but recent hospitalization and unclear if there is a pulmonary/pneumonia component given cough for coming in will treat with cefepime and bank and de-escalate pending cultures in progress -11/18: White blood cell count increased today with left shift, sputum, blood, urine cultures pending, remains on broad-spectrum antibiotics at this time -11/19: Patient with less than 1000 colony count of Klebsiella, do not think urinary tract infection is a likely diagnosis, blood and sputum cultures however are still pending in the event there was another contributing event #Anemia -New on 11/18 -Was 13 on 11/17 and down trended to 10.4 -Will check FOBT, iron studies, b12, folate -On IV PPI -Repeat H&H in the afternoon -11/19: Repeat hemoglobin yesterday was stable despite initial drop -11/20: No present signs or symptoms of bleeding, will continue to monitor # HELENA versus CKD -Creatinine 2.14 in a month ago was 1.88 however has had elevated creatinines like this in the past, secondary to infection versus critical illness and heart failure exacerbation -Daily BMPs -Avoid nephrotoxic agents -11/18: Very slightly improved today but still remains elevated, will check urine lytes -11/19: FEUrea from yesterday three 33.5 indicating prerenal but this may be due to low cardiac output decompensated heart failure, creatinine did worsen slightly today, may be able to decrease Lasix soon pending respiratory status patient is extubated -11/20: Improved when IV Lasix were stopped, will switch this to p.o. #Type 2 diabetes mellitus -Glucose checks every 4 and sliding scale insulin -Continue home long-acting but at lower dose given n.p.o. and escalate pending glucose -Hemoglobin A1c 11.4 on 10/09/2023 -11/18: Had low glucose overnight, all long-acting insulin held -11/19: Patient will need swallow eval prior to resuming diet -11/20: Thus far glucose is stable, monitor as patient increases p.o. intake # Elevated lactic acid-resolved -Blood pressure maintaining, suspect respiratory failure is from fluid overload and not infection, elevated lactic acid suspected to be due to poor perfusion in setting of exacerbation of heart failure with respiratory failure -Do not think patient is septic at this time or needs sepsis fluids but will maintain broad-spectrum antibiotics -Will trend -11/18: Resolved # History of [place] in 2011 -Patient had not reported any chest pain and only shortness of breath before arrival with cough over the past 1 to 2 days -Troponin mildly elevated, suspect this is secondary nature to demand -Will check echo, if any wall motion abnormalities will likely need heparin and cardiology consult -11/18: Echo pending however troponin was flat, lower suspicion for cardiac etiology -11/19: Echo with LV anterior and apical akinesis with thinning and EF of 2024% with stage I diastolic dysfunction of her last echo from 2017 from [place] also showed EF of 30%, still suspect elevated troponin is due to to her a CHF #Elevated Troponin -Reportedly patient having no complaints other than cough and then shortness of breath shortly before arrival, no chest pain had been reported but patient unable to answer ROS -Will obtain echo -Suspect this is demand due to heart failure exacerbation and infection -Trend -Will continue atorvastatin, clopidogrel, aspirin, continuing beta-luanne -11/18: Repeat troponin flat, no further trended -11/19: Echo with LV anterior and apical akinesis with thinning and EF of 5% with stage I diastolic dysfunction of her last echo from 2017 from [place] also showed EF of 30%, still suspect elevated troponin is due to to her a CHF #Hypothyroidism -Continue Synthroid -TSH 0.58 on 10/09/2023 #GERD -Continue PPI #DVT ppx: Heparin subcu Faviola Mcguire MD Time spent in the patient's overall evaluation,decision-making process, review of diagnostic data, adjustment of management, discussion with other providers, nursing nursing and ancillary staff involved in patient's care documentation, 35 minutes Charges/Coding Visit Charges Inpatient E&M: 99823 Subs Hosp L2
[2023-11-21 11:15] LABS: Bedside Glucose 173 mg/dL (74-106)
[2023-11-21] MEDS: Furosemide 40 MG Tablet PO (13:21)
[2023-11-21 17:02] LABS: Bedside Glucose 177 mg/dL (74-106)
[2023-11-21] MEDS: Atorvastatin Calcium 40 MG Tablet PO (22:08)
[2023-11-21] MEDS: MELATONIN 10 MG TABLET PO (22:08)
[2023-11-21 22:22] LABS: Bedside Glucose 158 mg/dL (74-106)
[2023-11-22 04:22] VITALS: BP 134/79; PULSE 89; RESP 18; TEMP 36.7; O2SAT 98
[2023-11-22 04:43] LABS: Absolute Lymphocyte Count 2.05 X10^3/uL (0.83-4.51); Basophil# 0.08 X10^3/uL; Basophil% 0.8 % (0-1); Eosinophil# 0.56 X10^3/uL; Eosinophils% 5.9 % (0-5); Hematocrit 31.5 % (37-47); Hemoglobin 9.8 g/dL (12.0-15.0); Lymphocyte # 2.05 X10^3/ul (0.83-4.51); Lymphocyte % 21.6 % (19-41); Mean Corp Hgb Conc 31.1 g/dL (32-36); Mean Corpuscular Hgb 27.5 pg (27.0-32.0); Mean Corpuscular Volume 88.5 fL (81-99); Mean Platelet Vol. 11.2 fl (6.2-12.0); Monocyte# 0.74 X10^3/uL; Monocyte% 7.8 % (0-10); NRBC Flagged by Analyzer 0 % (0-5); Neutrophil # 6.04 X10^3/uL (2.7-7.7); Neutrophil % 63.5 % (47-70); Platelet Count 226 K/mm3 (150-450); RBC Distribution Width CV 15.7 % (11.6-14.6); RBC Distribution Width SD 50.8 fl (35.1-43.9); Red Blood Count 3.56 M/mm3 (4.2-5.4); White Blood Count 9.5 K/mm3 (4.4-11.0)
[2023-11-22 05:05] LABS: Anion Gap 8 (5-15); BUN 20 mg/dL (7-18); Calcium,Total 8.6 mg/dL (8.5-10.1); Chloride 115 mmol/L (98-107); Creatinine, Serum 1.82 mg/dL (0.55-1.02); EST Glomerular Filtration Rate 29 mL/min (>60); Est Glom Filt Rate - Afr Amer 35 mL/min (>60); Estimated Creatinine Clearance 33.35 ml/min; Glucose 169 mg/dL (74-106); Potassium 3.2 mmol/L (3.5-5.1); Sodium Level 144 mmol/L (136-145)
[2023-11-22] MEDS: Levothyroxine 75 MCG Tablet PO (06:03)
[2023-11-22] MEDS: Insulin Lispro 100 UNIT/ML INSULN.PEN SC ×3 (06:05→16:35)
[2023-11-22 06:36] LABS: Bedside Glucose 157 mg/dL (74-106)
[2023-11-22 06:58] VITALS: O2SAT 94
[2023-11-22 08:13] VITALS: BP 127/78; PULSE 91; RESP 16; TEMP 36.8; O2SAT 95
--- NOTE | 2023-11-22 08:19 | CASEMGMT ---
Social Work- Pt does have HCPOA in chart. Son, Raquel, and daughter, Yojana, are names agents. SKYLAR Elkins
[2023-11-22] MEDS: Aspirin E.C. 81 MG Tablet PO (08:30)
[2023-11-22] MEDS: Potassium Chloride Oral Tablet 20 MEQ 60 MEQ PO (08:30)
[2023-11-22] MEDS: Vancomycin HCl 750 MG in 0.9% Normal Saline (250mL Bag) 250 ML 250 MG IV (10:05)
[2023-11-22 10:14] VITALS: BP 127/78; PULSE 91
[2023-11-22] MEDS: Metoprolol Tartrate 25 MG Tablet 12.5 MG PO (10:14)
[2023-11-22] MEDS: Furosemide 40 MG Tablet PO (10:15)
[2023-11-22] MEDS: Menthol/Lanolin/Calamine/Znox 113 GM Tube 1 APPLIC TOPICAL (10:15)
[2023-11-22] MEDS: Clopidogrel Bisulfate 75 MG Tablet PO (10:22)
[2023-11-22 11:17] VITALS: BMI 32.5
[2023-11-22 12:50] LABS: Bedside Glucose 166 mg/dL (74-106)
[2023-11-22 13:45] LABS: Magnesium 2.1 mg/dL (1.6-2.6); Phosphorus 2.5 mg/dL (2.5-4.9)
[2023-11-22 13:50] VITALS: BP 127/64; PULSE 95; RESP 16; TEMP 36.6; O2SAT 97
--- NOTE | 2023-11-22 14:56 | CON.PCM.ID_ITS ---
Assessment & Plan Assessment/Plan (1) Acute respiratory failure with hypoxia and hypercapnia: (2) Pneumonia: PLAN: MRSA pneumonia, improved, out of icu. Recommend 7 days total of MRSA coverage, cont vanc. Ok for discharge on po linezolid 600mg bid to complete course, started on 11/17, stop date 11/25/23. Will follow, thank you HPI Consult Data Date of Consult: 11/22/23 HPI Narrative Reason for Consultation: pneumonia HPI Narrative: DELMER DUNCAN, is a 73 F who presented 11/17 to ED from [facility] with several days progressive cough, new onset dyspnea. Sats down to 40% on RA. Admitted to icu, started on vanc/cefepime. Now out of icu, feeling better, some sputum still, no n/v/d. Full ROS performed and neg except as noted above. [facility] Medical History CKD (chronic kidney disease) stage 3, GFR 30-59 ml/min History of left heart catheterization (LHC) (~12/21/10) CVA (cerebral vascular accident) Ischemic cardiomyopathy Old myocardial infarction History of non-ST elevation myocardial infarction (NSTEMI) Atherosclerotic heart disease of [place] coronary artery without angina pectoris Mixed hyperlipidemia Essential hypertension Chronic systolic (congestive) heart failure Hearing problem IBS (irritable bowel syndrome) GI problem Diabetes type 2, controlled Cataracts, bilateral Bladder infection Back problem Arthritis Dementia History of gastrointestinal hemorrhage Diabetic peripheral neuropathy Hypothyroidism Gastroesophageal reflux disease Type 2 diabetes mellitus Cerebrovascular disease Home Medications ?Medication ?Instructions ?Recorded ?Last Taken ?Type aspirin 81 mg tablet,delayed 81 mg PO DAILY@0800 heart health 05/27/13 10/08/23 History release atorvastatin 40 mg tablet 40 mg PO QHS cholesterol 05/27/13 10/07/23 History clopidogrel 75 mg tablet 75 mg PO DAILY blood clotting 05/27/13 10/08/23 History docusate sodium 100 mg capsule 100 mg PO BID stool 05/27/13 05/02/21 History levothyroxine 75 mcg tablet 75 mcg PO DAILY thyroid 05/27/13 10/08/23 History metoprolol tartrate 50 mg tablet 50 mg PO BID heart 05/27/13 10/08/23 History pantoprazole 40 mg tablet,delayed 40 mg PO DAILY stomach 05/27/13 10/08/23 History release pen needle, diabetic 31 gauge x #30 ea 06/05/17 Unknown History 10/10 (Comfort EZ Pen [place]) empagliflozin 25 mg tablet 25 mg PO DAILY dmII 03/29/22 10/08/23 History (Jardiance) sitagliptin phosphate 25 mg tablet 25 mg PO DAILY DMII 06/06/23 10/08/23 History (Januvia) spironolactone 25 mg tablet 25 mg PO DAILY waterpill 06/06/23 10/08/23 History calcium carbonate 600 mg-vitamin 1 cap PO DAILY calcium 10/08/23 10/08/23 History D3 5 mcg (200 unit) capsule (Calcium 600 + D(3)) insulin aspart 1 sliding scale dose subcut TID 10/08/23 Unknown History (niacinamide)(U-100) 100 unit/mL(3 dmII mL) subcutaneous pen (Fiasp FlexTouch U-100 Insulin) memantine 10 mg tablet 10 mg PO DAILY dementia 10/08/23 10/07/23 History polyethylene glycol 3350 17 17 g PO DAILY PRN constipation 10/08/23 Unknown History gram/dose oral powder (ClearLax) acetaminophen 325 mg tablet 650 mg (2 x 325 mg) PO Q6H PRN PRN 10/12/23 Unknown Rx Pain 1-10 Or Fever >100.7 #0 tabs furosemide 40 mg tablet (Lasix) 40 mg PO DAILY PRN leg swelling 1 10/12/23 10/08/23 Rx month #0 tabs hydrocodone-acetaminophen 5-325mg 1 tab PO Q4H PRN PRN Pain 2 days 10/12/23 Unknown Rx 5mg-325mg #7 TABLETS insulin glargine 100 unit/mL (3 22 unit (0.22 mL) subcut BID dmII 10/12/23 10/07/23 Rx mL) subcutaneous pen (Basaglar 30 days #0 mL KwikPen U-100 Insulin) insulin lispro 100 unit/mL 15 unit (0.15 mL) subcut TIDAC #0 10/12/23 Unknown Rx subcutaneous pen (Humalog KwikPen mL (U-100) Insulin) insulin lispro 100 unit/mL See Protocol subcut ACHS #0 mL 10/12/23 Unknown Rx subcutaneous pen (Humalog KwikPen (U-100) Insulin) bisacodyl 10 mg rectal suppository 10 mg DE DAILY PRN no BM after MOM 11/18/23 Unknown History magnesium hydroxide 400 mg/5 mL 400 mg PO DAILY PRN constipation 11/18/23 Unknown History oral suspension (Milk of Magnesia) Allergy/AdvReac Type Severity Reaction Status Date / Time ibuprofen Allergy Itching Verified 10/08/23 10:05 lisinopril Allergy Other Verified 10/08/23 10:05 Penicillins Allergy Itching Verified 10/08/23 10:05 tramadol HCl (From Ultram) Allergy Other Verified 10/08/23 10:05 Family History Mother Cancer Diabetes Father Cancer Surgical History frozen shoulder surgery H/O thyroidectomy Hx of cataract surgery Social History Smoking Status: Former smoker second hand exposure: No alcohol intake: never substance use type: does not use caffeine: Yes Type: carbonated beverages Number of servings: 1 Physical Exam Const alert and no apparent distress General Appearance: cooperative HEENT normocephalic and head/scalp atraumatic Eyes PERRL and EOMs intact bilaterally Neck supple and No nodes Resp Auscultation: rhonchi Cardio regular rate and regular rhythm GI soft to palpation, non-tender and non-distended Extremity General Extremity: edema Skin no rashes or lesions noted Neuro CN's II-XII intact bilaterally Lab / Micro Data Attestation: I reviewed the patient's lab results. 11/22/23 04:29 11/22/23 04:29 Labs: Laboratory Results - last 24 hr 11/21/23 16:26: POC Glucose 177 H 11/21/23 21:48: POC Glucose 158 H 11/22/23 04:29: WBC 9.5, RBC 3.56 L, Hgb 9.8 L, Hct 31.5 L, MCV 88.5, MCH 27.5, MCHC 31.1 L, RDW Std Deviation 50.8 H, RDW Coeff of Don 15.7 H, Plt Count 226, MPV 11.2, Immature Gran % (Auto) 0.400, Neut % (Auto) 63.5, Lymph % (Auto) 21.6, [place] % (Auto) 7.8, Eos % (Auto) 5.9 H, Baso % (Auto) 0.8, Absolute Neuts (auto) 6.0, Absolute Lymphs (auto) 2.05, Nucleated RBC % 0, Sodium 144, Potassium 3.2 L , Chloride 115 H, Carbon Dioxide 21.0, Anion Gap 8, BUN 20 H, Creatinine 1.82 H, Estim Creat Clear Calc 33.35, Est GFR (MDRD) Af Amer 35 L, Est GFR (MDRD) Non-Af 29 L, BUN/Creatinine Ratio 11.0, Glucose 169 H, Calcium 8.6, Phosphorus 2.5, Magnesium 2.1 11/22/23 06:04: POC Glucose 157 H 11/22/23 12:17: POC Glucose 166 H Micro: Microbiology 11/22/23 11:15 Stool Stool Occult Blood (TOVA) - Final Occult Blood Positive 11/18/23 12:40 Blood Culture (Wb) - Anticubital Right Bacteria Detection (PCR) - Final Coag Negative Staph 11/18/23 12:40 Blood Culture (Wb) - Anticubital Right Blood Culture - Final Coag Negative Staph
--- NOTE | 2023-11-22 15:32 | PCM.TXEXTCAR ---
Diet Diet Order/Speech Therapy: 11/20/23 11:08 Diet: Regular - General Food consistency:: Pureed Liquid Consistency:: Regular/Thin Is pt able to select menu?: No Diet Comments: 1:1 supervision Routine Orders/Code Status Suppository Type: Dulcolax 10mg Suppository Frequency: Daily PRN Change Wayne Catheter: Wayne pulled prior to d/c, if poor urination consider bladder scanning Routine Lab Work: CBC (2-3 days) and BMP (2-3 days) Wound(s) buttock: Wound Type: maceration Therapies Physical Therapy: Eval and Treat Occupational Therapy: Eval and Treat Problem/Diagnosis (1) Acute respiratory failure with hypoxia and hypercapnia: Status: Acute Code(s): J96.01 - Acute respiratory failure with hypoxia; J96.02 - Acute respiratory failure with hypercapnia (2) Pneumonia: Status: Acute Code(s): J18.9 - Pneumonia, unspecified organism Plan #Acute respiratory failure likely secondary to possible MRSA pneumonia and acute exacerbation of chronic systolic heart failure #MRSA pneumonia #Anemia #HELENA on CKD # Elevated lactic acid-resolved # History of AL in 2011 #Elevated Troponin #Hypothyroidism #GERD Patient is a 73-year-old female with history of anemia, CKD, AL in 2011, heart failure with reduced ejection fraction, GERD, hypothyroidism who presented to [facility] ED 11/17/2022 and respiratory distress and was intubated. Patient reportedly been coughing for several days and then on the day of presentation suddenly had trouble breathing was placed on BiPAP, when she arrived in the ED she was not protecting her airway and was intubated. Patient found to have acute exacerbation of congestive heart failure. Her EF was 20 to 25% but previous [place] echo in 2018 per records showed an EF of 30 to 35%, she responded to IV Lasix and ultimately was able to be extubated. There was concern for component of pneumonia and she grew MRSA in her sputum and was continued on vancomycin while she was admitted and ultimately discharged on linezolid. While she was in the ICU she did have a drop in her hemoglobin without any bleeding or blood noted, FOBT ordered at that time but had not been done, hemoglobin stabilized thereafter but on day of discharge the FOBT was obtained as the order was still in the system and it showed microscopic blood, no overt bleeding or any other evidence of blood in stool. Discussed with GI and given her stability it was felt it was reasonable to follow-up on outpatient basis for further consideration of workup and/or endoscopies if necessary. Also patient's glucose has been very well-controlled and only sliding scale insulin so her long-acting insulin is held, strongly suspect she will need long-acting insulin restarted however given glucose of 169 concerned that resuming this may result in hypoglycemia. On day of discharge patient reports feeling much better, was awake and alert and answering questions and seen with caregiver at bedside, discussed need for GI follow-up and patient's pneumonia. Patient had no further complaints on day of discharge, discharge instructions as follows - You will be discharged on linezolid 600 mg twice daily for 3 more days -You had a Wayne catheter while you were inpatient this was removed prior to transfer [facility], any difficulty urinating would recommend bladder scan -You will be discharged on 40 mg of Lasix daily and 10 meq daily potassium -Given your kidney function spironolactone has been held -Your glucose has been well-controlled without your long-acting insulin or your Premeal insulin, would recommend in the short-term only continuing sliding scale insulin until glucoses necessitate resuming these insulins -Would recommend lab work (CBC and BMP) to check your hemoglobin and creatinine in 2 to 3 days through your primary care physician's office. Please call their office upon discharge to obtain order for lab work. -Your hemoglobin (blood count) did go down while you were in the ICU however was stabilized for multiple days after that. There was microscopic blood in your stool but no large bleeding and it was advised he could follow-up with the GI doctor on an outpatient basis. -Weigh yourself every day. A sudden weight gain can mean you are retaining fluid. Weigh yourself at the same time of day and in the same kind of clothes. Ideally, weigh yourself first thing in the morning after you empty your bladder, but before you eat breakfast. -Please call your physician if your weight goes up by more than 2 pounds in 1 day or 5 pounds in 1 week. This can be a sign that you are retaining more fluid than you should be. Clues to weight gain include checking your ankles for swelling, or noticing you are short of breath when you lie down -Please limit your sodium intake to less than 3 g/day. Here are tips: Limit canned, dried, packaged, and fast foods. Don't add salt to your food at the table. Season foods with herbs instead of salt when you cook. When you eat out, ask that the explosive ordnance disposal technician not add any salt to your dish. Don't eat fried or greasy foods. Be careful of bottled beverages. They can contain a lot of salt -Call 911 right away if you have: -Severe shortness of breath, such that you can't catch your breath even while resting -Severe chest pain that does not resolve with rest or nitroglycerin -[place], foamy mucus with cough and shortness of breath -An ongoing rapid or irregular heartbeat -Passing out or fainting -Stroke symptoms such as sudden numbness or weakness on one side of your face, arm, or leg or sudden confusion, trouble speaking or vision changes Allergies/Procedures Done in Hospital Allergies ibuprofen Allergy (Verified 10/08/23 10:05) Itching lisinopril Allergy (Verified 10/08/23 10:05) Other Penicillins Allergy (Verified 10/08/23 10:05) Itching tramadol HCl (From Ultram) Allergy (Verified 10/08/23 10:05) Other Type of Care/Length of Stay Estimated LOS: Convalescent Care Less Than 30 days Type of Care Needed: Skilled Rehab Potential: Fair Prognosis: Fair Additional Orders/Day of Discharge Day of Discharge: 11/22/23 Dietary and Speech Recommendations Dietitian Recommendations/Changes: rec GLADYS to 1800 ochoa Cardiac Sodium Restricted Discharge Plan Admission Admit Date/Time: 11/18/23 14:32 Primary Reason for Your Visit: Shortness of breath Attending Provider: Faviola Mcguire Primary Care Provider: Claude Lee Consulting Providers: Byron Fowler Instructions Patient Instructions: Coping with Heart Failure, ED Heart Failure, Congestive (CHF) Additional Instructions / Restrictions: DISCHARGE INSTRUCTIONS PLEASE READ *Please take this with you to your next doctors appointment* - You will be discharged on linezolid 600 mg twice daily for 3 more days -You had a Wayne catheter while you were inpatient this was removed prior to transfer [facility], any difficulty urinating would recommend bladder scan -You will be discharged on 40 mg of Lasix daily and 10 meq daily potassium -Given your kidney function spironolactone has been held -Your glucose has been well-controlled without your long-acting insulin or your Premeal insulin, would recommend in the short-term only continuing sliding scale insulin until glucoses necessitate resuming these insulins -Would recommend lab work (CBC and BMP) to check your hemoglobin and creatinine in 2 to 3 days through your primary care physician's office. Please call their office upon discharge to obtain order for lab work. -Your hemoglobin (blood count) did go down while you were in the ICU however was stabilized for multiple days after that. There was microscopic blood in your stool but no large bleeding and it was advised you could follow-up with the GI doctor on an outpatient basis. -You will need to follow-up with Dr. Lawrence with GI in his office upon discharge. Please call his office to schedule your appointment (ph. [phone]) -Weigh yourself every day. A sudden weight gain can mean you are retaining fluid. Weigh yourself at the same time of day and in the same kind of clothes. Ideally, weigh yourself first thing in the morning after you empty your bladder, but before you eat breakfast. -Please call your physician if your weight goes up by more than 2 pounds in 1 day or 5 pounds in 1 week. This can be a sign that you are retaining more fluid than you should be. Clues to weight gain include checking your ankles for swelling, or noticing you are short of breath when you lie down -Please limit your sodium intake to less than 3 g/day. Here are tips: Limit canned, dried, packaged, and fast foods. Don't add salt to your food at the table. Season foods with herbs instead of salt when you cook. When you eat out, ask that the explosive ordnance disposal technician not add any salt to your dish. Don't eat fried or greasy foods. Be careful of bottled beverages. They can contain a lot of salt -Call 911 right away if you have: -Severe shortness of breath, such that you can't catch your breath even while resting -Severe chest pain that does not resolve with rest or nitroglycerin -[place], foamy mucus with cough and shortness of breath -An ongoing rapid or irregular heartbeat -Passing out or fainting -Stroke symptoms such as sudden numbness or weakness on one side of your face, arm, or leg or sudden confusion, trouble speaking or vision changes -Please call your primary care provider's office upon discharge to schedule a hospital follow up within 1 week. -For any concerning signs or symptoms please call 911 or proceed to the nearest emergency department Discharge Orders/Prescriptions Prescriptions: New linezolid 600 mg tablet 600 mg PO BID 3 Days Qty: 6 0RF furosemide 40 mg Tablet 40 mg PO DAILY Qty: 0 0RF potassium chloride 10 mEq capsule, extended release 10 meq PO DAILY Qty: 30 0RF Continued (DME) pen needle, diabetic [Comfort EZ Pen [place]] 31 gauge x 5/16 needle See Rx Instructions .ROUTE .MEDSUPPLY Qty: 30 Rx Instructions: test blood sugar six times daily Jardiance 25 mg tablet 25 mg PO DAILY Januvia 25 mg tablet 25 mg PO DAILY atorvastatin 40 MG tablet 40 mg PO QHS clopidogrel 75 MG tablet 75 mg PO DAILY aspirin 81 MG tablet 81 mg PO DAILY@0800 levothyroxine 75 MCG tablet 75 mcg PO DAILY pantoprazole 40 MG tablet 40 mg PO DAILY metoprolol tartrate 50 MG tablet 50 mg PO BID docusate sodium 100 MG capsule 100 mg PO BID Patient Comments: constipation Fiasp FlexTouch U-100 Insulin 100 unit/mL (3 mL) insulin pen 1 sliding scale dose subcut TID Protocol: 6. Sliding Scale Insulin Custom Condition: mg/dl range Dose/Route: Number of Units Condition: 150-200 Dose/Route: 2 Condition: 201-250 Dose/Route: 3 Condition: 251-300 Dose/Route: 4 Condition: 301-350 Dose/Route: 5 Condition: 351-400 Dose/Route: 6 Condition: 400+ Dose/Route: call md Protocol Text: Custom Sliding Scale 30 units ay breakfast, 20 units at lunch 25 units with dinner. memantine 10 mg tablet 10 mg PO DAILY Patient Comments: at bedtime polyethylene glycol 3350 [ClearLax] 17 gram/dose powder 17 g PO DAILY PRN (Reason: constipation) Calcium 600 + D(3) 600 mg-5 mcg (200 unit) capsule 1 cap PO DAILY acetaminophen 325 mg Tablet 650 mg PO Q6H PRN PRN (Reason: Pain 1-10 Or Fever >100.7) Qty: 0 0RF insulin lispro [Humalog KwikPen Insulin] 100 unit/mL Insulin Pen See Protocol subcut ACHS Qty: 0 0RF Protocol: 4. Sliding Scale Insulin High-Med Dosing Condition: 150-199 mg/dl = 2 units Condition: 200-259 mg/dl = 4 units Condition: 260-324 mg/dl = 6 units Condition: 325-374 mg/dl = 8 units Condition: 375-409 mg/dl = 10 units Condition: 410-449 mg/dl = 11 units Condition: Greater than 449 call physician Protocol Text: - Use for Total Daily Dose of Insulin 56-80 units - Patient who are insulin resistant or septic HIGH MEDIUM DOSING ALGORITHM hydrocodone-acetaminophen 5-325 mg tablet 1 tab PO Q4H PRN PRN (Reason: Pain) 2 Days Qty: 7 0RF bisacodyl 10 mg suppository 10 mg [place] DAILY PRN (Reason: no BM after MOM) magnesium hydroxide [Milk of Magnesia] 400 mg/5 mL suspension 400 mg PO DAILY PRN (Reason: constipation) Held insulin lispro [Humalog KwikPen Insulin] 100 unit/mL Insulin Pen 15 unit subcut TIDAC Qty: 0 0RF Hold Instructions: Resume on 12/05/23. Your glucose has been well-controlled without your long-acting insulin or your Premeal insulin, would recommend in the short-term only continuing sliding scale insulin until glucoses necessitate resuming these insulins insulin glargine [Basaglar KwikPen U-100 Insulin] 100 unit/mL (3 mL) insulin pen 22 unit subcut BID 30 Days Qty: 0 0RF Hold Instructions: Resume on 11/29/23. Your glucose has been well-controlled without your long-acting insulin or your Premeal insulin, would recommend in the short-term only continuing sliding scale insulin until glucoses necessitate resuming these insulins Discontinued spironolactone 25 mg tablet 25 mg PO DAILY furosemide [Lasix] 40 mg tablet 40 mg PO DAILY PRN (Reason: leg swelling) 30 Days Qty: 0 0RF Referrals / Follow Up: Felix Lawrence DO [Med Staff - Active Staff] - (You will need to follow-up with Dr. Lawrence with GI in his office upon discharge. Please call his office to schedule your appointment (ph. [phone])) Claude Lee MD [Primary Care Provider] - Within 1 Week Disposition Disposition (needs filled in before D/C Order can be placed): [facility]
--- NOTE | 2023-11-22 15:45 | CASEMGMT ---
Patient is ready for discharge to back to [place]. Plan: d/c back to [facility] under skilled level of care. Physicians will transport patient via cot. Zoya DOUGHERTY
--- NOTE | 2023-11-22 15:52 | DS.PCM_ITS ---
Providers Date of Admission: 11/18/23 Date of Discharge: 11/22/23 Primary Care Physician: Dr. Claude Lee MD Consultations 11/18/23 15:10 Consult: Making Machine Catcher / Pulmonary Medicine Routine Consulting Provider: Pulmonary Medicine crescencio [place] Reason for Consult: Vent management EMERGENT Consult: No MD Notified: Yes Date Notified: 11/18/23 Time Notified: 15:16 Method of Notification: Text 11/21/23 12:53 Consult: Infectious Disease Routine Consulting Provider: Byron Fowler Reason for Consult: ?mrsa pneumoina, abx recs and duration EMERGENT Consult: No MD Notified: Yes Date Notified: 11/21/23 Time Notified: 12:53 Method of Notification: Text Reason For Visit: ACUTE EXACERB OF HEART FAILURE, UTI Diagnosis Discharge Diagnosis (1) Acute respiratory failure with hypoxia and hypercapnia: Status: Acute Code(s): J96.01 - Acute respiratory failure with hypoxia; J96.02 - Acute respiratory failure with hypercapnia (2) Pneumonia: Status: Acute Code(s): J18.9 - Pneumonia, unspecified organism Plan #Acute respiratory failure likely secondary to possible MRSA pneumonia and acute exacerbation of chronic systolic heart failure #MRSA pneumonia #Anemia #HELENA on CKD # Elevated lactic acid-resolved # History of PA in 2011 #Elevated Troponin #Hypothyroidism #GERD Medications at Discharge Home Medications aspirin 81 mg tablet,delayed release 81 mg PO DAILY@0800 heart health 05/27/13 atorvastatin 40 mg tablet 40 mg PO QHS cholesterol 05/27/13 clopidogrel 75 mg tablet 75 mg PO DAILY blood clotting 05/27/13 docusate sodium 100 mg capsule 100 mg PO BID stool 05/27/13 levothyroxine 75 mcg tablet 75 mcg PO DAILY thyroid 05/27/13 metoprolol tartrate 50 mg tablet 50 mg PO BID heart 05/27/13 pantoprazole 40 mg tablet,delayed release 40 mg PO DAILY stomach 05/27/13 pen needle, diabetic 31 gauge x 5/16 (Comfort EZ Pen Leland) #30 ea 06/05/17 empagliflozin 25 mg tablet (Jardiance) 25 mg PO DAILY dmII 03/29/22 sitagliptin phosphate 25 mg tablet (Januvia) 25 mg PO DAILY DMII 06/06/23 calcium carbonate 600 mg-vitamin D3 5 mcg (200 unit) capsule (Calcium 600 + D(3)) 1 cap PO DAILY calcium 05/13/24 insulin aspart (niacinamide)(U-100) 100 unit/mL(3 mL) subcutaneous pen (Fiasp FlexTouch U-100 Insulin) 1 sliding scale dose subcut TID dmII 10/08/23 memantine 10 mg tablet 10 mg PO DAILY dementia 10/08/23 polyethylene glycol 3350 17 gram/dose oral powder (ClearLax) 17 g PO DAILY PRN constipation 10/08/23 acetaminophen 325 mg tablet 650 mg (2 x 325 mg) PO Q6H PRN PRN Pain 1-10 Or Fever >100.7 #0 tabs 10/12/23 hydrocodone-acetaminophen 5-325mg 5mg-325mg 1 tab PO Q4H PRN PRN Pain 2 days #7 TABLETS 10/12/23 insulin glargine 100 unit/mL (3 mL) subcutaneous pen (Basaglar KwikPen U-100 Insulin) 22 unit (0.22 mL) subcut BID dmII 30 days #0 mL 10/12/23 insulin lispro 100 unit/mL subcutaneous pen (Humalog KwikPen (U-100) Insulin) 15 unit (0.15 mL) subcut TIDAC #0 mL 10/12/23 insulin lispro 100 unit/mL subcutaneous pen (Humalog KwikPen (U-100) Insulin) See Protocol subcut ACHS #0 mL 10/12/23 bisacodyl 10 mg rectal suppository 10 mg NJ DAILY PRN no BM after MOM 11/18/23 magnesium hydroxide 400 mg/5 mL oral suspension (Milk of Magnesia) 400 mg PO DAILY PRN constipation 11/18/23 furosemide 40 mg tablet 40 mg PO DAILY #0 tabs 11/22/23 linezolid 600 mg tablet 600 mg PO BID 3 days #6 tabs 11/22/23 potassium chloride 10 mEq capsule,extended release 10 meq PO DAILY #30 caps 11/22/23 Hospital Course Procedures - (intubation, TTE) Summary of Care Provided Minutes Spent on Discharge: 35 Hospital Course: Patient is a 73-year-old female with history of anemia, CKD, PA in 2011, heart failure with reduced ejection fraction, GERD, hypothyroidism who presented to [facility] ED 11/17/2022 and respiratory distress and was intubated. Patient reportedly been coughing for several days and then on the day of presentation suddenly had trouble breathing was placed on BiPAP, when she arrived in the ED she was not protecting her airway and was intubated. Patient found to have acute exacerbation of congestive heart failure. Her EF was 20 to 25% but previous Ayden echo in 2018 per records showed an EF of 30 to 35%, she responded to IV Lasix and ultimately was able to be extubated. There was concern for component of pneumonia and she grew MRSA in her sputum and was continued on vancomycin while she was admitted and ultimately discharged on linezolid. While she was in the ICU she did have a drop in her hemoglobin without any bleeding or blood noted, FOBT ordered at that time but had not been done, hemoglobin stabilized thereafter but on day of discharge the FOBT was obtained as the order was still in the system and it showed microscopic blood, no overt bleeding or any other evidence of blood in stool. Discussed with GI and given her stability it was felt it was reasonable to follow-up on outpatient basis for further consideration of workup and/or endoscopies if necessary. Also patient's glucose has been very well-controlled and only sliding scale insulin so her long-acting insulin is held, strongly suspect she will need long-acting insulin restarted however given glucose of 169 concerned that resuming this may result in hypoglycemia. On day of discharge patient reports feeling much better, was awake and alert and answering questions and seen with caregiver at bedside, discussed need for GI follow-up and patient's pneumonia. Patient had no further complaints on day of discharge, discharge instructions as follows - You will be discharged on linezolid 600 mg twice daily for 3 more days -You had a Wayne catheter while you were inpatient this was removed prior to transfer to [facility], any difficulty urinating would recommend bladder scan -You will be discharged on 40 mg of Lasix daily and 10 meq daily potassium -Given your kidney function spironolactone has been held -Your glucose has been well-controlled without your long-acting insulin or your Premeal insulin, would recommend in the short-term only continuing sliding scale insulin until glucoses necessitate resuming these insulins -Would recommend lab work (CBC and BMP) to check your hemoglobin and creatinine in 2 to 3 days through your primary care physician's office. Please call their office upon discharge to obtain order for lab work. -Your hemoglobin (blood count) did go down while you were in the ICU however was stabilized for multiple days after that. There was microscopic blood in your stool but no large bleeding and it was advised he could follow-up with the GI doctor on an outpatient basis. -Weigh yourself every day. A sudden weight gain can mean you are retaining fluid. Weigh yourself at the same time of day and in the same kind of clothes. Ideally, weigh yourself first thing in the morning after you empty your bladder, but before you eat breakfast. -Please call your physician if your weight goes up by more than 2 pounds in 1 day or 5 pounds in 1 week. This can be a sign that you are retaining more fluid than you should be. Clues to weight gain include checking your ankles for swelling, or noticing you are short of breath when you lie down -Please limit your sodium intake to less than 3 g/day. Here are tips: Limit canned, dried, packaged, and fast foods. Don't add salt to your food at the table. Season foods with herbs instead of salt when you cook. When you eat out, ask that the cold meat chef not add any salt to your dish. Don't eat fried or greasy foods. Be careful of bottled beverages. They can contain a lot of salt -Call 911 right away if you have: -Severe shortness of breath, such that you can't catch your breath even while resting -Severe chest pain that does not resolve with rest or nitroglycerin -[place], foamy mucus with cough and shortness of breath -An ongoing rapid or irregular heartbeat -Passing out or fainting -Stroke symptoms such as sudden numbness or weakness on one side of your face, arm, or leg or sudden confusion, trouble speaking or vision changes Physical Exam Narrative General: Alert, answering questions HEENT: Atraumatic, normocephalic Eyes: Anicteric, normal conjunctiva, extraocular movements grossly intact Neck: Supple Respiratory: Improved aeration, no increased work of breathing at this time Cardiovascular: Regular rate and rhythm GI: Soft, nontender, nondistended Extremities: Trace lower extremity edema Musculoskeletal: Moving all extremities Neuro: No overt focal neurological deficits Skin: No rashes appreciated Psych: Pleasant and cooperative Weight / BMI Weight Weight: 97.6 kg Body Mass Index (BMI) 32.5 ABG / Lab / Microbiology Data 11/22/23 04:29 11/22/23 04:29 Laboratory: Laboratory Results - last 24 hr 11/21/23 16:26: POC Glucose 177 H 11/21/23 21:48: POC Glucose 158 H 11/22/23 04:29: WBC 9.5, RBC 3.56 L, Hgb 9.8 L, Hct 31.5 L, MCV 88.5, MCH 27.5, MCHC 31.1 L, RDW Std Deviation 50.8 H, RDW Coeff of Don 15.7 H, Plt Count 226, MPV 11.2, Immature Gran % (Auto) 0.400, Neut % (Auto) 63.5, Lymph % (Auto) 21.6, Summers % (Auto) 7.8, Eos % (Auto) 5.9 H, Baso % (Auto) 0.8, Absolute Neuts (auto) 6.0, Absolute Lymphs (auto) 2.05, Nucleated RBC % 0, Sodium 144, Potassium 3.2 L , Chloride 115 H, Carbon Dioxide 21.0, Anion Gap 8, BUN 20 H, Creatinine 1.82 H, Estim Creat Clear Calc 33.35, Est GFR (MDRD) Af Amer 35 L, Est GFR (MDRD) Non-Af 29 L, BUN/Creatinine Ratio 11.0, Glucose 169 H, Calcium 8.6, Phosphorus 2.5, Magnesium 2.1 11/22/23 06:04: POC Glucose 157 H 11/22/23 12:17: POC Glucose 166 H Microbiology: Microbiology 11/22/23 11:15 Stool Stool Occult Blood (TOVA) - Final Occult Blood Positive 11/18/23 12:40 Blood Culture (Wb) - Anticubital Right Bacteria Detection (PCR) - Final Coag Negative Staph 11/18/23 12:40 Blood Culture (Wb) - Anticubital Right Blood Culture - Final Coag Negative Staph 11/18/23 13:50 Sputum, Induced/Lukens Gram Stain - Final 11/18/23 13:50 Sputum, Induced/Lukens Respiratory Culture - Final Meth. resistant Staph. aureus 11/18/23 12:45 Blood Culture (Wb) - Anticubital Left Blood Culture - Preliminary No growth in 48 hours. 11/18/23 13:00 Urine Catheter - Wayne Urine Culture - Final Klebsiella pneumoniae sp pneum 11/18/23 15:24 Mucosa - Nose Respiratory Panel (PCR) - Final 11/18/23 15:24 Mucosa - Nose SARS-CoV-2, Influenza & RSV (PCR) - Final 11/18/23 13:00 Urine Catheter - Wayne Legionella Antigen - Final 11/18/23 13:00 Urine Catheter - Wayne Streptococcus pneumoniae Antigen (M - Final 11/18/23 12:39 Mucosa - Nasopharyngeal SARS-CoV-2, Influenza & RSV (PCR) - Final D/C Instructions Discharge Diet: - (-DASH diet, 3000 mg sodium restriction, 2 L fluid restriction) Meaningful Use Info Meaningful Use Meaningful Use Diagnoses (Choose all that apply): CHF CHF CONSTANCE/ARB ordered at discharge?: No Reason CONSTANCE/ARB not ordered?: Worsening renal disease Documented LVEF (%): 20 Ischemic Stroke Statin Dosing Therapy Reference: STATIN DOSE THERAPY REFERENCE: * Patients > 75 years receive moderate or high dose statin therapy. * Patients 75 years or YOUNGER should receive HIGH intensity statin dose unless contraindicated. You will be required to document reason for non-treatment if statin daily dose does not meet guidelines. HIGH DOSE STATIN THERAPY DAILY Atorvastatin > than or = to 40 mg Rosuvastatin > than or = to 20 mg Amlodipine + Atorvastatin > than or = to 2.5/40 mg Ezetimibe + Simvastatin 10/80 mg Simvastatin 80mg Discharge Plan Admission Admit Date/Time: 11/18/23 14:32 Primary Reason for Your Visit: Shortness of breath Attending Provider: Faviola Mcguire Primary Care Provider: Claude Lee Consulting Providers: Byron Fowler Instructions Patient Instructions: Coping with Heart Failure, ED Heart Failure, Congestive (CHF) Additional Instructions / Restrictions: DISCHARGE INSTRUCTIONS PLEASE READ *Please take this with you to your next doctors appointment* - You will be discharged on linezolid 600 mg twice daily for 3 more days -You had a Wayne catheter while you were inpatient this was removed prior to transfer to [facility], any difficulty urinating would recommend bladder scan -You will be discharged on 40 mg of Lasix daily and 10 meq daily potassium -Given your kidney function spironolactone has been held -Your glucose has been well-controlled without your long-acting insulin or your Premeal insulin, would recommend in the short-term only continuing sliding scale insulin until glucoses necessitate resuming these insulins -Would recommend lab work (CBC and BMP) to check your hemoglobin and creatinine in 2 to 3 days through your primary care physician's office. Please call their office upon discharge to obtain order for lab work. -Your hemoglobin (blood count) did go down while you were in the ICU however was stabilized for multiple days after that. There was microscopic blood in your stool but no large bleeding and it was advised you could follow-up with the GI doctor on an outpatient basis. -You will need to follow-up with Dr. Lawrence with GI in his office upon discharge. Please call his office to schedule your appointment (ph. [phone]) -Weigh yourself every day. A sudden weight gain can mean you are retaining fluid. Weigh yourself at the same time of day and in the same kind of clothes. Ideally, weigh yourself first thing in the morning after you empty your bladder, but before you eat breakfast. -Please call your physician if your weight goes up by more than 2 pounds in 1 day or 5 pounds in 1 week. This can be a sign that you are retaining more fluid than you should be. Clues to weight gain include checking your ankles for swelling, or noticing you are short of breath when you lie down -Please limit your sodium intake to less than 3 g/day. Here are tips: Limit canned, dried, packaged, and fast foods. Don't add salt to your food at the table. Season foods with herbs instead of salt when you cook. When you eat out, ask that the cold meat chef not add any salt to your dish. Don't eat fried or greasy foods. Be careful of bottled beverages. They can contain a lot of salt -Call 911 right away if you have: -Severe shortness of breath, such that you can't catch your breath even while resting -Severe chest pain that does not resolve with rest or nitroglycerin -[place], foamy mucus with cough and shortness of breath -An ongoing rapid or irregular heartbeat -Passing out or fainting -Stroke symptoms such as sudden numbness or weakness on one side of your face, arm, or leg or sudden confusion, trouble speaking or vision changes -Please call your primary care provider's office upon discharge to schedule a hospital follow up within 1 week. -For any concerning signs or symptoms please call 911 or proceed to the nearest emergency department Discharge Orders/Prescriptions Prescriptions: New linezolid 600 mg tablet 600 mg PO BID 3 Days Qty: 6 0RF furosemide 40 mg Tablet 40 mg PO DAILY Qty: 0 0RF potassium chloride 10 mEq capsule, extended release 10 meq PO DAILY Qty: 30 0RF Continued (DME) pen needle, diabetic [Comfort EZ Pen Leland] 31 gauge x 5/16 needle See Rx Instructions .ROUTE .MEDSUPPLY Qty: 30 Rx Instructions: test blood sugar six times daily Jardiance 25 mg tablet 25 mg PO DAILY Januvia 25 mg tablet 25 mg PO DAILY atorvastatin 40 MG tablet 40 mg PO QHS clopidogrel 75 MG tablet 75 mg PO DAILY aspirin 81 MG tablet 81 mg PO DAILY@0800 levothyroxine 75 MCG tablet 75 mcg PO DAILY pantoprazole 40 MG tablet 40 mg PO DAILY metoprolol tartrate 50 MG tablet 50 mg PO BID docusate sodium 100 MG capsule 100 mg PO BID Patient Comments: constipation Fiasp FlexTouch U-100 Insulin 100 unit/mL (3 mL) insulin pen 1 sliding scale dose subcut TID Protocol: 6. Sliding Scale Insulin Custom Condition: mg/dl range Dose/Route: Number of Units Condition: 150-200 Dose/Route: 2 Condition: 201-250 Dose/Route: 3 Condition: 251-300 Dose/Route: 4 Condition: 301-350 Dose/Route: 5 Condition: 351-400 Dose/Route: 6 Condition: 400+ Dose/Route: call md Protocol Text: Custom Sliding Scale 30 units ay breakfast, 20 units at lunch 25 units with dinner. memantine 10 mg tablet 10 mg PO DAILY Patient Comments: at bedtime polyethylene glycol 3350 [ClearLax] 17 gram/dose powder 17 g PO DAILY PRN (Reason: constipation) Calcium 600 + D(3) 600 mg-5 mcg (200 unit) capsule 1 cap PO DAILY acetaminophen 325 mg Tablet 650 mg PO Q6H PRN PRN (Reason: Pain 1-10 Or Fever >100.7) Qty: 0 0RF insulin lispro [Humalog KwikPen Insulin] 100 unit/mL Insulin Pen See Protocol subcut ACHS Qty: 0 0RF Protocol: 4. Sliding Scale Insulin High-Med Dosing Condition: 150-199 mg/dl = 2 units Condition: 200-259 mg/dl = 4 units Condition: 260-324 mg/dl = 6 units Condition: 325-374 mg/dl = 8 units Condition: 375-409 mg/dl = 10 units Condition: 410-449 mg/dl = 11 units Condition: Greater than 449 call physician Protocol Text: - Use for Total Daily Dose of Insulin 56-80 units - Patient who are insulin resistant or septic HIGH MEDIUM DOSING ALGORITHM hydrocodone-acetaminophen 5-325 mg tablet 1 tab PO Q4H PRN PRN (Reason: Pain) 2 Days Qty: 7 0RF bisacodyl 10 mg suppository 10 mg NJ DAILY PRN (Reason: no BM after MOM) magnesium hydroxide [Milk of Magnesia] 400 mg/5 mL suspension 400 mg PO DAILY PRN (Reason: constipation) Held insulin lispro [Humalog KwikPen Insulin] 100 unit/mL Insulin Pen 15 unit subcut TIDAC Qty: 0 0RF Hold Instructions: Resume on 12/05/23. Your glucose has been well-controlled without your long-acting insulin or your Premeal insulin, would recommend in the short-term only continuing sliding scale insulin until glucoses necessitate resuming these insulins insulin glargine [Basaglar KwikPen U-100 Insulin] 100 unit/mL (3 mL) insulin pen 22 unit subcut BID 30 Days Qty: 0 0RF Hold Instructions: Resume on 11/29/23. Your glucose has been well-controlled without your long-acting insulin or your Premeal insulin, would recommend in the short-term only continuing sliding scale insulin until glucoses necessitate resuming these insulins Discontinued spironolactone 25 mg tablet 25 mg PO DAILY furosemide [Lasix] 40 mg tablet 40 mg PO DAILY PRN (Reason: leg swelling) 30 Days Qty: 0 0RF Referrals / Follow Up: Felix Lawrence DO [Med Staff - Active Staff] - (You will need to follow-up with Dr. Lawrence with GI in his office upon discharge. Please call his office to schedule your appointment (ph. [phone])) Claude Lee MD [Primary Care Provider] - Within 1 Week Disposition Disposition (needs filled in before D/C Order can be placed): [facility] Charges/Coding Visit Charges Inpatient E&M: 16141 Disch Hosp >30min
--- NOTE | 2023-11-22 16:00 | CASEMGMT ---
Discharge Planning Discharge orders, signed med list, and transport time sent to [facility] via [facility]. Physicians will transport patient by cot at 5:30p. Nursing, SW, and patient updated. VM left for patients son (Raquel). Isaura Beckford DC Planning Asst.
--- NOTE | 2023-11-22 16:02 | CASEMGMT ---
ADAM did receive a phone call from patient's son Raquel. ADAM let Raquel know that patient is going back to [facility] today and will get picked up at 530. Raquel thanked ADAM. Zoya DOUGHERTY
[2023-11-22 17:07] LABS: Bedside Glucose 166 mg/dL (74-106)
== END 2023-11-22 17:07 | DRG 208 ==
LOC: ED 12:29 → ICU 15:03 → PCU 11-21 13:39
PROVIDERS: Admitting Provider Internal Medicine; Emergency Provider Emergency Medicine; PCP Internal Medicine; Visit Provider Internal Medicine
DX: J96.01 Acute respiratory failure with hypoxia (principal); I50.23 Acute on chronic systolic (congestive) heart failure; J15.212 Pneumonia due to Methicillin resistant Staphylococcus aureus; N17.9 Acute kidney failure, unspecified; I13.0 Hypertensive heart and chronic kidney disease with heart failure and stage 1 through stage 4 chronic kidney disease, or unspecified chronic kidney disease; I24.89 Other forms of acute ischemic heart disease; E11.649 Type 2 diabetes mellitus with hypoglycemia without coma; N18.30 Chronic kidney disease, stage 3 unspecified; E11.22 Type 2 diabetes mellitus with diabetic chronic kidney disease; J96.02 Acute respiratory failure with hypercapnia; E11.42 Type 2 diabetes mellitus with diabetic polyneuropathy; E11.65 Type 2 diabetes mellitus with hyperglycemia; Z79.4 Long term (current) use of insulin; E89.0 Postprocedural hypothyroidism; I25.5 Ischemic cardiomyopathy; E78.2 Mixed hyperlipidemia; K21.9 Gastro-esophageal reflux disease without esophagitis; K58.9 Irritable bowel syndrome, unspecified; I25.10 Atherosclerotic heart disease of native coronary artery without angina pectoris; I25.2 Old myocardial infarction; D64.9 Anemia, unspecified; Z79.82 Long term (current) use of aspirin; Z79.84 Long term (current) use of oral hypoglycemic drugs; Z79.02 Long term (current) use of antithrombotics/antiplatelets; Z79.890 Hormone replacement therapy; Z79.899 Other long term (current) drug therapy; Z87.891 Personal history of nicotine dependence; Z88.0 Allergy status to penicillin
CPT/HCPCS: 31500; 31720; 36415; 36600; 51702; 71045; 80048; 80053; 80061; 80202; 81001; 82274; 82436; 82570; 82607; 82728; 82746; 82803; 82962; 83540; 83550; 83605; 83735; 83880; 84100; 84133; 84300; 84484; 84540; 85025; 85610; 85730; 87040; 87070; 87077; 87086; 87088; 87149; 87186; 87205; 87449; 87631; 87633; 87641; 92526; 92610; 93005; 93306; 94002; 94003; 94660; 97110; 97162; 97166; 97530; 97535; 97802; 99252; 99285; J7040; J7050; Q9957; A4216; C8929; G0463; J1940

== ENCOUNTER 2023-12-07 11:13 | Inpatient (IN) | payer MEDICARE, MEDICAID, SELFPAY ==
[2023-12-07] VITALS (17 sets, daily range): BP systolic 113–159; BP diastolic 55–133; PULSE 104–130; RESP 18–31; TEMP 36.2–36.9; O2SAT 96–100; BMI 31.4
--- NOTE | 2023-12-07 11:28 | EKG12_ITS ---
Test Reason : SOB Blood Pressure : / mmHG Vent. Rate : 129 BPM Atrial Rate : 129 BPM P-R Int : 136 ms QRS Dur : 082 ms QT Int : 320 ms P-R-T Axes : 062 -46 095 degrees QTc Int : 468 ms Sinus tachycardia with occasional Premature ventricular complexes Possible Left atrial enlargement Left axis deviation Low voltage QRS Inferior infarct , age undetermined Anterolateral infarct , age undetermined Abnormal ECG Confirmed by CORNELIUS MCCORD, GEE ([id number]), dictionary editor NAVARRO PANIAGUA ([id number]) on 12/12/2023 10:46:40 A M Referred By: DEBORAH Confirmed By:YOSELIN SHIELDS MD
--- NOTE | 2023-12-07 11:33 | ED.VIS.DYS ---
HPI History of Present Illness Chief Complaint: Shortness of Breath Informant: EMS and SNF Onset/Context/Timing Onset: Today Context: sudden Timing: Continuous Worsened by: Nothing Relieved by: Nothing Narrative Narrative: Patient presents with shortness of breath that began today. Patient was found at the [facility] sitting in a chair with a pulse oximeter of 59% on room air. Patient is nonverbal and is a poor informant. EMS was called and patient was transferred to the emergency department. Patient does have a history of congestive heart failure. Patient is on Lasix. Patient also has a history of chronic kidney disease. Patient is a full code per [facility] papers. [facility] Medical History CKD (chronic kidney disease) stage 3, GFR 30-59 ml/min History of left heart catheterization (LHC) (~12/21/10) CVA (cerebral vascular accident) Ischemic cardiomyopathy Old myocardial infarction History of non-ST elevation myocardial infarction (NSTEMI) Atherosclerotic heart disease of [place] coronary artery without angina pectoris Mixed hyperlipidemia Essential hypertension Chronic systolic (congestive) heart failure Hearing problem IBS (irritable bowel syndrome) GI problem Diabetes type 2, controlled Cataracts, bilateral Bladder infection Back problem Arthritis Dementia History of gastrointestinal hemorrhage Diabetic peripheral neuropathy Hypothyroidism Gastroesophageal reflux disease Type 2 diabetes mellitus Cerebrovascular disease Home Medications ?Medication ?Instructions ?Recorded ?Last Taken ?Type aspirin 81 mg tablet,delayed 81 mg PO DAILY@0800 heart health 05/27/13 10/08/23 History release atorvastatin 40 mg tablet 40 mg PO QHS cholesterol 05/27/13 10/07/23 History clopidogrel 75 mg tablet 75 mg PO DAILY blood clotting 05/27/13 10/08/23 History docusate sodium 100 mg capsule 100 mg PO BID stool 05/27/13 05/02/21 History levothyroxine 75 mcg tablet 75 mcg PO DAILY thyroid 05/27/13 10/08/23 History metoprolol tartrate 50 mg tablet 50 mg PO BID heart 05/27/13 10/08/23 History pantoprazole 40 mg tablet,delayed 40 mg PO DAILY stomach 05/27/13 10/08/23 History release pen needle, diabetic 31 gauge x #30 ea 06/05/17 Unknown History 10/10 (Comfort EZ Pen [place]) empagliflozin 25 mg tablet 25 mg PO DAILY dmII 03/29/22 10/08/23 History (Jardiance) sitagliptin phosphate 25 mg tablet 25 mg PO DAILY DMII 06/06/23 10/08/23 History (Januvia) calcium carbonate 600 mg-vitamin 1 cap PO DAILY calcium 10/08/23 10/08/23 History D3 5 mcg (200 unit) capsule (Calcium 600 + D(3)) memantine 10 mg tablet 10 mg PO DAILY dementia 10/08/23 10/07/23 History polyethylene glycol 3350 17 17 g PO DAILY PRN constipation 10/08/23 Unknown History gram/dose oral powder (ClearLax) acetaminophen 325 mg tablet 650 mg (2 x 325 mg) PO Q6H PRN PRN 10/12/23 Unknown Rx Pain 1-10 Or Fever >100.7 #0 tabs insulin glargine 100 unit/mL (3 22 unit (0.22 mL) subcut BID dmII 10/12/23 10/07/23 Rx mL) subcutaneous pen (Basaglar 30 days #0 mL KwikPen U-100 Insulin) insulin lispro 100 unit/mL 15 unit (0.15 mL) subcut TIDAC #0 10/12/23 Unknown Rx subcutaneous pen (Humalog KwikPen mL (U-100) Insulin) insulin lispro 100 unit/mL See Protocol subcut ACHS #0 mL 10/12/23 Unknown Rx subcutaneous pen (Humalog KwikPen (U-100) Insulin) bisacodyl 10 mg rectal suppository 10 mg NM DAILY PRN no BM after MOM 11/18/23 Unknown History magnesium hydroxide 400 mg/5 mL 400 mg PO DAILY PRN constipation 11/18/23 Unknown History oral suspension (Milk of Magnesia) furosemide 40 mg tablet 40 mg PO DAILY #0 tabs 11/22/23 Unknown Rx potassium chloride 10 mEq 10 meq PO DAILY #30 caps 11/22/23 Unknown Rx capsule,extended release Allergy/AdvReac Type Severity Reaction Status Date / Time ibuprofen Allergy Itching Verified 12/07/23 11:20 lisinopril Allergy Other Verified 12/07/23 11:20 Penicillins Allergy Itching Verified 12/07/23 11:20 tramadol HCl (From Ultram) Allergy Other Verified 12/07/23 11:20 Family History Mother Cancer Diabetes Father Cancer Surgical History Hx of cataract surgery frozen shoulder surgery H/O thyroidectomy Social History Smoking Status: Former smoker second hand exposure: No alcohol intake: never substance use type: does not use caffeine: Yes Type: carbonated beverages Number of servings: 1 ROS ROS ED Review of Systems ROS Unobtainable: due to mental condition and due to mental status EXAM Physical Exam Const Vital Signs: 12/07/23 11:15 12/07/23 11:20 12/07/23 11:23 Temperature 98 F 98 F Temperature Source Temporal Temporal Pulse Rate 129 H 130 H Respiratory Rate 18 26 H Respiratory Effort Short of Breath Labored Respiratory Depth Normal Respiratory Pattern Tachypnea Blood Pressure 159/133 H Blood Pressure Mean 141 Pulse Ox 100 99 Oxygen Delivery Method Non-Rebreather Non-Rebreather Non-Rebreather Oxygen Flow Rate (L/min) 10 10 10 12/07/23 11:36 12/07/23 11:37 12/07/23 12:15 Temperature Temperature Source Pulse Rate 125 H 120 H Respiratory Rate 31 H Respiratory Effort Respiratory Depth Respiratory Pattern Blood Pressure 141/67 H 138/84 H Blood Pressure Mean 99 Pulse Ox 98 99 Oxygen Delivery Method Non-Rebreather Oxygen Flow Rate (L/min) 10 12/07/23 12:20 12/07/23 12:39 12/07/23 12:43 Temperature 98 F Temperature Source Temporal Pulse Rate 118 H Respiratory Rate 30 H Respiratory Effort Respiratory Depth Respiratory Pattern Blood Pressure 131/77 H Blood Pressure Mean 95 Pulse Ox 99 98 96 Oxygen Delivery Method Non-Rebreather High Flow Nasal Cannula Oxygen Flow Rate (L/min) 10 6 6 12/07/23 13:00 12/07/23 13:49 Temperature Temperature Source Pulse Rate 117 H Respiratory Rate 31 H Respiratory Effort Respiratory Depth Respiratory Pattern Blood Pressure 113/80 Blood Pressure Mean 92 Pulse Ox 98 97 Oxygen Delivery Method Nasal Cannula Nasal Cannula Oxygen Flow Rate (L/min) 6 3 Positive well nourished and well developed General Appearance ED: well developed HEENT Reports moist mucous membranes Neck supple Resp Auscultation: diminished lung sounds diffuse Cardio regular rhythm Rate: tachycardic GI non-distended Auscultation: normoactive bowel sounds Palpation: soft Extremity General Extremety ED: Yes edema General Extremity: edema Neuro CN's II-XII intact bilaterally Sensorium / Orientation: alert Motor Exam: general weakness MDM MDM MDM Narrative Medical decision making narrative: Differential diagnosis includes cardiac dysrhythmia, cardiac ischemia, congestive heart failure, pneumonia, pulmonary embolism, pleural effusion, pneumothorax, sepsis, DKA, and electrolyte abnormality. EKG will be obtained to assess for cardiac dysrhythmia and cardiac ischemia. Chest x-ray will be obtained to assess for pneumonia, pneumothorax, and congestive heart failure. CBC will be obtained to assess for leukocytosis and anemia. Basic metabolic profile will be obtained to assess for electrolyte abnormality and renal function. High-sensitivity troponin will be obtained to assess for cardiac ischemia. D-dimer will be obtained to assess for pulmonary embolism. BNP will be obtained to assess for congestive heart failure. Serum acetone will be obtained to assess for DKA. COVID-19, influenza, and RSV PCR will be obtained to assess for viral infection. Serum lactate will be obtained to assess for sepsis. Blood cultures will be obtained to assess for sepsis. Arterial blood gas will be obtained to assess for oxygenation status. Lab Data Attestation: I reviewed the patient's lab results. Lab results narrative: CBC was reviewed and showed a mildly elevated white blood cell count of 11.7. Hemoglobin was slightly low at 11.8. Platelets were normal. Arterial blood gas was reviewed. pH was 7.33 with a bicarb of 20.7. pO2 was within normal limits, pCO2 was normal. Oxygen saturation was 97% on 10 L nonrebreather mask. Basic metabolic profile was reviewed. Chloride was slightly elevated at 112. CO2 is slightly low at 20.0. Creatinine was 1.97. This is consistent with previous results. BUN was normal. Glucose was elevated at 333. Serum lactate was reviewed and was elevated at 3.9. High-sensitivity troponin was reviewed and was slightly elevated at 91. BNP was reviewed and was slightly elevated at 593.4. Serum acetone level was reviewed and was negative. COVID-19 PCR was reviewed and was negative. Influenza PCR was reviewed and was negative for influenza A and influenza B. RSV PCR was reviewed and was negative. Labs: Laboratory Results - last 24 hr 12/07/23 12/07/23 12/07/23 11:25 11:25 11:40 WBC Cancelled Corrected WBC Cancelled RBC Cancelled Hgb Cancelled Hct Cancelled MCV Cancelled MCH Cancelled MCHC Cancelled RDW Std Deviation Cancelled RDW Coeff of Don Cancelled Plt Count Cancelled MPV Cancelled Immature Gran % (Auto) Cancelled Neut % (Auto) Cancelled Lymph % (Auto) Cancelled [place] % (Auto) Cancelled Eos % (Auto) Cancelled Baso % (Auto) Cancelled Absolute Neuts (auto) Cancelled Absolute Lymphs (auto) Cancelled Total Counted Cancelled Neutrophils % (Manual) Cancelled Band Neutrophils % Cancelled Lymphocytes % (Manual) Cancelled Monocytes % (Manual) Cancelled Eosinophils % (Manual) Cancelled Basophils % (Manual) Cancelled Metamyelocytes % Cancelled Myelocytes % Cancelled Promyelocytes % Cancelled Blast Cells % Cancelled Plasma Cell % (Manual) Cancelled Other Cells % Cancelled Nucleated RBC % Cancelled Nucleated RBCs/100 WBC Cancelled Differential Comment Cancelled Diff Path Review Cancelled Hypersegmented Neuts Cancelled Atypical Lymphocytes Cancelled Reactive Lymphocytes Cancelled Smudge Cells Cancelled Toxic Granulation Cancelled Toxic Vacuolation Cancelled Dohle Bodies Cancelled Moris Rods Cancelled Platelet Estimate Cancelled Plt Morphology Comment Cancelled RBC Morphology Cancelled Cancelled Polychromasia Cancelled Hypochromasia Cancelled Basophilic Stippling Cancelled Anisocytosis Cancelled Microcytosis Cancelled Macrocytosis Cancelled Spherocytes Cancelled Sickle Cells Cancelled Target Cells Cancelled Tear Drop Cells Cancelled Ovalocytes Cancelled Stomatocytes Cancelled Chan-Olla Bodies Cancelled [place] Cells Cancelled Bite Cells Cancelled Crenated Cell Cancelled Acanthocytes (Spur) Cancelled Rouleaux Cancelled Schistocytes Cancelled D-Dimer Quant (PE/DVT) Cancelled Sodium 139 Potassium 4.6 Chloride 112 H Carbon Dioxide 20.0 L Anion Gap 7 BUN 13 Creatinine 1.97 H Est GFR (MDRD) Af Amer 32 L Est GFR (MDRD) Non-Af 26 L BUN/Creatinine Ratio 6.6 L Glucose 333 H Lactic Acid 3.9 H* Calcium 9.0 Troponin I High Sens 91 H B-Natriuretic Peptide 592.4 H Acetone Level NEGATIVE 12/07/23 12:28 WBC 11.7 H Corrected WBC RBC 4.31 Hgb 11.8 L Hct 38.5 MCV 89.3 MCH 27.4 MCHC 30.6 L RDW Std Deviation 50.4 H RDW Coeff of Don 15.5 H Plt Count 299 MPV 10.7 Immature Gran % (Auto) 0.500 Neut % (Auto) 81.1 H Lymph % (Auto) 12.2 L [place] % (Auto) 4.7 Eos % (Auto) 0.9 Baso % (Auto) 0.6 Absolute Neuts (auto) 9.5 H Absolute Lymphs (auto) 1.43 Total Counted Neutrophils % (Manual) Band Neutrophils % Lymphocytes % (Manual) Monocytes % (Manual) Eosinophils % (Manual) Basophils % (Manual) Metamyelocytes % Myelocytes % Promyelocytes % Blast Cells % Plasma Cell % (Manual) Other Cells % Nucleated RBC % 0 Nucleated RBCs/100 WBC Differential Comment Diff Path Review Hypersegmented Neuts Atypical Lymphocytes Reactive Lymphocytes Smudge Cells Toxic Granulation Toxic Vacuolation Dohle Bodies Moris Rods Platelet Estimate Plt Morphology Comment RBC Morphology Polychromasia Hypochromasia Basophilic Stippling Anisocytosis Microcytosis Macrocytosis Spherocytes Sickle Cells Target Cells Tear Drop Cells Ovalocytes Stomatocytes Chan-Olla Bodies Doretha Cells Bite Cells Crenated Cell Acanthocytes (Spur) Rouleaux Schistocytes D-Dimer Quant (PE/DVT) Sodium Potassium Chloride Carbon Dioxide Anion Gap BUN Creatinine Est GFR (MDRD) Af Amer Est GFR (MDRD) Non-Af BUN/Creatinine Ratio Glucose Lactic Acid Calcium Troponin I High Sens B-Natriuretic Peptide Acetone Level ABG Data ABG results: ABG 12/07/23 11:48 Specimen Type ART Sample Site R Radial pH 7.33 L Bicarbonate Actual 20.7 L Total CO2 22 Base Excess -5 L O2 Saturation 97 O2 % 10.0 ABG pCO2 39.4 ABG pO2 93 Neri Test Positive O2 Delivery Device NRB Vent Mode Not entered Radiography Diagnostic Testing: Clinical Impression(s) from Imaging Studies Chest X-Ray 12/07/23 12:05 IMPRESSION: Findings suggestive of infarct vascular congestion and CHF with possible infiltrates and/or atelectasis at the lung bases worse at the right lung base. Electronically Signed: Richard Barbosa MD at 12:19 EDT , Portable chest x-ray was obtained. There is 1 view. On my independent interpretation, there is vascular congestion and CHF with possible infiltrates and/or atelectasis in the lung bases, worse at the right lung base. Radiologist also interpreted the x-rays and agrees. EKG Initial EKG: Interpretation: Sinus Tachycardia (129) and Non-Specific ST Changes Comments: EKG was obtained. On my independent interpretation, shows sinus tachycardia with occasional PVCs. NM interval was within normal limits at 136 ms. QRS interval was normal at 82 ms. QTc interval was normal at 468 ms. There is left axis deviation at -46. There are nonspecific ST-T wave changes noted. Prior EKG tracings: available for review Prior: Unchanged (11/18/2023) Treatment and Re-Evaluation :: Patient was given Lasix and nitroglycerin paste initially. Patient was given aspirin initially. After blood cultures returned, patient was started on Rocephin and Zithromax. Patient was more awake and alert on reevaluation. Patient was able to be weaned down to 3 L nasal cannula. Patient and family were advised of the findings. Patient was advised of the need for admission to the hospital. Patient and family were agreeable with this. Case was discussed with the hospitalist. He will admit the patient to PCU. Patient understood and was agreeable with the plan. All questions were answered. Discharge Plan Triage Chief Complaint: Shortness of Breath ED Provider: Prem Roth Dx/Rx/DC Orders Clinical Impression: Pneumonia, Chronic systolic (congestive) heart failure, Type 2 diabetes mellitus, CKD (chronic kidney disease) stage 3, GFR 30-59 ml/min, Hypoxia Prescriptions: No Action (DME) pen needle, diabetic [Comfort EZ Pen [place]] 31 gauge x 5/16 needle See Rx Instructions .ROUTE .MEDSUPPLY Qty: 30 Rx Instructions: test blood sugar six times daily Jardiance 25 mg tablet 25 mg PO DAILY Januvia 25 mg tablet 25 mg PO DAILY atorvastatin 40 MG tablet 40 mg PO QHS clopidogrel 75 MG tablet 75 mg PO DAILY aspirin 81 MG tablet 81 mg PO DAILY@0800 levothyroxine 75 MCG tablet 75 mcg PO DAILY pantoprazole 40 MG tablet 40 mg PO DAILY metoprolol tartrate 50 MG tablet 50 mg PO BID docusate sodium 100 MG capsule 100 mg PO BID Patient Comments: constipation memantine 10 mg tablet 10 mg PO DAILY Patient Comments: at bedtime polyethylene glycol 3350 [ClearLax] 17 gram/dose powder 17 g PO DAILY PRN (Reason: constipation) Calcium 600 + D(3) 600 mg-5 mcg (200 unit) capsule 1 cap PO DAILY acetaminophen 325 mg Tablet 650 mg PO Q6H PRN PRN (Reason: Pain 1-10 Or Fever >100.7) Qty: 0 0RF insulin lispro [Humalog KwikPen Insulin] 100 unit/mL Insulin Pen See Protocol subcut ACHS Qty: 0 0RF Protocol: 4. Sliding Scale Insulin High-Med Dosing Condition: 150-199 mg/dl = 2 units Condition: 200-259 mg/dl = 4 units Condition: 260-324 mg/dl = 6 units Condition: 325-374 mg/dl = 8 units Condition: 375-409 mg/dl = 10 units Condition: 410-449 mg/dl = 11 units Condition: Greater than 449 call physician Protocol Text: - Use for Total Daily Dose of Insulin 56-80 units - Patient who are insulin resistant or septic HIGH MEDIUM DOSING ALGORITHM insulin lispro [Humalog KwikPen Insulin] 100 unit/mL Insulin Pen 15 unit subcut TIDAC Qty: 0 0RF insulin glargine [Basaglar KwikPen U-100 Insulin] 100 unit/mL (3 mL) insulin pen 22 unit subcut BID 30 Days Qty: 0 0RF bisacodyl 10 mg suppository 10 mg NM DAILY PRN (Reason: no BM after MOM) magnesium hydroxide [Milk of Magnesia] 400 mg/5 mL suspension 400 mg PO DAILY PRN (Reason: constipation) furosemide 40 mg Tablet 40 mg PO DAILY Qty: 0 0RF potassium chloride 10 mEq capsule, extended release 10 meq PO DAILY Qty: 30 0RF Primary Care Provider: Claude Lee Referrals: Claude Lee MD [Primary Care Provider] - Print Language: Vietnamese Disposition Disposition: Acute Care [facility]
[2023-12-07] MEDS: Nitroglycerin Oint 1 INCH PACKET TD (11:36)
[2023-12-07] MEDS: Furosemide 40 MG/4 ML Vial IV (11:45)
[2023-12-07 11:51] LABS: Allen Test Positive; Base Excess -5 mmol/L (-2 to +2); Bicarbonate 20.7 mmol/L (22-26); Blood Gas Specimen Type ART; Mode Not entered; O2 Delivery Device NRB; PO2 93 mmHG (75-100); SITE R Radial; SO2 97 % (95-99); Total Carbon Dioxide 22 mmol/L; pCO2 39.4 mmHg (35-45); pH 7.33 (7.35-7.45)
[2023-12-07 12:04] LABS: Anion Gap 7 (5-15); BUN 13 mg/dL (7-18); BUN/Creat Ratio 6.6 RATIO (10-20); Chloride 112 mmol/L (98-107); Creatinine, Serum 1.97 mg/dL (0.55-1.02); EST Glomerular Filtration Rate 26 mL/min (>60); Est Glom Filt Rate - Afr Amer 32 mL/min (>60); Glucose 333 mg/dL (74-106); Potassium 4.6 mmol/L (3.5-5.1); Sodium Level 139 mmol/L (136-145); Troponin-I HS 91 pg/mL (3.0-54.0)
--- NOTE | 2023-12-07 12:05 | RAD_ITS ---
STUDY: X-RAY CHEST REASON FOR EXAM: Female, 73 years old. Dyspnea. Hypoxemia. TECHNIQUE: Single AP portable view of the chest. COMPARISON: Comparison is made with prior study dated November 18, 2023. FINDINGS: EKG electrodes are seen. Thoracic congestion and mild CHF with possible atelectasis and/or infiltrate at the lung bases worse on the right side. There is no demonstrated pleural abnormality. There is borderline cardiomegaly. Normal mediastinum and [place]. Normal visualized pulmonary arteries. There is atherosclerotic calcification of the aortic arch with tortuosity. Normal visualized thoracic spine. Normal visualized ribs, clavicles, and shoulders. There is no demonstrated abnormality of the visualized soft tissue structures of the upper abdomen. RAD/Chest 1 View (Portable) IMPRESSION: Findings suggestive of infarct vascular congestion and CHF with possible infiltrates and/or atelectasis at the lung bases worse at the right lung base. Electronically Signed: Richard Barbosa MD at 12:19 EDT ,
[2023-12-07 12:13] LABS: BNP,B-Type NATRIURETIC PEPTIDE 592.4 pg/mL (0-100)
[2023-12-07 12:27] LABS: Lactic Acid 3.9 mmol/L (0.4-1.9)
[2023-12-07 12:34] LABS: Absolute Lymphocyte Count 1.43 X10^3/uL (0.83-4.51); Absolute Neutrophil Count 9.5 X10^3/uL (2.0-7.7); Basophil# 0.07 X10^3/uL; Basophil% 0.6 % (0-1); Eosinophil# 0.11 X10^3/uL; Eosinophils% 0.9 % (0-5); Hematocrit 38.5 % (37-47); Hemoglobin 11.8 g/dL (12.0-15.0); Lymphocyte # 1.43 X10^3/ul (0.83-4.51); Lymphocyte % 12.2 % (19-41); Mean Corp Hgb Conc 30.6 g/dL (32-36); Mean Corpuscular Hgb 27.4 pg (27.0-32.0); Mean Corpuscular Volume 89.3 fL (81-99); Mean Platelet Vol. 10.7 fl (6.2-12.0); Monocyte# 0.55 X10^3/uL; Monocyte% 4.7 % (0-10); NRBC Flagged by Analyzer 0 % (0-5); Neutrophil % 81.1 % (47-70); Platelet Count 299 K/mm3 (150-450); RBC Distribution Width CV 15.5 % (11.6-14.6); RBC Distribution Width SD 50.4 fl (35.1-43.9); Red Blood Count 4.31 M/mm3 (4.2-5.4); White Blood Count 11.7 K/mm3 (4.4-11.0)
--- NOTE | 2023-12-07 13:53 | PCM.HP.STD ---
HPI - General General Date of Admission: 12/07/23 Date of Service: 12/07/23 Chief Complaint: Found hypoxic in usp, 58% on room air. Chronic cough productive HPI Narrative FATIMAH DUNCAN, is a 73 F was brought to ED by EMS for shortness of breath/breathing difficulty. Patient was found in respiratory distress as described by EMS, pulse ox in 58% on room air. Patient was put on nonrebreather brought to ED. She was also given DuoNeb treatment in doubt. She was tachycardic heart rate 128 bpm. BP was 153/94. Patient herself denies any change in the cough but as per usp patient has productive cough. She was recently discharged on 11/21 for acute respiratory failure failure due to MRSA pneumonia and acute on chronic systolic heart failure on linezolid and diuretic Lasix. Patient denies fever, chest pain or pressure or tightness [facility] Medical History CKD (chronic kidney disease) stage 3, GFR 30-59 ml/min History of left heart catheterization (LHC) (~12/21/10) CVA (cerebral vascular accident) Ischemic cardiomyopathy Old myocardial infarction History of non-ST elevation myocardial infarction (NSTEMI) Atherosclerotic heart disease of [place] coronary artery without angina pectoris Mixed hyperlipidemia Essential hypertension Chronic systolic (congestive) heart failure Hearing problem IBS (irritable bowel syndrome) GI problem Diabetes type 2, controlled Cataracts, bilateral Bladder infection Back problem Arthritis Dementia History of gastrointestinal hemorrhage Diabetic peripheral neuropathy Hypothyroidism Gastroesophageal reflux disease Type 2 diabetes mellitus Cerebrovascular disease Home Medications ?Medication ?Instructions ?Recorded ?Last Taken ?Type aspirin 81 mg tablet,delayed 81 mg PO DAILY@0800 heart health 05/27/13 10/08/23 History release atorvastatin 40 mg tablet 40 mg PO QHS cholesterol 05/27/13 10/07/23 History clopidogrel 75 mg tablet 75 mg PO DAILY blood clotting 05/27/13 10/08/23 History docusate sodium 100 mg capsule 100 mg PO BID stool 05/27/13 05/02/21 History levothyroxine 75 mcg tablet 75 mcg PO DAILY thyroid 05/27/13 10/08/23 History metoprolol tartrate 50 mg tablet 50 mg PO BID heart 05/27/13 10/08/23 History pantoprazole 40 mg tablet,delayed 40 mg PO DAILY stomach 05/27/13 10/08/23 History release pen needle, diabetic 31 gauge x #30 ea 06/05/17 Unknown History 10/10 (Comfort EZ Pen [place]) empagliflozin 25 mg tablet 25 mg PO DAILY dmII 03/29/22 10/08/23 History (Jardiance) sitagliptin phosphate 25 mg tablet 25 mg PO DAILY DMII 06/06/23 10/08/23 History (Januvia) calcium carbonate 600 mg-vitamin 1 cap PO DAILY calcium 10/08/23 10/08/23 History D3 5 mcg (200 unit) capsule (Calcium 600 + D(3)) memantine 10 mg tablet 10 mg PO DAILY dementia 10/08/23 10/07/23 History polyethylene glycol 3350 17 17 g PO DAILY PRN constipation 10/08/23 Unknown History gram/dose oral powder (ClearLax) acetaminophen 325 mg tablet 650 mg (2 x 325 mg) PO Q6H PRN PRN 10/12/23 Unknown Rx Pain 1-10 Or Fever >100.7 #0 tabs insulin glargine 100 unit/mL (3 22 unit (0.22 mL) subcut BID dmII 10/12/23 10/07/23 Rx mL) subcutaneous pen (Basaglar 30 days #0 mL KwikPen U-100 Insulin) insulin lispro 100 unit/mL 15 unit (0.15 mL) subcut TIDAC #0 10/12/23 Unknown Rx subcutaneous pen (Humalog KwikPen mL (U-100) Insulin) insulin lispro 100 unit/mL See Protocol subcut ACHS #0 mL 10/12/23 Unknown Rx subcutaneous pen (Humalog KwikPen (U-100) Insulin) bisacodyl 10 mg rectal suppository 10 mg MT DAILY PRN no BM after MOM 11/18/23 Unknown History magnesium hydroxide 400 mg/5 mL 400 mg PO DAILY PRN constipation 11/18/23 Unknown History oral suspension (Milk of Magnesia) furosemide 40 mg tablet 40 mg PO DAILY #0 tabs 11/22/23 Unknown Rx potassium chloride 10 mEq 10 meq PO DAILY #30 caps 11/22/23 Unknown Rx capsule,extended release Allergy/AdvReac Type Severity Reaction Status Date / Time ibuprofen Allergy Itching Verified 12/07/23 11:20 lisinopril Allergy Other Verified 12/07/23 11:20 Penicillins Allergy Itching Verified 12/07/23 11:20 tramadol HCl (From Ultram) Allergy Other Verified 12/07/23 11:20 Family History Mother Cancer Diabetes Father Cancer Surgical History Hx of cataract surgery frozen shoulder surgery H/O thyroidectomy Social History Smoking Status: Former smoker second hand exposure: No alcohol intake: never substance use type: does not use caffeine: Yes Type: carbonated beverages Number of servings: 1 ROS ROS Narrative 14 system ROS bili collected from patient's caregiver as patient has limited understanding/cognitive deficit. Constitutional: Reports chronic fatigue and weakness. On walker. No fever. HEENT: Reports systems reviewed and no addt'l complaints, except as documented Respiratory/Chest: Acute on chronic shortness of breath. Cough. CVS: Denies chest pain pressure or tightness Gastrointestinal: Denies coffee ground emesis, hematemesis or vomiting Genitourinary: Denies burning urination or new urinary tract symptoms. Chronic urinary incontinence. Musculoskeletal: Bilateral leg swelling. Walks on walker. Denies acute joint pain or limited range of motion. No acute injury Neurologic: Denies seizure-like symptoms. Previous 2 times a stroke. Chronic bilateral leg weakness. skin: No ulcer. No rash Endocrinology: Reports systems reviewed and no addt'l complaints, except as documented Hematologic/Lymphatic: Reports systems reviewed and no addt'l complaints, except as documented Rest 14 ROS are negative except as mentioned in HPI Review of Systems ROS Unobtainable: due to mental condition Vital Signs Vital Signs Vital Signs: 12/07/23 11:15 12/07/23 11:20 12/07/23 11:23 Temperature 98 F 98 F Temperature Source Temporal Temporal Pulse Rate 129 H 130 H Respiratory Rate 18 26 H Respiratory Effort Short of Breath Labored Respiratory Depth Normal Respiratory Pattern Tachypnea Blood Pressure 159/133 H Blood Pressure Mean 141 Pulse Ox 100 99 Oxygen Delivery Method Non-Rebreather Non-Rebreather Non-Rebreather Oxygen Flow Rate (L/min) 10 10 10 12/07/23 11:36 12/07/23 11:37 12/07/23 12:15 Temperature Temperature Source Pulse Rate 125 H 120 H Respiratory Rate 31 H Respiratory Effort Respiratory Depth Respiratory Pattern Blood Pressure 141/67 H 138/84 H Blood Pressure Mean 99 Pulse Ox 98 99 Oxygen Delivery Method Non-Rebreather Oxygen Flow Rate (L/min) 10 12/07/23 12:20 12/07/23 12:39 12/07/23 12:43 Temperature 98 F Temperature Source Temporal Pulse Rate 118 H Respiratory Rate 30 H Respiratory Effort Respiratory Depth Respiratory Pattern Blood Pressure 131/77 H Blood Pressure Mean 95 Pulse Ox 99 98 96 Oxygen Delivery Method Non-Rebreather High Flow Nasal Cannula Oxygen Flow Rate (L/min) 10 6 6 12/07/23 13:00 12/07/23 13:49 Temperature Temperature Source Pulse Rate 117 H Respiratory Rate 31 H Respiratory Effort Respiratory Depth Respiratory Pattern Blood Pressure 113/80 Blood Pressure Mean 92 Pulse Ox 98 97 Oxygen Delivery Method Nasal Cannula Nasal Cannula Oxygen Flow Rate (L/min) 6 3 Physical Exam Narrative General: Alert, Oriented x3, Cooperative HEENT: Atraumatic, PERRLA, EOMI, Normocephalic Oral: Oral mucosa dry no Gingival or Mucosal Lesions/ Ulcerations Neck: Supple, No JVD, Negative Carotid Bruits Chest wall/Lungs: Air entry diminished in bilateral lung bases. No crepitation/rhonchi Cardiovascular: Regular rate, Regular Rhythm, Normal S1, Normal S2, No M/G/R Abdomen: Bowel Sounds Present, Soft, Non Tender, Non-Distended : No dysuria. No renal angle tenderness. No suprapubic tenderness. Extremities: No edema, Capillary Refill Less than 3 Seconds Skin: No rashes, No breakdown Musculoskeletal: No Tenderness to Palpation of Joints or Extremities. Chronic arthritis, limited mobility on walker Neurological: Cranial nerves II-XII grossly intact, DTR 2+/4. No acute focal neurological deficit. Psych/Mental Status: Flat affect. Cognitive deficit. Results Lab / Micro Data 12/07/23 12:28 12/07/23 11:25 Labs: Laboratory Results - last 24 hr 12/07/23 11:25: WBC Cancelled, Corrected WBC Cancelled, RBC Cancelled, Hgb Cancelled, Hct Cancelled, MCV Cancelled, MCH Cancelled, MCHC Cancelled, RDW Std Deviation Cancelled, RDW Coeff of Don Cancelled, Plt Count Cancelled, MPV Cancelled, Immature Gran % (Auto) Cancelled, Neut % (Auto) Cancelled, Lymph % (Auto) Cancelled, [place] % (Auto) Cancelled, Eos % (Auto) Cancelled, Baso % (Auto) Cancelled, Absolute Neuts (auto) Cancelled, Absolute Lymphs (auto) Cancelled, Total Counted Cancelled, Neutrophils % (Manual) Cancelled, Band Neutrophils % Cancelled, Lymphocytes % (Manual) Cancelled, Monocytes % (Manual) Cancelled, Eosinophils % (Manual) Cancelled, Basophils % (Manual) Cancelled, Metamyelocytes % Cancelled, Myelocytes % Cancelled, Promyelocytes % Cancelled, Blast Cells % Cancelled, Plasma Cell % (Manual) Cancelled, Other Cells % Cancelled, Nucleated RBC % Cancelled, Nucleated RBCs/100 WBC Cancelled, Differential Comment Cancelled, Diff Path Review Cancelled, Hypersegmented Neuts Cancelled, Atypical Lymphocytes Cancelled, Reactive Lymphocytes Cancelled, Smudge Cells Cancelled, Toxic Granulation Cancelled, Toxic Vacuolation Cancelled, Dohle Bodies Cancelled, Moris Rods Cancelled, Platelet Estimate Cancelled, Plt Morphology Comment Cancelled, RBC Morphology Cancelled 12/07/23 11:25: RBC Morphology Cancelled, Polychromasia Cancelled, Hypochromasia Cancelled, Basophilic Stippling Cancelled, Anisocytosis Cancelled, Microcytosis Cancelled, Macrocytosis Cancelled, Spherocytes Cancelled, Sickle Cells Cancelled, Target Cells Cancelled, Tear Drop Cells Cancelled, Ovalocytes Cancelled, Stomatocytes Cancelled, [place] Bodies Cancelled, [place] Cells Cancelled, Bite Cells Cancelled, Crenated Cell Cancelled, Acanthocytes (Spur) Cancelled, Rouleaux Cancelled, Schistocytes Cancelled, D-Dimer Quant (PE/DVT) Cancelled, Sodium 139, Potassium 4.6, Chloride 112 H, Carbon Dioxide 20.0 L, Anion Gap 7, BUN 13, Creatinine 1.97 H, Est GFR (MDRD) Af Amer 32 L, Est GFR (MDRD) Non-Af 26 L, BUN/Creatinine Ratio 6.6 L, Glucose 333 H, Lactic Acid 3.9 H*, Calcium 9.0, Troponin I High Sens 91 H, B-Natriuretic Peptide 592.4 H 12/07/23 11:40: Acetone Level NEGATIVE 12/07/23 12:28: WBC 11.7 H, RBC 4.31, Hgb 11.8 L, Hct 38.5, MCV 89.3, MCH 27.4, MCHC 30.6 L, RDW Std Deviation 50.4 H, RDW Coeff of Don 15.5 H, Plt Count 299, MPV 10.7, Immature Gran % (Auto) 0.500, Neut % (Auto) 81.1 H, Lymph % (Auto) 12.2 L, [place] % (Auto) 4.7, Eos % (Auto) 0.9, Baso % (Auto) 0.6, Absolute Neuts (auto) 9.5 H, Absolute Lymphs (auto) 1.43, Nucleated RBC % 0 Micro: Microbiology 12/07/23 11:25 Mucosa - Nose SARS-CoV-2, Influenza & RSV (PCR) - Final ABG Data ABG results: ABG 12/07/23 11:48 Specimen Type ART Sample Site R Radial pH 7.33 L Bicarbonate Actual 20.7 L Total CO2 22 Base Excess -5 L O2 Saturation 97 O2 % 10.0 ABG pCO2 39.4 ABG pO2 93 Neri Test Positive O2 Delivery Device NRB Vent Mode Not entered Imaging Radiology Impression Chest X-Ray 12/07/23 12:05 IMPRESSION: Findings suggestive of infarct vascular congestion and CHF with possible infiltrates and/or atelectasis at the lung bases worse at the right lung base. Electronically Signed: Richard Barbosa MD at 12:19 EDT , Assessment & Plan Assessment/Plan (1) Acute on chronic systolic heart failure: (2) Hypoxia: PLAN: Plan 1. Acute hypoxic respiratory failure probably due to acute exacerbation of chronic systolic heart failure and possible pneumonia: Patient had ABG showing 7.33, 39.4, 93 on nonrebreather. 2. Possible pneumonia: Chest x-ray initially reviewed and shows infiltrate on the right lung base worse than left lung base. The patient presented with sepsis with clinical indicators of tachycardia, tachypnea and severe hypoxia with mild leukocytosis due to with acute sepsis-related organ dysfunction as evidenced by lactic acidosis and acute hypoxic respiratory failure. Patient started on IV ceftriaxone and Zithromax. Pneumonia workup ordered. Patient was recently in the hospital and discharged on 11/21 on linezolid. At that time sputum grew MRSA. MRSA nasal screen. RSV influenza and SARS-CoV-2 PCR are negative. Started on linezolid 600 mg every 12 hourly. Patient high risk of HELENA because of vancomycin Stephanie CKD stage IV 3. Acute on chronic systolic heart failure, CAD with history of [place] in 2018: Chest x-ray suggestive of pulmonary congestion. Echo as mentioned below shows mildly dilated LV with EF 20-25 percent. Furosemide 40 mg IV twice daily. Heart failure core measures including intake and output, fluid restriction less than 1500 mL, daily weight monitoring, kidney and electrolytes monitoring. BNP elevated. Troponin is elevated. Twelve-lead EKG individually reviewed, sinus tachycardia at 129 beats minute, PVC, LAD, low voltage QRS. QTc [address]-T changes. Patient denies chest pain pressure or tightness. Cycle cardiac enzymes. 4. Generalized weakness, failure to thrive, unable to ambulate or sit up: PT and OT ordered. 5. Previous history affecting the right side of the body and dementia: 6. Hypothyroidism: On Synthroid continued. TSH 0.58 in September 2023. Repeat TSH tomorrow a.m. 7. CKD stage IV: Patient BUNs/creatinine 13/1.97, BUN/creatinine ratio 6.6. Patient baseline creatinine runs between 1.8-2.14. 8. Diabetes mellitus type 2 uncontrolled: Glucose is 333, uncontrolled and hide Accu-Chek before meals and at bedtime with Humalog sliding scale coverage. 9. DVT prophylaxis: Lovenox 30 mill subcu daily, adjusted to the creatinine clearance. Living will/advanced directive/end of life care: Patient does have living will or advanced directive. Her power of insurance defense attorney for health is her son. After discussion of benefits/risks procedures involved with full code, DNR CC arrest and DNR CC, the patient's caregiver states that she is DNR CC arrest with no intubation Patient doesn't want artificial life support including intubation, tube feed, ventilator and/chest compression, central venous catheter, vasopressor and DC shock if needed Total time spent in [id number] encounter in discussion of advanced directive 17 minutes. 2D echo 11/18/2023. Interpretation Summary Mildly dilated left ventricle. LV anterior and apical akinesis with thinning. Estimated LV EF 20 to 25%. Stage 1 diastolic dysfunction. Bubble contrast study is negative for PFO/ASD. Mild (1+) posteriorly directed mitral valve insufficiency. Mild eccentric tricuspid valve insufficiency. Right ventricular systolic pressure estimated to be 37 mmHg. Microbiology Past 72 Hours 12/07/23 11:25 Mucosa - Nose SARS-CoV-2, Influenza & RSV (PCR) - Final Laboratory Results Sodium 139, Potassium 4.6, Chloride 112 H, Carbon Dioxide 20.0 L, Anion Gap 7, BUN 13, Creatinine 1.97 H, Est GFR (MDRD) Af Amer 32 L, Est GFR (MDRD) Non-Af 26 L, BUN/Creatinine Ratio 6.6 L, Glucose 333 H, Lactic Acid 3.9 H*, Calcium 9.0, Troponin I High Sens 91 H, B-Natriuretic Peptide 592.4 H 12/07/23 11:40: Acetone Level NEGATIVE 12/07/23 11:48: Specimen Type ART, Sample Site R Radial, pH 7.33 L, Bicarbonate Actual 20.7 L, Total CO2 22, Base Excess -5 L, O2 Saturation 97, O2 % 10.0, ABG pCO2 39.4, ABG pO2 93, Neri Test Positive, O2 Delivery Device NRB, Vent Mode Not entered 12/07/23 12:28: WBC 11.7 H, RBC 4.31, Hgb 11.8 L, Hct 38.5, MCV 89.3, MCH 27.4, MCHC 30.6 L, RDW Std Deviation 50.4 H, RDW Coeff of Don 15.5 H, Plt Count 299, MPV 10.7, Immature Gran % (Auto) 0.500, Neut % (Auto) 81.1 H, Lymph % (Auto) 12.2 L, [place] % (Auto) 4.7, Eos % (Auto) 0.9, Baso % (Auto) 0.6, Absolute Neuts (auto) 9.5 H, Absolute Lymphs (auto) 1.43, Nucleated RBC % 0 Clinical Impression(s) from Imaging Studies Chest X-Ray 12/07/23 12:05 IMPRESSION: Findings suggestive of infarct vascular congestion and CHF with possible infiltrates and/or atelectasis at the lung bases worse at the right lung base. Electronically Signed: Richard Barbosa MD at 12:19 EDT , Charges/Coding Visit Charges Inpatient E&M: 70310 Init Hosp L3 Procedures Hospitalists Procedures: 91224 Advncd Care Plan 30 Min
[2023-12-07] MEDS: Ceftriaxone 2 GM in 0.9% Normal Saline (50mL MB+) 50 ML IV (14:21)
[2023-12-07 14:29] LABS: International Normalized Ratio 1.1; Prothrombin Time (Protime)PT. 14.3 SECONDS (11.7-14.9)
[2023-12-07 14:30] LABS: Partial Thromboplast Time 22.6 Seconds (24.1-36.2)
[2023-12-07 14:36] LABS: AST(SGOT) 36 U/L (15-37); Alanine Aminotransfer ALT/SGPT 32 U/L (13-56); Albumin, Serum 2.1 g/dL (3.2-5.0); Alkaline Phosphatase 165 U/L (45-117); Bilirubin, Direct 0.23 mg/dL (0.00-0.30); CPK Total, Creatine Kinase 91 U/L (26-192); Globulin 5.4 g/dL (2.2-4.2); Magnesium 2.2 mg/dL (1.6-2.6); Phosphorus 4.3 mg/dL (2.5-4.9); Protein, Total 7.5 g/dL (6.4-8.2)
[2023-12-07 14:40] LABS: Bacteria 0 SEEN /hpf (None Seen); Mucous, Urine 0 SEEN /hpf (<or=2+); Red Blood Cells-Urine 0 SEEN /hpf (0-5); Squamous Epithelial Cells - UA 0 SEEN /hpf (5-10)
[2023-12-07 14:44] LABS: Color, Urine Straw (Yellow); Glucose, Dipstick 1000 mg/dl (Normal); Ketone-Dipstick Negative (Negative); Leukocyte Esterase-Dipstick 25 /ul (Negative); Nitrite-Dipstick Negative (Negative); Occult Blood-Urine 10 /ul (Negative); Protein-Dipstick 100 mg/dl (Negative); Specific Gravity, Urine 1.005 (1.002-1.030); Urine Bilirubin Dipstick Negative (Negative); Urine Clarity Clear (Clear); Urine Urobilinogen Normal (Normal); Urine pH 6.5 (5.0 - 8.0)
[2023-12-07 14:53] LABS: White Blood Cells 5-10 SEEN /hpf (0-5)
[2023-12-07 15:42] LABS: Reflex Lactate? Y
[2023-12-07] MEDS: Enoxaparin 30 MG/0.3 ML Syringe SC (16:03)
[2023-12-07] MEDS: 0.9% Saline Lock 10 ML Syringe IV ×2 (16:12→22:26)
[2023-12-07] MEDS: Azithromycin 500 MG in Dextrose 5%-Water (250mL Bag) 250 ML 250 MG IV (16:12)
[2023-12-07 16:18] LABS: Troponin-I HS 334 pg/mL (3.0-54.0)
--- NOTE | 2023-12-07 16:29 | NURSING ---
Patient noted to be coughing and choking on all foods and fluids. Pt made NPO for speech therapy consult. Pt and visitor educated risks of choking, aspiration and NPO status. Visitor has been bringing in snacks for pt, educated pt not to eat. Pt and visitor verbalized understanding.
[2023-12-07] MEDS: Linezolid 600 MG 600 MG/300 ML BAG 200 MG IV (17:24)
[2023-12-07 17:52] LABS: Lactic Acid 2.9 mmol/L (0.4-1.9); Troponin-I HS 363 pg/mL (3.0-54.0)
--- NOTE | 2023-12-07 20:10 | NURSING ---
Visitor in room with pt. Visitor admitted to giving a small sip to pt while pt NPO during day. Visitor and pt was again educated on risk of aspiration and NPO status. Visitor and pt verbalized understanding.
--- NOTE | 2023-12-07 21:54 | PCM.HOSP.N ---
Hospitalist Note Patient NPO secondary to aspiration concerns earlier in the day per RN report. Due for BB, PPI. Will transition x 1 dose to IV.
[2023-12-07 22:24] LABS: Bedside Glucose 218 mg/dL (74-106)
[2023-12-07] MEDS: Metoprolol Tartrate 5 MG/5 ML Vial IV (22:25)
[2023-12-07] MEDS: Pantoprazole Sodium 40 MG in 0.9% Normal Saline (100mL MB+) 100 ML 330 MG IV (22:34)
[2023-12-07] MEDS: Insulin Lispro 100 UNIT/ML INSULN.PEN SC (22:35)
[2023-12-07] MEDS: Insulin Glargine-YFGN 100 UNIT/ML Pen 15 UNIT SC (22:36)
[2023-12-08] VITALS (21 sets, daily range): BP systolic 113–164; BP diastolic 64–82; PULSE 66–108; RESP 12–38; TEMP 36.5–36.9; O2SAT 75–100; BMI 31.8
[2023-12-08] MEDS: Linezolid 600 MG 600 MG/300 ML BAG 200 MG IV ×3 (01:10→21:57)
[2023-12-08 05:55] LABS: Absolute Neutrophil Count 3.8 X10^3/uL (2.0-7.7); Basophil# 0.05 X10^3/uL; Basophil% 0.7 % (0-1); Eosinophil# 0.48 X10^3/uL; Eosinophils% 6.5 % (0-5); Hematocrit 32.7 % (37-47); Hemoglobin 10.2 g/dL (12.0-15.0); Lymphocyte % 33.8 % (19-41); Mean Corp Hgb Conc 31.2 g/dL (32-36); Mean Corpuscular Hgb 27.3 pg (27.0-32.0); Mean Corpuscular Volume 87.4 fL (81-99); Monocyte# 0.54 X10^3/uL; Monocyte% 7.3 % (0-10); NRBC Flagged by Analyzer 0 % (0-5); Neutrophil % 51.4 % (47-70); Platelet Count 339 K/mm3 (150-450); RBC Distribution Width CV 15.5 % (11.6-14.6); RBC Distribution Width SD 49.4 fl (35.1-43.9); Red Blood Count 3.74 M/mm3 (4.2-5.4); White Blood Count 7.4 K/mm3 (4.4-11.0)
[2023-12-08 06:30] LABS: Bedside Glucose 157 mg/dL (74-106)
[2023-12-08 06:52] LABS: Anion Gap 5 (5-15); BUN 13 mg/dL (7-18); BUN/Creat Ratio 7.2 RATIO (10-20); Calcium,Total 8.5 mg/dL (8.5-10.1); Chloride 113 mmol/L (98-107); Creatinine, Serum 1.81 mg/dL (0.55-1.02); EST Glomerular Filtration Rate 29 mL/min (>60); Est Glom Filt Rate - Afr Amer 35 mL/min (>60); Glucose 153 mg/dL (74-106); Potassium 4.1 mmol/L (3.5-5.1); Sodium Level 143 mmol/L (136-145); Thyroid Stim Hormone (TSH) 4.15 uIU/mL (0.358-3.74)
[2023-12-08 08:58] LABS: Bedside Glucose 137 mg/dL (74-106)
--- NOTE | 2023-12-08 09:21 | CASEMGMT ---
ADAM called patient's son Raquel and left him a voice mail requesting a return call to confirm patient's plan is to return to [facility] at discharge. Zoya DOUGHERTY
[2023-12-08 09:58] LABS: T4 Total, Thyroxin 7.8 ug/dL (4.8-13.9)
[2023-12-08] MEDS: Ceftriaxone 2 GM in 0.9% Normal Saline (50mL MB+) 50 ML IV (10:05)
[2023-12-08] MEDS: Enoxaparin 30 MG/0.3 ML Syringe SC (10:06)
[2023-12-08] MEDS: Azithromycin 500 MG in Dextrose 5%-Water (250mL Bag) 250 ML 250 MG IV (10:45)
[2023-12-08] MEDS: Metoprolol Tartrate 50 MG Tablet PO (11:25)
[2023-12-08] MEDS: Aspirin E.C. 81 MG Tablet PO (11:26)
[2023-12-08] MEDS: guaiFENesin/D-Methorphan TAB.SR.12H 2 TABLET PO (11:26)
[2023-12-08] MEDS: Calcium Carb/Vitamin D 1 TABLET Tablet PO (11:27)
[2023-12-08] MEDS: Memantine Hydrochloride 10 MG Tablet PO (11:27)
[2023-12-08] MEDS: Pantoprazole Sodium 40 MG Tablet PO (11:27)
--- NOTE | 2023-12-08 11:50 | CASEMGMT ---
SW received a voice mail from patient's son Harshil and the plan is for patient to return to [place] at d/c. Plan: d/c back to [place] when medically ready. Zoya DOUGHERTY
[2023-12-08 12:03] LABS: Bedside Glucose 196 mg/dL (74-106)
[2023-12-08] MEDS: Furosemide 40 MG/4 ML Vial IV (13:35)
--- NOTE | 2023-12-08 13:55 | RAD_ITS ---
INDICATION: sob, hypoxia EXAMINATION/TECHNIQUE: X-RAY - portable upright AP chest x-ray COMPARISON: 12/07/2023 FINDINGS: LINES/DEVICES: None. LUNGS: Progression of vascular congestion and bilateral airspace opacities with developing consolidation periphery left midlung field and right lower lung field. No definite pleural effusion. MEDIASTINUM AND CARDIOVASCULAR STRUCTURES: Cardiac size stable. BONES AND SOFT TISSUES: No acute changes. RAD/Chest 1 View (Portable) IMPRESSION: Progressive vascular congestion with bilateral infiltrates and consolidations, pulmonary edema versus infection. Electronically Signed: Jens Munoz MD at 15:39 EDT ,
[2023-12-08 14:00] LABS: Allen Test Positive; Base Excess -4 mmol/L (-2 to +2); Bicarbonate 24.4 mmol/L (22-26); Blood Gas Specimen Type ART; Mode Not entered; O2 Delivery Device NRB; PO2 91 mmHG (75-100); SITE R Radial; SO2 94 % (95-99); Total Carbon Dioxide 26 mmol/L; pCO2 63.5 mmHg (35-45); pH 7.19 (7.35-7.45)
[2023-12-08] MEDS: Furosemide 500 MG in Empty Viaflex 50 mL 1 EACH CONT INF (14:57)
--- NOTE | 2023-12-08 15:12 | PCM.PN.HOSP ---
Reason for Visit Reason for Visit: Diagnoses Acute on chronic systolic (congestive) heart failure (12/07/23) Hypoxemia (12/07/23) Subjective Subjective Patient was seen and examined today, this morning at the time my examination, patient was asleep and was hard to arouse and I was not able to carry on a conversation with her. I talked to nursing extensively and they had speech therapy see her and speech therapy feels that she needs to be n.p.o. and undergo a modified barium swallow. I reviewed the patient's medical record including the images of her chest x-ray, I think it is most likely the patient has congestive heart failure, there may be a component of pneumonia however-I will continue to cover her with broad-spectrum antibiotics for possible pneumonia. Patient's urine was positive today for E. coli. Early this afternoon, patient had more respiratory distress and oxygen had to be turned up and ultimately she was placed on BiPAP. Blood gases showed an acidosis with an increased pCO2. Patient was placed on a Lasix drip and I changed her antibiotics stopping her Zithromax and Rocephin and placing her on meropenem. I had a long discussion with the patient's daughter and the patient's son, the patient's son is her POA and he would like full measures for now including mechanical ventilation if needed. I will repeat the patient's blood gas early this evening. Objective Data Objective Data Vital Signs: Vital Signs Temp Pulse Resp BP Pulse Ox O2 Del Method O2 Flow Rate 98.3 F 89 30 H 131/68 H 98 Bi-pap 2 12/08/23 15:00 12/08/23 15:00 12/08/23 15:00 12/08/23 15:00 12/08/23 15:00 12/08/23 15:00 12/08/23 11:24 FiO2 35 12/08/23 15:00 Oxygen Flow Rate (L/min) 2 Oxygen Delivery Method Bi-pap Weight: 97.664 kg Body Mass Index (BMI) 31.8 Intake & Output: Intake and Output for Last 24 Hours 12/06/23 12/07/23 12/08/23 23:59 23:59 23:59 Intake Total 765 / 765 965 / 965 Output Total 800 / 800 500 / 500 Balance -35 / -35 465 / 465 Lab / Micro Data 12/08/23 05:45 12/08/23 05:45 Labs: Laboratory Results - last 24 hr 12/07/23 15:40: Troponin I High Sens 334 H* 12/07/23 17:10: Lactic Acid 2.9 H*, Troponin I High Sens 363 H* 12/07/23 22:04: POC Glucose 218 H 12/08/23 03:32: POC Glucose 157 H 12/08/23 05:45: WBC 7.4, RBC 3.74 L, Hgb 10.2 L, Hct 32.7 L, MCV 87.4, MCH 27.3, MCHC 31.2 L, RDW Std Deviation 49.4 H, RDW Coeff of Don 15.5 H, Plt Count 339, MPV 11.0, Immature Gran % (Auto) 0.300, Neut % (Auto) 51.4, Lymph % (Auto) 33.8, [place] % (Auto) 7.3, Eos % (Auto) 6.5 H, Baso % (Auto) 0.7, Absolute Neuts (auto) 3.8, Absolute Lymphs (auto) 2.50, Nucleated RBC % 0, Sodium 143, Potassium 4.1, Chloride 113 H, Carbon Dioxide 25.0, Anion Gap 5, BUN 13, Creatinine 1.81 H, Estim Creat Clear Calc 33.70, Est GFR (MDRD) Af Amer 35 L, Est GFR (MDRD) Non-Af 29 L, BUN/Creatinine Ratio 7.2 L, Glucose 153 H, Calcium 8.5, TSH 4.15 H, Thyroxine (T4) 7.8 12/08/23 08:12: POC Glucose 137 H 12/08/23 11:40: POC Glucose 196 H Micro: Microbiology 12/07/23 14:36 Urine, Catheterized Urine Culture - Preliminary Presumptive E. coli 12/07/23 15:30 Urine Catheter - [place] Legionella Antigen - Final 12/07/23 15:30 Urine Catheter - [place] Streptococcus pneumoniae Antigen (M - Final 12/07/23 11:25 Mucosa - Nose SARS-CoV-2, Influenza & RSV (PCR) - Final ABG Data ABG results: ABG 12/08/23 13:54 Specimen Type ART Sample Site R Radial pH 7.19 L* Bicarbonate Actual 24.4 Total CO2 26 Base Excess -4 L O2 Saturation 94 L O2 % 100.0 ABG pCO2 63.5 H ABG pO2 91 Neri Test Positive O2 Delivery Device NRB Vent Mode Not entered Crit Call To/Read Back Yes Blood Gas Notified Whom fainatiagobarney Blood Gas Notified Time 13:57:05 Physical Exam Const Constitutional Narrative: Patient is somnolent, at the time of my last examination today, she appeared comfortable on BiPAP General Appearance: cooperative, well kempt and well developed HEENT normocephalic, head/scalp atraumatic and moist oral mucous membranes Eyes conjunctivae normal Neck supple, no JVD and thyroid normal General: trachea midline Resp no retractions and no use of accessory muscles Resp Narrative: Respirations appear shallow and rapid at times Auscultation: rales diffuse; Negative for rhonchi or wheezes Cardio regular rate, regular rhythm, S1 normal heart sound, S2 normal heart sound, no murmurs, no rub and no gallops GI normal to inspection, nondistended, normoactive bowel sounds, soft to palpation, non-tender and non-distended Extremity no clubbing, cyanosis or edema Skin no rashes or lesions noted General Skin Exam: no breakdown Neuro CN's II-XII intact bilaterally Neuro Narrative: Patient is somnolent, she does appear comfortable Assessment & Plan Assessment/Plan (1) Acute on chronic systolic heart failure: PLAN: Plan 1. Acute hypoxic respiratory failure secondary to acute exacerbation of chronic systolic heart failure and possible pneumonia-patient was placed on Lasix drip, she is on BiPAP at this time, pulse ox will be monitored, blood gas will be repeated earlier this evening #2 acute exacerbation of chronic systolic heart failure-again patient will be maintained on IV Lasix drip, her oral medications will be held due to her n.p.o. status #3 acute urinary tract infection with E. 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 #5 type 2 diabetes-patient's blood sugars will be monitored, sliding scale insulin will be administered as needed #6 ischemic cardiomyopathy-complicates care, management, recovery, and prognosis #7 hypothyroidism-patient's levothyroxine will be converted over to IV form due to n.p.o. status #8 dementia-complicates care, management, recovery, and prognosis, patient's memantine will be held due to her n.p.o. status Again it was verified that the patient is a full code per her family's wishes Total clinical time spent by myself addressing the patient's medical issues, reviewing all of her data, and collaborating with patient's care team: 50 minutes Charges/Coding Visit Charges Inpatient E&M: 65562 Subs Hosp L3
[2023-12-08] MEDS: Meropenem 500 MG in 0.9% Normal Saline (50mL MB+) 50 ML 100 MG IV ×2 (16:04→21:07)
[2023-12-08] MEDS: Metoprolol Tartrate 5 MG/5 ML Vial IV (18:07)
[2023-12-08 18:30] LABS: Bedside Glucose 242 mg/dL (74-106)
[2023-12-08 23:05] LABS: Bedside Glucose 202 mg/dL (74-106)
[2023-12-09] VITALS (11 sets, daily range): BP systolic 111–138; BP diastolic 65–70; PULSE 88–97; RESP 14–19; TEMP 36.4–36.6; O2SAT 96–100; BMI 31.8
[2023-12-09] MEDS: Metoprolol Tartrate 5 MG/5 ML Vial IV ×4 (00:05→19:26)
[2023-12-09] MEDS: 0.9% Saline Lock 10 ML Syringe IV (00:06)
[2023-12-09 04:35] LABS: Base Excess -1 mmol/L (-2 to +2); Bicarbonate 22.9 mmol/L (22-26); Blood Gas Specimen Type ART; Mode Not entered; O2 Delivery Device Cannula; PO2 76 mmHG (75-100); SITE R Radial; SO2 96 % (95-99); Total Carbon Dioxide 24 mmol/L; pCO2 31.7 mmHg (35-45); pH 7.47 (7.35-7.45)
[2023-12-09 05:58] LABS: Absolute Lymphocyte Count 2.68 X10^3/uL (0.83-4.51); Absolute Neutrophil Count 4.6 X10^3/uL (2.0-7.7); Basophil# 0.09 X10^3/uL; Basophil% 1.1 % (0-1); Eosinophil# 0.35 X10^3/uL; Eosinophils% 4.1 % (0-5); Hematocrit 35.5 % (37-47); Lymphocyte # 2.68 X10^3/ul (0.83-4.51); Lymphocyte % 31.8 % (19-41); Mean Corpuscular Hgb 27.2 pg (27.0-32.0); Mean Corpuscular Volume 87.9 fL (81-99); Mean Platelet Vol. 10.9 fl (6.2-12.0); Monocyte# 0.69 X10^3/uL; Monocyte% 8.2 % (0-10); NRBC Flagged by Analyzer 0 % (0-5); Neutrophil % 54.4 % (47-70); Platelet Count 313 K/mm3 (150-450); RBC Distribution Width CV 15.2 % (11.6-14.6); RBC Distribution Width SD 48.8 fl (35.1-43.9); Red Blood Count 4.04 M/mm3 (4.2-5.4); White Blood Count 8.4 K/mm3 (4.4-11.0)
[2023-12-09 06:39] LABS: Anion Gap 6 (5-15); BUN 15 mg/dL (7-18); BUN/Creat Ratio 7.1 RATIO (10-20); Calcium,Total 8.5 mg/dL (8.5-10.1); Chloride 110 mmol/L (98-107); EST Glomerular Filtration Rate 24 mL/min (>60); Est Glom Filt Rate - Afr Amer 30 mL/min (>60); Estimated Creatinine Clearance 29.24 ml/min; Glucose 183 mg/dL (74-106); Potassium 3.6 mmol/L (3.5-5.1); Sodium Level 141 mmol/L (136-145)
[2023-12-09 06:48] LABS: Bedside Glucose 176 mg/dL (74-106)
[2023-12-09] MEDS: Menthol/Lanolin/Calamine/Znox 113 GM Tube 1 APPLIC TOPICAL ×2 (10:14→21:01)
[2023-12-09] MEDS: Enoxaparin 30 MG/0.3 ML Syringe SC (10:14)
[2023-12-09] MEDS: Nystatin Powder 15gm Bottle 1 APPLIC TOPICAL ×2 (10:18→21:01)
[2023-12-09] MEDS: Meropenem 500 MG in 0.9% Normal Saline (50mL MB+) 50 ML 100 MG IV ×2 (10:49→21:00)
[2023-12-09] MEDS: Linezolid 600 MG 600 MG/300 ML BAG 200 MG IV ×2 (11:00→22:20)
[2023-12-09 12:06] LABS: Bedside Glucose 169 mg/dL (74-106)
[2023-12-09] MEDS: Pantoprazole Sodium 40 MG in 0.9% Normal Saline (100mL MB+) 100 ML 330 MG IV (13:02)
--- NOTE | 2023-12-09 15:21 | PCM.PN.HOSP ---
Reason for Visit Reason for Visit: Diagnoses Acute on chronic systolic (congestive) heart failure (12/07/23) Hypoxemia (12/07/23) Subjective Subjective Patient was seen and examined today, she is currently on 2 L of nasal cannula oxygen and appears comfortable. She does not carry on a conversation with this examiner however. Patient's serum creatinine is bumped up slightly from yesterday, I will decrease the patient's Lasix drip to 10 mg/h. Patient's white blood cell count remains normal, urine culture grew out E. coli which is pansensitive. Objective Data Objective Data Vital Signs: Vital Signs Temp Pulse Resp BP Pulse Ox O2 Del Method O2 Flow Rate 97.8 F 95 18 111/68 99 Nasal Cannula 2 12/09/23 08:59 12/09/23 13:32 12/09/23 08:59 12/09/23 13:32 12/09/23 08:59 12/09/23 08:59 12/09/23 10:04 FiO2 25 12/08/23 20:51 Oxygen Flow Rate (L/min) 2 Oxygen Delivery Method Nasal Cannula Weight: 97.7 kg Body Mass Index (BMI) 31.8 Intake & Output: Intake and Output for Last 24 Hours 12/07/23 12/08/23 12/09/23 23:59 23:59 23:59 Intake Total 765 / 765 1085 / 1085 360 / 360 Output Total 800 / 800 850 / 1825 3325 / 3325 Balance -35 / -35 235 / -740 -2965 / -2965 Lab / Micro Data 12/09/23 05:23 12/09/23 05:23 Labs: Laboratory Results - last 24 hr 12/08/23 18:04: POC Glucose 242 H 12/08/23 21:08: POC Glucose 202 H 12/09/23 05:23: WBC 8.4, RBC 4.04 L, Hgb 11.0 L, Hct 35.5 L, MCV 87.9, MCH 27.2, MCHC 31.0 L, RDW Std Deviation 48.8 H, RDW Coeff of Don 15.2 H, Plt Count 313, MPV 10.9, Immature Gran % (Auto) 0.400, Neut % (Auto) 54.4, Lymph % (Auto) 31.8, [place] % (Auto) 8.2, Eos % (Auto) 4.1, Baso % (Auto) 1.1 H, Absolute Neuts (auto) 4.6, Absolute Lymphs (auto) 2.68, Nucleated RBC % 0, Sodium 141, Potassium 3.6, Chloride 110 H, Carbon Dioxide 25.0, Anion Gap 6, BUN 15, Creatinine 2.10 H, Estim Creat Clear Calc 29.24, Est GFR (MDRD) Af Amer 30 L, Est GFR (MDRD) Non-Af 24 L, BUN/Creatinine Ratio 7.1 L, Glucose 183 H, Calcium 8.5 12/09/23 05:59: POC Glucose 176 H 12/09/23 11:44: POC Glucose 169 H Micro: Microbiology 12/07/23 12:15 Blood Culture (Wb) - Venous Blood Culture - Preliminary No growth in 48 hours. 12/07/23 11:40 Blood Culture (Wb) - Venous Blood Culture - Preliminary No growth in 48 hours. 12/07/23 14:36 Urine, Catheterized Urine Culture - Final Presumptive E. coli 12/07/23 15:30 Urine Catheter - [place] Legionella Antigen - Final 12/07/23 15:30 Urine Catheter - [place] Streptococcus pneumoniae Antigen (M - Final 12/07/23 11:25 Mucosa - Nose SARS-CoV-2, Influenza & RSV (PCR) - Final ABG Data ABG results: ABG 12/09/23 04:32 Specimen Type ART Sample Site R Radial pH 7.47 H Bicarbonate Actual 22.9 Total CO2 24 Base Excess -1 O2 Saturation 96 O2 % 2.0 ABG pCO2 31.7 L ABG pO2 76 Neri Test N/A O2 Delivery Device Cannula Vent Mode Not entered Radiography Diagnostic Testing: Radiology Impression Chest X-Ray 12/08/23 13:55 IMPRESSION: Progressive vascular congestion with bilateral infiltrates and consolidations, pulmonary edema versus infection. Electronically Signed: Jens Munoz MD at 15:39 EDT , Physical Exam Const alert and no apparent distress Constitutional Narrative: Patient does not carry on a conversation with this examiner General Appearance: cooperative, well kempt and well developed Orientation / Consciousness: awake HEENT normocephalic, head/scalp atraumatic and moist oral mucous membranes Eyes PERRL, EOMs intact bilaterally and conjunctivae normal Neck supple, no JVD, thyroid normal and no carotid bruits General: trachea midline Resp normal respiratory effort, no retractions and no use of accessory muscles Resp Narrative: Breath sounds are distant bilaterally Auscultation: Negative for rales, rhonchi or wheezes Cardio regular rate, regular rhythm, S1 normal heart sound, S2 normal heart sound, no murmurs, no rub and no gallops GI normal to inspection, nondistended, normoactive bowel sounds, soft to palpation, non-tender and non-distended Extremity no clubbing, cyanosis or edema Skin no rashes or lesions noted General Skin Exam: no breakdown Neuro CN's II-XII intact bilaterally Neuro Narrative: Patient does not carry on a conversation with this examiner Sensorium / Orientation: awake and alert Psych Psych Narrative: Patient has flat affect, she does not carry on a conversation Assessment & Plan Assessment/Plan (1) Acute on chronic systolic heart failure: PLAN: Plan 1. Acute hypoxic respiratory failure secondary to acute exacerbation of chronic systolic heart failure and possible pneumonia-patient's Lasix drip was decreased to 10 mg/h, labs will be monitored, pulse ox will be monitored #2 acute exacerbation of chronic systolic heart failure-again patient will be maintained on IV Lasix drip, her oral medications will be held due to her n.p.o. status #3 acute urinary tract infection with E. 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 #5 type 2 diabetes-patient's blood sugars will be monitored, sliding scale insulin will be administered as needed #6 ischemic cardiomyopathy-complicates care, management, recovery, and prognosis #7 hypothyroidism-patient's levothyroxine will be converted over to IV form due to n.p.o. status #8 dementia-complicates care, management, recovery, and prognosis, patient's memantine will be held due to her n.p.o. status #9 chronic kidney disease stage IV secondary to type 2 diabetes-complicates care, management, recovery, and prognosis Again it was verified that the patient is a full code per her family's wishes Total clinical time spent by myself addressing the patient's medical issues, reviewing all of her data, and collaborating with patient's care team: 35 minutes Charges/Coding Visit Charges Inpatient E&M: 36662 Subs Hosp L2
[2023-12-09] MEDS: Furosemide 500 MG in Empty Viaflex 50 mL 1 EACH CONT INF (19:00)
--- NOTE | 2023-12-09 22:20 | PN.HOSP_ITS ---
Hospitalist Note Patient with run VT, asymptomatic, recent electrolytes including Na, K, Mag normal range. Will continue to monitor. Currently on IV lasix for HF e xacerbation.
[2023-12-09 22:32] LABS: Bedside Glucose 171 mg/dL (74-106)
[2023-12-10] VITALS (7 sets, daily range): BP systolic 131–139; BP diastolic 59–69; PULSE 83–92; RESP 14–18; TEMP 36.6–36.8; O2SAT 94–96; BMI 31.2
[2023-12-10] MEDS: 0.9% Saline Lock 10 ML Syringe IV (00:12)
[2023-12-10] MEDS: Metoprolol Tartrate 5 MG/5 ML Vial IV ×3 (00:12→11:20)
--- NOTE | 2023-12-10 06:06 | RAD_ITS ---
STUDY: X-RAY CHEST REASON FOR EXAM: Female, 73 years old. chf TECHNIQUE: Single AP portable view of the chest. COMPARISON: 12/08/2023 FINDINGS: Poor inspiration with some bibasilar atelectasis. There is no demonstrated pleural abnormality. Normal size heart. Normal mediastinum and hudson. Normal visualized pulmonary arteries. Normal visualized aortic arch and descending thoracic aorta. Normal visualized thoracic spine. Normal visualized ribs, clavicles, and shoulders. There is no demonstrated abnormality of the visualized soft tissue structures of the upper abdomen. RAD/Chest 1 View (Portable) IMPRESSION: Poor inspiration with bibasilar atelectasis. Electronically Signed: Henry Potter MD at 8:04 EDT ,
[2023-12-10 06:28] LABS: Anion Gap 8 (5-15); BUN 16 mg/dL (7-18); BUN/Creat Ratio 7.4 RATIO (10-20); Calcium,Total 8.6 mg/dL (8.5-10.1); Chloride 108 mmol/L (98-107); Creatinine, Serum 2.17 mg/dL (0.55-1.02); EST Glomerular Filtration Rate 24 mL/min (>60); Est Glom Filt Rate - Afr Amer 28 mL/min (>60); Estimated Creatinine Clearance 28.05 ml/min; Glucose 188 mg/dL (74-106); Potassium 3.5 mmol/L (3.5-5.1); Sodium Level 141 mmol/L (136-145)
[2023-12-10 07:02] LABS: Bedside Glucose 173 mg/dL (74-106)
[2023-12-10] MEDS: Pantoprazole Sodium 40 MG in 0.9% Normal Saline (100mL MB+) 100 ML 330 MG IV (07:55)
[2023-12-10] MEDS: Enoxaparin 30 MG/0.3 ML Syringe SC (07:58)
[2023-12-10] MEDS: Menthol/Lanolin/Calamine/Znox 113 GM Tube 1 APPLIC TOPICAL (08:07)
[2023-12-10] MEDS: Nystatin Powder 15gm Bottle 1 APPLIC TOPICAL (08:08)
[2023-12-10 08:09] LABS: T3 Total - Triiodothyronine 0.92 ng/mL (0.6-1.81)
--- NOTE | 2023-12-10 09:08 | ST.MBS ---
Modified Barium Swallow Patient Information Study Date: 12/10/23 Study Time: 08:55 Direct Billable Minutes: 91 Total Minutes procedure & reportin Diagnosis: PNA J18.9; Hypoxia R09.02 Referring Physician: Cali Chisholm Reason for Referral: Objectively assess swallow function, assess risk for aspiration, and determine recommendations for least restrictive diet textures and compensatory strategies to improve safety of swallow. Medical History: PMH: CKD, History of left heart catheterization (LHC) (~12/21/10), CVA, Old CT, Ischemic cardiomyopathy, Hx of NSTEMI, Mixed HLD, HTN, CHF, IBS, GI problem, Diabetes type 2, Hearing problem, Cataracts BL, Back problem, Arthritis, Dementia, Hx of GI hemorrhage, GERD, Hypothyroidism, Cerebrovascular disease. Pt brought to the ED 12/07/23 after being found in respiratory distress, hypoxic (58% on room air) at retirement with a chronic productive cough. Placed on a nonrebreather and brought to ED by EMS. Patient admitted for management of acute hypoxic respiratory failure secondary to acute exacerbation of chronic systolic heart failure and possible pneumonia. Chest x-ray showed infiltrate on the right lung base worse than left lung base. She was referred for ST consult due to concerns for aspiration and recommended NPO with plans for MBSS 12/10/23. Current Diet Ordered: NPO Dentition: Edentulous Mental Status: Impaired (No verbal responses. Shook head no 2X, yes 1X in response to simple yes/no questions. Pt orally defensive.) Respiratory Status: Oxygenating on Room Air Penetration-Aspiration Scale Penetration-Aspiration Scale: OBJECTIVE ASSESSMENT OF SWALLOW FUNCTION (QUANTITATIVE ? PER TRIAL): PENETRATION / ASPIRATION SCALE (MÉNDEZ): 1 = does not enter airway 2 = enters airway/above vocal folds/ejected 3 = enters airway/above vocal folds/not ejected 4 = enters airway/contacts vocal folds/ejected 5 = enters airway/contacts vocal folds/not ejected 6 = enters airway/below vocal folds/ejected 7 = enters airway/below vocal folds/not ejected despite effort 8 = enters airway/below vocal folds/no effort VIDEOFLOROSCOPIC SCALE SCORE (MÉNDEZ): Grade I = aspiration of material that has penetrated into the laryngeal vestibule, intact cough reflex Grade II = aspiration < 10 % of the bolus, intact cough reflex Grade III = aspiration of < 10 % of the bolus, reduced cough reflex or aspiration of > 10 % of the bolus, intact cough reflex Grade IV = aspiration of > 10 % of the bolus, reduced cough reflex Penetration-Aspiration Scale Score Thin Liquid via teaspoon: Result: 1= does not enter airway Thin Liquid via small single sip: cup: Result: 1= does not enter airway [place] Thick Liquid via small single sip: cup: Result: 1= does not enter airway Pudding via teaspoon: Result: 1= does not enter airway Comment: Attempted pudding via tsp, pt moved head away and pursed lips. She shook head yes when asked if she would take a cookie. She accepted 1/4 cookie in pudding but could not masticate the cookie. FIELD SUPPORT REP manually removed the cookie and patient swallowed barium pudding coating for this trial. Esophageal screen - Complete clearance. Thin Liquid via single sip: straw: Result: 1= does not enter airway Oral Phase Labial Seal: Escape beyond interlabial space; no extension beyond zac border Tongue Control During Bolus Hold: Posterior escape of less than half of bolus Bolus Preparation/Mastication: Minimal chewing/mashing with majority of bolus unchewed Bolus Transport/Lingual Motion: Repetitive/disorganized tongue motion Pharyngeal Phase Initiation of Pharyngeal Swallow: Bolus head in pyriforms Soft Palate Elevation: Trace column of contrast/air between soft palate and pharyngeal wall Laryngeal Elevation: Comp. Superior move thyroid cart w/comp. apprx arytenoid cart-epig pet Anterior Hyoid Excursion: Complete anterior movement Epiglottic Movement: Complete inversion Laryngeal Vestibule Closure at Height of Swallow: Complete; no air/contrast in laryngeal vestibule Pharyngeal Stripping Wave: Present - complete Pharyngoesophageal Segment Opening: Complete distension and complete duration; no obstruction of flow Tongue Base Retraction: Trace column of contrast between tongue base & post. pharyngeal wall Pharyngeal Residue: Trace residue within or on pharyngeal structures Esophageal Phase Esophageal Clearance: Complete clearance Diagnosis/Impression Diagnosis: Moderate oral dysphagia R13.11, Mild pharyngeal dysphagia R13.13 Impression: The oral phase is primarily marked by... -Poor bolus control with loss of thin liquids to the pyriforms prior to swallow onset. -Pt attempted 1/4 cookie, but had poor mastication of regular texture cookie. FIELD SUPPORT REP manually cleared cookie from the patient's mouth as it was fully un-chewed. -Disorganized and delayed tongue motion for A-P transport. FIELD SUPPORT REP contributed this deficit partially to patient being resistive to swallow the barium. She required moderate-maximum verbal cues for encouragement to swallow each trial. The pharyngeal phase is primarily marked by... -Delayed swallow onset. Recommendations Diet: Puree Textures and Thin Liquids Compensatory Strategies: Small Bites, Small Sips, Slow Rate, Sitting upright and Remain sitting upright for 30 minutes after PO intake Supervision: 1:1 Close Supervision (Assist Feeding as needed) Recommend Repeat Modified Barium Swallow: No Need for Skilled Speech Therapy Services: Yes Comment: -Ongoing assessment of diet tolerance of recommended textures. FIELD SUPPORT REP is recommending the patient trial soft solids with FIELD SUPPORT REP present in upcoming sessions to consider diet advancement. FIELD SUPPORT REP placed a call and left VM with the patient's son, Raquel, to inquire about patient's preferential foods. Education Completed: 1. Described result of evaluation. and 7. Pt requires further education on strategies & risks. Status Active ST Patient: Active Contact Information [facility] Speech Therapy:: Deirdre Monroe M.A. [facility]-FIELD SUPPORT REP? Speech-Language Pathologist?? [facility] [address] [place] [address]? [email or web address]?? [phone]
--- NOTE | 2023-12-10 09:59 | CASEMGMT ---
Discharge Planning Updates sent to [facility] via [facility]. Isaura Beckford DC Planning Asst.
[2023-12-10] MEDS: Furosemide 20 MG/2 ML VIAL IV (10:47)
[2023-12-10] MEDS: Cefazolin 1 GM/50 ML BAG IV (10:48)
[2023-12-10] MEDS: Insulin Lispro 100 UNIT/ML INSULN.PEN SC (11:13)
[2023-12-10 11:54] LABS: Bedside Glucose 196 mg/dL (74-106)
--- NOTE | 2023-12-10 12:11 | PCM.TXEXTCAR ---
Diet Diet Order/Speech Therapy: 12/10/23 09:49 Diet: Regular - General Food consistency:: Pureed Liquid Consistency:: Regular/Thin Is pt able to select menu?: Yes Diet Comments: Direct Supervision/Feeding assistance Routine Orders/Code Status Keep PO Greater than or Equal to (%): 90 Routine Lab Work: [facility] (on 12/13/23) Code Status: Full Code Therapies Weight Bearing: Full weight bearing Physical Therapy: Eval and Treat Occupational Therapy: Eval and Treat Speech Therapy: Eval and Treat Problem/Diagnosis (1) Acute on chronic systolic heart failure: Status: Chronic Code(s): I50.23 - Acute on chronic systolic (congestive) heart failure Plan 1. Acute hypoxic respiratory failure secondary to acute exacerbation of chronic systolic heart failure and possible pneumonia-patient's Lasix drip was decreased to 10 mg/h, labs will be monitored, pulse ox will be monitored #2 acute exacerbation of chronic systolic heart failure-again patient will be maintained on IV Lasix drip, her oral medications will be held due to her n.p.o. status #3 acute urinary tract infection with E. coli-again patient is now on meropenem .#4 type 2 diabetes-patient's blood sugars will be monitored, sliding scale insulin will be administered as needed #5 ischemic cardiomyopathy-complicates care, management, recovery, and prognosis #6 hypothyroidism-patient's levothyroxine will be converted over to IV form due to n.p.o. status #7 dementia-complicates care, management, recovery, and prognosis, patient's memantine will be held due to her n.p.o. status #8 chronic kidney disease stage IV secondary to type 2 diabetes-complicates care, management, recovery, and prognosis Pneumonia was ruled out Again it was verified that the patient is a full code per her family's wishes Total clinical time spent by myself addressing the patient's medical issues, reviewing all of her data, and collaborating with patient's care team: 35 minutes Allergies/Procedures Done in Hospital Allergies ibuprofen Allergy (Verified 12/07/23 11:20) Itching lisinopril Allergy (Verified 12/07/23 11:20) Other Penicillins Allergy (Verified 12/07/23 11:20) Itching tramadol HCl (From Ultram) Allergy (Verified 12/07/23 11:20) Other Procedures: None Type of Care/Length of Stay Estimated LOS: Convalescent Care Less Than 30 days Type of Care Needed: Skilled Rehab Potential: Fair Prognosis: Fair Additional Orders/Day of Discharge H&P will serve as current which was dated: 12/07/23 Day of Discharge: 12/10/23 Discharge Plan Admission Admit Date/Time: 12/07/23 13:56 Primary Reason for Your Visit: Congestive heart failure, respiratory failure Attending Provider: Cali Chisholm Primary Care Provider: Claude Lee Consulting Providers: Sha Wells Discharge Orders/Prescriptions Prescriptions: New nystatin [Nyamyc] 100,000 unit/gram Powder 1 applic topical BID Qty: 0 0RF Protocol: *Topical Application Instructions APPLICATION INSTRUCTIONS: apply to bilateral groin menthol-zinc oxide [Calmoseptine] 0.44-20.6 % Ointment 1 applic topical BID Qty: 0 0RF Protocol: *Topical Application Instructions APPLICATION INSTRUCTIONS: Apply to affected area furosemide [Lasix] 40 mg tablet 40 mg PO BID Qty: 1 0RF potassium chloride 20 mEq tablet extended release 20 meq PO DAILY Qty: 1 0RF Continued (DME) pen needle, diabetic [Comfort EZ Pen [place]] 31 gauge x 5/16 needle See Rx Instructions .ROUTE .MEDSUPPLY Qty: 30 Rx Instructions: test blood sugar six times daily Jardiance 25 mg tablet 25 mg PO DAILY Januvia 25 mg tablet 25 mg PO DAILY atorvastatin 40 MG tablet 40 mg PO QHS clopidogrel 75 MG tablet 75 mg PO DAILY aspirin 81 MG tablet 81 mg PO DAILY@0800 levothyroxine 75 MCG tablet 75 mcg PO DAILY pantoprazole 40 MG tablet 40 mg PO DAILY metoprolol tartrate 50 MG tablet 50 mg PO BID docusate sodium 100 MG capsule 100 mg PO BID Patient Comments: constipation memantine 10 mg tablet 10 mg PO DAILY Patient Comments: at bedtime polyethylene glycol 3350 [ClearLax] 17 gram/dose powder 17 g PO DAILY PRN (Reason: constipation) Calcium 600 + D(3) 600 mg-5 mcg (200 unit) capsule 1 cap PO DAILY acetaminophen 325 mg Tablet 650 mg PO Q6H PRN PRN (Reason: Pain 1-10 Or Fever >100.7) Qty: 0 0RF insulin lispro [Humalog KwikPen Insulin] 100 unit/mL Insulin Pen See Protocol subcut ACHS Qty: 0 0RF Protocol: 4. Sliding Scale Insulin High-Med Dosing Condition: 150-199 mg/dl = 2 units Condition: 200-259 mg/dl = 4 units Condition: 260-324 mg/dl = 6 units Condition: 325-374 mg/dl = 8 units Condition: 375-409 mg/dl = 10 units Condition: 410-449 mg/dl = 11 units Condition: Greater than 449 call physician Protocol Text: - Use for Total Daily Dose of Insulin 56-80 units - Patient who are insulin resistant or septic HIGH MEDIUM DOSING ALGORITHM insulin lispro [Humalog KwikPen Insulin] 100 unit/mL Insulin Pen 15 unit subcut TIDAC Qty: 0 0RF insulin glargine [Basaglar KwikPen U-100 Insulin] 100 unit/mL (3 mL) insulin pen 22 unit subcut BID 30 Days Qty: 0 0RF bisacodyl 10 mg suppository 10 mg [place] DAILY PRN (Reason: no BM after MOM) magnesium hydroxide [Milk of Magnesia] 400 mg/5 mL suspension 400 mg PO DAILY PRN (Reason: constipation) Discontinued furosemide 40 mg Tablet 40 mg PO DAILY Qty: 0 0RF potassium chloride 10 mEq capsule, extended release 10 meq PO DAILY Qty: 30 0RF Referrals / Follow Up: Claude Lee MD [Primary Care Provider] - Disposition Disposition (needs filled in before D/C Order can be placed): Custodial Facility
--- NOTE | 2023-12-10 12:31 | DS.PCM_ITS ---
Providers Date of Admission: 12/07/23 Date of Discharge: 12/10/23 Primary Care Physician: Dr. Claude Lee MD Reason For Visit: SOB, CHF EXA, PNEUMONIA Diagnosis Discharge Diagnosis (1) Acute on chronic systolic heart failure: Status: Chronic Code(s): I50.23 - Acute on chronic systolic (congestive) heart failure Plan 1. Acute hypoxic respiratory failure secondary to acute exacerbation of chronic systolic heart failure and possible pneumonia-patient's Lasix drip was decreased to 10 mg/h, labs will be monitored, pulse ox will be monitored #2 acute exacerbation of chronic systolic heart failure-again patient will be maintained on IV Lasix drip, her oral medications will be held due to her n.p.o. status #3 acute urinary tract infection with E. coli-again patient is now on meropenem .#4 type 2 diabetes-patient's blood sugars will be monitored, sliding scale insulin will be administered as needed #5 ischemic cardiomyopathy-complicates care, management, recovery, and prognosis #6 hypothyroidism-patient's levothyroxine will be converted over to IV form due to n.p.o. status #7 dementia-complicates care, management, recovery, and prognosis, patient's memantine will be held due to her n.p.o. status #8 chronic kidney disease stage IV secondary to type 2 diabetes-complicates care, management, recovery, and prognosis Pneumonia was ruled out Again it was verified that the patient is a full code per her family's wishes Total clinical time spent by myself addressing the patient's medical issues, reviewing all of her data, and collaborating with patient's care team: 35 minutes Medications at Discharge Home Medications aspirin 81 mg tablet,delayed release 81 mg PO DAILY@0800 heart health 05/27/13 atorvastatin 40 mg tablet 40 mg PO QHS cholesterol 05/27/13 clopidogrel 75 mg tablet 75 mg PO DAILY blood clotting 05/27/13 docusate sodium 100 mg capsule 100 mg PO BID stool 05/27/13 levothyroxine 75 mcg tablet 75 mcg PO DAILY thyroid 05/27/13 metoprolol tartrate 50 mg tablet 50 mg PO BID heart 05/27/13 pantoprazole 40 mg tablet,delayed release 40 mg PO DAILY stomach 05/27/13 pen needle, diabetic 31 gauge x 5/16 (Comfort EZ Pen [place]) #30 ea 06/05/17 empagliflozin 25 mg tablet (Jardiance) 25 mg PO DAILY dmII 03/29/22 sitagliptin phosphate 25 mg tablet (Januvia) 25 mg PO DAILY DMII 06/06/23 calcium carbonate 600 mg-vitamin D3 5 mcg (200 unit) capsule (Calcium 600 + D(3)) 1 cap PO DAILY calcium 10/08/23 memantine 10 mg tablet 10 mg PO DAILY dementia 10/08/23 polyethylene glycol 3350 17 gram/dose oral powder (ClearLax) 17 g PO DAILY PRN constipation 10/08/23 acetaminophen 325 mg tablet 650 mg (2 x 325 mg) PO Q6H PRN PRN Pain 1-10 Or Fever >100.7 #0 tabs 10/12/23 insulin glargine 100 unit/mL (3 mL) subcutaneous pen (Basaglar KwikPen U-100 Insulin) 22 unit (0.22 mL) subcut BID dmII 30 days #0 mL 10/12/23 insulin lispro 100 unit/mL subcutaneous pen (Humalog KwikPen (U-100) Insulin) 15 unit (0.15 mL) subcut TIDAC diabetes #0 mL 10/12/23 insulin lispro 100 unit/mL subcutaneous pen (Humalog KwikPen (U-100) Insulin) See Protocol subcut ACHS #0 mL 10/12/23 bisacodyl 10 mg rectal suppository 10 mg [place] DAILY PRN no BM after MOM 11/18/23 magnesium hydroxide 400 mg/5 mL oral suspension (Milk of Magnesia) 400 mg PO DAILY PRN constipation 11/18/23 furosemide 40 mg tablet (Lasix) 40 mg PO BID #1 TAB 12/10/23 menthol 0.44 %-zinc oxide 20.6 % topical ointment (Calmoseptine) 1 applic topical BID #0 grams 12/10/23 nystatin 100,000 unit/gram topical powder (Nyamyc) 1 applic topical BID #0 grams 12/10/23 potassium chloride 20 mEq tablet,extended release 20 meq PO DAILY #1 TAB 12/10/23 Hospital Course Operations None Procedures None Summary of Care Provided Minutes Spent on Discharge: 32 Hospital Course: This 73-year-old black female was seen in the emergency room at [facility] after being transferred from an extended care facility for evaluation of shortness of breath. Patient was found with a pulse oximeter reading of 59% on room air. Patient had a history of dementia and was unable to provide any information. Workup in the emergency room included a CBC which showed elevated white blood cell count 11.7, hemoglobin was 11.8, an ABG was obtained on nonrebreather, patient's pCO2 was 39.4 and pO2 was 93, pH was 7.33. Chest x-ray was performed which showed findings suggestive of vascular congestion and CHF with possible infiltrates and/or atelectasis at the lung bases worse at the right lung base. EKG showed sinus tachycardia with nonspecific ST-T wave changes and occasional PVCs. Patient's chemistry profile was remarkable for creatinine of 1.81, chloride was elevated at 113, glucose was 153 and lactic acid was 2.9. Patient was admitted to PCU for what was believed to be pneumonia, I examined the patient on 12/08/2023 and the patient was not able to converse with me, she was made n.p.o. and I reviewed her chest x-ray and I felt it was most likely the patient had congestive heart failure rather than pneumonia. Later that day the patient became very diaphoretic and short of breath, x-ray was taken which showed bilateral infiltrates suggestive of pulmonary edema, patient was placed on a Lasix drip and improved dramatically the next day. Patient became more alert, her antibiotics were stopped and speech therapy saw the patient and stated it was safe for the patient to have oral intake. On 12/10/2023, patient was seen and examined: On examination she does not appear to be in any distress. Vital signs as documented. Skin warm and dry and without overt rashes. Neck without JVD, thyroid appears normal, trachea is midline, neck is supple. Lungs clear, normal air movement was noted. Heart exam notable for regular rhythm, normal sounds and absence of murmurs, rubs or gallops. Abdomen unremarkable and without evidence of organomegaly, masses, or abdominal aortic enlargement, bowel sounds are present in all 4 quadrants, no abdominal tenderness was noted. Extremities nonedematous, no cyanosis was noted, no clubbing was noted. Neuro: Cranial nerves II through XII are grossly intact, no focal motor deficits were noted, sensation to light touch and pinprick is intact, motor exam 5/5 throughout. Psych: Patient is alert, she is confused and speaks very little. Patient was felt to be stable for [facility] to [facility] on 12/10/2023 in stable condition, she did not require oxygen the time of her discharge. Weight / BMI Weight Weight: 96 kg Body Mass Index (BMI) 31.2 ABG / Lab / Microbiology Data 12/09/23 05:23 12/10/23 05:21 Laboratory: Laboratory Results - last 24 hr 12/08/23 05:45: Total T3 0.92 12/09/23 21:00: POC Glucose 171 H 12/10/23 05:21: Sodium 141, Potassium 3.5, Chloride 108 H, Carbon Dioxide 25.0, Anion Gap 8, BUN 16, Creatinine 2.17 H, Estim Creat Clear Calc 28.05, Est GFR (MDRD) Af Amer 28 L, Est GFR (MDRD) Non-Af 24 L, BUN/Creatinine Ratio 7.4 L, G lucose 188 H, Calcium 8.6 12/10/23 06:20: POC Glucose 173 H 12/10/23 11:12: POC Glucose 196 H Microbiology: Microbiology 12/07/23 12:15 Blood Culture (Wb) - Venous Blood Culture - Preliminary No growth in 48 hours. 12/07/23 11:40 Blood Culture (Wb) - Venous Blood Culture - Preliminary No growth in 48 hours. 12/07/23 14:36 Urine, Catheterized Urine Culture - Final Presumptive E. coli 12/07/23 15:30 Urine Catheter - [place] Legionella Antigen - Final 12/07/23 15:30 Urine Catheter - [place] Streptococcus pneumoniae Antigen (M - Final 12/07/23 11:25 Mucosa - Nose SARS-CoV-2, Influenza & RSV (PCR) - Final Radiography Diagnostic Testing: Radiology Impression Chest X-Ray 12/10/23 06:06 IMPRESSION: Poor inspiration with bibasilar atelectasis. Electronically Signed: Henry Potter MD at 8:04 EDT , Meaningful Use Info Meaningful Use Meaningful Use Diagnoses (Choose all that apply): CHF CHF CONSTANCE/ARB ordered at discharge?: No Reason CONSTANCE/ARB not ordered?: Allergy Documented LVEF (%): 20 Ischemic Stroke Statin Dosing Therapy Reference: STATIN DOSE THERAPY REFERENCE: * Patients > 75 years receive moderate or high dose statin therapy. * Patients 75 years or YOUNGER should receive HIGH intensity statin dose unless contraindicated. You will be required to document reason for non-treatment if statin daily dose does not meet guidelines. HIGH DOSE STATIN THERAPY DAILY Atorvastatin > than or = to 40 mg Rosuvastatin > than or = to 20 mg Amlodipine + Atorvastatin > than or = to 2.5/40 mg Ezetimibe + Simvastatin 10/80 mg Simvastatin 80mg Discharge Plan Admission Admit Date/Time: 12/07/23 13:56 Primary Reason for Your Visit: Congestive heart failure, respiratory failure Attending Provider: Cali Chisholm Primary Care Provider: Claude Lee Consulting Providers: Sha Wells Discharge Orders/Prescriptions Prescriptions: New nystatin [Nyamyc] 100,000 unit/gram Powder 1 applic topical BID Qty: 0 0RF Protocol: *Topical Application Instructions APPLICATION INSTRUCTIONS: apply to bilateral groin menthol-zinc oxide [Calmoseptine] 0.44-20.6 % Ointment 1 applic topical BID Qty: 0 0RF Protocol: *Topical Application Instructions APPLICATION INSTRUCTIONS: Apply to affected area furosemide [Lasix] 40 mg tablet 40 mg PO BID Qty: 1 0RF potassium chloride 20 mEq tablet extended release 20 meq PO DAILY Qty: 1 0RF Continued (DME) pen needle, diabetic [Comfort EZ Pen [place]] 31 gauge x 5/16 needle See Rx Instructions .ROUTE .MEDSUPPLY Qty: 30 Rx Instructions: test blood sugar six times daily Jardiance 25 mg tablet 25 mg PO DAILY Januvia 25 mg tablet 25 mg PO DAILY atorvastatin 40 MG tablet 40 mg PO QHS clopidogrel 75 MG tablet 75 mg PO DAILY aspirin 81 MG tablet 81 mg PO DAILY@0800 levothyroxine 75 MCG tablet 75 mcg PO DAILY pantoprazole 40 MG tablet 40 mg PO DAILY metoprolol tartrate 50 MG tablet 50 mg PO BID docusate sodium 100 MG capsule 100 mg PO BID Patient Comments: constipation memantine 10 mg tablet 10 mg PO DAILY Patient Comments: at bedtime polyethylene glycol 3350 [ClearLax] 17 gram/dose powder 17 g PO DAILY PRN (Reason: constipation) Calcium 600 + D(3) 600 mg-5 mcg (200 unit) capsule 1 cap PO DAILY acetaminophen 325 mg Tablet 650 mg PO Q6H PRN PRN (Reason: Pain 1-10 Or Fever >100.7) Qty: 0 0RF insulin lispro [Humalog KwikPen Insulin] 100 unit/mL Insulin Pen See Protocol subcut ACHS Qty: 0 0RF Protocol: 4. Sliding Scale Insulin High-Med Dosing Condition: 150-199 mg/dl = 2 units Condition: 200-259 mg/dl = 4 units Condition: 260-324 mg/dl = 6 units Condition: 325-374 mg/dl = 8 units Condition: 375-409 mg/dl = 10 units Condition: 410-449 mg/dl = 11 units Condition: Greater than 449 call physician Protocol Text: - Use for Total Daily Dose of Insulin 56-80 units - Patient who are insulin resistant or septic HIGH MEDIUM DOSING ALGORITHM insulin lispro [Humalog KwikPen Insulin] 100 unit/mL Insulin Pen 15 unit subcut TIDAC Qty: 0 0RF insulin glargine [Basaglar KwikPen U-100 Insulin] 100 unit/mL (3 mL) insulin pen 22 unit subcut BID 30 Days Qty: 0 0RF bisacodyl 10 mg suppository 10 mg [place] DAILY PRN (Reason: no BM after MOM) magnesium hydroxide [Milk of Magnesia] 400 mg/5 mL suspension 400 mg PO DAILY PRN (Reason: constipation) Discontinued furosemide 40 mg Tablet 40 mg PO DAILY Qty: 0 0RF potassium chloride 10 mEq capsule, extended release 10 meq PO DAILY Qty: 30 0RF Referrals / Follow Up: Claude Lee MD [Primary Care Provider] - Disposition Disposition (needs filled in before D/C Order can be placed): [facility] Living Facility Charges/Coding Visit Charges Inpatient E&M: 84353 Disch Hosp >30min
--- NOTE | 2023-12-10 13:41 | PHA.DC.MR.R ---
Pharmacy [place] Med Reconciliation Pharmacy Service has performed discharge medication reconciliation for this patient. The patient's discharge medication list was reviewed for discrepancies and discrepancies were resolved. Medications at Discharge Home Medications aspirin 81 mg tablet,delayed release 81 mg PO DAILY@0800 heart health 05/27/13 atorvastatin 40 mg tablet 40 mg PO QHS cholesterol 05/27/13 clopidogrel 75 mg tablet 75 mg PO DAILY blood clotting 05/27/13 docusate sodium 100 mg capsule 100 mg PO BID stool 05/27/13 levothyroxine 75 mcg tablet 75 mcg PO DAILY thyroid 05/27/13 metoprolol tartrate 50 mg tablet 50 mg PO BID heart 05/27/13 pantoprazole 40 mg tablet,delayed release 40 mg PO DAILY stomach 05/27/13 pen needle, diabetic 31 gauge x 5/16 (Comfort EZ Pen [place]) #30 ea 06/05/17 empagliflozin 25 mg tablet (Jardiance) 25 mg PO DAILY dmII 03/29/22 sitagliptin phosphate 25 mg tablet (Januvia) 25 mg PO DAILY DMII 06/06/23 calcium carbonate 600 mg-vitamin D3 5 mcg (200 unit) capsule (Calcium 600 + D(3)) 1 cap PO DAILY calcium 10/08/23 memantine 10 mg tablet 10 mg PO DAILY dementia 10/08/23 polyethylene glycol 3350 17 gram/dose oral powder (ClearLax) 17 g PO DAILY PRN constipation 10/08/23 acetaminophen 325 mg tablet 650 mg (2 x 325 mg) PO Q6H PRN PRN Pain 1-10 Or Fever >100.7 #0 tabs 10/12/23 insulin glargine 100 unit/mL (3 mL) subcutaneous pen (Basaglar KwikPen U-100 Insulin) 22 unit (0.22 mL) subcut BID dmII 30 days #0 mL 10/12/23 insulin lispro 100 unit/mL subcutaneous pen (Humalog KwikPen (U-100) Insulin) 15 unit (0.15 mL) subcut TIDAC diabetes #0 mL 10/12/23 insulin lispro 100 unit/mL subcutaneous pen (Humalog KwikPen (U-100) Insulin) See Protocol subcut ACHS #0 mL 10/12/23 bisacodyl 10 mg rectal suppository 10 mg [place] DAILY PRN no BM after MOM 11/18/23 magnesium hydroxide 400 mg/5 mL oral suspension (Milk of Magnesia) 400 mg PO DAILY PRN constipation 11/18/23 furosemide 40 mg tablet (Lasix) 40 mg PO BID #1 TAB 12/10/23 menthol 0.44 %-zinc oxide 20.6 % topical ointment (Calmoseptine) 1 applic topical BID #0 grams 12/10/23 nystatin 100,000 unit/gram topical powder (Nyamyc) 1 applic topical BID #0 grams 12/10/23 potassium chloride 20 mEq tablet,extended release 20 meq PO DAILY #1 TAB 12/10/23
--- NOTE | 2023-12-10 13:59 | CASEMGMT ---
Patient is ready for discharge back to [place]. Physicians will transport patient via cot. Plan: d/c back to [place] under skilled level of care. Zoya DOUGHERTY
--- NOTE | 2023-12-10 14:14 | CASEMGMT ---
SW sent orders and med list to [place] via [facility]. SW called Physicians and arranged for patient to get picked up at 4p via cot. SW notified RN, Sabrina, and patient's son Raquel. Plan: d/c back to [facility] at [facility] under skilled level of care. Physicians will transport via cot. Zoya DOUGHERTY
--- NOTE | 2023-12-10 16:02 | CHAPLAIN ---
Type of Pastoral Visit _x__ Initial Visit ___ Follow-up Visit ___ On-call Visit ___ General Patient Visit ___ Spiritual Assessment ___ Family Conference ___ Bereavement ___ Rapid Response ___ Code Blue ___ Other (describe below) Pastoral Care Referral From _x__ Patient ___ Family ___ Nurse ___ Physician ___ Complaint Analyst ___ Mgmt Analyst ___ Other (describe below) Sacrament/Intervention _x__ Active listening ___ Anointing ___ Latter Day ___ Bereavement ___ Communion ___ Graciela exploration ___ ___ Life review _x__ Prayer ___ Reconciliation ___ Sacrament of Sick ___ Supportive presence ___ Wedding ___ Other (describe below) Pastoral Comments patient is able to answer questions but is slow to respond and does not engage in conversation; pt states that she is better and does not believe she is able to go home today; pt says that all she needs is a prayer and that is done
[2023-12-10 17:04] LABS: Bedside Glucose 162 mg/dL (74-106)
== END 2023-12-10 16:47 | disposition skilled nursing facility (03) | DRG 291 ==
LOC: ED 14:09 → PCU 14:13
PROVIDERS: Admitting Provider Internal Medicine; Emergency Provider Emergency Medicine; PCP Internal Medicine; Visit Provider Internal Medicine
DX: I13.0 Hypertensive heart and chronic kidney disease with heart failure and stage 1 through stage 4 chronic kidney disease, or unspecified chronic kidney disease (principal); J96.01 Acute respiratory failure with hypoxia; I50.23 Acute on chronic systolic (congestive) heart failure; E87.20 Acidosis, unspecified; I47.20 Ventricular tachycardia, unspecified; N39.0 Urinary tract infection, site not specified; N18.4 Chronic kidney disease, stage 4 (severe); E11.22 Type 2 diabetes mellitus with diabetic chronic kidney disease; B96.20 Unspecified Escherichia coli [E. coli] as the cause of diseases classified elsewhere; F03.90 Unspecified dementia, unspecified severity, without behavioral disturbance, psychotic disturbance, mood disturbance, and anxiety; E11.42 Type 2 diabetes mellitus with diabetic polyneuropathy; Z79.4 Long term (current) use of insulin; I34.0 Nonrheumatic mitral (valve) insufficiency; E89.0 Postprocedural hypothyroidism; E78.2 Mixed hyperlipidemia; I25.5 Ischemic cardiomyopathy; K58.9 Irritable bowel syndrome, unspecified; I25.10 Atherosclerotic heart disease of native coronary artery without angina pectoris; Z66 Do not resuscitate; Z51.5 Encounter for palliative care; Z79.891 Long term (current) use of opiate analgesic; Z79.84 Long term (current) use of oral hypoglycemic drugs; Z87.891 Personal history of nicotine dependence
CPT/HCPCS: 36415; 36600; 71045; 74230; 80048; 80076; 81001; 82009; 82550; 82803; 82962; 83605; 83735; 83880; 84100; 84436; 84443; 84480; 84484; 85025; 85610; 85730; 87040; 87086; 87088; 87186; 87449; 87631; 92526; 92610; 92611; 93005; 94002; 94762; 97163; 97165; 97530; 97535; 99285; J2020; J2185; A4216; J0696; J1940

== ENCOUNTER 2024-03-24 06:30 | Inpatient (IN) | payer MEDICARE, MEDICAID, SELFPAY ==
[2024-03-24] VITALS (35 sets, daily range): BP systolic 105–156; BP diastolic 49–91; PULSE 79–108; RESP 12–40; TEMP 36.3–37.3; O2SAT 91–100; BMI 33.2; BMI 31.8
--- NOTE | 2024-03-24 06:32 | RAD_ITS ---
INDICATION: Respiratory failure, rales bilaterally, expiratory EXAMINATION/TECHNIQUE: X-RAY - XR Chest 1 View AP portable. 6:51 AM COMPARISON: Prior study dated: 12/10/2023 FINDINGS: LINES/DEVICES: None. LUNGS: Diffuse alveolar infiltrates bilaterally.. No pneumothorax. MEDIASTINUM: Unremarkable. CARDIAC SILHOUETTE: Not enlarged. BONES AND SOFT TISSUES: No acute abnormalities. RAD/Chest 1 View (Portable) IMPRESSION: Bilateral airspace disease may be pulmonary edema or pneumonia. Electronically Signed: Elizabeth Shearer MD at 8:13 EDT ,
--- NOTE | 2024-03-24 06:33 | EKG12_ITS ---
Test Reason : SOB Blood Pressure : / mmHG Vent. Rate : 093 BPM Atrial Rate : 093 BPM P-R Int : 170 ms QRS Dur : 074 ms QT Int : 350 ms P-R-T Axes : 074 -31 087 degrees QTc Int : 435 ms Normal sinus rhythm Possible Left atrial enlargement Left axis deviation Low voltage QRS Confirmed by MARISEL MCCORD, JESI ([id number]), editor farm journal JAQUELIN JO ([id number]) on 03/25/2024 7:55:02 AM Referred By: Confirmed By:JESI JOINER MD
--- NOTE | 2024-03-24 06:37 | ED.VIS.DYS ---
HPI History of Present Illness Chief Complaint: Shortness of Breath Detail of Chief Complaint: Occurred abruptly after drinking water. Concerned she aspirated Informant: EMS and SNF Limited: dementia Onset/Context/Timing Onset: Hours (Approximately half hour prior to presentation) Context: sudden Timing: Continuous Quality: Positive for - (Unable to determine limited to what EMS told us on arrival and nurse to nurse communication prior to arrival) Current Severity: Severe Maximum Severity: Severe Worsened by: - (Unknown) Relieved by: Nothing Associated Symptoms cough and yellow sputum Chest Pain: Positive for None Narrative Narrative: Patient is a 74-year-old woman with history of type 2 diabetes, chronic kidney disease, coronary artery disease, chronic kidney disease stage III, chronic systolic congestive heart failure, hypothyroidism, ischemic cardiomyopathy and GERD who presents after apparent aspiration. Per squad she has green-colored sputum. Patient is not very alert. She reportedly is full code. Patient has slight drooling. She is able to breathe without gagging on her saliva. History is limited due to dementia and the fact that she is in respiratory distress with decreased level of consciousness. Prior similar symptoms: Yes (Admitted December 06 through December 09 for acute hypoxic respiratory failure due.) Recent Illness/Hospitalization: Yes [facility] Medical History Pneumonia CKD (chronic kidney disease) stage 3, GFR 30-59 ml/min History of left heart catheterization (LHC) (~12/21/10) CVA (cerebral vascular accident) Ischemic cardiomyopathy Old myocardial infarction History of non-ST elevation myocardial infarction (NSTEMI) Atherosclerotic heart disease of [place] coronary artery without angina pectoris Mixed hyperlipidemia Essential hypertension Chronic systolic (congestive) heart failure Hearing problem IBS (irritable bowel syndrome) GI problem Diabetes type 2, controlled Cataracts, bilateral Bladder infection Back problem Arthritis Dementia History of gastrointestinal hemorrhage Diabetic peripheral neuropathy Hypothyroidism Gastroesophageal reflux disease Type 2 diabetes mellitus Cerebrovascular disease Home Medications ?Medication ?Instructions ?Recorded ?Last Taken ?Type aspirin 81 mg tablet,delayed 81 mg PO DAILY@0800 heart health 05/27/13 10/08/23 History release atorvastatin 40 mg tablet 40 mg PO QHS cholesterol 05/27/13 10/07/23 History clopidogrel 75 mg tablet 75 mg PO DAILY blood clotting 05/27/13 10/08/23 History docusate sodium 100 mg capsule 100 mg PO BID stool 05/27/13 05/02/21 History levothyroxine 75 mcg tablet 75 mcg PO DAILY thyroid 05/27/13 10/08/23 History metoprolol tartrate 50 mg tablet 50 mg PO BID heart 05/27/13 10/08/23 History pantoprazole 40 mg tablet,delayed 40 mg PO DAILY stomach 05/27/13 10/08/23 History release pen needle, diabetic 31 gauge x #30 ea 06/05/17 Unknown History 10/10 (Comfort EZ Pen [place]) empagliflozin 25 mg tablet 25 mg PO DAILY dmII 03/29/22 10/08/23 History (Jardiance) sitagliptin phosphate 25 mg tablet 25 mg PO DAILY DMII 06/06/23 10/08/23 History (Januvia) calcium 600 mg (as 1 cap PO DAILY calcium 10/08/23 10/08/23 History carbonate)-vitamin D3 5 mcg (200 unit) capsule (Calcium 600 + D(3)) memantine 10 mg tablet 10 mg PO DAILY dementia 10/08/23 10/07/23 History polyethylene glycol 3350 17 17 g PO DAILY PRN constipation 10/08/23 Unknown History gram/dose oral powder (ClearLax) acetaminophen 325 mg tablet 650 mg (2 x 325 mg) PO Q6H PRN PRN 10/12/23 Unknown Rx Pain 1-10 Or Fever >100.7 #0 tabs insulin glargine 100 unit/mL (3 22 unit (0.22 mL) subcut BID dmII 10/12/23 10/07/23 Rx mL) subcutaneous pen (Basaglar 30 days #0 mL KwikPen U-100 Insulin) insulin lispro 100 unit/mL 15 unit (0.15 mL) subcut TIDAC 10/12/23 Unknown Rx subcutaneous pen (Humalog KwikPen diabetes #0 mL (U-100) Insulin) insulin lispro 100 unit/mL See Protocol subcut ACHS #0 mL 10/12/23 Unknown Rx subcutaneous pen (Humalog KwikPen (U-100) Insulin) bisacodyl 10 mg rectal suppository 10 mg [place] DAILY PRN no BM after MOM 11/18/23 Unknown History magnesium hydroxide 400 mg/5 mL 400 mg PO DAILY PRN constipation 11/18/23 Unknown History oral suspension (Milk of Magnesia) furosemide 40 mg tablet (Lasix) 40 mg PO BID #1 TAB 12/10/23 Unknown Rx menthol 0.44 %-zinc oxide 20.6 % 1 applic topical BID #0 grams 12/10/23 Unknown Rx topical ointment (Calmoseptine) nystatin 100,000 unit/gram topical 1 applic topical BID #0 grams 12/10/23 Unknown Rx powder (Nyamyc) potassium chloride 20 mEq 20 meq PO DAILY #1 TAB 12/10/23 Unknown Rx tablet,extended release Allergy/AdvReac Type Severity Reaction Status Date / Time ibuprofen Allergy Itching Verified 03/24/24 06:31 lisinopril Allergy Other Verified 03/24/24 06:31 Penicillins Allergy Itching Verified 03/24/24 06:31 tramadol HCl (From [facility]) Allergy Other Verified 03/24/24 06:31 Family History Mother Cancer Diabetes Father Cancer Surgical History Hx of cataract surgery frozen shoulder surgery H/O thyroidectomy unable to obtain Social History Smoking Status: Former smoker second hand exposure: No alcohol intake: never substance use type: does not use caffeine: Yes Type: carbonated beverages Number of servings: 1 ROS ROS ED Review of Systems ROS Unobtainable: due to mental status Respiratory/Chest Respiratory/Chest: Reports dyspnea Gastrointestinal Gastrointestinal: Reports vomiting EXAM Physical Exam Const Vital Signs: 03/24/24 06:31 03/24/24 06:31 03/24/24 06:34 Temperature 99.1 F Temperature Source Axillary Pulse Rate 108 H Respiratory Rate 40 H Respiratory Effort Short of Breath Respiratory Depth Shallow Respiratory Pattern Tachypnea Blood Pressure 151/91 H Blood Pressure Mean 111 Pulse Ox 100 98 Oxygen Delivery Method Non-Rebreather Non-Rebreather Non-Rebreather Oxygen Flow Rate (L/min) 15 15 15 Fraction of Inspired Oxygen (FIO2) 03/24/24 06:39 03/24/24 06:51 03/24/24 06:51 Temperature 99.1 F Temperature Source Axillary Pulse Rate 97 85 Respiratory Rate 30 H 32 H Respiratory Effort Respiratory Depth Respiratory Pattern Hyperpnea Blood Pressure 151/91 H Blood Pressure Mean 111 Pulse Ox 98 Oxygen Delivery Method Non-Rebreather Nasal Cannula Oxygen Flow Rate (L/min) 15 10 Fraction of Inspired Oxygen (FIO2) 99 03/24/24 07:10 03/24/24 07:26 Temperature Temperature Source Pulse Rate 87 Respiratory Rate 27 H Respiratory Effort Respiratory Depth Respiratory Pattern Tachypnea Blood Pressure 144/85 H Blood Pressure Mean 104 Pulse Ox 100 Oxygen Delivery Method Oxygen Flow Rate (L/min) Fraction of Inspired Oxygen (FIO2) 21 Positive well nourished, well developed and obese; Negative for cachectic Constitutional Narrative: Patient has what appears to be emesis on her nightgown. She is in respiratory distress. There is use of accessory muscles. There is supraclavicular retractions noted. Patient's alertness is depressed. General Appearance ED: well developed; Negative for cachectic, NAD or pallor Nutritional Appearance: obese; Negative for cachectic HEENT Reports moist mucous membranes HEENT Narrative: Head is atraumatic and normocephalic. Ears normal. Nares patent. Eyes PERRL and EOMs intact bilaterally General Eye ED: Negative for scleral icterus Neck no lymphadenopathy, supple and no meningeal signs Resp normal respiratory effort and clear to auscultation bilaterally Cardio regular rhythm, S1 normal heart sound, S2 normal heart sound and no murmurs Rate: tachycardic GI non-tender, non-distended and no masses Inspection: Negative for other Back/Spine Negative for no CVA tenderness Neuro [place] Coma Scale: document GCS findings Spontaneous Localizes to Pain Confused 13 Sensorium / Orientation: Negative for alert Psych Psych Narrative: Unable to determine Skin no wounds and skin turgor normal General Skin Exam: Negative for pallor MDM MDM MDM Narrative Medical decision making narrative: Differential diagnosis would be aspiration pneumonitis, bronchitis, exacerbation of chronic systolic heart failure, cardiac ischemia (see non-ST elevation [place]), hypothyroidism. Workup included EKG, chest x-ray appropriate blood work to assess electrolytes, renal function, white count, evaluate for anemia. X-ray was obtained to assess for congestive heart failure/pneumonia. History & Record Review Additional record(s) reviewed:: Prior inpatient record (Patient was admitted December 06 through December 09 for acute hypoxic respiratory failure due to exacerbation of chronic systolic heart failure and possible pneumonia. She also had pamela coli urinary tract infection. Reviewing her inpatient stay reveals that she did not have pneumonia. This was ruled out.) Lab Data Attestation: I reviewed the patient's lab results. Lab results narrative: CBC is remarkable for lymphocytosis. Labs: Laboratory Results - last 24 hr 03/24/24 06:40 WBC 9.5 RBC 4.61 Hgb 12.5 Hct 39.6 MCV 85.9 MCH 27.1 MCHC 31.6 L RDW Std Deviation 46.5 H RDW Coeff of Don 15.2 H Plt Count 281 MPV 11.6 Immature Gran % (Auto) 0.300 Neut % (Auto) 44.9 L Lymph % (Auto) 44.3 H [place] % (Auto) 6.6 Eos % (Auto) 3.4 Baso % (Auto) 0.5 Absolute Neuts (auto) 4.3 Absolute Lymphs (auto) 4.22 Nucleated RBC % 0 ABG Data Attestation: I personally reviewed and interpreted this ABG as follows: Interpretation: ABG reveals a metabolic acidosis and significant AA gradient. pH is 7.30, pCO2 41.9, pO2 122.7 bicarb 20.8 with a base excess of -5.5 and an O2 saturation 98.4% nonrebreather mask. Radiography Chest X-Ray - ED: 1 View, Read by ED Physician, Normal, Bony Structures, Cardiomegaly and CHF EKG Initial EKG: Attestation: I personally reviewed and interpreted this EKG as follows: Interpretation: Sinus Rhythm (Rate 93. AR interval 170 ms. QS duration 74 ms. QT duration 150 ms. Fabens to the left. There is low voltage. There is artifact. There is decreased anterior force. There is possibly atrial enlargement.) Treatment and Re-Evaluation :: Since patient is in respiratory distress with paradoxical breathing, use of accessory muscles with retractions significant AA gradient will treat her congestive heart failure noted on x-ray with nitro drip and IV Lasix. According to paramedics and call from nurse from SNF patient is full code. Comments:: Hospitalist was concerned that she might have hyperkalemia. Patient has no EKG changes concern for hyperkalemia. Patient be admitted to ICU. Critical Care Time Critical Care Time: Yes Critical care time (excluding procedures): 30-74 minutes (32), Including time spent: (History, physical, documentation, review of prior records, independent interpretation of laboratory results and imaging. Initiation of treatment for congestive heart failure with Lasix and nitroglycerin drip), Discussing w/Consultants and Arranging Admission or Transfer Discharge Plan Dx/Rx/DC Orders Clinical Impression: Acute hypoxemic respiratory failure, Essential hypertension, Mixed hyperlipidemia, Type 2 diabetes mellitus, Ischemic cardiomyopathy, Chronic kidney disease, Acute exacerbation of CHF (congestive heart failure), Metabolic acidosis Disposition Disposition: Acute Care [facility]
[2024-03-24 06:51] LABS: Absolute Lymphocyte Count 4.22 X10^3/uL (0.83-4.51); Absolute Neutrophil Count 4.3 X10^3/uL (2.0-7.7); Basophil# 0.05 X10^3/uL; Basophil% 0.5 % (0-1); Eosinophil# 0.32 X10^3/uL; Eosinophils% 3.4 % (0-5); Hematocrit 39.6 % (37-47); Hemoglobin 12.5 g/dL (12.0-15.0); Lymphocyte # 4.22 X10^3/ul (0.83-4.51); Lymphocyte % 44.3 % (19-41); Mean Corp Hgb Conc 31.6 g/dL (32-36); Mean Corpuscular Hgb 27.1 pg (27.0-32.0); Mean Corpuscular Volume 85.9 fL (81-99); Mean Platelet Vol. 11.6 fl (6.2-12.0); Monocyte# 0.63 X10^3/uL; Monocyte% 6.6 % (0-10); NRBC Flagged by Analyzer 0 % (0-5); Neutrophil # 4.27 X10^3/uL (2.7-7.7); Neutrophil % 44.9 % (47-70); Platelet Count 281 K/mm3 (150-450); RBC Distribution Width CV 15.2 % (11.6-14.6); RBC Distribution Width SD 46.5 fl (35.1-43.9); Red Blood Count 4.61 M/mm3 (4.2-5.4); White Blood Count 9.5 K/mm3 (4.4-11.0)
[2024-03-24] MEDS: Albuterol 2.5 MG/3 ML VIAL.NEB. INHALATION (06:51)
--- NOTE | 2024-03-24 06:56 | ED.RN ---
Attempted to call [facility] for a complete med list x4 with no answer.
[2024-03-24] MEDS: Nitroglycerin Infusion 250 ML 3 MG CONT INF (07:26)
[2024-03-24] MEDS: Furosemide 100 MG/10 ML Vial 60 MG IV ×3 (07:27→21:22)
[2024-03-24 07:31] LABS: ALB/GLOB Ratio 0.4 RATIO (0.9-2.4); AST(SGOT) 13 U/L (15-37); Alanine Aminotransfer ALT/SGPT 13 U/L (13-56); Albumin, Serum 2.3 g/dL (3.2-5.0); Alkaline Phosphatase 199 U/L (45-117); Anion Gap 11 (5-15); BUN 30 mg/dL (7-18); BUN/Creat Ratio 9.7 RATIO (10-20); Calcium,Total 8.6 mg/dL (8.5-10.1); Chloride 110 mmol/L (98-107); Creatinine, Serum 3.08 mg/dL (0.55-1.02); EST Glomerular Filtration Rate 16 mL/min (>60); Est Glom Filt Rate - Afr Amer 19 mL/min (>60); Estimated Creatinine Clearance 20.06 ml/min; Globulin 5.4 g/dL (2.2-4.2); Glucose 406 mg/dL (74-106); Protein, Total 7.7 g/dL (6.4-8.2); Sodium Level 142 mmol/L (136-145); Troponin-I HS (w/2H Reflex) 47 pg/mL (3.0-54.0)
[2024-03-24 07:38] LABS: Lactic Acid 2.9 mmol/L (0.4-1.9)
--- NOTE | 2024-03-24 07:38 | PCM.HP.STD ---
HPI - General General Date of Admission: 03/24/24 HPI Narrative FATIMAH DUNCAN, is a 74 F with multiple comorbidities including ischemic cardiomyopathy with EF of 20 to 25%, diabetes mellitus type 2, essential hypertension chronic kidney disease stage IV currently residing in an extended care facility who was brought to the emergency department with shortness of breath. Patient could not provide much history since at the time of my assessment she was on BiPAP. Per reports from her significant other as well as the EMS report patient has been experiencing progressive shortness of breath as well as swelling involving both lower extremities. On the morning of her presentation she was found to be hypoxic with oxygen saturation in the 30s transferred to the emergency department. Imaging studies obtained came back consistent with pulmonary vascular congestion. An assessment of congestive heart failure was made. Patient was placed on BiPAP started on Lasix as well as nitroglycerin drip admitted to the intensive care unit for further management [facility] Medical History Pneumonia CKD (chronic kidney disease) stage 3, GFR 30-59 ml/min History of left heart catheterization (LHC) (~12/21/10) CVA (cerebral vascular accident) Ischemic cardiomyopathy Old myocardial infarction History of non-ST elevation myocardial infarction (NSTEMI) Atherosclerotic heart disease of [place] coronary artery without angina pectoris Mixed hyperlipidemia Essential hypertension Chronic systolic (congestive) heart failure Hearing problem IBS (irritable bowel syndrome) GI problem Diabetes type 2, controlled Cataracts, bilateral Bladder infection Back problem Arthritis Dementia History of gastrointestinal hemorrhage Diabetic peripheral neuropathy Hypothyroidism Gastroesophageal reflux disease Type 2 diabetes mellitus Cerebrovascular disease Home Medications ?Medication ?Instructions ?Recorded ?Last Taken ?Type aspirin 81 mg tablet,delayed 81 mg PO DAILY@0800 heart health 05/27/13 10/08/23 History release atorvastatin 40 mg tablet 40 mg PO QHS cholesterol 05/27/13 10/07/23 History clopidogrel 75 mg tablet 75 mg PO DAILY blood clotting 05/27/13 10/08/23 History docusate sodium 100 mg capsule 100 mg PO BID stool 05/27/13 05/02/21 History levothyroxine 75 mcg tablet 75 mcg PO DAILY thyroid 05/27/13 10/08/23 History metoprolol tartrate 50 mg tablet 50 mg PO BID heart 05/27/13 10/08/23 History pantoprazole 40 mg tablet,delayed 40 mg PO DAILY stomach 05/27/13 10/08/23 History release pen needle, diabetic 31 gauge x #30 ea 06/05/17 Unknown History 10/10 (Comfort EZ Pen [place]) empagliflozin 25 mg tablet 25 mg PO DAILY dmII 03/29/22 10/08/23 History (Jardiance) sitagliptin phosphate 25 mg tablet 25 mg PO DAILY DMII 06/06/23 10/08/23 History (Januvia) calcium 600 mg (as 1 cap PO DAILY calcium 10/08/23 10/08/23 History carbonate)-vitamin D3 5 mcg (200 unit) capsule (Calcium 600 + D(3)) memantine 10 mg tablet 10 mg PO DAILY dementia 10/08/23 10/07/23 History polyethylene glycol 3350 17 17 g PO DAILY PRN constipation 10/08/23 Unknown History gram/dose oral powder (ClearLax) acetaminophen 325 mg tablet 650 mg (2 x 325 mg) PO Q6H PRN PRN 10/12/23 Unknown Rx Pain 1-10 Or Fever >100.7 #0 tabs insulin glargine 100 unit/mL (3 22 unit (0.22 mL) subcut BID dmII 10/12/23 10/07/23 Rx mL) subcutaneous pen (Basaglar 30 days #0 mL KwikPen U-100 Insulin) insulin lispro 100 unit/mL 15 unit (0.15 mL) subcut TIDAC 10/12/23 Unknown Rx subcutaneous pen (Humalog KwikPen diabetes #0 mL (U-100) Insulin) insulin lispro 100 unit/mL See Protocol subcut ACHS #0 mL 10/12/23 Unknown Rx subcutaneous pen (Humalog KwikPen (U-100) Insulin) bisacodyl 10 mg rectal suppository 10 mg [place] DAILY PRN no BM after MOM 11/18/23 Unknown History magnesium hydroxide 400 mg/5 mL 400 mg PO DAILY PRN constipation 11/18/23 Unknown History oral suspension (Milk of Magnesia) furosemide 40 mg tablet (Lasix) 40 mg PO BID #1 TAB 12/10/23 Unknown Rx menthol 0.44 %-zinc oxide 20.6 % 1 applic topical BID #0 grams 12/10/23 Unknown Rx topical ointment (Calmoseptine) nystatin 100,000 unit/gram topical 1 applic topical BID #0 grams 12/10/23 Unknown Rx powder ([facility]) potassium chloride 20 mEq 20 meq PO DAILY #1 TAB 12/10/23 Unknown Rx tablet,extended release Allergy/AdvReac Type Severity Reaction Status Date / Time ibuprofen Allergy Itching Verified 03/24/24 06:31 lisinopril Allergy Other Verified 03/24/24 06:31 Penicillins Allergy Itching Verified 03/24/24 06:31 tramadol HCl (From [facility]) Allergy Other Verified 03/24/24 06:31 Family History Mother Cancer Diabetes Father Cancer Surgical History Hx of cataract surgery frozen shoulder surgery H/O thyroidectomy Social History Smoking Status: Former smoker second hand exposure: No alcohol intake: never substance use type: does not use caffeine: Yes Type: carbonated beverages Number of servings: 1 ROS ROS Narrative Unable to obtain since patient is on BiPAP Vital Signs Vital Signs Vital Signs: 03/24/24 06:31 03/24/24 06:31 03/24/24 06:34 Temperature 99.1 F Temperature Source Axillary Pulse Rate 108 H Respiratory Rate 40 H Respiratory Effort Short of Breath Respiratory Depth Shallow Respiratory Pattern Tachypnea Blood Pressure 151/91 H Blood Pressure Mean 111 Pulse Ox 100 98 Oxygen Delivery Method Non-Rebreather Non-Rebreather Non-Rebreather Oxygen Flow Rate (L/min) 15 15 15 Fraction of Inspired Oxygen (FIO2) 03/24/24 06:39 03/24/24 06:51 03/24/24 06:51 Temperature 99.1 F Temperature Source Axillary Pulse Rate 97 85 Respiratory Rate 30 H 32 H Respiratory Effort Respiratory Depth Respiratory Pattern Hyperpnea Blood Pressure 151/91 H Blood Pressure Mean 111 Pulse Ox 98 Oxygen Delivery Method Non-Rebreather Nasal Cannula Oxygen Flow Rate (L/min) 15 10 Fraction of Inspired Oxygen (FIO2) 99 03/24/24 07:10 03/24/24 07:26 03/24/24 07:31 Temperature Temperature Source Pulse Rate 87 87 Respiratory Rate 27 H 23 H Respiratory Effort Respiratory Depth Respiratory Pattern Tachypnea Blood Pressure 144/85 H 136/49 H Blood Pressure Mean 104 78 Pulse Ox 100 100 Oxygen Delivery Method Bi-pap Oxygen Flow Rate (L/min) Fraction of Inspired Oxygen (FIO2) 21 Weight Weight: 102 kg Body Mass Index (BMI) 33.2 Physical Exam Narrative GENERAL: Awake on BiPAP HEENT: Atraumatic; normocephalic EYES; Anicteric, Normal Conjunctiva NECK; supple, normal thyroid, RESPIRATORY: Diminished to auscultation CARDIOVASCULAR: Regular S1 S2, GI: soft, normoactive bowel sounds, : No Renal angle tenderness; EXTREMITIES: Bipedal edema, no clubbing, MUSCULOSKELETAL: no muscle wasting NEURO: Awake; no lateralizing signs. SKIN: No Rash PSYCH; Flat affect Results Lab / Micro Data 03/24/24 06:40 03/24/24 06:40 Labs: Laboratory Results - last 24 hr 03/24/24 06:40: WBC 9.5, RBC 4.61, Hgb 12.5, Hct 39.6, MCV 85.9, MCH 27.1, MCHC 31.6 L, RDW Std Deviation 46.5 H, RDW Coeff of Don 15.2 H, Plt Count 281, MPV 11.6, Immature Gran % (Auto) 0.300, Neut % (Auto) 44.9 L, Lymph % (Auto) 44.3 H, [place] % (Auto) 6.6, Eos % (Auto) 3.4, Baso % (Auto) 0.5, Absolute Neuts (auto) 4.3, Absolute Lymphs (auto) 4.22, Nucleated RBC % 0, Sodium 142, Potassium 4.0, Chloride 110 H, Carbon Dioxide 21.0, Anion Gap 11, BUN 30 H, Creatinine 3.08 H, Estim Creat Clear Calc 20.06, Est GFR (MDRD) Af Amer 19 L, Est GFR (MDRD) Non-Af 16 L, BUN/Creatinine Ratio 9.7 L, Glucose 406 H, Lactic Acid 2.9 H*, Calcium 8.6, Total Bilirubin 0.50, AST 13 L, ALT 13, Alkaline Phosphatase 199 H, Troponin I High Sens 47, Total Protein 7.7, Albumin 2.3 L, Globulin 5.4 H, Albumin/Globulin Ratio 0.4 L Assessment & Plan Assessment/Plan (1) Acute exacerbation of CHF (congestive heart failure): QUALIFIERS: Heart failure type: systolic Qualified Code(s): I50.23 - Acute on chronic systolic (congestive) heart failure (2) Acute hypoxemic respiratory failure: PLAN: Plan Patient is a 74-year-old lady with history of chronic systolic heart failure with LVEF of 20 to 25% presenting with progressive shortness of breath and significant hypoxia 1. Acute hypoxic respiratory failure ? Secondary to acute congestive heart failure. Patient placed on noninvasive ventilation BiPAP admitted to the intensive care unit for further management 2. Acute on chronic congestive heart failure with reduced ejection fraction -2D echo from October 2023 demonstrate mildly dilated left ventricle. LV anterior and apical akinesis with thinning. Estimated LV EF 20 to 25%. Patient presented with acute exacerbation admitted to the intensive care unit treatment initiated with diuretic therapy with furosemide, nitroglycerin drip as well as noninvasive ventilation. Patient was also placed on low-sodium diet, strict input and output Daily weights 3. Acute kidney injury superimposed chronic kidney disease stage IV -Patient baseline creatinine from November 2023 was 1.8 creatinine on admission was 3.08 due to suspected hypoperfusion contributing to worsening kidney function do expect improvement with improvement in her congestive heart failure. Consult was placed to nephrology 4. Diabetes mellitus type II -patient's oral hypoglycemics held. Placed on long acting insulin, Accu-Cheks a.c. and at bedtime and covered with sliding scale insulin 5. Hypothyroidism ? Patient is on levothyroxine home dose continued 6. Coronary artery disease ? With previous [place] 7. GERD ? On PPI 8. Class I obesity with BMI of 33.2 -Complicating care weight loss advised 9. Lactic acidosis ? Secondary to increased work of breathing no evidence of infection 10. DVT prophylaxis ? Subcu heparin Time spent in the patient's overall evaluation,decision-making process, review of diagnostic data, adjustment of management, discussion with other providers, nursing nursing and ancillary staff involved in patient's care documentation, 78 Minutes Advance planning; did discuss with the patient and family regarding advanced directives as well as CODE STATUS. Did explain the various scenarios involved ( FULL CODE, DNR CCA, DNR CCA with no intubation, and DNR CC and what each meant) plan is for patient to remain full code with CPR and intubation if needed. Order was placed. Time spent on discussion 18 minutes. Charges/Coding Multi Select Codes Visit Charges Visit Charges: 84153 Init Hosp Hospitalists' Procedures Procedures: 27776 Advncd Care Plan 30 Min
[2024-03-24 07:39] LABS: BNP,B-Type NATRIURETIC PEPTIDE 914.8 pg/mL (0-100)
[2024-03-24 08:46] LABS: Reflex Troponin-HS? (from REC) Y
[2024-03-24 09:26] LABS: Troponin-I HS 53 pg/mL (3.0-54.0)
[2024-03-24 10:00] LABS: Bedside Glucose 326 mg/dL (74-106)
[2024-03-24] MEDS: Heparin Injection (Vial) 5,000 UNIT/ML VIAL 5000 UNIT SC ×2 (10:21→21:23)
[2024-03-24] MEDS: Calcium Carb/Vitamin D 1 TABLET Tablet PO (10:22)
[2024-03-24] MEDS: Insulin Lispro 100 UNIT/ML INSULN.PEN SC ×4 (10:23→21:23)
--- NOTE | 2024-03-24 10:32 | CASEMGMT ---
Social Work- met with pt and Jeff, caregiver. Pt and caregiver both report the plan is to return to [facility] at d/c. DCA advised. SKYLAR Elkins
[2024-03-24 10:46] LABS: Reflex Lactate? Y
[2024-03-24 11:40] LABS: Lactic Acid 2.5 mmol/L (0.4-1.9)
[2024-03-24 15:19] LABS: Bedside Glucose 372 mg/dL (74-106)
[2024-03-24 15:42] LABS: Troponin-I HS 48 pg/mL (3.0-54.0)
--- NOTE | 2024-03-24 16:28 | CHAPLAIN ---
Type of Pastoral Visit _x_ Initial Visit ___ Follow-up Visit ___ On-call Visit ___ General Patient Visit ___ Spiritual Assessment ___ Family Conference ___ Bereavement ___ Rapid Response ___ Code Blue ___ Other (describe below) Pastoral Care Referral From _x__ Patient ___ Family ___ Nurse ___ Physician ___ Rn Shift Mgr ___ Cream Maker ___ Other (describe below) Sacrament/Intervention _x__ Active listening ___ Anointing ___ Mandaen ___ Bereavement ___ Communion ___ Graciela exploration ___ ___ Life review _x__ Prayer ___ Reconciliation ___ Sacrament of Sick _x__ Supportive presence ___ Wedding ___ Other (describe below) Pastoral Comments patient and SO are together in the room; pt is able to answer questions; pt is agreeable to presence and prayer support
[2024-03-24 17:00] LABS: Bedside Glucose 316 mg/dL (74-106)
--- NOTE | 2024-03-24 18:06 | PCM.CONS.R ---
Assessment & Plan Assessment/Plan (1) Chronic kidney disease: (2) HELENA (acute kidney injury): PLAN: Her primary care physician is with [facility]. Reviewed lab data from [facility]. It seems she has known history of CKD stage IV, baseline creatinine around 2.4 for several years now. Last urine albumin creatinine ratio was less than 0.5 g. Last echocardiogram with ejection fraction of 25%, congestive heart failure with low ejection fraction. Chest x-ray looks pretty wet. Has lower extremity edema. Unable to tell me her baseline weight. For now continue IV Lasix, depending on the response, we can start her on Lasix drip if needed. Slight increase in creatinine, HELENA is likely related to cardiorenal physiology. HPI Consult Data Date of Consult: 03/24/24 HPI Narrative Reason for Consultation: HELENA HPI Narrative: FATIMAH DUNCAN, is a 74 F who presents To the hospital with shortness of breath. Nephrology on consultation in view of acute renal failure. Has known history of congestive heart failure, last ejection fraction about 20 to 25% as per echocardiogram from October of this year. Came with shortness of breath. Denies any urinary complaints. As per admission records, she is on Lasix 40 mg twice a day. She thinks she gained some weight although she was not sure how much [facility] Medical History Pneumonia CKD (chronic kidney disease) stage 3, GFR 30-59 ml/min History of left heart catheterization (LHC) (~12/21/10) CVA (cerebral vascular accident) Ischemic cardiomyopathy Old myocardial infarction History of non-ST elevation myocardial infarction (NSTEMI) Atherosclerotic heart disease of [place] coronary artery without angina pectoris Mixed hyperlipidemia Essential hypertension Chronic systolic (congestive) heart failure Hearing problem IBS (irritable bowel syndrome) GI problem Diabetes type 2, controlled Cataracts, bilateral Bladder infection Back problem Arthritis Dementia History of gastrointestinal hemorrhage Diabetic peripheral neuropathy Hypothyroidism Gastroesophageal reflux disease Type 2 diabetes mellitus Cerebrovascular disease Home Medications ?Medication ?Instructions ?Recorded ?Last Taken ?Type aspirin 81 mg tablet,delayed 81 mg PO DAILY@0800 heart health 05/27/13 10/08/23 History release atorvastatin 40 mg tablet 40 mg PO QHS cholesterol 05/27/13 10/07/23 History clopidogrel 75 mg tablet 75 mg PO DAILY blood clotting 05/27/13 10/08/23 History docusate sodium 100 mg capsule 100 mg PO BID stool 05/27/13 05/02/21 History levothyroxine 75 mcg tablet 75 mcg PO DAILY thyroid 05/27/13 10/08/23 History metoprolol tartrate 50 mg tablet 50 mg PO BID heart 05/27/13 10/08/23 History pantoprazole 40 mg tablet,delayed 40 mg PO DAILY stomach 05/27/13 10/08/23 History release pen needle, diabetic 31 gauge x #30 ea 06/05/17 Unknown History 10/10 (Comfort EZ Pen [place]) empagliflozin 25 mg tablet 25 mg PO DAILY dmII 03/29/22 10/08/23 History (Jardiance) sitagliptin phosphate 25 mg tablet 25 mg PO DAILY DMII 06/06/23 10/08/23 History (Januvia) calcium 600 mg (as 1 cap PO DAILY calcium 10/08/23 10/08/23 History carbonate)-vitamin D3 5 mcg (200 unit) capsule (Calcium 600 + D(3)) memantine 10 mg tablet 10 mg PO DAILY dementia 10/08/23 10/07/23 History polyethylene glycol 3350 17 17 g PO DAILY PRN constipation 10/08/23 Unknown History gram/dose oral powder (ClearLax) acetaminophen 325 mg tablet 650 mg (2 x 325 mg) PO Q6H PRN PRN 10/12/23 Unknown Rx Pain 1-10 Or Fever >100.7 #0 tabs insulin glargine 100 unit/mL (3 22 unit (0.22 mL) subcut BID dmII 10/12/23 10/07/23 Rx mL) subcutaneous pen (Basaglar 30 days #0 mL KwikPen U-100 Insulin) insulin lispro 100 unit/mL 15 unit (0.15 mL) subcut TIDAC 10/12/23 Unknown Rx subcutaneous pen (Humalog KwikPen diabetes #0 mL (U-100) Insulin) insulin lispro 100 unit/mL See Protocol subcut ACHS #0 mL 10/12/23 Unknown Rx subcutaneous pen (Humalog KwikPen (U-100) Insulin) bisacodyl 10 mg rectal suppository 10 mg [place] DAILY PRN no BM after MOM 11/18/23 Unknown History magnesium hydroxide 400 mg/5 mL 400 mg PO DAILY PRN constipation 11/18/23 Unknown History oral suspension (Milk of Magnesia) furosemide 40 mg tablet (Lasix) 40 mg PO BID #1 TAB 12/10/23 Unknown Rx menthol 0.44 %-zinc oxide 20.6 % 1 applic topical BID #0 grams 12/10/23 Unknown Rx topical ointment (Calmoseptine) nystatin 100,000 unit/gram topical 1 applic topical BID #0 grams 12/10/23 Unknown Rx powder (Nyamyc) potassium chloride 20 mEq 20 meq PO DAILY #1 TAB 12/10/23 Unknown Rx tablet,extended release Allergy/AdvReac Type Severity Reaction Status Date / Time ibuprofen Allergy Itching Verified 03/24/24 06:31 lisinopril Allergy Other Verified 03/24/24 06:31 Penicillins Allergy Itching Verified 03/24/24 06:31 tramadol HCl (From Ultram) Allergy Other Verified 03/24/24 06:31 Family History Mother Cancer Diabetes Father Cancer Surgical History Hx of cataract surgery frozen shoulder surgery H/O thyroidectomy Social History Smoking Status: Former smoker second hand exposure: No alcohol intake: never substance use type: does not use caffeine: Yes Type: carbonated beverages Number of servings: 1 ROS ROS Narrative negative except above Physical Exam Narrative Alert awake oriented x 3 no obvious distress no pallor no icterus no JVD s1s2 no murmurs lungs rales abdomen soft no organomegaly no edema no cyanosis anand + Lab / Micro Data 03/24/24 06:40 03/24/24 06:40 Labs: Laboratory Results - last 24 hr 03/24/24 06:40: WBC 9.5, RBC 4.61, Hgb 12.5, Hct 39.6, MCV 85.9, MCH 27.1, MCHC 31.6 L, RDW Std Deviation 46.5 H, RDW Coeff of Don 15.2 H, Plt Count 281, MPV 11.6, Immature Gran % (Auto) 0.300, Neut % (Auto) 44.9 L, Lymph % (Auto) 44.3 H, [place] % (Auto) 6.6, Eos % (Auto) 3.4, Baso % (Auto) 0.5, Absolute Neuts (auto) 4.3, Absolute Lymphs (auto) 4.22, Nucleated RBC % 0, Sodium 142, Potassium 4.0, Chloride 110 H, Carbon Dioxide 21.0, Anion Gap 11, BUN 30 H, Creatinine 3.08 H, Estim Creat Clear Calc 20.06, Est GFR (MDRD) Af Amer 19 L, Est GFR (MDRD) Non-Af 16 L, BUN/Creatinine Ratio 9.7 L, Glucose 406 H, Lactic Acid 2.9 H*, Calcium 8.6, Total Bilirubin 0.50, AST 13 L, ALT 13, Alkaline Phosphatase 199 H, Troponin I High Sens 47, B-Natriuretic Peptide 914.8 H, Total Protein 7.7, Albumin 2.3 L, Globulin 5.4 H, Albumin/Globulin Ratio 0.4 L 03/24/24 08:55: Troponin I High Sens 53 03/24/24 09:42: POC Glucose 326 H 03/24/24 10:55: Lactic Acid 2.5 H* 03/24/24 11:16: POC Glucose 372 H 03/24/24 15:00: Troponin I High Sens 48 03/24/24 16:39: POC Glucose 316 H Imaging Radiology Impression Chest X-Ray 03/24/24 06:32 IMPRESSION: Bilateral airspace disease may be pulmonary edema or pneumonia. Electronically Signed: lEizabeth Shearer MD at 8:13 EDT ,
[2024-03-24] MEDS: Atorvastatin Calcium 40 MG Tablet PO (21:25)
[2024-03-24 21:54] LABS: Bedside Glucose 233 mg/dL (74-106)
[2024-03-25] VITALS (19 sets, daily range): BP systolic 106–126; BP diastolic 51–63; PULSE 78–101; RESP 11–24; TEMP 36.2–37; O2SAT 93–100; BMI 31.6
[2024-03-25] MEDS: 0.9% Saline Lock 10 ML Syringe IV (00:08)
--- NOTE | 2024-03-25 00:14 | NURSING ---
Called [facility] for patient's MAR. Update given to her nurse at [facility]. MAR will be faxed to unit shortly.
[2024-03-25] MEDS: Furosemide 100 MG/10 ML Vial 60 MG IV ×3 (05:31→21:16)
[2024-03-25 05:52] LABS: Absolute Neutrophil Count 5.4 X10^3/uL (2.0-7.7); Basophil# 0.05 X10^3/uL; Basophil% 0.5 % (0-1); Eosinophil# 0.26 X10^3/uL; Eosinophils% 2.7 % (0-5); Hematocrit 30.7 % (37-47); Hemoglobin 9.9 g/dL (12.0-15.0); Lymphocyte % 32.1 % (19-41); Mean Corp Hgb Conc 32.2 g/dL (32-36); Mean Corpuscular Hgb 26.1 pg (27.0-32.0); Mean Platelet Vol. 11.4 fl (6.2-12.0); Monocyte# 0.83 X10^3/uL; Monocyte% 8.6 % (0-10); NRBC Flagged by Analyzer 0 % (0-5); Neutrophil # 5.38 X10^3/uL (2.7-7.7); Neutrophil % 55.7 % (47-70); Platelet Count 207 K/mm3 (150-450); RBC Distribution Width CV 15.2 % (11.6-14.6); RBC Distribution Width SD 44.2 fl (35.1-43.9); Red Blood Count 3.79 M/mm3 (4.2-5.4); White Blood Count 9.7 K/mm3 (4.4-11.0)
[2024-03-25 06:36] LABS: Anion Gap 2 (5-15); BUN 31 mg/dL (7-18); BUN/Creat Ratio 11.4 RATIO (10-20); Calcium,Total 8.7 mg/dL (8.5-10.1); Chloride 113 mmol/L (98-107); Creatinine, Serum 2.72 mg/dL (0.55-1.02); EST Glomerular Filtration Rate 18 mL/min (>60); Est Glom Filt Rate - Afr Amer 22 mL/min (>60); Estimated Creatinine Clearance 21.76 ml/min; Glucose 199 mg/dL (74-106); Magnesium 1.8 mg/dL (1.6-2.6); Phosphorus 3.6 mg/dL (2.5-4.9); Potassium 3.6 mmol/L (3.5-5.1); Sodium Level 140 mmol/L (136-145)
--- NOTE | 2024-03-25 07:09 | PCM.PN.HOSP ---
Reason for Visit Reason for Visit: Diagnoses Acute on chronic systolic (congestive) heart failure (03/24/24) Acute respiratory failure with hypoxia (03/24/24) Acute kidney failure, unspecified (03/24/24) Chronic kidney disease, unspecified (03/24/24) Subjective Subjective Patient seen nitroglycerin has been weaned off. Patient in negative fluid balance of 2 L following admission. There are some improvement in kidney function. Patient has also been weaned off BiPAP Objective Data Objective Data Vital Signs: Vital Signs Temp Pulse Resp BP Pulse Ox O2 Del Method O2 Flow Rate 98.0 F 101 H 17 111/59 L 93 Room Air 3 03/25/24 00:00 03/25/24 07:00 03/25/24 07:00 03/25/24 07:00 03/25/24 07:00 03/25/24 07:00 03/24/24 13:00 FiO2 40 03/24/24 07:10 Oxygen Flow Rate (L/min) 3 Oxygen Delivery Method Room Air Weight: 97 kg Body Mass Index (BMI) 31.6 Intake & Output: Intake and Output for Last 24 Hours 03/23/24 03/24/24 03/25/24 23:59 23:59 23:59 Intake Total 443.45 / 566.45 261 / 261 Output Total 1200 / 1900 1550 / 1550 Balance -756.55 / -1333.55 -1289 / -1289 Lab / Micro Data 03/25/24 05:42 03/25/24 05:42 Labs: Laboratory Results - last 24 hr 03/24/24 06:40: Sodium 142, Potassium 4.0, Chloride 110 H, Carbon Dioxide 21.0, Anion Gap 11, BUN 30 H, Creatinine 3.08 H, Estim Creat Clear Calc 20.06, Est GFR (MDRD) Af Amer 19 L, Est GFR (MDRD) Non-Af 16 L, BUN/Creatinine Ratio 9.7 L, Glucose 406 H, Lactic Acid 2.9 H*, Calcium 8.6, Total Bilirubin 0.50, AST 13 L, ALT 13, Alkaline Phosphatase 199 H, Troponin I High Sens 47, B-Natriuretic Peptide 914.8 H, Total Protein 7.7, Albumin 2.3 L, Globulin 5.4 H, Albumin/Globulin Ratio 0.4 L 03/24/24 08:55: Troponin I High Sens 53 03/24/24 09:42: POC Glucose 326 H 03/24/24 10:55: Lactic Acid 2.5 H* 03/24/24 11:16: POC Glucose 372 H 03/24/24 15:00: Troponin I High Sens 48 03/24/24 16:39: POC Glucose 316 H 03/24/24 21:25: POC Glucose 233 H 03/25/24 05:42: WBC 9.7, RBC 3.79 L, Hgb 9.9 L, Hct 30.7 L, MCV 81.0 D, MCH 26.1 L, MCHC 32.2, RDW Std Deviation 44.2 H, RDW Coeff of Don 15.2 H, Plt Count 207, MPV 11.4, Immature Gran % (Auto) 0.400, Neut % (Auto) 55.7, Lymph % (Auto) 32.1, [place] % (Auto) 8.6, Eos % (Auto) 2.7, Baso % (Auto) 0.5, Absolute Neuts (auto) 5.4, Absolute Lymphs (auto) 3.10, Nucleated RBC % 0, Sodium 140, Potassium 3.6, Chloride 113 H, Carbon Dioxide 25.0, Anion Gap 2 L, BUN 31 H, Creatinine 2.72 H, Estim Creat Clear Calc 21.76, Est GFR (MDRD) Af Amer 22 L, Est GFR (MDRD) Non-Af 18 L, BUN/Creatinine Ratio 11.4, Glucose 199 H, Calcium 8.7, Phosphorus 3.6, Magnesium 1.8 Radiography Diagnostic Testing: Radiology Impression Chest X-Ray 03/24/24 06:32 IMPRESSION: Bilateral airspace disease may be pulmonary edema or pneumonia. Electronically Signed: Elizabeth Shearer MD at 8:13 EDT , Physical Exam Narrative GENERAL: In no apparent distress HEENT: Atraumatic; normocephalic EYES; Anicteric, Normal Conjunctiva NECK; supple, normal thyroid, RESPIRATORY: Diminished to auscultation CARDIOVASCULAR: Regular S1 S2, GI: soft, normoactive bowel sounds, : No Renal angle tenderness; EXTREMITIES: Bipedal edema, no clubbing, MUSCULOSKELETAL: no muscle wasting NEURO: Awake; no lateralizing signs. SKIN: No Rash PSYCH; Flat affect Assessment & Plan Assessment/Plan (1) Acute exacerbation of CHF (congestive heart failure): QUALIFIERS: Heart failure type: systolic Qualified Code(s): I50.23 - Acute on chronic systolic (congestive) heart failure (2) Acute hypoxemic respiratory failure: PLAN: Plan Patient is a 74-year-old lady with history of chronic systolic heart failure with LVEF of 20 to 25% presenting with progressive shortness of breath and significant hypoxia 1. Acute hypoxic respiratory failure ? Secondary to acute congestive heart failure. Patient placed on noninvasive ventilation BiPAP admitted to the intensive care unit for further management ? 03/25/2024; patient has been weaned off BiPAP 2. Acute on chronic congestive heart failure with reduced ejection fraction -2D echo from October 2023 demonstrate mildly dilated left ventricle. LV anterior and apical akinesis with thinning. Estimated LV EF 20 to 25%. Patient presented with acute exacerbation admitted to the intensive care unit treatment initiated with diuretic therapy with furosemide, nitroglycerin drip as well as noninvasive ventilation. Patient was also placed on low-sodium diet, strict input and output Daily weights ? 03/25/2024; a negative fluid balance. Patient was on nitroglycerin drip has since been discontinued 3. Acute kidney injury superimposed chronic kidney disease stage IV -Patient baseline creatinine from November 2023 was 1.8 creatinine on admission was 3.08 due to suspected hypoperfusion contributing to worsening kidney function do expect improvement with improvement in her congestive heart failure. Consult was placed to nephrology 03/25/2024; kidney function did improve with diuresis repeat labs ordered in a.m. 4. Diabetes mellitus type II -patient's oral hypoglycemics held. Placed on long acting insulin, Accu-Cheks a.c. and at bedtime and covered with sliding scale insulin ? 03/25/2024; blood glucose levels not controlled adjusted insulin levels 5. Hypothyroidism ? Patient is on levothyroxine home dose continued 6. Coronary artery disease ? With previous NH 7. GERD ? On PPI 8. Class I obesity with BMI of 33.2 -Complicating care weight loss advised 9. Lactic acidosis ? Secondary to increased work of breathing no evidence of infection 10. DVT prophylaxis ? Subcu heparin 11. Physical deconditioning ? Requested for PT OT eval and community mental health social worker to assist with discharge planning Time spent in the patient's overall evaluation,decision-making process, review of diagnostic data, adjustment of management, discussion with other providers, nursing nursing and ancillary staff involved in patient's care documentation, 52-minute
[2024-03-25] MEDS: Insulin Lispro 100 UNIT/ML INSULN.PEN SC ×3 (08:14→21:20)
[2024-03-25] MEDS: Metoprolol Tartrate 50 MG Tablet PO ×2 (08:16→21:17)
[2024-03-25] MEDS: Calcium Carb/Vitamin D 1 TABLET Tablet PO (08:16)
[2024-03-25] MEDS: Potassium Chloride Oral Tablet 20 MEQ PO (08:16)
[2024-03-25] MEDS: Heparin Injection (Vial) 5,000 UNIT/ML VIAL 5000 UNIT SC ×2 (08:17→21:16)
[2024-03-25] MEDS: Clopidogrel Bisulfate 75 MG Tablet PO (08:17)
[2024-03-25] MEDS: Pantoprazole Sodium 40 MG Tablet PO (08:17)
[2024-03-25] MEDS: Levothyroxine 75 MCG Tablet PO (08:17)
[2024-03-25 08:30] LABS: Bedside Glucose 215 mg/dL (74-106)
--- NOTE | 2024-03-25 09:00 | CASEMGMT ---
Addendum entered by Isaura Beckford 03/25/24 09:40: Pt will return under her MCR benefits. Isaura Beckford DC Planning Asst. Original Note: Discharge Planning Updates sent to [facility]. Asked if pt was being skilled. Awaiting response. Isaura Beckford DC Planning Asst.
[2024-03-25] MEDS: Insulin Glargine-YFGN 100 UNIT/ML Pen 22 UNIT SC (10:19)
[2024-03-25] MEDS: FLU VACCINE **HIGH DOSE** TV 24-25 180 MCG/0.5 ML SYRINGE IM (10:20)
--- NOTE | 2024-03-25 11:02 | CASEMGMT ---
Social Work Power of corporate associate attorney for healthcare scanned into [employer], with living will provision marked. Son Raquel Bill is listed as healthcare power of corporate associate attorney. MADHURI Neal
[2024-03-25 12:02] LABS: Bedside Glucose 198 mg/dL (74-106)
--- NOTE | 2024-03-25 12:43 | PCM.PN.REN ---
Subjective Subjective no new events Objective Data Objective Data Vital Signs: Vital Signs Temp Pulse Resp BP Pulse Ox O2 Del Method O2 Flow Rate 98.6 F 89 24 H 126/61 H 94 Room Air 3 03/25/24 10:00 03/25/24 10:00 03/25/24 10:00 03/25/24 10:00 03/25/24 10:00 03/25/24 10:00 03/25/24 07:41 FiO2 40 03/24/24 07:10 Oxygen Flow Rate (L/min) 3 Oxygen Delivery Method Room Air Weight: 97 kg Body Mass Index (BMI) 31.6 Intake & Output: Intake and Output for Last 24 Hours 03/23/24 03/24/24 03/25/24 23:59 23:59 23:59 Intake Total 443.45 / 566.45 261 / 261 Output Total 1200 / 1900 2600 / 2600 Balance -756.55 / -1333.55 -2339 / -2339 Lab / Micro Data 03/25/24 05:42 03/25/24 05:42 Labs: Laboratory Results - last 24 hr 03/24/24 11:16: POC Glucose 372 H 03/24/24 15:00: Troponin I High Sens 48 03/24/24 16:39: POC Glucose 316 H 03/24/24 21:25: POC Glucose 233 H 03/25/24 05:42: WBC 9.7, RBC 3.79 L, Hgb 9.9 L, Hct 30.7 L, MCV 81.0 D, MCH 26.1 L, MCHC 32.2, RDW Std Deviation 44.2 H, RDW Coeff of Don 15.2 H, Plt Count 207, MPV 11.4, Immature Gran % (Auto) 0.400, Neut % (Auto) 55.7, Lymph % (Auto) 32.1, [place] % (Auto) 8.6, Eos % (Auto) 2.7, Baso % (Auto) 0.5, Absolute Neuts (auto) 5.4, Absolute Lymphs (auto) 3.10, Nucleated RBC % 0, Sodium 140, Potassium 3.6, Chloride 113 H, Carbon Dioxide 25.0, Anion Gap 2 L, BUN 31 H, Creatinine 2.72 H, Estim Creat Clear Calc 21.76, Est GFR (MDRD) Af Amer 22 L, Est GFR (MDRD) Non-Af 18 L, BUN/Creatinine Ratio 11.4, Glucose 199 H, Calcium 8.7, Phosphorus 3.6, Magnesium 1.8 03/25/24 08:13: POC Glucose 215 H 03/25/24 11:37: POC Glucose 198 H Physical Exam Narrative Alert awake oriented x 3 no obvious distress no pallor no icterus no JVD s1s2 no murmurs lungs rales abdomen soft no organomegaly no edema no cyanosis anand + Assessment & Plan Assessment/Plan (1) Chronic kidney disease: (2) HELENA (acute kidney injury): PLAN: Her primary care physician is with [facility] [employer]. Reviewed lab data from [facility]. It seems she has known history of CKD stage IV, baseline creatinine around 2.4 for several years now. Last urine albumin creatinine ratio was less than 0.5 g. Last echocardiogram with ejection fraction of 25%, congestive heart failure with low ejection fraction. Chest x-ray looks pretty wet. Has lower extremity edema. Unable to tell me her baseline weight. responded well to IV lasix. breathing looks good. on room air. continue lasix PCU status but in ICU cr is better
[2024-03-25 14:25] LABS: Allen Test Positive; Base Excess -6 mmol/L (-2 to +2); Bicarbonate 20.8 mmol/L (22-26); Blood Gas Specimen Type ART; Mode Not entered; O2 Delivery Device NRB; PO2 123 mmHG (75-100); SITE R Radial; SO2 98 % (95-99); Total Carbon Dioxide 22 mmol/L; pCO2 41.9 mmHg (35-45)
[2024-03-25 16:43] LABS: Bedside Glucose 168 mg/dL (74-106)
--- NOTE | 2024-03-25 20:23 | CPS ---
Patient refused PAP therapy for night time use
[2024-03-25] MEDS: Atorvastatin Calcium 40 MG Tablet PO (21:17)
[2024-03-25] MEDS: Insulin Glargine-YFGN 100 UNIT/ML Pen 10 UNIT SC (21:17)
[2024-03-25 21:49] LABS: Bedside Glucose 201 mg/dL (74-106)
[2024-03-26 04:00] VITALS: BP 114/63; PULSE 76; RESP 23; TEMP 36.7; O2SAT 93
[2024-03-26 05:13] VITALS: BMI 30.6
[2024-03-26] MEDS: Levothyroxine 75 MCG Tablet PO (05:56)
[2024-03-26] MEDS: Furosemide 100 MG/10 ML Vial 60 MG IV (05:56)
[2024-03-26 06:28] LABS: Absolute Lymphocyte Count 2.63 X10^3/uL (0.83-4.51); Absolute Neutrophil Count 4.5 X10^3/uL (2.0-7.7); Basophil# 0.06 X10^3/uL; Basophil% 0.7 % (0-1); Eosinophil# 0.39 X10^3/uL; Eosinophils% 4.7 % (0-5); Hematocrit 32.4 % (37-47); Hemoglobin 10.6 g/dL (12.0-15.0); Lymphocyte # 2.63 X10^3/ul (0.83-4.51); Lymphocyte % 31.7 % (19-41); Mean Corp Hgb Conc 32.7 g/dL (32-36); Mean Corpuscular Volume 82.4 fL (81-99); Mean Platelet Vol. 11.7 fl (6.2-12.0); Monocyte% 8.4 % (0-10); NRBC Flagged by Analyzer 0 % (0-5); Neutrophil # 4.48 X10^3/uL (2.7-7.7); Neutrophil % 54.1 % (47-70); Platelet Count 212 K/mm3 (150-450); RBC Distribution Width CV 15.1 % (11.6-14.6); RBC Distribution Width SD 45.6 fl (35.1-43.9); Red Blood Count 3.93 M/mm3 (4.2-5.4); White Blood Count 8.3 K/mm3 (4.4-11.0)
[2024-03-26 06:34] LABS: Anion Gap 6 (5-15); BUN 34 mg/dL (7-18); BUN/Creat Ratio 12.1 RATIO (10-20); Calcium,Total 9.2 mg/dL (8.5-10.1); Chloride 112 mmol/L (98-107); EST Glomerular Filtration Rate 18 mL/min (>60); Est Glom Filt Rate - Afr Amer 21 mL/min (>60); Estimated Creatinine Clearance 20.78 ml/min; Glucose 177 mg/dL (74-106); Potassium 3.7 mmol/L (3.5-5.1); Sodium Level 142 mmol/L (136-145)
[2024-03-26 06:57] VITALS: O2SAT 98
--- NOTE | 2024-03-26 08:03 | PN.HOSP_ITS ---
Reason for Visit Reason for Visit: Diagnoses Acute on chronic systolic (congestive) heart failure (03/24/24) Acute respiratory failure with hypoxia (03/24/24) Acute kidney failure, unspecified (03/24/24) Chronic kidney disease, unspecified (03/24/24) Subjective Subjective Patient seen appears to be back to her baseline. Did switch Lasix from IV Lasix to p.o. Lasix. Patient be assessed for possible discharge and consultation with case management Objective Data Objective Data Vital Signs: Vital Signs Temp Pulse Resp BP Pulse Ox O2 Del Method O2 Flow Rate 98.0 F 76 23 H 114/63 98 Room Air 3 03/26/24 04:00 03/26/24 04:00 03/26/24 04:00 03/26/24 04:00 03/26/24 06:57 03/26/24 06:57 03/25/24 07:41 FiO2 40 03/24/24 07:10 Oxygen Flow Rate (L/min) 3 Oxygen Delivery Method Room Air Weight: 93.7 kg Body Mass Index (BMI) 30.6 Intake & Output: Intake and Output for Last 24 Hours 03/24/24 03/25/24 03/26/24 23:59 23:59 23:59 Intake Total 443.45 / 566.45 501 / 501 Output Total 1200 / 1900 4100 / 4100 650 / 650 Balance -756.55 / -1333.55 -3599 / -3599 -650 / -650 Lab / Micro Data 03/26/24 06:06 03/26/24 06:06 Labs: Laboratory Results - last 24 hr 03/25/24 08:13: POC Glucose 215 H 03/25/24 11:37: POC Glucose 198 H 03/25/24 16:23: POC Glucose 168 H 03/25/24 21:20: POC Glucose 201 H 03/26/24 06:06: WBC 8.3, RBC 3.93 L, Hgb 10.6 L, Hct 32.4 L, MCV 82.4, MCH 27.0, MCHC 32.7, RDW Std Deviation 45.6 H, RDW Coeff of Don 15.1 H, Plt Count 212, MPV 11.7, Immature Gran % (Auto) 0.400, Neut % (Auto) 54.1, Lymph % (Auto) 31.7, [place] % (Auto) 8.4, Eos % (Auto) 4.7, Baso % (Auto) 0.7, Absolute Neuts (auto) 4.5, Absolute Lymphs (auto) 2.63, Nucleated RBC % 0, Sodium 142, Potassium 3.7, Chloride 112 H, Carbon Dioxide 25.0, Anion Gap 6, BUN 34 H, Creatinine 2.80 H, Estim Creat Clear Calc 20.78, Est GFR (MDRD) Af Amer 21 L, Est GFR (MDRD) Non-Af 18 L, BUN/Creatinine Ratio 12.1, Glucose 177 H, Calcium 9.2 ABG Data ABG results: ABG 03/24/24 06:50 Specimen Type ART Sample Site R Radial pH 7.30 L Bicarbonate Actual 20.8 L Total CO2 22 Base Excess -6 L O2 Saturation 98 O2 % 100.0 ABG pCO2 41.9 ABG pO2 123 H Neri Test Positive O2 Delivery Device NRB Vent Mode Not entered Physical Exam Narrative GENERAL: In no apparent distress HEENT: Atraumatic; normocephalic EYES; Anicteric, Normal Conjunctiva NECK; supple, normal thyroid, RESPIRATORY: Diminished to auscultation CARDIOVASCULAR: Regular S1 S2, GI: soft, normoactive bowel sounds, : No Renal angle tenderness; EXTREMITIES: Bipedal edema, no clubbing, MUSCULOSKELETAL: no muscle wasting NEURO: Awake; no lateralizing signs. SKIN: No Rash PSYCH; Flat affect Assessment & Plan Assessment/Plan (1) Acute exacerbation of CHF (congestive heart failure): QUALIFIERS: Heart failure type: systolic Qualified Code(s): I 50.23 - Acute on chronic systolic (congestive) heart failure (2) Acute hypoxemic respiratory failure: PLAN: Plan Patient is a 74-year-old lady with history of chronic systolic heart failure with LVEF of 20 to 25% presenting with progressive shortness of breath and significant hypoxia 1. Acute hypoxic respiratory failure ? Secondary to acute congestive heart failure. Patient placed on noninvasive ventilation BiPAP admitted to the intensive care unit for further management ? 03/25/2024; patient has been weaned off BiPAP ? 03/26/2024; patient is on nasal cannula 2. Acute on chronic congestive heart failure with reduced ejection fraction -2D echo from October 2023 demonstrate mildly dilated left ventricle. LV anterior and apical akinesis with thinning. Estimated LV EF 20 to 25%. Patient presented with acute exacerbation admitted to the intensive care unit treatment initiated with diuretic therapy with furosemide, nitroglycerin drip as well as noninvasive ventilation. Patient was also placed on low-sodium diet, strict input and output Daily weights ? 03/25/2024; a negative fluid balance. Patient was on nitroglycerin drip has since been discontinued ? 03/26/2024; switch Lasix from IV to p.o. release 3. Acute kidney injury superimposed chronic kidney disease stage IV -Patient baseline creatinine from November 2023 was 1.8 creatinine on admission was 3.08 due to suspected hypoperfusion contributing to worsening kidney function do expect improvement with improvement in her congestive heart failure. Consult was placed to nephrology 03/25/2024; kidney function did improve with diuresis repeat labs ordered in a.m. 4. Diabetes mellitus type II -patient's oral hypoglycemics held. Placed on long acting insulin, Accu-Cheks a.c. and at bedtime and covered with sliding scale insulin ? 03/25/2024; blood glucose levels not controlled adjusted insulin levels 5. Hypothyroidism ? Patient is on levothyroxine home dose continued 6. Coronary artery disease ? With previous [place] 7. GERD ? On PPI 8. Class I obesity with BMI of 33.2 -Complicating care weight loss advised 9. Lactic acidosis ? Secondary to increased work of breathing no evidence of infection 10. DVT prophylaxis ? Subcu heparin 11. Physical deconditioning ? Requested for PT OT eval and social work therapist to assist with discharge planning Time spent in the patient's overall evaluation,decision-making process, review of diagnostic data, adjustment of management, discussion with other providers, nursing nursing and ancillary staff involved in patient's care documentation, 36 minute Charges/Coding Visit Charges Inpatient E&M: 84517 Subs Hosp L2
[2024-03-26] MEDS: Insulin Lispro 100 UNIT/ML INSULN.PEN SC (08:47)
--- NOTE | 2024-03-26 09:40 | CASEMGMT ---
Social Work Pt can return to [facility] when medically ready. Physician notified and pt will discharge today. DC mail handler assistant updated and to complete dc. Disposition: Return to [place], skilled level of care SKYLAR Gonzalez
[2024-03-26 09:42] VITALS: PULSE 75
[2024-03-26] MEDS: Furosemide 40 MG Tablet PO (09:42)
[2024-03-26] MEDS: Pantoprazole Sodium 40 MG Tablet PO (09:42)
[2024-03-26] MEDS: Memantine Hydrochloride 10 MG Tablet PO (09:42)
[2024-03-26] MEDS: Metoprolol Tartrate 50 MG Tablet PO (09:42)
[2024-03-26] MEDS: Calcium Carb/Vitamin D 1 TABLET Tablet PO (09:42)
[2024-03-26] MEDS: Potassium Chloride Oral Tablet 20 MEQ PO (09:42)
[2024-03-26] MEDS: Clopidogrel Bisulfate 75 MG Tablet PO (09:42)
[2024-03-26] MEDS: Heparin Injection (Vial) 5,000 UNIT/ML VIAL 5000 UNIT SC (09:45)
--- NOTE | 2024-03-26 09:58 | TREXTCAR_ITS ---
Diet Diet Order/Speech Therapy: 03/24/24 08:35 Diet: Consistent Carb - Calorie Controlled Food consistency:: Pureed Liquid Consistency:: Regular/Thin Dietary Modifications:: Cardiac / Heart Healthy Diet Comments: 1-1 supervision, feed only when alert How many daily calories?: 1800 calorie Routine Orders/Code Status Code Status: Full Code Problem/Diagnosis (1) Acute exacerbation of CHF (congestive heart failure): Status: Chronic Code(s): I50.9 - Heart failure, unspecified (2) Acute hypoxemic respiratory failure: Status: Acute Code(s): J96.01 - Acute respiratory failure with hypoxia Plan Patient is a 74-year-old lady with history of chronic systolic heart failure with LVEF of 20 to 25% presenting with progressive shortness of breath and significant hypoxia 1. Acute hypoxic respiratory failure ? Secondary to acute congestive heart failure. Patient placed on noninvasive ventilation BiPAP admitted to the intensive care unit for further management ? 03/25/2024; patient has been weaned off BiPAP ? 03/26/2024; patient is on nasal cannula 2. Acute on chronic congestive heart failure with reduced ejection fraction -2D echo from October 2023 demonstrate mildly dilated left ventricle. LV anterior and apical akinesis with thinning. Estimated LV EF 20 to 25%. Patient presented with acute exacerbation admitted to the intensive care unit treatment initiated with diuretic therapy with furosemide, nitroglycerin drip as well as noninvasive ventilation. Patient was also placed on low-sodium diet, strict input and output Daily weights ? 03/25/2024; a negative fluid balance. Patient was on nitroglycerin drip has since been discontinued ? 03/26/2024; switch Lasix from IV to p.o. lasix 3. Acute kidney injury superimposed chronic kidney disease stage IV -Patient baseline creatinine from November 2023 was 1.8 creatinine on admission was 3.08 due to suspected hypoperfusion contributing to worsening kidney function do expect improvement with improvement in her congestive heart failure. Consult was placed to nephrology 03/25/2024; kidney function did improve with diuresis repeat labs ordered in a.m. 4. Diabetes mellitus type II -patient's oral hypoglycemics held. Placed on long acting insulin, Accu-Cheks a.c. and at bedtime and covered with sliding scale insulin ? 03/25/2024; blood glucose levels not controlled adjusted insulin levels 5. Hypothyroidism ? Patient is on levothyroxine home dose continued 6. Coronary artery disease ? With previous [place] 7. GERD ? On PPI 8. Class I obesity with BMI of 33.2 -Complicating care weight loss advised 9. Lactic acidosis ? Secondary to increased work of breathing no evidence of infection 10. DVT prophylaxis ? Subcu heparin 11. Physical deconditioning ? Requested for PT OT eval and oncology social work to assist with discharge planning Time spent in the patient's overall evaluation,decision-making process, review of diagnostic data, adjustment of management, discussion with other providers, nursing nursing and ancillary staff involved in patient's care documentation, 36 minute Allergies/Procedures Done in Hospital Allergies ibuprofen Allergy (Verified 03/24/24 06:31) Itching lisinopril Allergy (Verified 03/24/24 06:31) Other Penicillins Allergy (Verified 03/24/24 06:31) Itching tramadol HCl (From Ultram) Allergy (Verified 03/24/24 06:31) Other Type of Care/Length of Stay Estimated LOS: More Than 30 Days Type of Care Needed: Intermediate Rehab Potential: Fair Prognosis: Fair Additional Orders/Day of Discharge Day of Discharge: 03/26/24 Dietary and Speech Recommendations Dietitian Recommendations/Changes: Continue 1800 ochoa consistent cho / cardiac diet Will monitor for changes in pt nutritional status (balaji po intake and wt) and make additional rec (ie glucerna shake ONS) as indicated Discharge Plan Admission Admit Date/Time: 03/24/24 07:30 Attending Provider: Emir Villa Primary Care Provider: Adalberto Truong Consulting Providers: Megan Nichols Discharge Orders/Prescriptions Prescriptions: New acetaminophen 325 mg Tablet 650 mg PO Q6H PRN PRN (Reason: Pain 1-10 Or Fever>100.7) Qty: 0 0RF albuterol sulfate 2.5 mg /3 mL (0.083 %) Solution For Nebulization 2.5 mg inhalation Q2H PRN PRN (Reason: SOB &/OR WHEEZING) Qty: 0 0RF Continued (DME) pen needle, diabetic [Comfort EZ Pen [place]] 31 gauge x 5/16 needle See Rx Instructions .ROUTE .MEDSUPPLY Qty: 30 Rx Instructions: test blood sugar six times daily Januvia 25 mg tablet 25 mg PO DAILY atorvastatin 40 MG tablet 40 mg PO QHS clopidogrel 75 MG tablet 75 mg PO DAILY levothyroxine 75 MCG tablet 75 mcg PO DAILY pantoprazole 40 MG tablet 40 mg PO DAILY metoprolol tartrate 50 MG tablet 50 mg PO BID docusate sodium 100 MG capsule 100 mg PO BID Patient Comments: constipation memantine 10 mg tablet 10 mg PO DAILY Patient Comments: at bedtime polyethylene glycol 3350 [ClearLax] 17 gram/dose powder 17 g PO DAILY PRN (Reason: constipation) Calcium 600 + D(3) 600 mg-5 mcg (200 unit) capsule 1 cap PO DAILY insulin lispro [Humalog KwikPen Insulin] 100 unit/mL Insulin Pen See Protocol subcut ACHS Qty: 0 0RF Protocol: 4. Sliding Scale Insulin High-Med Dosing Condition: 150-199 mg/dl = 2 units Condition: 200-259 mg/dl = 4 units Condition: 260-324 mg/dl = 6 units Condition: 325-374 mg/dl = 8 units Condition: 375-409 mg/dl = 10 units Condition: 410-449 mg/dl = 11 units Condition: Greater than 449 call physician Protocol Text: - Use for Total Daily Dose of Insulin 56-80 units - Patient who are insulin resistant or septic HIGH MEDIUM DOSING ALGORITHM nystatin [Nyamyc] 100,000 unit/gram Powder 1 applic topical BID Qty: 0 0RF Protocol: *Topical Application Instructions APPLICATION INSTRUCTIONS: apply to bilateral groin menthol-zinc oxide [Calmoseptine] 0.44-20.6 % Ointment 1 applic topical BID Qty: 0 0RF Protocol: *Topical Application Instructions APPLICATION INSTRUCTIONS: Apply to affected area furosemide [Lasix] 40 mg tablet 40 mg PO BID Qty: 1 0RF potassium chloride 20 mEq tablet extended release 20 meq PO DAILY Qty: 1 0RF bisacodyl 10 mg suppository 10 mg RI DAILY PRN (Reason: no BM after MOM) Changed insulin glargine [Basaglar KwikPen U-100 Insulin] 100 unit/mL (3 mL) insulin pen 10 unit subcut BID 30 Days Qty: 0 0RF Discontinued insulin lispro [Humalog KwikPen Insulin] 100 unit/mL Insulin Pen 15 unit subcut TIDAC Qty: 0 0RF magnesium hydroxide [Milk of Magnesia] 400 mg/5 mL suspension 400 mg PO DAILY PRN (Reason: constipation) Referrals / Follow Up: Adalberto Truong MD [Primary Care Provider] - Within 2 Weeks Disposition Disposition (needs filled in before D/C Order can be placed): Residential Facility (1) Acute exacerbation of CHF (congestive heart failure) Qualifiers: Heart failure type: systolic Qualified Code(s): I50.23 - Acute on chronic systolic (congestive) heart failure
[2024-03-26 10:00] VITALS: BP 121/57; PULSE 78; RESP 16; TEMP 36.8; O2SAT 99
--- NOTE | 2024-03-26 10:06 | PCM.DC.SUM ---
Providers Date of Admission: 03/24/24 Primary Care Physician: Dr. Adalberto Truong MD Consultations 03/24/24 09:29 Consult: Nephrology Routine Consulting Provider: Megan Nichols Reason for Consult: HELENA EMERGENT Consult: No MD Notified: Yes Date Notified: 03/24/24 Time Notified: 09:29 Method of Notification: Answering Service Reason For Visit: ACUTE HYPOXIC RESPIRATORY FAILURE Diagnosis Discharge Diagnosis (1) Acute exacerbation of CHF (congestive heart failure): Status: Chronic Code(s): I50.9 - Heart failure, unspecified Qualifiers: Heart failure type: systolic Qualified Code(s): I50.23 - Acute on chronic systolic (congestive) heart failure (2) Acute hypoxemic respiratory failure: Status: Acute Code(s): J96.01 - Acute respiratory failure with hypoxia Plan Patient is a 74-year-old lady with history of chronic systolic heart failure with LVEF of 20 to 25% presenting with progressive shortness of breath and significant hypoxia 1. Acute hypoxic respiratory failure ? Secondary to acute congestive heart failure. Patient placed on noninvasive ventilation BiPAP admitted to the intensive care unit for further management ? 03/25/2024; patient has been weaned off BiPAP ? 03/26/2024; patient is on nasal cannula 2. Acute on chronic congestive heart failure with reduced ejection fraction -2D echo from October 2023 demonstrate mildly dilated left ventricle. LV anterior and apical akinesis with thinning. Estimated LV EF 20 to 25%. Patient presented with acute exacerbation admitted to the intensive care unit treatment initiated with diuretic therapy with furosemide, nitroglycerin drip as well as noninvasive ventilation. Patient was also placed on low-sodium diet, strict input and output Daily weights ? 03/25/2024; a negative fluid balance. Patient was on nitroglycerin drip has since been discontinued ? 03/26/2024; switch Lasix from IV to p.o. lasix 3. Acute kidney injury superimposed chronic kidney disease stage IV -Patient baseline creatinine from November 2023 was 1.8 creatinine on admission was 3.08 due to suspected hypoperfusion contributing to worsening kidney function do expect improvement with improvement in her congestive heart failure. Consult was placed to nephrology 03/25/2024; kidney function did improve with diuresis repeat labs ordered in a.m. 4. Diabetes mellitus type II -patient's oral hypoglycemics held. Placed on long acting insulin, Accu-Cheks a.c. and at bedtime and covered with sliding scale insulin ? 03/25/2024; blood glucose levels not controlled adjusted insulin levels 5. Hypothyroidism ? Patient is on levothyroxine home dose continued 6. Coronary artery disease ? With previous CT 7. GERD ? On PPI 8. Class I obesity with BMI of 33.2 -Complicating care weight loss advised 9. Lactic acidosis ? Secondary to increased work of breathing no evidence of infection 10. DVT prophylaxis ? Subcu heparin 11. Physical deconditioning ? Requested for PT OT eval and social worker delinquency prevention to assist with discharge planning Time spent in the patient's overall evaluation,decision-making process, review of diagnostic data, adjustment of management, discussion with other providers, nursing nursing and ancillary staff involved in patient's care documentation, 36 minute Medications at Discharge Home Medications atorvastatin 40 mg tablet 40 mg PO QHS cholesterol 05/27/13 clopidogrel 75 mg tablet 75 mg PO DAILY blood clotting 05/27/13 docusate sodium 100 mg capsule 100 mg PO BID stool 05/27/13 levothyroxine 75 mcg tablet 75 mcg PO DAILY thyroid 05/27/13 metoprolol tartrate 50 mg tablet 50 mg PO BID heart 05/27/13 pantoprazole 40 mg tablet,delayed release 40 mg PO DAILY stomach 05/27/13 pen needle, diabetic 31 gauge x 5/16 (Comfort EZ Pen [place]) #30 ea 06/05/17 sitagliptin phosphate 25 mg tablet (Januvia) 25 mg PO DAILY DMII 06/06/23 calcium 600 mg (as carbonate)-vitamin D3 5 mcg (200 unit) capsule (Calcium 600 + D(3)) 1 cap PO DAILY calcium 10/08/23 memantine 10 mg tablet 10 mg PO DAILY dementia 10/08/23 polyethylene glycol 3350 17 gram/dose oral powder (ClearLax) 17 g PO DAILY PRN constipation 10/08/23 insulin lispro 100 unit/mL subcutaneous pen (Humalog KwikPen (U-100) Insulin) See Protocol subcut ACHS DM #0 mL 10/12/23 bisacodyl 10 mg rectal suppository 10 mg ME DAILY PRN no BM after MOM 11/18/23 furosemide 40 mg tablet (Lasix) 40 mg PO BID CHF #1 TAB 12/10/23 menthol 0.44 %-zinc oxide 20.6 % topical ointment (Calmoseptine) 1 applic topical BID excoriation #0 grams 12/10/23 nystatin 100,000 unit/gram topical powder (Nyamyc) 1 applic topical BID yeast #0 grams 12/10/23 potassium chloride 20 mEq tablet,extended release 20 meq PO DAILY hypokalemia #1 TAB 12/10/23 acetaminophen 325 mg tablet 650 mg (2 x 325 mg) PO Q6H PRN PRN Pain 1-10 Or Fever>100.7 #0 tabs 03/26/24 albuterol sulfate 2.5 mg/3 mL (0.083 %) solution for nebulization 2.5 mg (3 mL) inhalation Q2H PRN PRN SOB &/OR WHEEZING #0 mL 03/26/24 insulin glargine 100 unit/mL (3 mL) subcutaneous pen (Basaglar KwikPen U-100 Insulin) 10 unit (0.1 mL) subcut BID dmII 30 days #0 mL 03/26/24 Physical Exam Narrative GENERAL: In no apparent distress HEENT: Atraumatic; normocephalic EYES; Anicteric, Normal Conjunctiva NECK; supple, normal thyroid, RESPIRATORY: Diminished to auscultation CARDIOVASCULAR: Regular S1 S2, GI: soft, normoactive bowel sounds, : No Renal angle tenderness; EXTREMITIES: Bipedal edema, no clubbing, MUSCULOSKELETAL: no muscle wasting NEURO: Awake; no lateralizing signs. SKIN: No Rash PSYCH; Flat affect Weight / BMI Weight Weight: 93.7 kg Body Mass Index (BMI) 30.6 ABG / Lab / Microbiology Data 03/26/24 06:06 03/26/24 06:06 Laboratory: Laboratory Results - last 24 hr 03/25/24 11:37: POC Glucose 198 H 03/25/24 16:23: POC Glucose 168 H 03/25/24 21:20: POC Glucose 201 H 03/26/24 06:06: WBC 8.3, RBC 3.93 L, Hgb 10.6 L, Hct 32.4 L, MCV 82.4, MCH 27.0, MCHC 32.7, RDW Std Deviation 45.6 H, RDW Coeff of Don 15.1 H, Plt Count 212, MPV 11.7, Immature Gran % (Auto) 0.400, Neut % (Auto) 54.1, Lymph % (Auto) 31.7, [place] % (Auto) 8.4, Eos % (Auto) 4.7, Baso % (Auto) 0.7, Absolute Neuts (auto) 4.5, Absolute Lymphs (auto) 2.63, Nucleated RBC % 0, Sodium 142, Potassium 3.7, Chloride 112 H, Carbon Dioxide 25.0, Anion Gap 6, BUN 34 H, Creatinine 2.80 H, Estim Creat Clear Calc 20.78, Est GFR (MDRD) Af Amer 21 L, Est GFR (MDRD) Non-Af 18 L, BUN/Creatinine Ratio 12.1, Glucose 177 H, Calcium 9.2 Microbiology: Microbiology 03/24/24 06:40 Blood Culture (Wb) - Anticubital Left Blood Culture - Preliminary No growth in 48 hours. ABG: ABG 03/24/24 06:50 Specimen Type ART Sample Site R Radial pH 7.30 L Bicarbonate Actual 20.8 L Total CO2 22 Base Excess -6 L O2 Saturation 98 O2 % 100.0 ABG pCO2 41.9 ABG pO2 123 H Neri Test Positive O2 Delivery Device NRB Vent Mode Not entered D/C Instructions Discharge Diet: 1800 Calorie Control Diet and 8 Cup Fluid Restriction Discharge Activity: Return to Normal Activity Call your doctor if you observe: Fever of 101 or Higher, Shortness of breath, Fainting spells and Chest pain Meaningful Use Info Meaningful Use Meaningful Use Diagnoses (Choose all that apply): CHF CHF CONSTANCE/ARB ordered at discharge?: No Reason CONSTANCE/ARB not ordered?: Worsening renal function Documented LVEF (%): 25 Ischemic Stroke Statin Dosing Therapy Reference: STATIN DOSE THERAPY REFERENCE: * Patients > 75 years receive moderate or high dose statin therapy. * Patients 75 years or YOUNGER should receive HIGH intensity statin dose unless contraindicated. You will be required to document reason for non-treatment if statin daily dose does not meet guidelines. HIGH DOSE STATIN THERAPY DAILY Atorvastatin > than or = to 40 mg Rosuvastatin > than or = to 20 mg Amlodipine + Atorvastatin > than or = to 2.5/40 mg Ezetimibe + Simvastatin 10/80 mg Simvastatin 80mg Discharge Plan Admission Admit Date/Time: 03/24/24 07:30 Attending Provider: Emir Villa Primary Care Provider: Adalberto Truong Consulting Providers: Tanphaichitr,Natthavat Discharge Orders/Prescriptions Prescriptions: New acetaminophen 325 mg Tablet 650 mg PO Q6H PRN PRN (Reason: Pain 1-10 Or Fever>100.7) Qty: 0 0RF albuterol sulfate 2.5 mg /3 mL (0.083 %) Solution For Nebulization 2.5 mg inhalation Q2H PRN PRN (Reason: SOB &/OR WHEEZING) Qty: 0 0RF Continued (DME) pen needle, diabetic [Comfort EZ Pen [place]] 31 gauge x 5/16 needle See Rx Instructions .ROUTE .MEDSUPPLY Qty: 30 Rx Instructions: test blood sugar six times daily Januvia 25 mg tablet 25 mg PO DAILY atorvastatin 40 MG tablet 40 mg PO QHS clopidogrel 75 MG tablet 75 mg PO DAILY levothyroxine 75 MCG tablet 75 mcg PO DAILY pantoprazole 40 MG tablet 40 mg PO DAILY metoprolol tartrate 50 MG tablet 50 mg PO BID docusate sodium 100 MG capsule 100 mg PO BID Patient Comments: constipation memantine 10 mg tablet 10 mg PO DAILY Patient Comments: at bedtime polyethylene glycol 3350 [ClearLax] 17 gram/dose powder 17 g PO DAILY PRN (Reason: constipation) Calcium 600 + D(3) 600 mg-5 mcg (200 unit) capsule 1 cap PO DAILY insulin lispro [Humalog KwikPen Insulin] 100 unit/mL Insulin Pen See Protocol subcut ACHS Qty: 0 0RF Protocol: 4. Sliding Scale Insulin High-Med Dosing Condition: 150-199 mg/dl = 2 units Condition: 200-259 mg/dl = 4 units Condition: 260-324 mg/dl = 6 units Condition: 325-374 mg/dl = 8 units Condition: 375-409 mg/dl = 10 units Condition: 410-449 mg/dl = 11 units Condition: Greater than 449 call physician Protocol Text: - Use for Total Daily Dose of Insulin 56-80 units - Patient who are insulin resistant or septic HIGH MEDIUM DOSING ALGORITHM nystatin [Nyamyc] 100,000 unit/gram Powder 1 applic topical BID Qty: 0 0RF Protocol: *Topical Application Instructions APPLICATION INSTRUCTIONS: apply to bilateral groin menthol-zinc oxide [Calmoseptine] 0.44-20.6 % Ointment 1 applic topical BID Qty: 0 0RF Protocol: *Topical Application Instructions APPLICATION INSTRUCTIONS: Apply to affected area furosemide [Lasix] 40 mg tablet 40 mg PO BID Qty: 1 0RF potassium chloride 20 mEq tablet extended release 20 meq PO DAILY Qty: 1 0RF bisacodyl 10 mg suppository 10 mg ME DAILY PRN (Reason: no BM after MOM) Changed insulin glargine [Basaglar KwikPen U-100 Insulin] 100 unit/mL (3 mL) insulin pen 10 unit subcut BID 30 Days Qty: 0 0RF Discontinued insulin lispro [Humalog KwikPen Insulin] 100 unit/mL Insulin Pen 15 unit subcut TIDAC Qty: 0 0RF magnesium hydroxide [Milk of Magnesia] 400 mg/5 mL suspension 400 mg PO DAILY PRN (Reason: constipation) Referrals / Follow Up: Adalberto Truong MD [Primary Care Provider] - Within 2 Weeks Disposition Disposition (needs filled in before D/C Order can be placed): Longterm Facility Charges/Coding Visit Charges Inpatient E&M: 82226 Disch Hosp >30min
--- NOTE | 2024-03-26 10:29 | CASEMGMT ---
Discharge Planning Discharge orders, signed med list, and transport time sent via [facility] to [facility]. Physicians will transport patient by cot at 11a. Nursing and SW updated. VM left for pts son (Harshil). Isaura Beckford DC Planning Asst.
--- NOTE | 2024-03-26 11:06 | NURSING ---
Report given to RN at [facility]
[2024-03-26 15:33] LABS: Bedside Glucose 183 mg/dL (74-106)
== END 2024-03-26 11:04 | disposition skilled nursing facility (03) | DRG 291 ==
LOC: ED 07:49 → ICU 07:53
PROVIDERS: Admitting Provider Internal Medicine; Emergency Provider Emergency Medicine; PCP Family Medicine; Visit Provider Internal Medicine
DX: I13.0 Hypertensive heart and chronic kidney disease with heart failure and stage 1 through stage 4 chronic kidney disease, or unspecified chronic kidney disease (principal); J96.01 Acute respiratory failure with hypoxia; I50.23 Acute on chronic systolic (congestive) heart failure; E87.20 Acidosis, unspecified; N17.9 Acute kidney failure, unspecified; N18.4 Chronic kidney disease, stage 4 (severe); T17.998A Other foreign object in respiratory tract, part unspecified causing other injury, initial encounter; E11.42 Type 2 diabetes mellitus with diabetic polyneuropathy; F03.90 Unspecified dementia, unspecified severity, without behavioral disturbance, psychotic disturbance, mood disturbance, and anxiety; E89.0 Postprocedural hypothyroidism; Z68.33 Body mass index [BMI] 33.0-33.9, adult; K58.9 Irritable bowel syndrome, unspecified; K21.9 Gastro-esophageal reflux disease without esophagitis; E78.2 Mixed hyperlipidemia; I25.5 Ischemic cardiomyopathy; Z79.4 Long term (current) use of insulin; E11.22 Type 2 diabetes mellitus with diabetic chronic kidney disease; I25.10 Atherosclerotic heart disease of native coronary artery without angina pectoris; E66.811 Obesity, class 1; Z23 Encounter for immunization; Z79.84 Long term (current) use of oral hypoglycemic drugs; Z79.82 Long term (current) use of aspirin; Z79.02 Long term (current) use of antithrombotics/antiplatelets; Z79.890 Hormone replacement therapy; Z87.891 Personal history of nicotine dependence; Z79.899 Other long term (current) drug therapy
CPT/HCPCS: 36600; 51702; 71045; 80048; 80053; 82803; 82962; 83605; 83735; 83880; 84100; 84484; 85025; 87040; 90662; 92610; 93005; 94002; 94640; 94660; 94762; 97802; 99252; 99285; A4216; G0463; J1940